=== PATIENT | male | born 1940 | race Caucasian/White ===

== ENCOUNTER → 2016-04-23 | Outpatient (CLI) | payer MEDICARE, OTHER ==
[~2016-04-23] MED LIST: /ESOM40CA OR; /WARF5TA OR; ASPI1TAB PO; ATEN100T OR; ATEN50TA2 OR; CALCCHW12 OR; CARV25TA PO; DIGO0.257 OR; FLON0.05; FURO20TA2 OR; GLUC500T3 OR; HYDR25TA6 OR; LISI10TA4 OR; OCUVITE OR; QUININE SULFATE; QUININE SULFATE OR; SILDENAFIL OR; SLOWTAB OR; TYL OR; VIAG100T PO
[2016-04-23 14:27] LABS: MEAN CORPUSCULAR HEMOGLOBIN 34.3 pg (27.0-33.0); MEAN CORPUSCULAR HGB CONC 33.6 g/dl (32.0-36.5); MEAN CORPUSCULAR VOLUME 102.1 fl (80.0-96.0); RED CELL DISTRIBUTION WIDTH 12.8 % (11.5-14.5); WHITE BLOOD COUNT 5.2 K/mm3 (4.0-10.0)
[2016-04-23 14:33] LABS: ALBUMIN 3.6 GM/DL (3.2-5.2); ALBUMIN/GLOBULIN RATIO 1.5 (1.00-1.93); BILIRUBIN,TOTAL 0.3 MG/DL (0.2-1.0); CALCIUM LEVEL 8.6 MG/DL (8.8-10.2); CREATININE FOR GFR 1.27 MG/DL (0.70-1.30); GLOMERULAR FILTRATION RATE 58.9 (>42); MAGNESIUM LEVEL 2.3 MG/DL (1.8-2.4)
== END ==
LOC: M WUC 08:21
PROVIDERS: ATTEND Internal Medicine
DX: D75.89 Other specified diseases of blood and blood-forming organs (principal); I10 Essential (primary) hypertension; E78.00 Pure hypercholesterolemia, unspecified

== ENCOUNTER → 2016-05-12 | Outpatient (CLI) | payer MEDICARE, OTHER ==
[~2016-05-12] VITALS: Ht 177.8 cm; Wt 80.3 kg
[~2016-05-12] MED LIST changes: +CITA20TA4 PO; +DITR5TAB PO; +LIDOCAINE 2% INJ 100 MG/5 ML SDV (FOR ANES.) As Ordered ONE; +NS 1,000 ML IV SCH; +PROPOFOL 200 MG/20 ML VIAL As Ordered ONE; +VITA10002 PO; +XARE20TA PO
--- NOTE | 2016-05-12 11:43 | ROOR ---
Patient Name: Victor Hugo Santoyo Procedure Date: 05/12/2016 11:25 AM Date of : 1940 Age: 75 Room: [facility] Gender: Male Note Status: Finalized Procedure: Upper GI endoscopy + Biopsies Indications: Heartburn, Follow-up of Nguyen's esophagus Providers: Manuel Gomez MD Referring MD: Jason Soto MD Requesting Provider: Medicines: Monitored Anesthesia Care Complications: No immediate complications. Procedure: Pre-Anesthesia Assessment: - The heart rate, respiratory rate, oxygen saturations, blood pressure, adequacy of pulmonary ventilation, and response to care were monitored throughout the procedure. The Endoscope was introduced through the mouth, and advanced to the second part of duodenum. The upper GI endoscopy was accomplished without difficulty. The patient tolerated the procedure well. Findings: The Z-line was irregular and was found 40 cm from the incisors. Multiple biopsies were obtained with cold forceps for evaluation to rule out Nguyen's Esophagus randomly at the gastroesophageal junction. A small hiatal hernia was present. No other significant abnormalities were identified in a careful examination of the stomach. The exam of the duodenum was otherwise normal. Impression: - Z-line irregular, 40 cm from the incisors. - Small hiatal hernia. - Multiple biopsies were obtained at the gastroesophageal junction. - The examination was otherwise normal. Recommendation: - Patient has a contact number available for emergencies. The signs and symptoms of potential delayed complications were discussed with the patient. Return to normal activities tomorrow. Written discharge instructions were provided to the patient. - High fiber diet. - Discharge patient to home. - Follow an antireflux regimen. - Continue present medications. - Await pathology results. - Return to referring physician. - The findings and recommendations were discussed with the patient's family. - Check Portal Online for Path Results.([email or web address]) Manuel Gomez MD Manuel Gomez MD 05/12/2016 11:43:21 AM This report has been signed electronically. Number of Addenda: 0 Note Initiated On: 05/12/2016 11:25 AM Estimated Blood Loss: Estimated blood loss: none.
--- NOTE | 2016-05-12 12:00 | ROOR ---
Patient Name: Victor Hugo Santoyo Procedure Date: 05/12/2016 11:26 AM Date of : 1940 Age: 75 Room: [facility] Gender: Male Note Status: Finalized Procedure: Colonoscopy to Cecum + Cold Snare Polypectomy Indications: High risk colon cancer surveillance: Personal history of colonic polyps, Last colonoscopy: 2013 Providers: Manuel Gomez MD Referring MD: Jason Soto MD Requesting Provider: Medicines: Monitored Anesthesia Care Complications: No immediate complications. Procedure: Pre-Anesthesia Assessment: - The heart rate, respiratory rate, oxygen saturations, blood pressure, adequacy of pulmonary ventilation, and response to care were monitored throughout the procedure. The Colonoscope was introduced through the anus and advanced to the cecum, identified by appendiceal orifice and ileocecal valve. The colonoscopy was performed without difficulty. The patient tolerated the procedure well. The quality of the bowel preparation was excellent. Findings: The perianal and digital rectal examinations were normal. Non-bleeding internal hemorrhoids were found during retroflexion. The hemorrhoids were small and Grade I (internal hemorrhoids that do not prolapse). Scattered small-mouthed diverticula were found in the recto-sigmoid colon, sigmoid colon and descending colon. A small polyp was found in the mid ascending colon. The polyp was sessile. The polyp was removed with a cold snare. Resection and retrieval were complete. The exam was otherwise without abnormality on direct and retroflexion views. Impression: - Non-bleeding internal hemorrhoids. - Diverticulosis in the recto-sigmoid colon, in the sigmoid colon and in the descending colon. - One small polyp in the mid ascending colon, removed with a cold snare. Resected and retrieved. - The examination was otherwise normal on direct and retroflexion views. - The exam was otherwise normal to the cecum. Recommendation: - Patient has a contact number available for emergencies. The signs and symptoms of potential delayed complications were discussed with the patient. Return to normal activities tomorrow. Written discharge instructions were provided to the patient. - High fiber diet. - Discharge patient to home. - Continue present medications. - Await pathology results. - Repeat colonoscopy for symptoms only, due to age. - Check Portal Online for Path Results.([email or web address] - The findings and recommendations were discussed with the patient's family. - Resume Xarelto (rivaroxaban) at prior dose today. Manuel Gomez MD Manuel Gomez MD 05/12/2016 12:00:40 PM This report has been signed electronically. Number of Addenda: 0 Note Initiated On: 05/12/2016 11:26 AM Estimated Blood Loss: Estimated blood loss: none.
[2016-05-12 12:40] VITALS: BP 110/68
== END | disposition home or self-care (01) ==
LOC: M OPP 10:29
PROVIDERS: ATTEND Internal Medicine Gastroenterology
DX: Z12.11 Encounter for screening for malignant neoplasm of colon (principal); D12.2 Benign neoplasm of ascending colon; K64.0 First degree hemorrhoids; K57.30 Diverticulosis of large intestine without perforation or abscess without bleeding; R12 Heartburn; K22.8 Other specified diseases of esophagus; K44.9 Diaphragmatic hernia without obstruction or gangrene; K20.9 Esophagitis, unspecified; M19.90 Unspecified osteoarthritis, unspecified site; I48.91 Unspecified atrial fibrillation; H26.9 Unspecified cataract; G25.81 Restless legs syndrome; I10 Essential (primary) hypertension; Z79.01 Long term (current) use of anticoagulants; Z79.899 Other long term (current) drug therapy; Z79.51 Long term (current) use of inhaled steroids; Z79.82 Long term (current) use of aspirin; Z88.0 Allergy status to penicillin; Z88.8 Allergy status to other drugs, medicaments and biological substances

== ENCOUNTER → 2016-07-25 | Outpatient (CLI) | payer MEDICARE, OTHER ==
[~2016-07-25] MED LIST changes: +CALCTAB28 PO; +CARV6.25 PO; +DIGO0.25 PO; +DONE5TAB17 PO; +ESOM1CAP5 PO; +FLUT1SPR2; +GLUC1CAP9 PO; +KETO2SH TOP; -LIDOCAINE 2% INJ 100 MG/5 ML SDV (FOR ANES.) As Ordered ONE; +LISI10TA2 PO; +NORCOTAB PO; -NS 1,000 ML IV SCH; -PROPOFOL 200 MG/20 ML VIAL As Ordered ONE; +SLOWTAB2 PO; +ZOFR4TAB3 PO
--- NOTE | 2016-07-25 11:39 | REP ---
CT BRAIN WITHOUT CONTRAST: REASON FOR EXAM: Dementia. PRIORS: None. TECHNIQUE: 4.5 mm contiguous transaxial sections were obtained from the skull base to the cerebral convexities with thin cuts through the posterior fossa without the administration of intravenous contrast. FINDINGS: The ventricles and sulci are consistent with the patient's age. There are no extra-axial fluid collections. There is no mass effect. The deep cerebral white matter is consistent with the patient's age. The orbital and petrous structures , cerebellopontine angles, and posterior fossa are unremarkable. The sella turcica, cavernous, and paracavernous structures are essentially unremarkable. The visualized portions of the paranasal sinuses and mastoid air cells are clear. Images of the skull base show no gross abnormality. IMPRESSION: Essentially unremarkable CT examination of the brain. Signed by Hasmukh Swartz DO 07/25/2016 11:53 A
== END ==
LOC: M RAD 08:52
PROVIDERS: ATTEND Student in an Organized Health Care Education/Training Program
DX: F03.90 Unspecified dementia, unspecified severity, without behavioral disturbance, psychotic disturbance, mood disturbance, and anxiety (principal)

== ENCOUNTER 2016-07-31 09:31 | Emergency (ER) | payer MEDICARE, OTHER ==
[~2016-07-31] VITALS: Ht 177.8 cm; Wt 81.0 kg
[~2016-07-31 09:31] MED LIST changes: -CALCTAB28 PO; -CARV6.25 PO; -DIGO0.25 PO; -DONE5TAB17 PO; -ESOM1CAP5 PO; -FLUT1SPR2; -GLUC1CAP9 PO; -KETO2SH TOP; -LISI10TA2 PO; -NORCOTAB PO; -SLOWTAB2 PO; -ZOFR4TAB3 PO
[2016-07-31] MEDS ORDERED: DONE5TAB17 PO (09:51)
[2016-07-31] MEDS ORDERED: SLOWTAB2 PO (09:51)
[2016-07-31] MEDS ORDERED: KETO2SH TOP (09:51)
[2016-07-31] MEDS ORDERED: FLUT1SPR2 (09:51)
[2016-07-31] MEDS ORDERED: CALCTAB28 PO (09:51)
[2016-07-31] MEDS ORDERED: CARV6.25 PO (09:51)
[2016-07-31] MEDS ORDERED: DIGO0.25 PO (09:51)
[2016-07-31] MEDS ORDERED: ESOM1CAP5 PO (09:51)
[2016-07-31] MEDS ORDERED: GLUC1CAP9 PO (09:51)
[2016-07-31 10:40] LABS: ALBUMIN 3.9 GM/DL (3.2-5.2); ALKALINE PHOSPHATASE 64 U/L (45-117); ALT/SGPT 24 U/L (12-78); ANION GAP 2 MEQ/L (8-16); AST/SGOT 17 U/L (15-37); BASO % 0.3 % (0.0-1.0); BILIRUBIN,DIRECT 0.1 MG/DL (0.0-0.2); BILIRUBIN,TOTAL 0.8 MG/DL (0.2-1.0); BLOOD UREA NITROGEN 18 MG/DL (7-18); CALCIUM LEVEL 9.1 MG/DL (8.8-10.2); CARBON DIOXIDE LEVEL 32 MEQ/L (21-32); CHLORIDE LEVEL 105 MEQ/L (98-107); CREATININE FOR GFR 1.14 MG/DL (0.70-1.30); EOS % 0.3 % (0.0-3.0); GLOMERULAR FILTRATION RATE > 60.0 (>42); GLUCOSE, FASTING 131 MG/DL (83-110); LARGE UNSTAINED CELL # 0.1 K/mm3 (0.0-0.4); LYMPH # 0.7 K/mm3 (1.5-4.5); LYMPH % 7.1 % (24.0-44.0); MEAN CORPUSCULAR HEMOGLOBIN 34.3 pg (27.0-33.0); MEAN CORPUSCULAR HGB CONC 33.8 g/dl (32.0-36.5); MEAN CORPUSCULAR VOLUME 101.4 fl (80.0-96.0); MONO # 0.4 K/mm3 (0.0-0.8); MONO % 3.9 % (0.0-5.0); NEUTROPHILS # 8.8 K/mm3 (1.8-7.7); NEUTROPHILS % 87.5 % (36.0-66.0); PLATELET COUNT, AUTOMATED 382 k/mm3 (150-450); POTASSIUM SERUM 4.7 MEQ/L (3.5-5.1); RED CELL DISTRIBUTION WIDTH 12.5 % (11.5-14.5); SODIUM LEVEL 139 MEQ/L (136-145); TOTAL PROTEIN 6.5 GM/DL (6.4-8.2)
[2016-07-31] MEDS ORDERED: ONDANSETRON 4MG/2ML VIAL (J2405) IV ONE (11:00)
[2016-07-31] MEDS ORDERED: ISOVUE-370 76% 100ML VIAL (Q9967) As Ordered ONE (12:13)
--- NOTE | 2016-07-31 12:42 | REP ---
Clinical: Acute chest pain. Technique: Axial contrast enhanced images from the thoracic inlet to the upper abdomen using 100 ml Isovue 370 intravenous contrast material with coronal and sagittal re-formations. Findings: Satisfactory enhancement of the pulmonary vasculature is achieved and no filling defects are identified to suggest pulmonary embolus. Atherosclerotic changes to the thoracic aorta and coronary arteries noted without aortic aneurysm, or pericardial effusion. Pacemaker leads in satisfactory position. Bilateral lung ennis are well aerated and clear without acute pulmonary parenchymal consolidation or atelectasis. No nodule or mass lesion. No pleural effusion/reaction. No pneumothorax. No adenopathy. Limited evaluation of the upper abdomen demonstrates small hiatal hernia as well as complex presumed cystic changes to the left kidney which may warrant reevaluation and follow-up. Impression: No evidence for pulmonary embolus. No acute pleuroparenchymal or mediastinal process. Incompletely evaluated complex cystic changes to the left kidney. Small hiatal hernia. Signed by Melvin Abarca MD 07/31/2016 12:33 P
[2016-07-31 12:44] LABS: DIGOXIN LEVEL 2.1 NG/ML (0.5-2.0); MAGNESIUM LEVEL 2.3 MG/DL (1.8-2.4)
[2016-07-31] MEDS ORDERED: hydrALAZINE INJ 20 MG/ML VIAL IV ONE ×2 (14:15→15:30)
[2016-07-31] MEDS ORDERED: NORCO, ANEXSIA 5/325MG TABLET (HYDROcodone/ACETAMINOPHEN) PO ONE (16:15)
[2016-07-31] MEDS ORDERED: LISI10TA2 PO (16:26)
[2016-07-31] MEDS ORDERED: NORCOTAB PO (16:27)
[2016-07-31] MEDS ORDERED: ZOFR4TAB3 PO (18:01)
[2016-07-31 18:05] VITALS: BP 224/106
[2016-07-31 18:36] VITALS: BP 194/89
--- NOTE | 2016-07-31 18:43 | ED PDOC ---
Post-Departure Follow-Up radiology report faxed to Tawana Arguello MD Jul 31, 2016 18:43
--- NOTE | 2016-07-31 20:01 | ECGEPIP ---
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
--- NOTE | 2016-08-03 16:30 | REP ---
Chest x-ray: Two views: History: Posterior chest pain. Comparison study 03/12/2013. Findings: The lungs are quite hyperinflated as before. Right hemidiaphragm remains somewhat elevated. A bipolar pacemaker is seen in the right heart via the left side. Heart size is normal. EKG electrodes are seen. There are degenerative changes in the thoracic spine and aorta as before. Pulmonary vasculature is not increased. Impression: Hyperinflation consistent with some degree of COPD. Pacemaker in place. Otherwise no acute disease. Signed by Tay Quarles MD 08/04/2016 09:29 A
== END 2016-07-31 18:46 | disposition home or self-care (01) ==
LOC: M ED 10:59
DX: M54.9 Dorsalgia, unspecified (principal); I10 Essential (primary) hypertension
CPT/HCPCS: 71020; 71275; 80048; 80076; 80162; 82550; 82553; 83690; 83735; 84484; 85025; 93005; 93041; 96374; 96375; 96376; 99285; J2405; Q9967

== ENCOUNTER → 2016-09-12 | Outpatient (CLI) | payer MEDICARE, OTHER ==
[~2016-09-12] MED LIST changes: +CALCTAB28 PO; +CARV6.25 PO; +DIGO0.25 PO; +DONE5TAB17 PO; +ESOM1CAP5 PO; +FLUT1SPR2; +GLUC1CAP9 PO; +KETO2SH TOP; +LISI10TA2 PO; +NORCOTAB PO; +SLOWTAB2 PO; +ZOFR4TAB3 PO
[2016-09-12 13:31] LABS: BASO % 0.3 % (0.0-1.0); EOS # 0.1 K/mm3 (0.0-0.50); EOS % 2.2 % (0.0-3.0); LARGE UNSTAINED CELL # 0.1 K/mm3 (0.0-0.4); LARGE UNSTAINED CELL % 1.9 % (0.0-4.0); LYMPH % 19.3 % (24.0-44.0); MEAN CORPUSCULAR HEMOGLOBIN 33.4 pg (27.0-33.0); MEAN CORPUSCULAR VOLUME 101.1 fl (80.0-96.0); MONO # 0.3 K/mm3 (0.0-0.8); MONO % 7.1 % (0.0-5.0); NEUTROPHILS # 3.3 K/mm3 (1.8-7.7); NEUTROPHILS % 69.1 % (36.0-66.0); PLATELET COUNT, AUTOMATED 345 k/mm3 (150-450); RED CELL DISTRIBUTION WIDTH 12.7 % (11.5-14.5); WHITE BLOOD COUNT 4.8 K/mm3 (4.0-10.0)
[2016-09-12 15:26] LABS: ALBUMIN 3.6 GM/DL (3.2-5.2); ALBUMIN/GLOBULIN RATIO 1.38 (1.00-1.93); BILIRUBIN,TOTAL 0.4 MG/DL (0.2-1.0); CALCIUM LEVEL 9.2 MG/DL (8.8-10.2); CREATININE FOR GFR 1.29 MG/DL (0.70-1.30); GLOMERULAR FILTRATION RATE 57.8 (>42); TOTAL PROTEIN 6.2 GM/DL (6.4-8.2)
== END ==
LOC: M SMT 08:49
PROVIDERS: ATTEND Internal Medicine Cardiovascular Disease
DX: R42 Dizziness and giddiness (principal); I10 Essential (primary) hypertension; E78.00 Pure hypercholesterolemia, unspecified

== ENCOUNTER → 2016-09-21 | Outpatient (CLI) | payer MEDICARE, OTHER | LOC: M WUC 14:59 | PROVIDERS: ATTEND Internal Medicine Cardiovascular Disease | DX: I48.0 Paroxysmal atrial fibrillation (principal); I10 Essential (primary) hypertension ==

== ENCOUNTER → 2016-10-23 | Outpatient (CLI) | payer MEDICARE, OTHER ==
[2016-10-23 12:25] LABS: ALBUMIN 3.5 GM/DL (3.2-5.2); ALBUMIN/GLOBULIN RATIO 1.35 (1.00-1.93); ALKALINE PHOSPHATASE 68 U/L (45-117); ALT/SGPT 25 U/L (12-78); ANION GAP 2 MEQ/L (8-16); AST/SGOT 15 U/L (15-37); BILIRUBIN,TOTAL 0.3 MG/DL (0.2-1.0); BLOOD UREA NITROGEN 29 MG/DL (7-18); CALCIUM LEVEL 9.2 MG/DL (8.8-10.2); CARBON DIOXIDE LEVEL 34 MEQ/L (21-32); CHLORIDE LEVEL 105 MEQ/L (98-107); CHOLESTEROL LEVEL 171 MG/DL (<200); CREATININE FOR GFR 1.17 MG/DL (0.70-1.30); GLOMERULAR FILTRATION RATE > 60.0 (>42); GLUCOSE, FASTING 96 MG/DL (83-110); SODIUM LEVEL 141 MEQ/L (136-145); TOTAL PROTEIN 6.1 GM/DL (6.4-8.2); TRIGLYCERIDES LEVEL 63 MG/DL (<150)
[2016-10-23 12:57] LABS: POTASSIUM SERUM 5.2 MEQ/L (3.5-5.1)
== END ==
LOC: M WUC 08:54
PROVIDERS: ATTEND Internal Medicine
DX: I10 Essential (primary) hypertension (principal); E78.00 Pure hypercholesterolemia, unspecified

== ENCOUNTER → 2017-04-22 | Outpatient (CLI) | payer MEDICARE, OTHER ==
[2017-04-22 18:03] LABS: HEMATOCRIT 39.8 % (42.0-52.0); HEMOGLOBIN 13.1 g/dl (14.0-18.0); MEAN CORPUSCULAR HEMOGLOBIN 33.4 pg (27.0-33.0); MEAN CORPUSCULAR HGB CONC 32.9 g/dl (32.0-36.5); MEAN CORPUSCULAR VOLUME 101.5 fl (80.0-96.0); PLATELET COUNT, AUTOMATED 368 10^3/uL (150-450); RED BLOOD COUNT 3.92 10^6/uL (4.30-6.10); RED CELL DISTRIBUTION WIDTH 13.1 % (11.5-14.5); WHITE BLOOD COUNT 4.7 10^3/uL (4.0-10.0)
[2017-04-22 18:15] LABS: ALBUMIN 3.6 GM/DL (3.2-5.2); ALKALINE PHOSPHATASE 67 U/L (45-117); ALT/SGPT 22 U/L (12-78); ANION GAP 5 MEQ/L (8-16); AST/SGOT 18 U/L (7-37); BILIRUBIN,TOTAL 0.3 MG/DL (0.2-1.0); BLOOD UREA NITROGEN 17 MG/DL (7-18); CALCIUM LEVEL 8.9 MG/DL (8.8-10.2); CARBON DIOXIDE LEVEL 30 MEQ/L (21-32); CHLORIDE LEVEL 109 MEQ/L (98-107); CREATININE FOR GFR 1.22 MG/DL (0.70-1.30); GLOMERULAR FILTRATION RATE > 60.0 (>42); GLUCOSE, FASTING 101 MG/DL (70-100); MAGNESIUM LEVEL 2.6 MG/DL (1.8-2.4); SODIUM LEVEL 144 MEQ/L (136-145)
[2017-04-22 18:16] LABS: POTASSIUM SERUM 5.2 MEQ/L (3.5-5.1)
== END ==
LOC: M WUC 08:35
DX: D75.89 Other specified diseases of blood and blood-forming organs (principal); I10 Essential (primary) hypertension
CPT/HCPCS: 83735

== ENCOUNTER 2017-05-27 07:51 | Emergency (ER) | payer MEDICARE, OTHER ==
[2017-05-27 08:30] LABS: BASO % 0.3 % (0.0-1.0); EOS # 0.1 10^3/uL (0.0-0.50); EOS % 0.6 % (0.0-3.0); HEMATOCRIT 42.6 % (42.0-52.0); HEMOGLOBIN 14.8 g/dl (13.5-17.5); IMMATURE GRANULOCYTE % 0.4 % (0-3.0); LYMPH # 1.9 10^3/uL (1.5-4.5); LYMPH % 15.4 % (24.0-44.0); MEAN CORPUSCULAR HEMOGLOBIN 33.1 pg (27.0-33.0); MEAN CORPUSCULAR HGB CONC 34.7 g/dl (32.0-36.5); MEAN CORPUSCULAR VOLUME 95.3 fl (80.0-96.0); MONO # 0.8 10^3/uL (0.0-0.8); MONO % 6.7 % (0.0-5.0); NEUTROPHILS # 9.2 10^3/uL (1.8-7.7); NEUTROPHILS % 76.6 % (36.0-66.0); PLATELET COUNT, AUTOMATED 373 10^3/uL (150-450); RED BLOOD COUNT 4.47 10^6/uL (4.30-6.10); RED CELL DISTRIBUTION WIDTH 12.7 % (11.5-14.5)
[2017-05-27] MEDS: ASPIRIN 81 MG CHEW TABLET PO (08:32)
[2017-05-27] MEDS: PERCOCET 5MG/325MG TAB PO (08:40)
[2017-05-27] MEDS: KETOROLAC 30 MG/ML VIAL (J1885) IV (08:55)
[2017-05-27 08:57] LABS: ALBUMIN 4.1 GM/DL (3.2-5.2); ALBUMIN/GLOBULIN RATIO 1.37 (1.00-1.93); ALKALINE PHOSPHATASE 82 U/L (45-117); ALT/SGPT 20 U/L (12-78); ANION GAP 9 MEQ/L (8-16); AST/SGOT 17 U/L (7-37); BILIRUBIN,DIRECT < 0.1 MG/DL (0.0-0.2); BILIRUBIN,TOTAL 0.4 MG/DL (0.2-1.0); BLOOD UREA NITROGEN 26 MG/DL (7-18); CALCIUM LEVEL 9.4 MG/DL (8.8-10.2); CARBON DIOXIDE LEVEL 26 MEQ/L (21-32); CHLORIDE LEVEL 107 MEQ/L (98-107); CPK CREATINE PHOSPHOKINASE 115 U/L (39-308); CREATININE FOR GFR 1.51 MG/DL (0.70-1.30); GLOMERULAR FILTRATION RATE 48.1 (>42); GLUCOSE, FASTING 125 MG/DL (70-100); LIPASE 141 U/L (73-393); POTASSIUM SERUM 4.2 MEQ/L (3.5-5.1); SODIUM LEVEL 142 MEQ/L (136-145); TOTAL PROTEIN 7.1 GM/DL (6.4-8.2); TROPONIN I < 0.02 NG/ML (< 0.10)
[2017-05-27 08:58] LABS: CK-MB VALUE MASS 5.4 NG/ML (<3.6); MB/CK RELATIVE INDEX 4.69 (< OR =4); NT-PRO BNP 1756 PG/ML (<450)
[2017-05-27] MEDS: MORPHINE 2 MG/ML 1ML SYRINGE (J2270) IV (09:22)
[2017-05-27] MEDS: ONDANSETRON 4MG/2ML VIAL (J2405) IV (09:30)
[2017-05-27 11:22] LABS: C REACTIVE PROTEIN QUANTITATIV < 0.30 MG/DL (0.00-0.30)
[2017-05-27 11:39] LABS: ERYTHROCYTE SEDIMENTATION RATE 4 mm/hr (0-20)
[2017-05-27 13:37] LABS: CPK CREATINE PHOSPHOKINASE 127 U/L (39-308); TROPONIN I 0.02 NG/ML (< 0.10)
[2017-05-27 13:38] LABS: CK-MB VALUE MASS 4.6 NG/ML (<3.6); MB/CK RELATIVE INDEX 3.62 (< OR =4)
[2017-05-27] MEDS: GABAPENTIN 100 MG CAP PO (13:54)
== END 2017-05-27 14:46 | disposition home or self-care (01) ==
LOC: M ED 07:51
DX: G56.02 Carpal tunnel syndrome, left upper limb (principal); R93.7 Abnormal findings on diagnostic imaging of other parts of musculoskeletal system; Z86.69 Personal history of other diseases of the nervous system and sense organs; Z95.0 Presence of cardiac pacemaker; Z98.890 Other specified postprocedural states; Z85.820 Personal history of malignant melanoma of skin; Z88.8 Allergy status to other drugs, medicaments and biological substances; Z88.0 Allergy status to penicillin; Z79.82 Long term (current) use of aspirin; Z79.899 Other long term (current) drug therapy; Z79.51 Long term (current) use of inhaled steroids
CPT/HCPCS: J2405

== ENCOUNTER → 2017-10-24 | Outpatient (CLI) | payer MEDICARE, OTHER ==
[2017-10-24 09:27] LABS: ALBUMIN 3.6 GM/DL (3.2-5.2); ALBUMIN/GLOBULIN RATIO 1.38 (1.00-1.93); ALKALINE PHOSPHATASE 82 U/L (45-117); ALT/SGPT 32 U/L (12-78); ANION GAP 6 MEQ/L (8-16); AST/SGOT 25 U/L (7-37); BILIRUBIN,TOTAL 0.5 MG/DL (0.2-1.0); BLOOD UREA NITROGEN 26 MG/DL (7-18); CARBON DIOXIDE LEVEL 31 MEQ/L (21-32); CHLORIDE LEVEL 107 MEQ/L (98-107); CHOLESTEROL LEVEL 188 MG/DL (<200); CHOLESTEROL RISK RATIO 2.647 (<5); CREATININE FOR GFR 1.46 MG/DL (0.70-1.30); GLUCOSE, FASTING 98 MG/DL (70-100); HDL CHOLESTEROL 71 MG/DL (>40); LDL CHOLESTEROL 103 MG/DL (<100); MAGNESIUM LEVEL 2.7 MG/DL (1.8-2.4); NON-HDL-C 117 MG/DL; POTASSIUM SERUM 5.2 MEQ/L (3.5-5.1); SODIUM LEVEL 144 MEQ/L (136-145); TOTAL PROTEIN 6.2 GM/DL (6.4-8.2); TRIGLYCERIDES LEVEL 70 MG/DL (<150)
== END ==
LOC: M WUC 08:10
DX: I10 Essential (primary) hypertension (principal); E78.00 Pure hypercholesterolemia, unspecified
CPT/HCPCS: 83735

== ENCOUNTER → 2017-12-15 | Outpatient (CLI) | payer MEDICARE, OTHER | LOC: M WUC 10:55 | DX: M79.9 Soft tissue disorder, unspecified (principal); M25.522 Pain in left elbow | CPT/HCPCS: 73080 ==

== ENCOUNTER → 2018-02-01 | Outpatient (REF) | payer MEDICARE, OTHER ==
[~2018-02-01] MED LIST changes: -DONE5TAB17 PO; +DONE5TAB64 PO; +GABA-1171 PO; +ZOFR4TAB14 PO; -ZOFR4TAB3 PO
== END ==
LOC: M SFHCPLAZ 09:57
PROVIDERS: ATTEND Internal Medicine
DX: F09 Unspecified mental disorder due to known physiological condition (principal); K59.09 Other constipation; R63.0 Anorexia; I48.0 Paroxysmal atrial fibrillation
CPT/HCPCS: 36415; 84443; G0463

== ENCOUNTER → 2018-05-01 | Outpatient (REF) | payer MEDICARE, OTHER ==
[2018-05-01 13:29] LABS: HEMATOCRIT 39.8 % (42.0-52.0); HEMOGLOBIN 12.9 g/dl (13.5-17.5); MEAN CORPUSCULAR HGB CONC 32.4 g/dl (32.0-36.5); MEAN CORPUSCULAR VOLUME 101.8 fl (80.0-96.0); PLATELET COUNT, AUTOMATED 334 10^3/uL (150-450); RED BLOOD COUNT 3.91 10^6/uL (4.30-6.10); WHITE BLOOD COUNT 6.2 10^3/uL (4.0-10.0)
[2018-05-01 13:42] LABS: ALBUMIN 3.6 GM/DL (3.2-5.2); ALT/SGPT 28 U/L (12-78); BILIRUBIN,TOTAL 0.5 MG/DL (0.2-1.0); BLOOD UREA NITROGEN 24 MG/DL (7-18); CALCIUM LEVEL 8.7 MG/DL (8.8-10.2); CARBON DIOXIDE LEVEL 32 MEQ/L (21-32); CHLORIDE LEVEL 108 MEQ/L (98-107); CHOLESTEROL LEVEL 179 MG/DL (<200); CHOLESTEROL RISK RATIO 2.796 (<5); CREATININE FOR GFR 1.54 MG/DL (0.70-1.30); GLOMERULAR FILTRATION RATE 46.9 (>42); GLUCOSE, FASTING 106 MG/DL (70-100); HDL CHOLESTEROL 64 MG/DL (>40); LDL CHOLESTEROL 102 MG/DL (<100); MAGNESIUM LEVEL 2.4 MG/DL (1.8-2.4); NON-HDL-C 115 MG/DL; POTASSIUM SERUM 4.9 MEQ/L (3.5-5.1); SODIUM LEVEL 142 MEQ/L (136-145); THYROID STIMULATING HORMONE 0.862 uIU/ML (0.358-3.740); TOTAL PROTEIN 5.8 GM/DL (6.4-8.2); TRIGLYCERIDES LEVEL 67 MG/DL (<150)
[2018-05-01 13:44] LABS: FOLATE 8.3 NG/ML; VITAMIN B12 LEVEL > 2000 PG/ML
== END ==
LOC: M LABNEURO 09:03
PROVIDERS: ATTEND Internal Medicine
DX: Z86.010 Personal history of colon polyps (principal); I12.9 Hypertensive chronic kidney disease with stage 1 through stage 4 chronic kidney disease, or unspecified chronic kidney disease; E78.00 Pure hypercholesterolemia, unspecified; F09 Unspecified mental disorder due to known physiological condition

== ENCOUNTER → 2018-11-28 | Outpatient (REF) | payer MEDICARE, OTHER ==
[~2018-11-28] MED LIST changes: -/ESOM40CA OR; -/WARF5TA OR; -ASPI1TAB PO; +ASPI81TA26 PO; -CITA20TA4 PO; +CITA20TA6 PO; +COUM1TAB17 OR; +CYAN100049 PO; +HYDR-3715 PO; -KETO2SH TOP; +KETO2SHA9 TOP; +LISI10TA15 PO; -LISI10TA2 PO; +NEXI1CAP3 OR; -NORCOTAB PO; -VITA10002 PO
[2018-11-28 11:07] LABS: HEMATOCRIT 38.7 % (42.0-52.0); HEMOGLOBIN 12.6 g/dl (13.5-17.5); MEAN CORPUSCULAR HEMOGLOBIN 33.4 pg (27.0-33.0); MEAN CORPUSCULAR HGB CONC 32.6 g/dl (32.0-36.5); MEAN CORPUSCULAR VOLUME 102.7 fl (80.0-96.0); PLATELET COUNT, AUTOMATED 352 10^3/uL (150-450); RED BLOOD COUNT 3.77 10^6/uL (4.30-6.10); WHITE BLOOD COUNT 6.6 10^3/uL (4.0-10.0)
[2018-11-28 11:33] LABS: ALBUMIN 3.3 GM/DL (3.2-5.2); BILIRUBIN,TOTAL 0.5 MG/DL (0.2-1.0); CALCIUM LEVEL 8.7 MG/DL (8.8-10.2); CREATININE FOR GFR 1.5 MG/DL (0.70-1.30); GLOMERULAR FILTRATION RATE 48.2 (>42); POTASSIUM SERUM 4.7 MEQ/L (3.5-5.1); PTH INTACT 78.4 PG/ML (18.5-88.0); TOTAL PROTEIN 6.1 GM/DL (6.4-8.2)
[2018-11-28 11:53] LABS: MALB URINE SIEMENS 21.2 MG/L
[2018-11-28 13:41] LABS: HEMOGLOBIN A1c 5.8 %
== END ==
LOC: M SFHCPLAZ 08:26
PROVIDERS: ATTEND Internal Medicine
DX: N18.3 Chronic kidney disease, stage 3 (moderate) (principal); I12.9 Hypertensive chronic kidney disease with stage 1 through stage 4 chronic kidney disease, or unspecified chronic kidney disease; R73.01 Impaired fasting glucose

== ENCOUNTER → 2019-05-07 | Outpatient (REF) | payer MEDICARE, OTHER ==
[2019-05-07 13:24] LABS: HEMATOCRIT 41.9 % (42.0-52.0); HEMOGLOBIN 13.5 g/dl (13.5-17.5); MEAN CORPUSCULAR HEMOGLOBIN 32.8 pg (27.0-33.0); MEAN CORPUSCULAR HGB CONC 32.2 g/dl (32.0-36.5); MEAN CORPUSCULAR VOLUME 101.7 fl (80.0-96.0); PLATELET COUNT, AUTOMATED 351 10^3/uL (150-450); RED BLOOD COUNT 4.12 10^6/uL (4.30-6.10)
[2019-05-07 13:41] LABS: HEMOGLOBIN A1c 6.2 %
[2019-05-07 13:56] LABS: ALBUMIN 3.5 GM/DL (3.2-5.2); BILIRUBIN,TOTAL 0.5 MG/DL (0.2-1.0); CALCIUM LEVEL 8.9 MG/DL (8.8-10.2); CREATININE FOR GFR 1.7 MG/DL (0.70-1.30); GLOMERULAR FILTRATION RATE 41.7 (>42); POTASSIUM SERUM 4.9 MEQ/L (3.5-5.1); TOTAL PROTEIN 6.4 GM/DL (6.4-8.2)
[2019-05-07 14:05] LABS: MALB URINE SIEMENS 33.8 MG/L; MAU/CREAT RATIO 19.7 MCG/MG (0.0-30.0)
== END ==
LOC: M LABNEURO 08:11
PROVIDERS: ATTEND Internal Medicine
DX: I12.9 Hypertensive chronic kidney disease with stage 1 through stage 4 chronic kidney disease, or unspecified chronic kidney disease (principal); R73.01 Impaired fasting glucose; N18.3 Chronic kidney disease, stage 3 (moderate)

== ENCOUNTER 2019-09-04 07:25 | Emergency (ER) | payer MEDICARE, OTHER ==
[~2019-09-04 07:25] MED LIST changes: +KETO2SHA8 TOP; -KETO2SHA9 TOP
--- NOTE | 2019-10-24 08:57 | REP ---
RIGHT LOWER EXTREMITY DOPPLER ULTRASOUND: HISTORY: Right leg pain and swelling. TECHNIQUE: Real time, powell scale and color Doppler evaluation using linear high frequency transducer. FINDINGS: Directed ultrasound examination of the right lower extremity deep venous structures from the common femoral vein to the popliteal vein demonstrates normal compressibility, flow and wave patterns in response to respiration and augmentation. Incidental duplication of the mid-femoral vein noted, again without evidence for deep venous thrombosis. There is a complex collection in the posterior knee/popliteal fossa measuring 5.7 x 2.4 x 3.8 cm consistent with Smyth's cyst. IMPRESSION: 1. No evidence for DVT. 2. Complex Smyth's cyst in the popliteal fossa. MTDD
== END 2019-09-04 10:15 | disposition home or self-care (01) ==
LOC: M ED 07:25
DX: M71.21 Synovial cyst of popliteal space [Baker], right knee (principal); M17.11 Unilateral primary osteoarthritis, right knee; I10 Essential (primary) hypertension; I48.91 Unspecified atrial fibrillation; G30.9 Alzheimer's disease, unspecified; Z95.0 Presence of cardiac pacemaker; Z79.899 Other long term (current) drug therapy; Z79.82 Long term (current) use of aspirin; Z79.01 Long term (current) use of anticoagulants; Z88.0 Allergy status to penicillin; Z88.8 Allergy status to other drugs, medicaments and biological substances

== ENCOUNTER → 2019-10-18 | Outpatient (CLI) | payer MEDICARE, OTHER ==
--- NOTE | 2019-11-05 10:37 | REP ---
CHEST X-RAY: CLINICAL: Cough and fatigue. TECHNIQUE: PA and lateral COMPARISON: 05/27/17 FINDINGS: The mediastinum and cardiac silhouette are stable including a dual lead pacemaker. The lung ennis demonstrate diffuse chronic interstitial changes similar to prior examination. Subtle increased interstitial changes in the left mid-lung zone appear slightly more prominent than prior examination. No discrete focal consolidation, effusion or pneumothorax. Skeletal structures are intact. IMPRESSION: Relatively chronic-appearing interstitial changes as noted above. Subtle increased interstitial markings in the left mid-lung zone emanating from the rohan appear to have increased from 2018. No discrete focal consolidation or effusion. If the patient remains symptomatic, consider chest CT for further investigation MTDD
== END ==
LOC: M WUC 16:54
PROVIDERS: ATTEND Physician Assistant
DX: R91.8 Other nonspecific abnormal finding of lung field (principal); R05 Cough; R53.83 Other fatigue; Z95.0 Presence of cardiac pacemaker

== ENCOUNTER → 2019-10-19 | Outpatient (CLI) | payer MEDICARE, OTHER ==
[2019-10-19 18:21] LABS: ALBUMIN 2.8 GM/DL (3.2-5.2); BILIRUBIN,TOTAL 0.5 MG/DL (0.2-1.0); CALCIUM LEVEL 8.5 MG/DL (8.8-10.2); CREATININE FOR GFR 1.66 MG/DL (0.70-1.30); GLOMERULAR FILTRATION RATE 42.9 (>42); POTASSIUM SERUM 4.7 MEQ/L (3.5-5.1); TOTAL PROTEIN 5.8 GM/DL (6.4-8.2)
[2019-10-19 18:35] LABS: BASO % 0.4 % (0.0-1.0); EOS # 0.1 10^3/uL (0.0-0.5); EOS % 0.8 % (0.0-3.0); HEMATOCRIT 35.8 % (42.0-52.0); HEMOGLOBIN 11.4 g/dl (13.5-17.5); LYMPH % 9.8 % (24.0-44.0); MEAN CORPUSCULAR HEMOGLOBIN 32.7 pg (27.0-33.0); MEAN CORPUSCULAR HGB CONC 31.8 g/dl (32.0-36.5); MEAN CORPUSCULAR VOLUME 102.6 fl (80.0-96.0); MONO # 1.3 10^3/uL (0.0-0.8); MONO % 12.1 % (0.0-5.0); PLATELET COUNT, AUTOMATED 551 10^3/uL (150-450); RED BLOOD COUNT 3.49 10^6/uL (4.30-6.10); WHITE BLOOD COUNT 10.5 10^3/uL (4.0-10.0)
== END ==
LOC: M WUC 10:30
PROVIDERS: ATTEND Physician Assistant
DX: R05 Cough (principal); R53.83 Other fatigue

== ENCOUNTER → 2019-11-10 | Outpatient (CLI) | payer MEDICARE, OTHER ==
[2019-11-10 14:16] LABS: HEMATOCRIT 35.6 % (42.0-52.0); HEMOGLOBIN 11.3 g/dl (13.5-17.5); MEAN CORPUSCULAR HEMOGLOBIN 31.6 pg (27.0-33.0); MEAN CORPUSCULAR HGB CONC 31.7 g/dl (32.0-36.5); MEAN CORPUSCULAR VOLUME 99.4 fl (80.0-96.0); PLATELET COUNT, AUTOMATED 452 10^3/uL (150-450); RED BLOOD COUNT 3.58 10^6/uL (4.30-6.10); WHITE BLOOD COUNT 6.7 10^3/uL (4.0-10.0)
[2019-11-10 14:57] LABS: BILIRUBIN,TOTAL 0.4 MG/DL (0.2-1.0); CALCIUM LEVEL 8.9 MG/DL (8.8-10.2); CHOLESTEROL RISK RATIO 3.206 (<5); CREATININE FOR GFR 1.81 MG/DL (0.70-1.30); GLOMERULAR FILTRATION RATE 38.8 (>42); MAGNESIUM LEVEL 2.4 MG/DL (1.8-2.4); POTASSIUM SERUM 4.7 MEQ/L (3.5-5.1); THYROID STIMULATING HORMONE 0.106 uIU/ML (0.358-3.740); TOTAL PROTEIN 5.7 GM/DL (6.4-8.2)
== END ==
LOC: M WUC 08:47
PROVIDERS: ATTEND Internal Medicine
DX: I12.9 Hypertensive chronic kidney disease with stage 1 through stage 4 chronic kidney disease, or unspecified chronic kidney disease (principal); N18.30 Chronic kidney disease, stage 3 unspecified; F09 Unspecified mental disorder due to known physiological condition; E78.00 Pure hypercholesterolemia, unspecified

== ENCOUNTER → 2019-11-24 | Outpatient (CLI) | payer MEDICARE, OTHER ==
--- NOTE | 2019-11-24 11:13 | REP ---
INDICATION: ABN CXR COMPARISON: 07/31/2016 TECHNIQUE: Axial noncontrast images from the thoracic inlet to the upper abdomen with coronal and sagittal reformations. FINDINGS: Early emphysematous changes are suggested. Small pleural effusions are identified along with very subtle scattered primarily peripheral interstitial infiltrates most notably involving the right lower lobe. A small amount of trapped fluid is also identified with in the apical portion of the right major fissure. Findings likely represent sequelae of recent infectious/inflammatory process. There is a 4 mm noncalcified subpleural density along the lateral right lower lobe (image 81) which represents a change from 2017. Evaluation of the mediastinum demonstrates relatively normal tracheobronchial tree, atherosclerotic changes to the thoracic aorta and coronary arteries, and small hiatal hernia. Musculoskeletal structures demonstrate age-related degenerative changes without acute osseous abnormality. Limited upper abdomen demonstrates incompletely evaluated complex left renal cyst. IMPRESSION: 1. Small pleural effusions and minimal scattered primarily peripheral interstitial infiltrates may reflect a resolving infectious/inflammatory process. Correlation and follow-up recommended. 2. 4 mm noncalcified nodule along the subpleural right lower lobe. High risk patients may require and six-month follow-up while low risk patients may warrant 12 month follow-up evaluation. <Electronically signed by Melvin Abarca > 11/24/19 [id number]
== END ==
LOC: M RAD 10:40
PROVIDERS: ATTEND Internal Medicine
DX: R93.89 Abnormal findings on diagnostic imaging of other specified body structures (principal)

== ENCOUNTER → 2019-12-24 | Outpatient (REF) | payer MEDICARE, OTHER ==
[2019-12-24 18:13] LABS: CALCIUM LEVEL 9.1 MG/DL (8.8-10.2); CREATININE FOR GFR 1.79 MG/DL (0.70-1.30); FREE T3 2.5 PG/ML (2.2-4.0); FREE T4 1.29 NG/DL (0.76-1.46); GLOMERULAR FILTRATION RATE 39.2 (>42); MAGNESIUM LEVEL 2.5 MG/DL (1.8-2.4); POTASSIUM SERUM 4.7 MEQ/L (3.5-5.1); THYROID STIMULATING HORMONE 0.274 uIU/ML (0.358-3.740)
== END ==
LOC: M SFHCPLAZ 14:54
PROVIDERS: ATTEND Internal Medicine
DX: R79.89 Other specified abnormal findings of blood chemistry (principal); I12.9 Hypertensive chronic kidney disease with stage 1 through stage 4 chronic kidney disease, or unspecified chronic kidney disease

== ENCOUNTER 2020-02-15 09:42 | Emergency (ER) | payer MEDICARE, OTHER ==
[~2020-02-15] VITALS: Ht 182.9 cm; Wt 77.3 kg
--- NOTE | 2020-02-15 10:38 | REP ---
INDICATION: TRAUMA COMPARISON: 07/25/2016 TECHNIQUE: Axial noncontrast images from the skull base to the thoracic inlet with coronal reformations. This CT examination was performed using the following dose reduction techniques: Automated exposure control, adjustment of mA and/or kv according to the patient's size, and use of iterative reconstruction technique. FINDINGS: Age-related atrophy with periventricular leukomalacia and microvascular ischemic changes are appreciated. The ventricles and sulci are symmetric. Wang-white differentiation is maintained. There is no evidence for acute intracranial hemorrhage, mass/mass effect, pathology or infarction. No extra-axial fluid collection. Calvarium is intact. Paranasal sinuses and mastoid air cells are clear. IMPRESSION: Age related atrophy with periventricular leukomalacia and microvascular ischemic changes. No acute intracranial hemorrhage, infarction, or mass/mass effect. <Electronically signed by Melvin Abarca > 02/15/20 [id number]
--- NOTE | 2020-02-15 10:40 | REP ---
INDICATION: TRAUMA COMPARISON: None. TECHNIQUE: Axial noncontrast images from the skull base to the thoracic inlet with coronal and sagittal re-formations This CT examination was performed using the following dose reduction techniques: Automated exposure control, adjustment of mA and/or kv according to the patient's size, and use of iterative reconstruction technique. FINDINGS: Advanced multilevel degenerative disc osteophyte complexes are appreciated. Alignment and lordosis is maintained. Cervical vertebral bodies including transverse processes and spinous processes are intact and there is no evidence for acute fracture / compression injury or subluxation. Spinal canal is patent. Posterior elements are intact. Paravertebral soft tissues are normal. IMPRESSION: Advanced multilevel degenerative spondylosis. No evidence for acute pathology or trauma/injury. <Electronically signed by Melvin Abarca > 02/15/20 [id number]
--- NOTE | 2020-02-15 10:50 | REP ---
INDICATION: TRAUMA. COMPARISON: None. TECHNIQUE: Axial noncontrast images of the thoracic spine with coronal and sagittal reformations. FINDINGS: Degenerative changes include bridging osteophytosis along with endplate sclerosis and scattered disc space narrowing. Thoracic vertebral bodies are intact and without acute fracture/compression injury or subluxation. Alignment and kyphosis maintained. Spinal canal is patent. Posterior elements and spinous processes are intact. Paravertebral soft tissues are normal. IMPRESSION: Multilevel degenerative changes. No acute fracture/compression injury or subluxation. <Electronically signed by Melvin Abarca > 02/15/20 1044
--- NOTE | 2020-02-15 10:52 | REP ---
INDICATION: TRAUMA. COMPARISON: None. TECHNIQUE: Axial noncontrast images of the lumbosacral spine from mid T12 through mid sacrum with coronal and sagittal reformations. This CT examination was performed using the following dose reduction techniques: Automated exposure control, adjustment of mA and/or kv according to the patient's size, and use of iterative reconstruction technique. FINDINGS: Advanced multilevel degenerative changes include osteophytosis, endplate sclerosis, disc space narrowing with vacuum phenomenon and hypertrophic facet changes. Alignment and lordosis maintained. Vertebral bodies are intact. Posterior elements and spinous processes are intact. There is no evidence for acute fracture/compression injury or subluxation. The paravertebral soft tissues are normal. IMPRESSION: Advanced multilevel degenerative spondylosis. No acute fracture/compression injury or subluxation. <Electronically signed by Melvin Abarca > 02/15/20 104
--- NOTE | 2020-02-15 10:55 | REP ---
INDICATION: TRAUMA. COMPARISON: None. TECHNIQUE: Axial noncontrast images from the left hip with coronal and sagittal reformations. FINDINGS: Evidence for prior hip replacement. No acute fracture or dislocation. Osseous structures demonstrate osteopenia and age-related degenerative changes. Surrounding musculature and subcutaneous tissues are relatively normal. Subtle subcutaneous infiltration posterolaterally may represent changes related to trauma. IMPRESSION: No acute fracture or dislocation. <Electronically signed by Melvin Abarca > 02/15/20 [id number]
--- NOTE | 2020-02-15 11:15 | REP ---
INDICATION: PREOP COMPARISON: 10/18/2019 TECHNIQUE: Portable AP view of the chest FINDINGS: The mediastinum and cardiac silhouette are stable and within normal limits for portable technique. The lung ennis are clear without acute consolidation, effusion, or pneumothorax. Skeletal structures are intact. Chronic elevation to the right hemidiaphragm unchanged. IMPRESSION: No acute cardiopulmonary process appreciated. <Electronically signed by Melvin Abarca > 02/15/20 1118
--- NOTE | 2020-02-15 11:17 | REP ---
INDICATION: INCLUDE PELVIS TRAUMA COMPARISON: None. TECHNIQUE: Frontal view of the pelvis with neutral and lateral views of the left hip. FINDINGS: Bilateral hip replacements noted. The osseous structures demonstrate age-related changes without acute fracture or dislocation. IMPRESSION: Degenerative changes. No acute fracture or dislocation. <Electronically signed by Melvin Abarca > 02/15/20 [id number]
--- NOTE | 2020-02-15 11:18 | REP ---
INDICATION: TRAUMA COMPARISON: None. TECHNIQUE: AP, lateral, views of the left femur FINDINGS: Left hip replacement. Age-related changes. No acute fracture or dislocation. IMPRESSION: . No acute fracture or dislocation. <Electronically signed by Melvin Abarca > 02/15/20 1110
[2020-02-15 11:32] LABS: BASO % 0.2 % (0.0-1.0); EOS # 0.1 10^3/uL (0.0-0.5); EOS % 0.6 % (0.0-3.0); HEMATOCRIT 43.9 % (42.0-52.0); HEMOGLOBIN 13.7 g/dl (13.5-17.5); LYMPH % 11.2 % (24.0-44.0); MEAN CORPUSCULAR HEMOGLOBIN 30.9 pg (27.0-33.0); MEAN CORPUSCULAR HGB CONC 31.2 g/dl (32.0-36.5); MEAN CORPUSCULAR VOLUME 99.1 fl (80.0-96.0); MONO # 0.8 10^3/uL (0.0-0.8); MONO % 8.4 % (0.0-5.0); NEUTROPHILS # 7.1 10^3/uL (1.5-8.5); NEUTROPHILS % 79.2 % (36.0-66.0); PLATELET COUNT, AUTOMATED 364 10^3/uL (150-450); RED BLOOD COUNT 4.43 10^6/uL (4.30-6.10)
[2020-02-15 11:46] LABS: INR 1.69; PARTIAL THROMBOPLASTIN TIME 32.3 SECONDS (24.2-38.5); PROTHROMBIN TIME 20.3 SECONDS (12.5-14.3)
[2020-02-15 11:56] LABS: ALBUMIN 3.6 GM/DL (3.2-5.2); BILIRUBIN,DIRECT 0.1 MG/DL (0.0-0.2); BILIRUBIN,TOTAL 0.5 MG/DL (0.2-1.0); CALCIUM LEVEL 9.1 MG/DL (8.8-10.2); CK-MB VALUE MASS 6.3 NG/ML (<3.6); CREATININE FOR GFR 1.85 MG/DL (0.70-1.30); GLOMERULAR FILTRATION RATE 37.7 (>42); MB/CK RELATIVE INDEX 4.74 (< OR =4); POTASSIUM SERUM 4.8 MEQ/L (3.5-5.1); TOTAL PROTEIN 6.3 GM/DL (6.4-8.2)
[2020-02-15] MEDS ORDERED: MORPHINE 2 MG/ML 1ML VIAL (J2270) IV ONE (12:00)
[2020-02-15] MEDS ORDERED: ACETAMINOPHEN 325 MG TAB PO ONE (12:00)
[2020-02-15] MEDS ORDERED: ONDANSETRON 4MG/2ML VIAL IV ONE (12:00)
[2020-02-15] MEDS ORDERED: CARVedilol 12.5 MG TAB PO ONE (12:45)
[2020-02-15] MEDS ORDERED: METOPROLOL TART 25 MG TABLET PO ONE (12:45)
[2020-02-15] MEDS ORDERED: NORCO, ANEXSIA 5/325MG TABLET (HYDROcodone/ACETAMINOPHEN) PO ONE (13:00)
[2020-02-15 13:14] VITALS: BP 174/95
[2020-02-15] MEDS ORDERED: CARV12.5 PO (15:06)
[2020-02-15] MEDS ORDERED: NORC1TAB7 PO (15:11)
[2020-02-15 15:27] VITALS: BP 170/85
--- NOTE | 2020-02-15 19:33 | ECGEPIP ---
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
== END 2020-02-15 15:30 | disposition home or self-care (01) ==
LOC: M ED 09:42
DX: M54.9 Dorsalgia, unspecified (principal); M25.552 Pain in left hip; W19.XXXA Unspecified fall, initial encounter; Y92.099 Unspecified place in other non-institutional residence as the place of occurrence of the external cause; Y93.9 Activity, unspecified; Y99.9 Unspecified external cause status; Z95.0 Presence of cardiac pacemaker; R94.31 Abnormal electrocardiogram [ECG] [EKG]; M47.812 Spondylosis without myelopathy or radiculopathy, cervical region; I67.82 Cerebral ischemia; Z96.643 Presence of artificial hip joint, bilateral; M47.816 Spondylosis without myelopathy or radiculopathy, lumbar region; M51.34 Other intervertebral disc degeneration, thoracic region; I48.91 Unspecified atrial fibrillation; I10 Essential (primary) hypertension; Z79.82 Long term (current) use of aspirin; Z79.899 Other long term (current) drug therapy; Z88.0 Allergy status to penicillin; Z88.6 Allergy status to analgesic agent
CPT/HCPCS: 70450; 71045; 72125; 72128; 72131; 73502; 73552; 73700; 80048; 80076; 81001; 82550; 82553; 85025; 85610; 85730; 86850; 86900; 86901; 93005; 93041; 94760; 96374; 96375; 99285; J2270; J2405

== ENCOUNTER 2020-02-27 05:23 | Inpatient (IN) | payer MEDICARE, OTHER ==
[~2020-02-27] VITALS: Ht 182.9 cm; Wt 93.6 kg
[~2020-02-27 05:23] MED LIST changes: +CARV12.5 PO; +NORC1TAB7 PO
--- OUTSIDE RECORDS SUMMARY | 2020-02-27 05:27 | CCD ---
Author Author [facility] Syst ems Organization [facility] Sy[facility] em[facility] Address Unknown Phone Unavailable Care Team Providers Care Bolter Helper Name Role Phone Jason Soto Unavailable PROBLEMS Type Condition ICD9-CM Code RQF32-PR Code Onset Dates Condition S tatus SNOMED Code Notes Problem Other constipation K59.09 Active 27349608 Cola ce has been prescribed in the past for his complaint of hard stools with constipation. I believe he is currently using MiraLAX 2 times a week. Uses fleets enemas when he is severely constipated . He may use mag citrate for severe constipation and continue use fleets enemas as needed. Problem Personal history of colonic polyps Z86.010 Activ e [id number] He had an adenomatous colonic polyp in 2008, 02/2013, May 2016. Problem Macrocytosis D75.89 Active 080849403 Macrocyto sis on CBC and B12 and Folate levels normal in the past and most recently in April 2018. Most recent MCV was stable at 103 in 05/2019, lower at 99 in November 2019; his hemoglobin has dropped a bit to 11.3 as of November 2019 likely because of his progressive creatinine rise. 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 Last EGD was in May 2016 and he had inflammation without dysplasia. Nguyen's esophagus was identified in 2010 I believe. Problem Personal history of malignant melanoma of skin Z85 .820 Active [id number] Prior melanoma of left eye sclera, resec dustin 1992, and another in 03/2010 near right eye (in situ). No evidence of recurrence. 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 Problem Hypercholesterolemia E78.00 Active 37576526 Hi s lipids were controlled to primary prevention target without medications, as of November 2019. 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 He was taken off his lisinopril because of lightheadedness in Spring 2017. His it security project manager has assisted in medication adjustments. Last echocardiogram 2014: no LVH, no systolic dysfunction (left ventricular ejection fraction 70%), mild diastolic dysfunction. He had significant blood pressure elevations in the emergency department in February 2020 and his carvedilol dose has been increased to 3.125 mg twice daily and his blood pressure at present is adequately controlled. His blood pressure is adequately controlled. Problem Impaired fasting glucose R73.01 Active 5240584 07 His fasting glucose was 106 in April 2018 but 99 in November2018, 104 in 05/2019, 94 in November 2019; HgbA1c was a bit higher at 6.2% with a negative microalbumin as of 05/2019. Problem Suspected sleep apnea R29.818 Active 32528140 H is describes fairly typical sleep apnea symptoms but does not feel that he would tolerate the testing for sleep apnea nor would he tolerated the treatment. Problem Cognitive dysfunction F09 Active 031392006 TSH, B12 and folate levels were normal most recently in 04/2018, but his TSH was suppressed as of November 2019, less so as of December 2019. There is a component of depression or problems with attention. I started him on citalopram with benefit in April 2013. He went to the memory unit in [place] and Aricept was started but he tolerated it poorly as of late July 2016, and Namenda was considered and trialed but he decided not to continue that therapy due to his already significant polypharmacy. He has had some anger management issues and I added Seroquel therapy as of May 2018. He has reduced the dose of Seroquel as of November 2019 because of his excessive inertia and daytime sleepiness to one half pill twice a day. He was also started on Ritalin as of 2019 but this provided no benefit. As of late December 2019 I have reduced his Seroquel to one half tablet at noon. Problem Acute left-sided low back pain with left-sided sciatica M54.42 Active 095123306 He has the acute onset of ba ck pain in the face of chronic back pain. There was no fracture on CT imaging, despite his recent fall. He is getting home physical therapy. His is small framed and may not be able to provide him the assistance he needs. We will work on pain control by changing his Tylenol to, 8 hour, 2 every 12 hours, and he can supplement that with tramadol. He may continue to use topical pain medications also. I increased his gabapentin to 300 mg twice daily. He has a transport chair. If he fails to thrive at home with these interventions, then he will require hospitalization fo r pain management and more aggressive physical therapy. I would consider a course of steroids if he has not improved in a couple of days. Problem Paroxysmal atrial fibrillation I48.0 Active 2 91838951 He had transient atrial fibrillation after endoscopy 2000 and which recurred 03/12. LA diameter 4.4 cm, mild MR/AR and he had a normal echocardiogram otherwise. Stress test, events monitor normal. His it security project manager wishes him to be on anticoagulation. He is currently on Xarelto, carvedilol and amiodarone. I switched his atenolol to carvedilol in August 2012. 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 He has regular pacemaker interrogations for mode switching. I have assumed that his thyroid function has been followed by the it security project manager who prescribes his amiodarone. He did have a normal TSH as of 04/2018, but his TSH is suppressed as of November 2019 and again in December 2019 and this will be followed. Since he was in atrial fibrillation his cardiology visit in November 2019, his amiodarone was reduced to every other day and will likely be discontinued in the future. Problem Chronic kidney disease, stage 3 N18.3 Active 726307816 He has had declining renal function since April 2017 and this is somewhat worse as of November and December 2019, with a creatinine of 1.81/GFR 39 with a PTH level of 60 in November 2019 and a creatinine of 1.79 with a GFR 39 in December 2019. Problem Abnormal chest xray R93.89 Active 883347362 He was recently seen in urgent care in October 2019 and had a chest x-ray which revealed some interstitial prominence with more density in the left lower lobe. He was treated with antibiotic therapy, doxycycline. He is currently not having any issues but we may need to follow this up in the future. Problem Abnormal TSH R79.89 Active 015614831 His TSH w as suppressed in 0.1 range in November 2019, less suppressed at 0.274 and December 2019. He has no hyperthyroid symptoms. I suspect amiodarone is playing a role, versus silent thyroiditis. I will repeat his labs in March 2020. Problem Low back pain M54.5 Active 281310838 He has h ad another flare of lower back pain which he also experienced in June 2019. He is using topical lidocaine, Voltaren gel, and extra, all. Perhaps he would benefit from extended- release Tylenol. Continue local heat. Consider physical therapy referral if he fails to improve. ALLERGIES Allergen (clinical drug ingredient) Drug/Non Drug Allergy do cumented on EMR Reaction Allergy Type Onset Date Status NSAIDS Anaphylaxis Non Drug Allergy Active naproxen Aleve([facility] Code:[address]-06) Anaphylaxis Drug Allergy Active Penicillin (For Allergies Use Only) Anaphylaxis Drug Aller gy Active ENCOUNTERS from 1940 to 2020-02-25 Encounter Location Date Provider Diagnosis [address] [address] Feb, [facility] IMMUNIZATIONS Vaccine Route Administration Date Status Zoster 50mcg/0.5mL (Shingrix) Unknown Feb 11, 2018 Ad ministered Zoster 50mcg/0.5mL (Shingrix) Unknown April 12, 2018 Ad ministered Influenza (Pharmacy Given) Unknown Nov 30, 2017 Admin istered Influenza (Pharmacy Given) Unknown Nov 20, 2018 Admin istered Influenza (High Dose 65 & up) Unknown Nov 13, 2012 Ad ministered Influenza (High Dose 65 & up) Unknown Oct 28, 2013 Ad ministered Influenza (High Dose 65 & up) IM Intramuscular Nov 24, 2014 A dministered TD Adult 0.5mL (Tetanus) Unknown April 13, 2003 Adminis tered Influenza (High Dose 65 & up) IM Intramuscular Oct 27, 2015 A dministered Influenza (High Dose 65 & up) IM Intramuscular Oct 25, 2016 A dministered Influenza (18 yrs & older) Flublok IM Intramuscular 2019 Administered Influenza (High Dose 65 & up) Unknown Oct 18, 2011 Ad ministered Influenza (High Dose 65 & up) Unknown Nov 05, 2010 Ad ministered Influenza (High Dose 65 & up) Unknown Oct 25, 2009 Ad ministered Influenza (High Dose 65 & up) Unknown Nov 03, 2008 Ad ministered Zoster 0.65mL (Zostavax) Unknown Jan 13, 2008 Adminis tered Pneumococcal Adult 0.5mL (Pneumovax 23) Unknown 2005 Administered TDAP Unknown Oct 28, 2013 Administered Pneumococcal 0.5mL (Prevnar 13) IM Intramuscular April 21, 2015 Administered SOCIAL HISTORY Tobacco Use: Social History Observation Description Date Details (start date - stop date) Never Smoker Sex Assigned At : Social History Observation Description Sex Assigned At Unknown Education: Question Answer Notes Level of Education: Finished 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 Yes Have you ever had an STD? No with Women only Drug and Alcohol Question Answer Notes Total Score: 0 Interpretation: No problems reported Alcohol Screening: Question Answer Notes Did you have a drink containing alcohol in the past year? No Points 0 Interpretation Negative Tobacco Use: Question Answer Notes Are you a: never smoker REASON FOR REFERRAL No Information VITAL SIGNS No information MEDICATIONS Medication SIG (Take, Route, Frequency, Duration) Notes Start Da te End Date Status Voltaren 1 % 1-2 grams to affected area o n lower back Transdermal Q6 hours as needed for 10 days Dec, Active Saline Nasal [place] 0.65 % as directed Nasally as directed Jan, Active Vitamin B12 1000 MCG 1 tablet Orally Once a day Active Flonase 50 MCG/ACT 2 spray in each nostril Nasa lly daily as needed for 90 day(s) Active Nexium 40 MG 1 tab(s) Orally daily for 90 days Active Carvedilol 6.25 MG 1/2 tablet Orally Daily Active Medrol (Joe) 4 MG as directed Orally 6 tabs on day 1 5 tabs on day 2 4 tabs on day 3 3 tabs on day 4 2 tabs on day 5 and 1 tab on day 6 for 6 days Feb, Active Tramadol HCl 50 MG 1 tablet Orally Every 6 hours as needed for pain for 30 days Feb, Active Acetaminophen 500 mg 1 capsule as needed Orally every 6 hrsPRN Active Xarelto 20 MG TAKE 1 TABLET DAILY WITH FOOD Active Calcium 600 + D 600-400 MG-UNIT 1 tablet Orally Once a day for 30 day (s) Active Gabapentin 300 MG 1 capsule Orally Twice daily for 30 day(s) Feb, Active Amiodarone HCl 200 MG 1 tablet Orally one every other day Active SEROquel 25 MG 1/2 tab Orally Daily at noon May, Active Citalopram Hydrobromide 20 MG 1.5 tablet Orally Once a day Active PROCEDURES No Information RESULTS No Results REASON FOR VISIT Strat medrol MEDICAL (GENERAL) HISTORY Type Description Date Medical History Cognitive dysfunction Medical History Personal history of malignant melanoma o f skin Medical History Essential (primary) hypertension Medical History Paroxysmal atrial fibrillation Medical History Personal history of colonic polyps Medical History Hypercholesterolemia Medical History Nguyen's esophagus without dysplasia Medical History Macrocytosis Medical History Other constipation Surgical History Undescended testicle removed 1980 Surgical History Melanoma of sclera of left eye resected 1992 Surgical History Pacemaker 04/2005 Surgical History Rght total hip replacement 05/2007 Surgical History Bilateral cataract surgery 05/2009 Surgical History Varicose vein treatments 2032-3133 Surgical History Melanoma resected near right eye 03/2010 Surgical History Left total hip replacement 05/2013 Surgical History Right hand carpal tunnel release 06/2013 Surgical History BCC removed from left shoulder 08/2015 Surgical History Pacemaker generator replaced 10/2015 Surgical History Colonoscopy with polypectomy (tubular ad enoma) 05/2016 Surgical History Left carpal tunnnel release 07/2017 Goals Section No Information Health Concerns No Information MEDICAL EQUIPMENT No Information MENTAL STATUS No Information FUNCTIONAL STATUS No Information ASSESSMENTS No Information PLAN OF TREATMENT Medication Medication Name Sig Start Date Stop Date Medrol (Joe) 4 MG as directed Orally 6 tabs on day 1 5 tabs on day 2 4 tabs on day 3 3 tabs on day 4 2 tabs on day 5 and 1 tab on day 6 for 6 days Feb, Tramadol HCl 50 MG 1 tablet Orally Every 6 hours as needed for pain for 30 days Feb, Gabapentin 300 MG 1 capsule Orally Twice daily for 30 day(s) Feb, Next Appt Details Provider Name:Jason Soto 2020-03-16 10 :30:00 AM, [address] [place] [address], [phone], Provider Name:Jason Soto 2020-05-12 11 :00:00 AM, [address] [place] [address], [phone], Insurance Providers Payer Name Payer Address Payer Phone Insured Name Patient Relati onship to Insured Coverage Start Date Coverage End Date MEDICARE Part A and B [address] [facility] [id number] HERMILO LO self [facility] [address] [address] [facility] [phone] HERMILO LO self
--- OUTSIDE RECORDS SUMMARY | 2020-02-27 05:27 | CCD ---
Author Author [facility] Syst ems Organization [facility] Syst ems Address Unknown Phone Unavailable Care Team Providers Care Carbonation Equipment Operator Name Role Phone Jason Soto Unavailable PROBLEMS Type Condition ICD9-CM Code [id number] Code Onset Dates Condition S tatus SNOMED Code Notes Problem Other constipation K59.09 Active 04900561 Cola ce has been prescribed in the past for his complaint of hard stools with constipation. I believe he is currently using MiraLAX 2 times a week. Uses fleets enemas when he is severely constipated . He may use mag citrate for severe constipation and continue use fleets enemas as needed. Problem Personal history of colonic polyps Z86.010 Activ e 058328817 He had an adenomatous colonic polyp in 2008, 02/2013, May 2016. Problem Macrocytosis D75.89 Active 637747658 Macrocyto sis on CBC and B12 and Folate levels normal in the past and most recently in April 2018. Most recent MCV was stable at 103 in 05/2019, lower at 99 in November 2019; his hemoglobin has dropped a bit to 11.3 as of November 2019 likely because of his progressive creatinine rise. 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 Last EGD was in May 2016 and he had inflammation without dysplasia. Nguyen's esophagus was identified in 2010 I believe. Problem Personal history of malignant melanoma of skin Z85 .820 Active [id number] Prior melanoma of left eye sclera, resec dustin 1992, and another in 03/2010 near right eye (in situ). No evidence of recurrence. 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 Problem Hypercholesterolemia E78.00 Active 61444114 Hi s lipids were controlled to primary prevention target without medications, as of November 2019. 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 He was taken off his lisinopril because of lightheadedness in Spring 2017. His light air defense artillery crewmember has assisted in medication adjustments. Last echocardiogram [...] controlled. Problem Impaired fasting glucose R73.01 Active 5704707 07 His fasting glucose was 106 in April 2018 but 99 in November2018, 104 in 05/2019, 94 in November 2019; HgbA1c was a bit higher at 6.2% with a negative microalbumin as of 05/2019. Problem Suspected sleep apnea R29.818 Active 78236791 H is describes fairly typical sleep apnea symptoms but does not feel that he would tolerate the testing for sleep apnea nor would he tolerated the treatment. Problem Cognitive dysfunction F09 Active 653560232 TSH, B12 and folate levels were normal most recently in 04/2018, but his TSH was suppressed as of November 2019, less so as of December 2019. There is a component of depression or problems with attention. I started him on citalopram with benefit in April 2013. He went to the memory unit in [place] and Aricept was started but he tolerated [...] back pain with left-sided sciatica M54.42 Active 580685960 He has the acute onset of ba [...] Problem Paroxysmal atrial fibrillation I48.0 Active 2 61558998 He had transient atrial fibrillation after endoscopy 2000 and which recurred 03/12. LA diameter 4.4 cm, mild MR/AR and he had a normal echocardiogram otherwise. Stress test, events monitor normal. His light air defense artillery crewmember wishes him to be on anticoagulation. He is currently on Xarelto, carvedilol and amiodarone. I switched his atenolol to carvedilol in August 2012. 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 He has regular pacemaker interrogations for mode switching. I have assumed that his thyroid function has been followed by the light air defense artillery crewmember who prescribes his amiodarone. He did have [...] Chronic kidney disease, stage 3 N18.3 Active 063903248 He has had declining renal function since April 2017 and this is somewhat worse as of November and December 2019, with a creatinine of 1.81/GFR 39 with a PTH level of 60 in November 2019 and a creatinine of 1.79 with a GFR 39 in December 2019. Problem Abnormal chest xray R93.89 Active 218710794 He was recently seen in urgent care in October 2019 and had a chest x-ray which revealed some interstitial prominence with more density in the left lower lobe. He was treated with antibiotic therapy, doxycycline. He is currently not having any issues but we may need to follow this up in the future. Problem Abnormal TSH R79.89 Active 939400108 His TSH w as suppressed in 0.1 range in November 2019, less suppressed at 0.274 and December 2019. He has no hyperthyroid symptoms. I suspect amiodarone is playing a role, versus silent thyroiditis. I will repeat his labs in March 2020. Problem Low back pain M54.5 Active 487204145 He has h ad another flare of [...] NSAIDS Anaphylaxis Non Drug Allergy Active naproxen Aleve([facility] Code:[address]-28) Anaphylaxis Drug Allergy Active Penicillin (For Allergies Use Only) Anaphylaxis Drug Aller gy Active ENCOUNTERS from 1940 to 2020-02-24 Encounter Location Date Provider Diagnosis [address] [address] Feb, Jason Charles Acute left-sided low back pain with left -sided sciatica M54.42 IMMUNIZATIONS Vaccine Route Administration Date Status Zoster 50mcg/0.5mL (Shingrix) Unknown April 12, 2018 Ad ministered Influenza (Pharmacy Given) Unknown Nov 30, 2017 Admin istered Influenza (Pharmacy Given) Unknown Nov 20, 2018 Admin istered Influenza (High Dose 65 & up) IM Intramuscular Nov 24, 2014 A dministered Influenza (High Dose 65 & up) Unknown Nov 13, 2012 Ad ministered Influenza (High Dose 65 & up) Unknown Oct 28, 2013 Ad ministered Zoster 50mcg/0.5mL (Shingrix) Unknown Feb 11, 2018 Ad ministered TD Adult 0.5mL (Tetanus) Unknown April 13, [...] Notes Start Da te End Date Status Saline Nasal [place] 0.65 % as directed Nasally as directed Jan, Active Vitamin B12 1000 MCG 1 tablet Orally Once a day Active Flonase 50 MCG/ACT 2 spray in each nostril Nasa lly daily as needed for 90 day(s) Active Nexium 40 MG 1 tab(s) Orally daily for 90 days Active Carvedilol 6.25 MG 1/2 tablet Orally Daily Active Xarelto 20 MG TAKE 1 TABLET DAILY WITH FOOD Active Tramadol HCl 50 MG 1 tablet Orally Every 6 hours as needed for pain for 30 days Feb, Active Acetaminophen 500 mg 1 capsule as needed Orally every 6 hrsPRN Active Gabapentin 300 MG 1 capsule Orally Twice daily for 30 day(s) Feb, Active Calcium 600 + D 600-400 MG-UNIT 1 tablet Orally Once a day for 30 day (s) Active Citalopram Hydrobromide 20 MG 1.5 tablet Orally Once a day Active Amiodarone HCl 200 MG 1 tablet Orally one every other day Active SEROquel 25 MG 1/2 tab Orally Daily at noon May, Active Voltaren 1 % 1-2 grams to affected area o n lower back Transdermal Q6 hours as needed for 10 days Dec, Active PROCEDURES No Information RESULTS No Results REASON FOR VISIT refill-gabapentin MEDICAL (GENERAL) HISTORY Type Description Date Medical [...] surgery 05/2009 Surgical History Varicose vein treatments [id number] Surgical History Melanoma resected near right eye [...] No Information FUNCTIONAL STATUS No Information ASSESSMENTS Encounter Date Diagnosis Assessment Notes Treatment Notes Treatm ent Clinical Notes Feb, Acute left-sided low back pa in with left-sided sciatica (ICD-10 - M54.42) PLAN OF TREATMENT Medication Medication Name Sig Start Date Stop Date Gabapentin 300 MG 1 capsule Orally Twice daily for 30 day(s) Feb, Tramadol HCl 50 MG 1 tablet Orally Every 6 hours as needed for pain for 30 days Feb, Next Appt Details Provider Name:Jason Soto 2020-03-16 10 :30:00 AM, [address] [place] [address], [phone], Provider Name:Jason Soto 2020-05-12 11 :00:00 AM, [address] [place] [address], [phone], Insurance Providers Payer Name Payer Address Payer Phone Insured Name Patient Relati onship to Insured Coverage Start Date Coverage End Date MEDICARE Part A and B [facility] [id number] [place] [phone] HERMILO LO [facility] [address] [facility] [phone] HERMILO LO self
--- OUTSIDE RECORDS SUMMARY | 2020-02-27 05:27 | CCD ---
Author Author [facility] Organization [facility] Address Unknown Phone Unavailable Care Team Providers Care Bus Girl Name Role Phone Jason Soto Unavailable PROBLEMS Type Condition ICD9-CM Code GFM74-DT Code Onset Dates Condition S tatus SNOMED Code Notes Problem Macrocytosis D75.89 Active 768434697 Macrocyto sis on CBC and B12 and Folate levels normal in the past and most recently in April 2018. Most recent MCV was stable at 103 in 05/2019, lower at 99 in November 2019; his hemoglobin has dropped a bit to 11.3 as of November 2019 likely because of his progressive creatinine rise. Problem Other constipation K59.09 Active 97867894 Cola ce has been prescribed in the past for his complaint of hard stools with constipation. I believe he is currently using MiraLAX 2 times a week. Uses fleets enemas when he is severely constipated . He may use mag citrate for severe constipation and continue use fleets enemas as needed. Problem Personal history of malignant melanoma of skin Z85 .820 Active 596700121839 Prior melanoma of left eye sclera, resec dustin 1992, and another in 03/2010 near right eye (in situ). No evidence of recurrence. Sees a [place] manufacturing area manager. Problem Personal history of colonic polyps Z86.010 Activ e 326848113 He had an adenomatous colonic polyp in 2008, 02/2013, May 2016. Problem Cognitive dysfunction F09 Active 270504923 TSH, B12 and folate levels were normal most recently in 04/2018, but his TSH was suppressed as of November 2019, less so as of December 2019. There is a component of depression or problems with attention. I started him on citalopram with benefit in April 2013. He went to the memory unit in [place] and Aricept was started but he tolerated [...] to one half tablet at noon. Problem Hypercholesterolemia E78.00 Active 82097303 Hi s lipids were controlled to primary prevention target without medications, as of November 2019. 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 He was taken off his lisinopril because of lightheadedness in Spring 2017. His mixer machine feeder has assisted in dose adjustments. Last echocardiogram 2014: no LVH, no systolic dysfunction (left ventricular ejection fraction 70%), mild diastolic dysfunction. His blood pressure is adequately controlled. Problem Suspected sleep apnea R29.818 Active 34230965 H is describes fairly typical sleep apnea symptoms but does not feel that he would tolerate the testing for sleep apnea nor would he tolerated the treatment. Problem Paroxysmal atrial fibrillation I48.0 Active 2 73004681 He had transient atrial fibrillation after endoscopy 2000 and which recurred 03/12. LA diameter 4.4 cm, mild MR/AR and he had a normal echocardiogram otherwise. Stress test, events monitor normal. His mixer machine feeder wishes him to be on anticoagulation. He is currently on Xarelto, carvedilol and amiodarone. I switched his atenolol to carvedilol in August 2012. 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 He has regular pacemaker interrogations for mode switching. I have assumed that his thyroid function has been followed by the mixer machine feeder who prescribes his amiodarone. He did have a normal TSH as of 04/2018, but his TSH is suppressed as of November 2019 and again in December 2019 and this will be followed. Since he was in atrial fibrillation his cardiology visit in November 2019, his amiodarone was reduced to every other day and will likely be discontinued in the future. Problem Low back pain M54.5 Active 584396691 He has h ad another flare of lower back pain which he also experienced in June 2019. He is using topical lidocaine, Voltaren gel, and extra, all. Perhaps he would benefit from extended- release Tylenol. Continue local heat. Consider physical therapy referral if he fails to improve. 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 Last EGD was in May 2016 and he had inflammation without dysplasia. Nguyen's esophagus was identified in 2010 I believe. Problem Chronic kidney disease, stage 3 N18.3 Active 372559829 He has had declining renal function since April 2017 and this is somewhat worse as of November and December 2019, with a creatinine of 1.81/GFR 39 with a PTH level of 60 in November 2019 and a creatinine of 1.79 with a GFR 39 in December 2019. Problem Impaired fasting glucose R73.01 Active 5436345 07 His fasting glucose was 106 in April 2018 but 99 in November2018, 104 in 05/2019, 94 in November 2019; HgbA1c was a bit higher at 6.2% with a negative microalbumin as of 05/2019. Problem Abnormal TSH R79.89 Active 321969400 His TSH w as suppressed in 0.1 range in November 2019, less suppressed at 0.274 and December 2019. He has no hyperthyroid symptoms. I suspect amiodarone is playing a role, versus silent thyroiditis. I will repeat his labs in March 2020. Problem Abnormal chest xray R93.89 Active 860122197 He was recently seen in urgent care in October 2019 and had a chest x-ray which revealed some interstitial prominence with more density in the left lower lobe. He was treated with antibiotic therapy, doxycycline. He is currently not having any issues but we may need to follow this up in the future. ALLERGIES Allergen (clinical drug ingredient) Drug/Non Drug Allergy do cumented on EMR Reaction Allergy Type Onset Date Status NSAIDS Anaphylaxis Non Drug Allergy Active naproxen Aleve([facility] Code:[address]-55) Anaphylaxis Drug Allergy Active Penicillin (For Allergies Use Only) Anaphylaxis Drug Aller gy Active ENCOUNTERS from 1940 to 2020-02-18 Encounter Location Date Provider Diagnosis [facility] Cristian [facility] [place] [address] Feb, [facility] Vaccine Route Administration Date Status Zoster 50mcg/0.5mL [...] Notes Start Da te End Date Status Amiodarone HCl 200 MG 1 tablet Orally one every other day Active Acetaminophen 500 mg 1 capsule as needed Orally every 6 hrsPRN Active Calcium 600 + D 600-400 MG-UNIT 1 tablet Orally Once a day for 30 day (s) Active Vitamin B12 1000 MCG 1 tablet Orally Once a day Active Saline Nasal [place] 0.65 % as directed Nasally as directed Jan, Active Xarelto 20 MG TAKE 1 TABLET DAILY WITH FOOD Active Citalopram Hydrobromide 20 MG 1.5 tablet Orally Once a day Active Voltaren 1 % 1-2 grams to affected area o n lower back Transdermal Q6 hours as needed for 10 days Dec, Active Nexium 40 MG 1 tab(s) Orally daily for 90 days Active Carvedilol 6.25 MG 1/2 tablet Orally Daily Active SEROquel 25 MG 1/2 tab Orally Daily at noon May, Active Gabapentin 100 MG 1 capsule Orally three times daily for 30 day( s) Feb, Active Flonase 50 MCG/ACT 2 spray in each nostril Nasa lly daily as needed for 90 day(s) Active PROCEDURES No Information RESULTS No Results REASON FOR VISIT Start gabapentin MEDICAL (GENERAL) HISTORY Type Description Date Medical [...] surgery 05/2009 Surgical History Varicose vein treatments 7947-3751 Surgical History Melanoma resected near right eye [...] Medication Name Sig Start Date Stop Date SEROquel 25 MG 1/2 tab Orally Daily at noon May, Gabapentin 100 MG 1 capsule Orally three times daily for 30 day( s) Feb, Next Appt Details Provider Name:Jason Soto, 2020-03-16 10 :30:00 AM, [address] [place] [address], [phone], Provider Name:Jason Soto, 2020-05-12 11 :00:00 AM, [address] [place] [address], [phone], Insurance Providers Payer Name Payer Address Payer Phone Insured Name Patient Relati onship to Insured Coverage Start Date Coverage End Date MEDICARE Part A and B [address] [facility] [phone] HERMILO LO [facility] [address] [address] [facility] [phone] HERMILO LO self
--- OUTSIDE RECORDS SUMMARY | 2020-02-27 05:27 | CCD ---
Author Author [facility] Organization [facility] Address Unknown Phone Unavailable Care Team Providers Care Networking Technician Name Role Phone Jason Soto Unavailable PROBLEMS Type Condition ICD9-CM Code DOY29-NC Code Onset Dates Condition S tatus SNOMED Code Notes Problem Other constipation K59.09 Active 25764124 Cola ce has been prescribed in the past for his complaint of hard stools with constipation. I believe he is currently using MiraLAX 2 times a week. Uses fleets enemas when he is severely constipated . He may use mag citrate for severe constipation and continue use fleets enemas as needed. Problem Personal history of colonic polyps Z86.010 Activ e 179141658 He had an adenomatous colonic polyp in 2008, 02/2013, May 2016. Problem Macrocytosis D75.89 Active 082216259 Macrocyto sis on CBC and B12 and Folate levels normal in the past and most recently in April 2018. Most recent MCV was stable at 103 in 05/2019, lower at 99 in November 2019; his hemoglobin has dropped a bit to 11.3 as of November 2019 likely because of his progressive creatinine rise. 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 Last EGD was in May 2016 and he had inflammation without dysplasia. Nguyen's esophagus was identified in 2010 I believe. Problem Personal history of malignant melanoma of skin Z85 .820 Active 114244720930 Prior melanoma of left eye sclera, resec dustin 1992, and another in 03/2010 near right eye (in situ). No evidence of recurrence. Sees a [place] research laboratory technician. Problem Hypercholesterolemia E78.00 Active 31105483 Hi s lipids were controlled to primary prevention target without medications, as of November 2019. Problem Hypertension with renal disease I12.9 Active 53897032 On carvedilol, dose reduced most recently because of lightheadedness in September 2018 by his graphic pre press trades worker. He was taken off his lisinopril because of lightheadedness in Spring 2017. His graphic pre press trades worker has assisted in dose adjustments. Last echocardiogram 2014: no LVH, no systolic dysfunction (left ventricular ejection fraction 70%), mild diastolic dysfunction. His blood pressure is adequately controlled. Problem Impaired fasting glucose R73.01 Active 3052130 07 His fasting glucose was 106 in April 2018 but 99 in November2018, 104 in 05/2019, 94 in November 2019; HgbA1c was a bit higher at 6.2% with a negative microalbumin as of 05/2019. Problem Suspected sleep apnea R29.818 Active 62605048 H is describes fairly typical sleep apnea symptoms but does not feel that he would tolerate the testing for sleep apnea nor would he tolerated the treatment. Problem Cognitive dysfunction F09 Active 944435401 TSH, B12 and folate levels were normal most recently in 04/2018, but his TSH was suppressed as of November 2019, less so as of December 2019. There is a component of depression or problems with attention. I started him on citalopram with benefit in April 2013. He went to the memory unit in [place] and Aricept was started but he tolerated [...] back pain with left-sided sciatica M54.42 Active 476044143 Problem Paroxysmal atrial fibrillation I48.0 Active 2 10803297 He had transient atrial fibrillation after endoscopy 2000 and which recurred 03/12. LA diameter 4.4 cm, mild MR/AR and he had a normal echocardiogram otherwise. Stress test, events monitor normal. His graphic pre press trades worker wishes him to be on anticoagulation. He is currently on Xarelto, carvedilol and amiodarone. I switched his atenolol to carvedilol in August 2012. 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 He has regular pacemaker interrogations for mode switching. I have assumed that his thyroid function has been followed by the graphic pre press trades worker who prescribes his amiodarone. He did have [...] Chronic kidney disease, stage 3 N18.3 Active 842459339 He has had declining renal function since April 2017 and this is somewhat worse as of November and December 2019, with a creatinine of 1.81/GFR 39 with a PTH level of 60 in November 2019 and a creatinine of 1.79 with a GFR 39 in December 2019. Problem Abnormal chest xray R93.89 Active 377311005 He was recently seen in urgent care in October 2019 and had a chest x-ray which revealed some interstitial prominence with more density in the left lower lobe. He was treated with antibiotic therapy, doxycycline. He is currently not having any issues but we may need to follow this up in the future. Problem Abnormal TSH R79.89 Active 376569348 His TSH w as suppressed in 0.1 range in November 2019, less suppressed at 0.274 and December 2019. He has no hyperthyroid symptoms. I suspect amiodarone is playing a role, versus silent thyroiditis. I will repeat his labs in March 2020. Problem Low back pain M54.5 Active 808999633 He has h ad another flare of [...] NSAIDS Anaphylaxis Non Drug Allergy Active naproxen Aleve([facility] Code:[address]-98) Anaphylaxis Drug Allergy Active Penicillin (For Allergies Use Only) Anaphylaxis Drug Aller gy Active ENCOUNTERS from 1940 to 2020-02-23 Encounter Location Date Provider Diagnosis [facility] Cristian [facility] [place] [address] Feb[facility] Route Administration Date Status Influenza (High Dose 65 & up) IM Intramuscular Nov 24, 2014 A dministered Influenza (High Dose 65 & up) IM Intramuscular Oct 27, 2015 A dministered Influenza (High Dose 65 & up) IM Intramuscular Oct 25, 2016 A dministered Zoster 50mcg/0.5mL (Shingrix) Unknown April 12, 2018 Ad ministered Influenza (High Dose 65 & up) Unknown Nov 13, 2012 Ad ministered Influenza (High Dose 65 & up) Unknown Oct 28, 2013 Ad ministered Zoster 50mcg/0.5mL (Shingrix) Unknown Feb 11, 2018 Ad ministered TD Adult 0.5mL (Tetanus) Unknown April 13, 2003 Adminis tered Influenza (Pharmacy Given) Unknown Nov 30, 2017 Admin istered Influenza (Pharmacy Given) Unknown Nov 20, 2018 Admin istered Influenza (18 yrs & older) Flublok IM [...] Da te End Date Status Saline Nasal [place] 0.65 % as directed Nasally as directed [...] Information RESULTS No Results REASON FOR VISIT Admitted to services MEDICAL (GENERAL) HISTORY Type Description Date Medical [...] surgery 05/2009 Surgical History Varicose vein treatments 4530-7132 Surgical History Melanoma resected near right eye [...] days Feb, Next Appt Details Provider Name:Jason Soto, 2020-03-16 10 :30:00 AM, [address] [place] [address], [phone], Provider Name:Jason Soto 2020-05-12 11 :00:00 AM, [address] [place] [address], [phone], Insurance Providers Payer Name Payer Address Payer Phone Insured Name Patient Relati onship to Insured Coverage Start Date Coverage End Date MEDICARE Part A and B [address] [facility] [phone] HERMILO LO [facility] [address] [address] [facility] [phone] HERMILO LO
--- OUTSIDE RECORDS SUMMARY | 2020-02-27 05:27 | CCD ---
Author Author [facility] Organization [facility] Address Unknown Phone Unavailable Care Team Providers Care Brim Pouncer Machine Operator Name Role Phone Jason Soto Unavailable PROBLEMS Type Condition ICD9-CM Code KMY32-SD Code Onset Dates Condition S tatus SNOMED Code Notes Problem Other constipation K59.09 Active 32316941 Cola ce has been prescribed in the past for his complaint of hard stools with constipation. I believe he is currently using MiraLAX 2 times a week. Uses fleets enemas when he is severely constipated . He may use mag citrate for severe constipation and continue use fleets enemas as needed. Problem Personal history of colonic polyps Z86.010 Activ e 497224648 He had an adenomatous colonic polyp in 2008, 02/2013, May 2016. Problem Macrocytosis D75.89 Active 858435441 Macrocyto sis on CBC and B12 and Folate levels normal in the past and most recently in April 2018. Most recent MCV was stable at 103 in 05/2019, lower at 99 in November 2019; his hemoglobin has dropped a bit to 11.3 as of November 2019 likely because of his progressive creatinine rise. 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 Last EGD was in May 2016 and he had inflammation without dysplasia. Nguyen's esophagus was identified in 2010 I believe. Problem Personal history of malignant melanoma of skin Z85 .820 Active 508072949078 Prior melanoma of left eye sclera, resec dustin 1992, and another in 03/2010 near right eye (in situ). No evidence of recurrence. Sees a [place] tape duplicator. Problem Hypercholesterolemia E78.00 Active 62329799 Hi s lipids were controlled to primary prevention target without medications, as of November 2019. Problem Hypertension with renal disease I12.9 Active 98655504 On carvedilol, dose reduced most recently because of lightheadedness in September 2018 by his digital imager. He was taken off his lisinopril because of lightheadedness in Spring 2017. His digital imager has assisted in dose adjustments. Last echocardiogram 2014: no LVH, no systolic dysfunction (left ventricular ejection fraction 70%), mild diastolic dysfunction. His blood pressure is adequately controlled. Problem Impaired fasting glucose R73.01 Active 2712464 07 His fasting glucose was 106 in April 2018 but 99 in November2018, 104 in 05/2019, 94 in November 2019; HgbA1c was a bit higher at 6.2% with a negative microalbumin as of 05/2019. Problem Suspected sleep apnea R29.818 Active 12837554 H is describes fairly typical sleep apnea symptoms but does not feel that he would tolerate the testing for sleep apnea nor would he tolerated the treatment. Problem Cognitive dysfunction F09 Active 242946277 TSH, B12 and folate levels were normal most recently in 04/2018, but his TSH was suppressed as of November 2019, less so as of December 2019. There is a component of depression or problems with attention. I started him on citalopram with benefit in April 2013. He went to the memory unit in [place] and Aricept was started but he tolerated [...] back pain with left-sided sciatica M54.42 Active 385969097 Problem Paroxysmal atrial fibrillation I48.0 Active 2 29734464 He had transient atrial fibrillation after endoscopy 2000 and which recurred 03/12. LA diameter 4.4 cm, mild MR/AR and he had a normal echocardiogram otherwise. Stress test, events monitor normal. His digital imager wishes him to be on anticoagulation. He is currently on Xarelto, carvedilol and amiodarone. I switched his atenolol to carvedilol in August 2012. 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 He has regular pacemaker interrogations for mode switching. I have assumed that his thyroid function has been followed by the digital imager who prescribes his amiodarone. He did have [...] Chronic kidney disease, stage 3 N18.3 Active 246593593 He has had declining renal function since April 2017 and this is somewhat worse as of November and December 2019, with a creatinine of 1.81/GFR 39 with a PTH level of 60 in November 2019 and a creatinine of 1.79 with a GFR 39 in December 2019. Problem Abnormal chest xray R93.89 Active 643409641 He was recently seen in urgent care in October 2019 and had a chest x-ray which revealed some interstitial prominence with more density in the left lower lobe. He was treated with antibiotic therapy, doxycycline. He is currently not having any issues but we may need to follow this up in the future. Problem Abnormal TSH R79.89 Active 038504074 His TSH w as suppressed in 0.1 range in November 2019, less suppressed at 0.274 and December 2019. He has no hyperthyroid symptoms. I suspect amiodarone is playing a role, versus silent thyroiditis. I will repeat his labs in March 2020. Problem Low back pain M54.5 Active 745684761 He has h ad another flare of [...] NSAIDS Anaphylaxis Non Drug Allergy Active naproxen Aleve([facility] Code:[address]-15) Anaphylaxis Drug Allergy Active Penicillin (For Allergies Use Only) Anaphylaxis Drug Aller gy Active ENCOUNTERS from 1940 to 2020-02-23 Encounter Location Date Provider Diagnosis [facility]ian [facility] [place] [address] Feb[facility] Administration Date Status Influenza (High [...] Da te End Date Status Saline Nasal [place] 0.65 % as directed Nasally as directed [...] Information RESULTS No Results REASON FOR VISIT PT eval-? referral to ortho,medications MEDICAL (GENERAL) HISTORY Type Description Date Medical [...] surgery 05/2009 Surgical History Varicose vein treatments 1167-6715 Surgical History Melanoma resected near right eye [...] Provider Name:Jason Soto, 2020-03-16 10 :30:00 AM, [address] [place] [address], [phone], Provider Name:Jason Soto 2020-05-12 11 :00:00 AM, [address] [place] [address], [phone], Insurance Providers Payer Name Payer Address Payer Phone Insured Name Patient Relati onship to Insured Coverage Start Date Coverage End Date [facility] [address] [address] [facility] [phone] HERMILO LO self MEDICARE Part A and B [address] [facility] [id number] HERMILO LO self
--- OUTSIDE RECORDS SUMMARY | 2020-02-27 05:27 | CCD ---
Author Author [facility] Organization [facility] Address Unknown Phone Unavailable Care Team Providers Care Estate Attorney Name Role Phone Jason Soto Unavailable PROBLEMS Type Condition ICD9-CM Code JFP74-TR Code Onset Dates Condition S tatus SNOMED Code Notes Problem Macrocytosis D75.89 Active [id number] Macrocyto sis on CBC and B12 and Folate levels normal in the past and most recently in April 2018. Most recent MCV was stable at 103 in 05/2019, lower at 99 in November 2019; his hemoglobin has dropped a bit to 11.3 as of November 2019 likely because of his progressive creatinine rise. Problem Other constipation K59.09 Active 06050305 Cola ce has been prescribed in the past for his complaint of hard stools with constipation. I believe he is currently using MiraLAX 2 times a week. Uses fleets enemas when he is severely constipated . He may use mag citrate for severe constipation and continue use fleets enemas as needed. Problem Personal history of malignant melanoma of skin Z85 .820 Active [id number] Prior melanoma of left eye sclera, resec dustin 1992, and another in 03/2010 near right eye (in situ). No evidence of recurrence. Sees a [place] correctional treatment specialist. Problem Personal history of colonic polyps Z86.010 Activ e 720632208 He had an adenomatous colonic polyp in 2008, 02/2013, May 2016. Problem Cognitive dysfunction F09 Active 247130533 TSH, B12 and folate levels were normal most recently in 04/2018, but his TSH was suppressed as of November 2019, less so as of December 2019. There is a component of depression or problems with attention. I started him on citalopram with benefit in April 2013. He went to the memory unit in [place] and Aricept was started but he tolerated [...] tablet at noon. Problem Hypercholesterolemia E78.00 Active 51660508 Hi s lipids were controlled to primary prevention target without medications, as of November 2019. Problem Hypertension with renal disease I12.9 Active 75925342 On carvedilol, dose reduced most recently because of lightheadedness in September 2018 by his pouring crane operator. He was taken off his lisinopril because of lightheadedness in Spring 2017. His pouring crane operator has assisted in dose adjustments. Last echocardiogram 2014: no LVH, no systolic dysfunction (left ventricular ejection fraction 70%), mild diastolic dysfunction. His blood pressure is adequately controlled. Problem Suspected sleep apnea R29.818 Active 59938250 H is describes fairly typical sleep apnea symptoms but does not feel that he would tolerate the testing for sleep apnea nor would he tolerated the treatment. Problem Paroxysmal atrial fibrillation I48.0 Active 2 52393550 He had transient atrial fibrillation after endoscopy 2000 and which recurred 03/12. LA diameter 4.4 cm, mild MR/AR and he had a normal echocardiogram otherwise. Stress test, events monitor normal. His pouring crane operator wishes him to be on anticoagulation. He is currently on Xarelto, carvedilol and amiodarone. I switched his atenolol to carvedilol in August 2012. 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 He has regular pacemaker interrogations for mode switching. I have assumed that his thyroid function has been followed by the pouring crane operator who prescribes his amiodarone. He did have [...] future. Problem Low back pain M54.5 Active 934894709 He has h ad another flare of lower back pain which he also experienced in June 2019. He is using topical lidocaine, Voltaren gel, and extra, all. Perhaps he would benefit from extended- release Tylenol. Continue local heat. Consider physical therapy referral if he fails to improve. 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 Last EGD was in May 2016 and he had inflammation without dysplasia. Nguyen's esophagus was identified in 2010 I believe. Problem Chronic kidney disease, stage 3 N18.3 Active 057767637 He has had declining renal function since April 2017 and this is somewhat worse as of November and December 2019, with a creatinine of 1.81/GFR 39 with a PTH level of 60 in November 2019 and a creatinine of 1.79 with a GFR 39 in December 2019. Problem Impaired fasting glucose R73.01 Active 0121363 07 His fasting glucose was 106 in April 2018 but 99 in November2018, 104 in 05/2019, 94 in November 2019; HgbA1c was a bit higher at 6.2% with a negative microalbumin as of 05/2019. Problem Abnormal TSH R79.89 Active 218386430 His TSH w as suppressed in 0.1 range in November 2019, less suppressed at 0.274 and December 2019. He has no hyperthyroid symptoms. I suspect amiodarone is playing a role, versus silent thyroiditis. I will repeat his labs in March 2020. Problem Abnormal chest xray R93.89 Active 121161675 He was recently seen in urgent care [...] naproxen Aleve([facility] Code:[address]-91) Anaphylaxis Drug Allergy Active Penicillin (For Allergies Use Only) Anaphylaxis Drug Aller gy Active ENCOUNTERS from 1940 to 2020-02-17 Encounter Location Date Provider Diagnosis [facility] [place] [address] Feb, Jason Soto [facility] Vaccine Route Administration Date Status Zoster [...] Notes Start Da te End Date Status Calcium 600 + D 600-400 MG-UNIT 1 tablet Orally Once a day for 30 day (s) Active Citalopram Hydrobromide 20 MG 1.5 tablet Orally Once a day Active SEROquel 25 MG 1/2 tab Orally Daily at noon May, Active Xarelto 20 MG TAKE 1 TABLET DAILY WITH FOOD Active Flonase 50 MCG/ACT 2 spray in each nostril Nasa lly daily as needed for 90 day(s) Active Voltaren 1 % 1-2 grams to affected area o n lower back Transdermal Q6 hours as needed for 10 days Dec, Active Amiodarone HCl 200 MG 1 tablet Orally one every other day Active Vitamin B12 1000 MCG 1 tablet Orally Once a day Active Nexium 40 MG 1 tab(s) Orally daily for 90 days Active Saline Nasal [place] 0.65 % as directed Nasally as directed Jan, Active Acetaminophen 500 mg 1 capsule as needed Orally every 6 hrsPRN Active Carvedilol 6.25 MG 1/2 tablet Orally Daily Active PROCEDURES No Information RESULTS No Results REASON FOR VISIT ED F/U [facility] D/C 02/14; Back Pain MEDICAL (GENERAL) HISTORY Type Description Date Medical [...] surgery 05/2009 Surgical History Varicose vein treatments [id number] Surgical History Melanoma resected near right eye [...] 1/2 tab Orally Daily at noon May, Next Appt Details Provider Name:Jason Soto, 2020-03-16 10 :30:00 AM, [facility] [place], [address], Provider Name:Jason Soto, 2020-05-12 11 :00:00 AM, [address] [place] [address], [phone], Insurance Providers Payer Name Payer Address Payer Phone Insured Name Patient Relati onship to Insured Coverage Start Date Coverage End Date MEDICARE Part A and B [address] [facility] [phone] HERMILO LO self [facility] [address] [address] [facility] [phone] HERMILO LO self
--- OUTSIDE RECORDS SUMMARY | 2020-02-27 05:27 | CCD ---
Author Author [facility] Organization [facility] Address Unknown Phone Unavailable Care Team Providers Care Brick Stacker Name Role Phone Jason Soto Unavailable PROBLEMS Type Condition ICD9-CM Code [id number] Code Onset Dates Condition S tatus SNOMED Code Notes Problem Macrocytosis D75.89 Active [id number] Macrocyto sis on CBC and B12 and Folate levels normal in the past and most recently in April 2018. Most recent MCV was stable at 103 in 05/2019, lower at 99 in November 2019; his hemoglobin has dropped a bit to 11.3 as of November 2019 likely because of his progressive creatinine rise. Problem Other constipation K59.09 Active 52469543 Cola ce has been prescribed in the past for his complaint of hard stools with constipation. I believe he is currently using MiraLAX 2 times a week. Uses fleets enemas when he is severely constipated . He may use mag citrate for severe constipation and continue use fleets enemas as needed. Problem Personal history of malignant melanoma of skin Z85 .820 Active [id number] Prior melanoma of left eye sclera, resec dustin 1992, and another in 03/2010 near right eye (in situ). No evidence of recurrence. Sees a [place] asset protection assistant. Problem Personal history of colonic polyps Z86.010 Activ e 355908757 He had an adenomatous colonic polyp in 2008, 02/2013, May 2016. Problem Cognitive dysfunction F09 Active 663327943 TSH, B12 and folate levels were normal most recently in 04/2018, but his TSH was suppressed as of November 2019, less so as of December 2019. There is a component of depression or problems with attention. I started him on citalopram with benefit in April 2013. He went to the memory unit in [place] and Aricept was started but he tolerated [...] tablet at noon. Problem Hypercholesterolemia E78.00 Active 96211815 Hi s lipids were controlled to primary prevention target without medications, as of November 2019. Problem Hypertension with renal disease I12.9 Active 61729057 On carvedilol, dose reduced most recently because of lightheadedness in September 2018 by his swimming pool service technician. He was taken off his lisinopril because of lightheadedness in Spring 2017. His swimming pool service technician has assisted in dose adjustments. Last echocardiogram 2014: no LVH, no systolic dysfunction (left ventricular ejection fraction 70%), mild diastolic dysfunction. His blood pressure is adequately controlled. Problem Suspected sleep apnea R29.818 Active 16916170 H is describes fairly typical sleep apnea symptoms but does not feel that he would tolerate the testing for sleep apnea nor would he tolerated the treatment. Problem Paroxysmal atrial fibrillation I48.0 Active 2 14689849 He had transient atrial fibrillation after endoscopy 2000 and which recurred 03/12. LA diameter 4.4 cm, mild MR/AR and he had a normal echocardiogram otherwise. Stress test, events monitor normal. His swimming pool service technician wishes him to be on anticoagulation. He is currently on Xarelto, carvedilol and amiodarone. I switched his atenolol to carvedilol in August 2012. 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 He has regular pacemaker interrogations for mode switching. I have assumed that his thyroid function has been followed by the swimming pool service technician who prescribes his amiodarone. He did have [...] future. Problem Low back pain M54.5 Active 753104810 He has h ad another flare of lower back pain which he also experienced in June 2019. He is using topical lidocaine, Voltaren gel, and extra, all. Perhaps he would benefit from extended- release Tylenol. Continue local heat. Consider physical therapy referral if he fails to improve. 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 Last EGD was in May 2016 and he had inflammation without dysplasia. Nguyen's esophagus was identified in 2010 I believe. Problem Chronic kidney disease, stage 3 N18.3 Active 015315244 He has had declining renal function since April 2017 and this is somewhat worse as of November and December 2019, with a creatinine of 1.81/GFR 39 with a PTH level of 60 in November 2019 and a creatinine of 1.79 with a GFR 39 in December 2019. Problem Impaired fasting glucose R73.01 Active 6910513 07 His fasting glucose was 106 in April 2018 but 99 in November2018, 104 in 05/2019, 94 in November 2019; HgbA1c was a bit higher at 6.2% with a negative microalbumin as of 05/2019. Problem Abnormal TSH R79.89 Active 376176372 His TSH w as suppressed in 0.1 range in November 2019, less suppressed at 0.274 and December 2019. He has no hyperthyroid symptoms. I suspect amiodarone is playing a role, versus silent thyroiditis. I will repeat his labs in March 2020. Problem Abnormal chest xray R93.89 Active 390527888 He was recently seen in urgent care [...] NSAIDS Anaphylaxis Non Drug Allergy Active naproxen Aleve([facility] Code:[address]-89) Anaphylaxis Drug Allergy Active Penicillin (For Allergies Use Only) Anaphylaxis Drug Aller gy Active ENCOUNTERS from 1940 to 2020-01-05 Encounter Location Date Provider Diagnosis [facility] [place] [address] Dec, Jason Soto Hypertension with renal disease I12.9 ; Cognitive dysfunction F09 ; Abnormal TSH R79.89 ; Chronic kidney disease, stage 3 N18.3 ; Paroxysmal atrial fibrillation I48.0 ; Macrocytosis D75.89 ; Suspected sleep apnea R29.818 and Low back pain M54.5 IMMUNIZATIONS Vaccine Route Administration Date Status Zoster 50mcg/0.5mL (Shingrix) Unknown April 12, 2018 Ad ministered Influenza (Pharmacy Given) Unknown Nov 30, 2017 Admin istered Influenza (High Dose 65 & [...] older) Flublok IM Intramuscular 2019 Administered Influenza (Pharmacy Given) Unknown Nov 20, 2018 [...] REASON FOR REFERRAL No Information VITAL SIGNS Weight 207.0 lbs Dec, Height 70 in Dec, BMI 29.70 kg/m2 Dec, Heart Rate 87 /min Dec, Respiratory Rate 18 /min Dec, Temperature 97.3 degrees Fahrenheit Dec, Oximetry 97% Dec, Blood pressure systolic 128 mm Hg Dec, Blood pressure diastolic 82 mm Hg Dec, MEDICATIONS Medication SIG (Take, Route, Frequency, Duration) [...] daily for 90 days Active Saline Nasal [place] 0.65 % as directed Nasally as directed Jan, Active Acetaminophen 500 mg 1 capsule as needed Orally every 6 hrsPRN Active Carvedilol 6.25 MG 1/2 tablet Orally Daily Active PROCEDURES No Information RESULTS No Results REASON FOR VISIT 1 month follow with labs to review MEDICAL (GENERAL) HISTORY Type Description Date Medical [...] surgery 05/2009 Surgical History Varicose vein treatments 9859-0815 Surgical History Melanoma resected near right eye [...] Notes Treatment Notes Treatm ent Clinical Notes Dec, Hypertension with renal disease (ICD-10 - I12.9) On carvedilol, dose reduced most recently because of lightheadedness in September 2018 by his swimming pool service technician. He was taken off his lisinopril because of lightheadedness in Spring 2017. His swimming pool service technician has assisted in dose adjustments. Last echocardiogram 2014: no LVH, no systolic dysfunction (left ventricular ejection fraction 70%), mild diastolic dysfunction. His blood pressure is adequately controlled. Dec, Cognitive dysfunction (ICD-10 - F09) TSH , B12 and folate levels were normal most recently in 04/2018, but his TSH was suppressed as of November 2019, less so as of December 2019. There is a component of depression or problems with attention. I started him on citalopram with benefit in April 2013. He went to the memory unit in [place] and Aricept was started but he tolerated [...] Seroquel to one half tablet at noon. Dec, Abnormal TSH (ICD-10 - R79.89) His TSH w as suppressed in 0.1 range in November 2019, less suppressed at 0.274 and December 2019. He has no hyperthyroid symptoms. I suspect amiodarone is playing a role, versus silent thyroiditis. I will repeat his labs in March 2020. Dec, Chronic kidney disease, stage 3 (ICD-10 - N18.3) He has had declining renal function since April 2017 and this is somewhat worse as of November and December 2019, with a creatinine of 1.81/GFR 39 with a PTH level of 60 in November 2019 and a creatinine of 1.79 with a GFR 39 in December 2019. Dec, Paroxysmal atrial fibrillation (ICD-10 - I48.0) He had transient atrial fibrillation after endoscopy 2000 and which recurred 03/12. LA diameter 4.4 cm, mild MR/AR and he had a normal echocardiogram otherwise. Stress test, events monitor normal. His swimming pool service technician wishes him to be on anticoagulation. He is currently on Xarelto, carvedilol and amiodarone. I switched his atenolol to carvedilol in August 2012. 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 He has regular pacemaker interrogations for mode switching. I have assumed that his thyroid function has been followed by the swimming pool service technician who prescribes his amiodarone. He did have a normal TSH as of 04/2018, but his TSH is suppressed as of November 2019 and again in December 2019 and this will be followed. Since he was in atrial fibrillation his cardiology visit in November 2019, his amiodarone was reduced to every other day and will likely be discontinued in the future. Dec, Macrocytosis (ICD-10 - D75.89) Macrocyto sis on CBC and B12 and Folate levels normal in the past and most recently in April 2018. Most recent MCV was stable at 103 in 05/2019, lower at 99 in November 2019; his hemoglobin has dropped a bit to 11.3 as of November 2019 likely because of his progressive creatinine rise. Dec, Suspected sleep apnea (ICD-10 - R29.818) His describes fairly typical sleep apnea symptoms but does not feel that he would tolerate the testing for sleep apnea nor would he tolerated the treatment. Dec, Low back pain (ICD-10 - M54.5) He has fischer d another flare of lower back pain which he also experienced in June 2019. He is using topical lidocaine, Voltaren gel, and extra, all. Perhaps he would benefit from extended-release Tylenol. Continue local heat. Consider physical therapy referral if he fails to improve. PLAN OF TREATMENT Medication Medication Name Sig Start Date Stop Date SEROquel 25 MG 1/2 tab Orally Daily at noon May, Future Test Test Name Order Date Comprehensive Metabolic Profile (CMP) [id number] MAGNESIUM LEVEL [id number] PTH INTACT [id number] CBC with Differential [id number] TSH [id number] FREE T4 & TSH PANEL [id number] FREE T3 [id number] Next Appt Details Early 03/2020 Reason: Provider Name:Jason Soto, 2020-03-16 10 :30:00 AM, [address] [place] [address], [phone], Provider Name:Jason Soto 2020-05-12 11 :00:00 AM, [address] [place] [address], [phone], Insurance Providers Payer Name Payer Address Payer Phone Insured Name Patient Relati onship to Insured Coverage Start Date Coverage End Date [facility] [address] [id number] [facility] [phone] HERMILO LO self MEDICARE Part A and B [address] [facility] [place] [address] HERMILO LO self
--- OUTSIDE RECORDS SUMMARY | 2020-02-27 05:28 | CCD ---
Author Author [facility] Organization [facility] [facility] Address Unknown Phone Unavailable Care Team Providers Care Primer And Powder Canning Leader Name Role Phone Kacey Robins Unavailable PROBLEMS Type Condition ICD9-CM Code [id number] Code Onset Dates Condition S tatus SNOMED Code Notes Problem Macrocytosis D75.89 Active 535385956 Macrocyto sis on CBC and B12 and Folate levels normal in the past and most recently in April 2018. Most recent MCV was stable at 103 in 05/2019, lower at 99 in November 2019; his hemoglobin has dropped a bit to 11.3 as of November 2019 likely because of his progressive creatinine rise. Problem Other constipation K59.09 Active 00440977 Cola ce has been prescribed in the past for his complaint of hard stools with constipation. I believe he is currently using MiraLAX 2 times a week. Uses fleets enemas when he is severely constipated . He may use mag citrate for severe constipation and continue use fleets enemas as needed. 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 Last EGD was in May 2016 and he had inflammation without dysplasia. Nguyen's esophagus was identified in 2010 I believe. Problem Paroxysmal atrial fibrillation I48.0 Active 2 51740499 He had transient atrial fibrillation after endoscopy 2000 and which recurred 03/12. LA diameter 4.4 cm, mild MR/AR and he had a normal echocardiogram otherwise. Stress test, events monitor normal. His recycling center operator wishes him to be on anticoagulation. He is currently on Xarelto, carvedilol and amiodarone. I switched his atenolol to carvedilol in August 2012. 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 He has regular pacemaker interrogations for mode switching. I have assumed that his thyroid function has been followed by the recycling center operator who prescribes his amiodarone. He did have a normal TSH as of 04/2018, but his TSH is suppressed as of November 2019 and this will be followed. Problem Cognitive dysfunction F09 Active 509882787 TSH, B12 and folate levels were normal most recently in 04/2018, but his TSH is suppressed as of November 2019. There is a component of depression or problems with attention. I started him on citalopram with benefit in April 2013. He went to the memory unit in [place] and Aricept was started but he tolerated it poorly as of late July 2016, and Namenda was considered and trialed but he decided not to continue that therapy due to his already significant polypharmacy. He has had some anger management issues and I added Seroquel therapy as of May 2018. He will try reducing the dose of Seroquel as of November 2019 because of his excessive inertia and daytime sleepiness. He was also started on Ritalin as of 2019. 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 Problem Abnormal chest xray R93.89 Active 695739131 He was recently seen in urgent care in October 2019 and had a chest x-ray which revealed some interstitial prominence with more density in the left lower lobe. He was treated with antibiotic therapy, doxycycline. He is currently not having any issues but we may need to follow this up in the future. Problem Personal history of malignant melanoma of skin Z85 .820 Active [id number] Prior melanoma of left eye sclera, resec dustin 1992, and another in 03/2010 near right eye (in situ). No evidence of recurrence. Sees a [place] door to door lead generation. Problem Abnormal TSH R79.89 Active 591013802 His TSH i s suppressed and I will repeat that at his next visit with a free T4 and free T3. Problem Personal history of colonic polyps Z86.010 Activ e 069272723 He had an adenomatous colonic polyp in 2008, 02/2013, May 2016. Problem Hypercholesterolemia E78.00 Active 69540331 Hi s lipids were controlled to primary prevention target without medications, as of November 2019. Problem Hypertension with renal disease I12.9 Active 15202123 On carvedilol, dose reduced most recently because of lightheadedness in September 2018 by his recycling center operator. He was taken off his lisinopril because of lightheadedness in Spring 2017. His recycling center operator has assisted in dose adjustments. Last echocardiogram 2014: no LVH, no systolic dysfunction (left ventricular ejection fraction 70%), mild diastolic dysfunction. His blood pressure is adequately controlled. Problem Impaired fasting glucose R73.01 Active 5152805 07 His fasting glucose was 106 in April 2018 but 99 in November2018, 104 in 05/2019, 94 in November 2019; HgbA1c was a bit higher at 6.2% with a negative microalbumin as of 05/2019. Problem Chronic kidney disease, stage 3 N18.3 Active 508520645 He has had declining renal function since April 2017 and this is somewhat worse as of November 2019, with a creatinine of 1.81/GFR 39 with a PTH level of 60. ALLERGIES Allergen (clinical drug ingredient) Drug/Non Drug Allergy do cumented on EMR Reaction Allergy Type Onset Date Status NSAIDS Anaphylaxis Non Drug Allergy Active naproxen Aleve([facility] Code:[address]-98) Anaphylaxis Drug Allergy Active Penicillin (For Allergies Use Only) Anaphylaxis Drug Aller gy Active ENCOUNTERS from 1940 to 2019-12-29 Encounter Location Date Provider Diagnosis [address] [address] Dec, Kacey Robins IMMUNIZATIONS Vaccine Route Administration Date Status Zoster [...] Notes Start Da te End Date Status Vitamin B12 1000 MCG 1 tablet Orally Once a day Not-Taking Citalopram Hydrobromide 20 MG 1.5 tablet Orally Once a day Active Nexium 40 MG 1 tab(s) Orally daily for 90 days Active Xarelto 20 MG TAKE 1 TABLET DAILY WITH FOOD Active SEROquel 25 mg 1 tab Orally BID May, Ac tive Saline Nasal [place] 0.65 % as directed Nasally as directed Jan, Active Calcium 600 + D 600-400 MG-UNIT 1 tablet Orally Once a day for 30 day (s) Active Aspir-81 81 MG 1 tablet Orally Once a day for 30 day(s) Active Carvedilol 6.25 MG 1/2 tablet Orally Daily Active Acetaminophen 500 mg 1 capsule as needed Orally every 6 hrsPRN Active Amiodarone HCl 200 MG 1 tablet Orally one every other day Active Voltaren 1 % 1-2 grams to affected area o n lower back Transdermal Q6 hours as needed for 10 days Dec, Active Methylphenidate HCl ER 20 MG 1 tablet Orally once daily, MDD=1 f or 14 days Dec, Active Flonase 50 MCG/ACT 2 spray in each nostril Nasa lly daily as needed for 90 day(s) Active PROCEDURES No Information RESULTS No Results REASON FOR VISIT Question on Voltaren 1% Gel MEDICAL (GENERAL) HISTORY Type Description Date Medical [...] surgery 05/2009 Surgical History Varicose vein treatments 1351-3975 Surgical History Melanoma resected near right eye [...] Medication Name Sig Start Date Stop Date Voltaren 1 % 1-2 grams to affected area o n lower back Transdermal Q6 hours as needed for 10 days Dec, Next Appt Details Provider Name:Jason Soto 2019-12-30 03 :30:00 PM, [address] [place] [address], [phone], Provider Name:Jaosn Soto 2020-05-12 11 :00:00 AM, [address] [place] [address], [phone], Insurance Providers Payer Name Payer Address Payer Phone Insured Name Patient Relati onship to Insured Coverage Start Date Coverage End Date [facility] [address] [facility] [id number] HERMILO LO MEDICARE Part A and B [address] [facility] [phone] HERMILO LO self
--- OUTSIDE RECORDS SUMMARY | 2020-02-27 05:28 | CCD ---
Author Author [facility] Organization [facility] Address Unknown Phone Unavailable Care Team Providers Care Fountain Worker Name Role Phone Jason Soto Unavailable PROBLEMS Type Condition ICD9-CM Code XRS13-GE Code Onset Dates Condition S tatus SNOMED Code Notes Problem Macrocytosis D75.89 Active 359005125 Macrocyto sis on CBC and B12 and Folate levels normal in the past and most recently in April 2018. Most recent MCV was stable at 103 in 05/2019, lower at 99 in November 2019; his hemoglobin has dropped a bit to 11.3 as of November 2019 likely because of his progressive creatinine rise. Problem Other constipation K59.09 Active 11527630 Cola ce has been prescribed in the past for his complaint of hard stools with constipation. I believe he is currently using MiraLAX 2 times a week. Uses fleets enemas when he is severely constipated . He may use mag citrate for severe constipation and continue use fleets enemas as needed. 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 Last EGD was in May 2016 and he had inflammation without dysplasia. Nguyen's esophagus was identified in 2010 I believe. Problem Paroxysmal atrial fibrillation I48.0 Active 2 00729317 He had transient atrial fibrillation after endoscopy 2000 and which recurred 03/12. LA diameter 4.4 cm, mild MR/AR and he had a normal echocardiogram otherwise. Stress test, events monitor normal. His insole tape stitcher uco wishes him to be on anticoagulation. He is currently on Xarelto, carvedilol and amiodarone. I switched his atenolol to carvedilol in August 2012. 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 He has regular pacemaker interrogations for mode switching. I have assumed that his thyroid function has been followed by the insole tape stitcher uco who prescribes his amiodarone. He did have a normal TSH as of 04/2018, but his TSH is suppressed as of November 2019 and this will be followed. Problem Cognitive dysfunction F09 Active 192798978 TSH, B12 and folate levels were normal most recently in 04/2018, but his TSH is suppressed as of November 2019. There is a component of depression or problems with attention. I started him on citalopram with benefit in April 2013. He went to the memory unit in [place] and Aricept was started but he tolerated [...] on Ritalin as of 2019. 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 Problem Abnormal chest xray R93.89 Active 662344721 He was recently seen in urgent care [...] malignant melanoma of skin Z85 .820 Active 653382532001 Prior melanoma of left eye sclera, resec dustin 1992, and another in 03/2010 near right eye (in situ). No evidence of recurrence. Sees a [place] validation consultant. Problem Abnormal TSH R79.89 Active 542678476 His TSH i s suppressed and I will repeat that at his next visit with a free T4 and free T3. Problem Personal history of colonic polyps Z86.010 Activ e 614115421 He had an adenomatous colonic polyp in 2008, 02/2013, May 2016. Problem Hypercholesterolemia E78.00 Active 73112579 Hi s lipids were controlled to primary prevention target without medications, as of November 2019. Problem Hypertension with renal disease I12.9 Active 15144824 On carvedilol, dose reduced most recently because of lightheadedness in September 2018 by his insole tape stitcher uco. He was taken off his lisinopril because of lightheadedness in Spring 2017. His insole tape stitcher uco has assisted in dose adjustments. Last echocardiogram 2014: no LVH, no systolic dysfunction (left ventricular ejection fraction 70%), mild diastolic dysfunction. His blood pressure is adequately controlled. Problem Impaired fasting glucose R73.01 Active 1374159 07 His fasting glucose was 106 in April 2018 but 99 in November2018, 104 in 05/2019, 94 in November 2019; HgbA1c was a bit higher at 6.2% with a negative microalbumin as of 05/2019. Problem Chronic kidney disease, stage 3 N18.3 Active 313622562 He has had declining renal function since April 2017 and this is somewhat worse as of November 2019, with a creatinine of 1.81/GFR 39 with a PTH level of 60. ALLERGIES Allergen (clinical drug ingredient) Drug/Non Drug Allergy do cumented on EMR Reaction Allergy Type Onset Date Status NSAIDS Anaphylaxis Non Drug Allergy Active naproxen Aleve([facility] Code:[address]-26) Anaphylaxis Drug Allergy Active Penicillin (For Allergies Use Only) Anaphylaxis Drug Aller gy Active ENCOUNTERS from 1940 to 2019-12-08 Encounter Location Date Provider Diagnosis [address] [address] Dec, Jason Soto Cognitive dysfunction F09 IMMUNIZATIONS Vaccine Route Administration Date Status Zoster [...] MEDICATIONS Medication SIG (Take, Route, Frequency, Duration) Start Date En d Date Status SEROquel 25 mg 1 tab Orally BID May, Active Carvedilol 6.25 MG 1/2 tablet Orally Daily Active Amiodarone HCl 200 MG 1 tablet Orally Daily Active Saline Nasal [place] 0.65 % as directed Nasally as directed Jan, Active Nexium 40 MG 1 tab(s) Orally daily for 90 days Active Acetaminophen 500 mg 1 capsule as needed Orally every 6 hrsPRN Active Calcium 600 + D 600-400 MG-UNIT 1 tablet Orally Once a day for 30 d ay(s) Active Methylphenidate HCl ER 20 MG 1 tablet Orally once daily, MDD =1 for 14 days Dec, Active Xarelto 20 MG TAKE 1 TABLET DAILY WITH FOOD Active Vitamin B12 1000 MCG 1 tablet Orally Once a day Not-Taking Flonase 50 MCG/ACT 2 spray in each nostril Nasa lly daily as needed for 90 day(s) Active Citalopram Hydrobromide 20 MG 1.5 tablet Orally Once a day Active Aspir-81 81 MG 1 tablet Orally Once a day for 30 day(s) Active PROCEDURES No Information RESULTS No Results REASON FOR VISIT Start ritalin SR MEDICAL (GENERAL) HISTORY Type Description Date Medical [...] surgery 05/2009 Surgical History Varicose vein treatments 1628-8308 Surgical History Melanoma resected near right eye [...] STATUS No Information ASSESSMENTS Encounter Date Diagnosis Notes Dec, Cognitive dysfunction (ICD-10 - F09) PLAN OF TREATMENT Medication Medication Name Sig Start Date Stop Date Nexium 40 MG 1 tab(s) Orally daily for 90 days Citalopram Hydrobromide 20 MG 1.5 tablet Orally Once a day Xarelto 20 MG TAKE 1 TABLET DAILY WITH FOOD Methylphenidate HCl ER 20 MG 1 tablet Orally once daily, MDD =1 for 14 days Dec, Next Appt Details Provider Name:Jason Soto, 2019-12-30 03 :30:00 PM, [address] [place] [address], [phone], Provider Name:Jason Soto 2020-05-12 11 :00:00 AM, [address] [place] [address], [phone], Insurance Providers Payer Name Payer Address Payer Phone Insured Name Patient Relati onship to Insured Coverage Start Date Coverage End Date MEDICARE Part A and B [address] [facility] [phone] HERMILO LO self [facility] [address] [facility] [phone] [phone] HERMILO LO self
--- OUTSIDE RECORDS SUMMARY | 2020-02-27 05:28 | CCD ---
Author Author [employer] Organization [facility] Address Unknown Phone Unavailable Care Team Providers Care Cold Roll Inspector Name Role Phone Kacey Robins Unavailable PROBLEMS Type Condition ICD9-CM Code BLE50-KU Code Onset Dates Condition S tatus SNOMED Code Notes Problem Macrocytosis D75.89 Active 208251656 Macrocyto sis on CBC and B12 and Folate levels normal in the past and most recently in April 2018. Most recent MCV was stable at 103 in 05/2019, lower at 99 in November 2019; his hemoglobin has dropped a bit to 11.3 as of November 2019 likely because of his progressive creatinine rise. Problem Other constipation K59.09 Active 71511234 Cola ce has been prescribed in the past for his complaint of hard stools with constipation. I believe he is currently using MiraLAX 2 times a week. Uses fleets enemas when he is severely constipated . He may use mag citrate for severe constipation and continue use fleets enemas as needed. 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 Last EGD was in May 2016 and he had inflammation without dysplasia. Nguyen's esophagus was identified in 2010 I believe. Problem Paroxysmal atrial fibrillation I48.0 Active 2 82216002 He had transient atrial fibrillation after endoscopy 2000 and which recurred 03/12. LA diameter 4.4 cm, mild MR/AR and he had a normal echocardiogram otherwise. Stress test, events monitor normal. His tassel maker wishes him to be on anticoagulation. He is currently on Xarelto, carvedilol and amiodarone. I switched his atenolol to carvedilol in August 2012. 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 He has regular pacemaker interrogations for mode switching. I have assumed that his thyroid function has been followed by the tassel maker who prescribes his amiodarone. He did have a normal TSH as of 04/2018, but his TSH is suppressed as of November 2019 and this will be followed. Problem Cognitive dysfunction F09 Active 626994649 TSH, B12 and folate levels were normal most recently in 04/2018, but his TSH is suppressed as of November 2019. There is a component of depression or problems with attention. I started him on citalopram with benefit in April 2013. He went to the memory unit in [place] and Aricept was started but he tolerated [...] on Ritalin as of 2019. 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 Problem Abnormal chest xray R93.89 Active 416521608 He was recently seen in urgent care [...] malignant melanoma of skin Z85 .820 Active 777138635113 Prior melanoma of left eye sclera, resec dustin 1992, and another in 03/2010 near right eye (in situ). No evidence of recurrence. Sees a [place] monotype keyboard operator. Problem Abnormal TSH R79.89 Active 849319278 His TSH i s suppressed and I will repeat that at his next visit with a free T4 and free T3. Problem Personal history of colonic polyps Z86.010 Activ e 111130174 He had an adenomatous colonic polyp in 2008, 02/2013, May 2016. Problem Hypercholesterolemia E78.00 Active 74183665 Hi s lipids were controlled to primary prevention target without medications, as of November 2019. Problem Hypertension with renal disease I12.9 Active 99707962 On carvedilol, dose reduced most recently because of lightheadedness in September 2018 by his tassel maker. He was taken off his lisinopril because of lightheadedness in Spring 2017. His tassel maker has assisted in dose adjustments. Last echocardiogram 2014: no LVH, no systolic dysfunction (left ventricular ejection fraction 70%), mild diastolic dysfunction. His blood pressure is adequately controlled. Problem Impaired fasting glucose R73.01 Active 5879845 07 His fasting glucose was 106 in April 2018 but 99 in November2018, 104 in 05/2019, 94 in November 2019; HgbA1c was a bit higher at 6.2% with a negative microalbumin as of 05/2019. Problem Chronic kidney disease, stage 3 N18.3 Active 097940237 He has had declining renal function since April 2017 and this is somewhat worse as of November 2019, with a creatinine of 1.81/GFR 39 with a PTH level of 60. ALLERGIES Allergen (clinical drug ingredient) Drug/Non Drug Allergy do cumented on EMR Reaction Allergy Type Onset Date Status NSAIDS Anaphylaxis Non Drug Allergy Active naproxen Aleve([facility] Code:[address]-43) Anaphylaxis Drug Allergy Active Penicillin (For Allergies Use Only) Anaphylaxis Drug Aller gy Active ENCOUNTERS from 1940 to 2019-12-24 Encounter Location Date Provider Diagnosis [address] [address] Dec, Kacey Robins IMMUNIZATIONS Vaccine Route Administration [...] Orally BID May, Ac tive Saline Nasal [place] 0.65 % as directed Nasally as directed [...] Information RESULTS No Results REASON FOR VISIT Back pain MEDICAL (GENERAL) HISTORY Type Description Date Medical [...] surgery 05/2009 Surgical History Varicose vein treatments 4269-1406 Surgical History Melanoma resected near right eye [...] Provider Name:Jason Soto, 2019-12-30 03 :30:00 PM, [address] [place] [address], [phone], Provider Name:Jason Soto 2020-05-12 11 :00:00 AM, [address] [place] [address], [phone], Insurance Providers Payer Name Payer Address Payer Phone Insured Name Patient Relati onship to Insured Coverage Start Date Coverage End Date MEDICARE Part A and B [address] [facility] [phone] [facility] [address] [address] [facility] [phone] HERMILO LO self
--- OUTSIDE RECORDS SUMMARY | 2020-02-27 05:28 | CCD ---
Author Author [facility] Organization [facility] [employer] Address Unknown Phone Unavailable Care Team Providers Care Software Product Specialist Name Role Phone Kacey Robins Unavailable PROBLEMS Type Condition ICD9-CM Code [id number] Code Onset Dates Condition S tatus SNOMED Code Notes Problem Macrocytosis D75.89 Active [id number] Macrocyto sis on CBC and B12 and Folate levels normal in the past and most recently in April 2018. Most recent MCV was stable at 103 in 05/2019, lower at 99 in November 2019; his hemoglobin has dropped a bit to 11.3 as of November 2019 likely because of his progressive creatinine rise. Problem Other constipation K59.09 Active 63747960 Cola ce has been prescribed in the past for his complaint of hard stools with constipation. I believe he is currently using MiraLAX 2 times a week. Uses fleets enemas when he is severely constipated . He may use mag citrate for severe constipation and continue use fleets enemas as needed. 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 Last EGD was in May 2016 and he had inflammation without dysplasia. Nguyen's esophagus was identified in 2010 I believe. Problem Paroxysmal atrial fibrillation I48.0 Active 2 [id number] He had transient atrial fibrillation after endoscopy 2000 and which recurred 03/12. LA diameter 4.4 cm, mild MR/AR and he had a normal echocardiogram otherwise. Stress test, events monitor normal. His hvac specialist wishes him to be on anticoagulation. He is currently on Xarelto, carvedilol and amiodarone. I switched his atenolol to carvedilol in August 2012. 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 He has regular pacemaker interrogations for mode switching. I have assumed that his thyroid function has been followed by the hvac specialist who prescribes his amiodarone. He did have a normal TSH as of 04/2018, but his TSH is suppressed as of November 2019 and this will be followed. Problem Cognitive dysfunction F09 Active [id number] TSH, B12 and folate levels were normal most recently in 04/2018, but his TSH is suppressed as of November 2019. There is a component of depression or problems with attention. I started him on citalopram with benefit in April 2013. He went to the memory unit in [place] and Aricept was started but he tolerated [...] on Ritalin as of 2019. 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 Problem Abnormal chest xray R93.89 Active [id number] He was recently seen in urgent care [...] malignant melanoma of skin Z85 .820 Active [id number] Prior melanoma of left eye sclera, resec dustin 1992, and another in 03/2010 near right eye (in situ). No evidence of recurrence. Sees a [place] tosser. Problem Abnormal TSH R79.89 Active 492989839 His TSH i s suppressed and I will repeat that at his next visit with a free T4 and free T3. Problem Personal history of colonic polyps Z86.010 Activ e 905483255 He had an adenomatous colonic polyp in 2008, 02/2013, May 2016. Problem Hypercholesterolemia E78.00 Active 89497247 Hi s lipids were controlled to primary prevention target without medications, as of November 2019. 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 He was taken off his lisinopril because of lightheadedness in Spring 2017. His hvac specialist has assisted in dose adjustments. Last echocardiogram 2014: no LVH, no systolic dysfunction (left ventricular ejection fraction 70%), mild diastolic dysfunction. His blood pressure is adequately controlled. Problem Impaired fasting glucose R73.01 Active 4567097 07 His fasting glucose was 106 in April 2018 but 99 in November2018, 104 in 05/2019, 94 in November 2019; HgbA1c was a bit higher at 6.2% with a negative microalbumin as of 05/2019. Problem Chronic kidney disease, stage 3 N18.3 Active [id number] He has had declining renal function since April 2017 and this is somewhat worse as of November 2019, with a creatinine of 1.81/GFR 39 with a PTH level of 60. ALLERGIES Allergen (clinical drug ingredient) Drug/Non Drug Allergy do cumented on EMR Reaction Allergy Type Onset Date Status NSAIDS Anaphylaxis Non Drug Allergy Active naproxen Aleve([facility] Code:[address]-48) Anaphylaxis Drug Allergy Active Penicillin (For Allergies Use Only) Anaphylaxis Drug Aller gy Active ENCOUNTERS from 1940 to 2019-12-29 Encounter Location Date Provider Diagnosis [address] [address] Dec, Kacey Robins Acute bilateral low back pain without sc iatica M54.5 IMMUNIZATIONS Vaccine Route Administration Date Status [...] FOR REFERRAL No Information VITAL SIGNS Weight 210 lbs Dec, Height 70 in Dec, BMI 30.13 kg/m2 Dec, Heart Rate 75 /min Dec, Respiratory Rate 18 /min Dec, Temperature 96.1 degrees Fahrenheit Dec, Oximetry 99 Dec, Blood pressure systolic 138 mm Hg Dec, Blood pressure diastolic 70 mm Hg Dec, MEDICATIONS Medication SIG (Take, [...] Orally BID May, Ac tive Saline Nasal [place] 0.65 % as directed Nasally as directed [...] surgery 05/2009 Surgical History Varicose vein treatments 4206-6550 Surgical History Melanoma resected near right eye [...] Treatment Notes Treatm ent Clinical Notes Dec, Acute bilateral low back pain without sciatica ( ICD-10 - M54.5) Discussed options for medications with patient and his . As he had good luck with the Voltaren gel in the past, we will try that first. Continue with patches and heat. Mild stretching. No heavy lifting/pushing or pulling. Follow-up 4-5 days if no improvement in sxs PLAN OF TREATMENT Medication Medication Name Sig Start Date Stop Date Voltaren 1 % 1-2 grams to affected area o n lower back Transdermal Q6 hours as needed for 10 days Dec, Treatment Notes Assessment Notes Clinical Notes Acute bilateral low back pain without sciatica Discuss ed options for medications with patient and his . As he had good luck with the Voltaren gel in the past, we will try that first. Continue with patches and heat. Mild stretching. No heavy lifting/pushing or pulling. Follow-up 4-5 days if no improvement in sxs Next Appt Details Provider Name:Jason Soto, 2019-12-30 03 :30:00 PM, [address] [place] [address], [phone], Provider Name:Jason Soto, 2020-05-12 11 :00:00 AM, [address] [place] [address], [phone], Insurance Providers Payer Name Payer Address Payer Phone Insured Name Patient Relati onship to Insured Coverage Start Date Coverage End Date [facility] [address] [id number] [facility] [phone] HERMILO LO self MEDICARE Part A and B [address] [facility] [phone] HERMILO LO
--- OUTSIDE RECORDS SUMMARY | 2020-02-27 05:28 | CCD ---
Author Author [facility] Organization [facility] [employer] Address Unknown Phone Unavailable Care Team Providers Care Fire Adjuster Name Role Phone Jason Soto Unavailable PROBLEMS Type Condition ICD9-CM Code [id number] Code Onset Dates Condition S tatus SNOMED Code Notes Problem Macrocytosis D75.89 Active [id number] Macrocyto sis on CBC and B12 and Folate levels normal in the past and most recently in April 2018. Most recent MCV was stable at 103 in 05/2019, lower at 99 in November 2019; his hemoglobin has dropped a bit to 11.3 as of November 2019 likely because of his progressive creatinine rise. Problem Other constipation K59.09 Active 49702899 Cola ce has been prescribed in the past for his complaint of hard stools with constipation. I believe he is currently using MiraLAX 2 times a week. Uses fleets enemas when he is severely constipated . He may use mag citrate for severe constipation and continue use fleets enemas as needed. Problem Personal history of malignant melanoma of skin Z85 .820 Active [id number] Prior melanoma of left eye sclera, resec dustin 1992, and another in 03/2010 near right eye (in situ). No evidence of recurrence. 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 Problem Personal history of colonic polyps Z86.010 Activ e 113690068 He had an adenomatous colonic polyp in 2008, 02/2013, May 2016. Problem Cognitive dysfunction F09 Active 227721984 TSH, B12 and folate levels were normal most recently in 04/2018, but his TSH was suppressed as of November 2019, less so as of December 2019. There is a component of depression or problems with attention. I started him on citalopram with benefit in April 2013. He went to the memory unit in [place] and Aricept was started but he tolerated [...] tablet at noon. Problem Hypercholesterolemia E78.00 Active 52448538 Hi s lipids were controlled to primary prevention target without medications, as of November 2019. Problem Hypertension with renal disease I12.9 Active 43229932 On carvedilol, dose reduced most recently because of lightheadedness in September 2018 by his object oriented programmer. He was taken off his lisinopril because of lightheadedness in Spring 2017. His object oriented programmer has assisted in dose adjustments. Last echocardiogram 2014: no LVH, no systolic dysfunction (left ventricular ejection fraction 70%), mild diastolic dysfunction. His blood pressure is adequately controlled. Problem Suspected sleep apnea R29.818 Active 87210463 H is describes fairly typical sleep apnea symptoms but does not feel that he would tolerate the testing for sleep apnea nor would he tolerated the treatment. Problem Paroxysmal atrial fibrillation I48.0 Active 2 20330560 He had transient atrial fibrillation after endoscopy 2000 and which recurred 03/12. LA diameter 4.4 cm, mild MR/AR and he had a normal echocardiogram otherwise. Stress test, events monitor normal. His object oriented programmer wishes him to be on anticoagulation. He is currently on Xarelto, carvedilol and amiodarone. I switched his atenolol to carvedilol in August 2012. 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 He has regular pacemaker interrogations for mode switching. I have assumed that his thyroid function has been followed by the object oriented programmer who prescribes his amiodarone. He did have [...] future. Problem Low back pain M54.5 Active 806695934 He has h ad another flare of lower back pain which he also experienced in June 2019. He is using topical lidocaine, Voltaren gel, and extra, all. Perhaps he would benefit from extended- release Tylenol. Continue local heat. Consider physical therapy referral if he fails to improve. 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 Last EGD was in May 2016 and he had inflammation without dysplasia. Nguyen's esophagus was identified in 2010 I believe. Problem Chronic kidney disease, stage 3 N18.3 Active 848823965 He has had declining renal function since April 2017 and this is somewhat worse as of November and December 2019, with a creatinine of 1.81/GFR 39 with a PTH level of 60 in November 2019 and a creatinine of 1.79 with a GFR 39 in December 2019. Problem Impaired fasting glucose R73.01 Active 2741601 07 His fasting glucose was 106 in April 2018 but 99 in November2018, 104 in 05/2019, 94 in November 2019; HgbA1c was a bit higher at 6.2% with a negative microalbumin as of 05/2019. Problem Abnormal TSH R79.89 Active 644879056 His TSH w as suppressed in 0.1 range in November 2019, less suppressed at 0.274 and December 2019. He has no hyperthyroid symptoms. I suspect amiodarone is playing a role, versus silent thyroiditis. I will repeat his labs in March 2020. Problem Abnormal chest xray R93.89 Active 948534831 He was recently seen in urgent care [...] NSAIDS Anaphylaxis Non Drug Allergy Active naproxen Aleve([facility] Code:[address]-31) Anaphylaxis Drug Allergy Active Penicillin (For Allergies Use Only) Anaphylaxis Drug Aller gy Active ENCOUNTERS from 1940 to 2019-12-30 Encounter Location Date Provider [facility] [place] [address] 07 Nov, 2019 Jason Soto Hypertension with renal disease I12.9 ; Chronic kidney disease, stage 3 N18.3 ; Paroxysmal atrial fibrillation I48.0 ; Cognitive dysfunction F09 ; Personal history of colonic polyps Z86.010 ; Impaired fasting glucose R73.01 ; Hypercholesterolemia E78.00 ; 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 ; Macrocytosis D75.89 ; Personal history of malignant melanoma of skin Z85.820 ; Abnormal TSH R79.89 ; Abnormal chest xray R93.89 and Encounter for immunization Z23 IMMUNIZATIONS Vaccine Route Administration Date Status Zoster [...] FOR REFERRAL No Information VITAL SIGNS Weight 212.6 lbs Nov, Height 70 in Nov, BMI 30.50 kg/m2 Nov, Heart Rate 95 /min Nov, Respiratory Rate 18 /min Nov, Temperature 97 degrees Fahrenheit Nov, Oximetry 96 Nov, Blood pressure systolic 158 mm Hg Nov, Blood pressure diastolic 80 mm Hg Nov, MEDICATIONS Medication SIG (Take, Route, Frequency, Duration) [...] daily for 90 days Active Saline Nasal [place] 0.65 % as directed Nasally as directed Jan, Active Acetaminophen 500 mg 1 capsule as needed Orally every 6 hrsPRN Active Carvedilol 6.25 MG 1/2 tablet Orally Daily Active PROCEDURES Procedure Date Ordered Result Body Site Immunization: Flublok Quadrivalent (18 years & older) 0.5mL IM (Influenza) 2019 N/A RESULTS REASON FOR VISIT 6 month follow up , iSTOP Reference #: [id number] MEDICAL (GENERAL) HISTORY Type Description Date Medical [...] surgery 05/2009 Surgical History Varicose vein treatments [id number] Surgical History Melanoma resected near right eye [...] Notes Treatment Notes Treatm ent Clinical Notes Nov, Hypertension with renal disease (ICD-10 - I12.9) On carvedilol, dose reduced most recently because of lightheadedness in September 2018 by his object oriented programmer. He was taken off his lisinopril because of lightheadedness in Spring 2017. His object oriented programmer has assisted in dose adjustments. Last echocardiogram 2014: no LVH, no systolic dysfunction (left ventricular ejection fraction 70%), mild diastolic dysfunction. His blood pressure is adequately controlled. Nov, Chronic kidney disease, stage 3 (ICD-10 - N18.3) He has had declining renal function since April 2017 and this is somewhat worse as of November 2019, with a creatinine of 1.81/GFR 39 with a PTH level of 60. Nov, Paroxysmal atrial fibrillation (ICD-10 - I48.0) He had transient atrial fibrillation after endoscopy 2000 and which recurred 03/12. LA diameter 4.4 cm, mild MR/AR and he had a normal echocardiogram otherwise. Stress test, events monitor normal. His object oriented programmer wishes him to be on anticoagulation. He is currently on Xarelto, carvedilol and amiodarone. I switched his atenolol to carvedilol in August 2012. 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 He has regular pacemaker interrogations for mode switching. I have assumed that his thyroid function has been followed by the object oriented programmer who prescribes his amiodarone. He did have a normal TSH as of 04/2018, but his TSH is suppressed as of November 2019 and this will be followed. Nov, Cognitive dysfunction (ICD-10 - F09) TSH , B12 and folate levels were normal most recently in 04/2018, but his TSH is suppressed as of November 2019. There is a component of depression or problems with attention. I started him on citalopram with benefit in April 2013. He went to the memory unit in [place] and Aricept was started but he tolerated [...] on Ritalin as of 2019. He will order picker/assembler her month, then stop and I will see him shortly after his discontinuation of that medication. Nov, Personal history of colonic polyps (ICD- 10 - Z86.010) He had an adenomatous colonic polyp in 2008, 02/2013, May 2016. Nov, Impaired fasting glucose (ICD-10 - R73.0 1) His fasting glucose was 106 in April 2018 but 99 in November2018, 104 in 05/2019, 94 in November 2019; HgbA1c was a bit higher at 6.2% with a negative microalbumin as of 05/2019. Nov, Hypercholesterolemia (ICD-10 - E78.00) H is lipids were controlled to primary prevention target without medications, as of November 2019. Nov, Nguyen's esophagus without dysplasia (I CD-10 - K22.70) On PPI. Last EGD was in May 2016 and he had inflammation without dysplasia. Nguyen's esophagus was identified in 2010 I believe. Nov, Macrocytosis (ICD-10 - D75.89) Macrocyto sis on CBC and B12 and Folate levels normal in the past and most recently in April 2018. Most recent MCV was stable at 103 in 05/2019, lower at 99 in November 2019; his hemoglobin has dropped a bit to 11.3 as of November 2019 likely because of his progressive creatinine rise. Nov, Personal history of malignant melanoma o f skin (ICD-10 - Z85.820) Prior melanoma of left eye sclera, resected 1992, and another in 03/2010 near right eye (in situ). No evidence of recurrence. 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 Nov, Abnormal TSH (ICD-10 - R79.89) His TSH i s suppressed and I will repeat that at his next visit with a free T4 and free T3. Nov, Abnormal chest xray (ICD-10 - R93.89) He was recently seen in urgent care in October 2019 and had a chest x-ray which revealed some interstitial prominence with more density in the left lower lobe. He was treated with antibiotic therapy, doxycycline. He is currently not having any issues but we may need to follow this up in the future. Nov, Encounter for immunization (ICD-10 - Z23) PLAN OF TREATMENT Medication Medication Name Sig Start Date Stop Date SEROquel 25 MG 1/2 tab Orally Daily at noon May, Next Appt Details 12/29 at 3:30 Reason: Provider Name:Jason Soto, 2020-03-16 10 :30:00 AM, [address] [place], [phone], Provider Name:Jason Charles, 2020-05-12 11 :00:00 AM, [address] [place], [phone], Insurance Providers Payer Name Payer Address Payer Phone Insured Name Patient Relati onship to Insured Coverage Start Date Coverage End Date R [facility] [address] [id number] [facility] [phone] HERMILO LO MEDICARE Part A and B [address] [facility] [phone] HERMILO LO
--- OUTSIDE RECORDS SUMMARY | 2020-02-27 05:29 | CCD ---
Author Author [facility] Organization [facility] Address Unknown Phone Unavailable Care Team Providers Care Purchasing Analyst Name Role Phone DEIRDRE GALLAGHER MD Unavailable Unavailable DEIRDRE GALLAGHER MD Unavailable Unavailable DEIRDRE GALLAGHER MD Unavailable Unavailable DEIRDRE GALLAGHER MD Unavailable Unavailable DEIRDRE GALLAGHER MD Unavailable Unavailable DEIRDRE GALLAGHER MD Unavailable Unavailable DEIRDRE GALLAGHER MD Unavailable Unavailable DEIRDRE GALLAGHER MD Unavailable Unavailable DEIRDRE GALLAGHER MD Unavailable Unavailable DEIRDRE GALLAGHER MD Unavailable Unavailable DEIRDRE GALLAGHER MD Unavailable Unavailable DEIRDRE GALLAGHER MD Unavailable Unavailable DEIRDRE GALLAGHER MD Unavailable Unavailable DEIRDRE GALLAGHER MD Unavailable Unavailable DEIRDRE GALLAGHER MD Unavailable Unavailable DEIRDRE GALLAGHER MD Unavailable Unavailable DEIRDRE GALLAGHER MD Unavailable Unavailable DEIRDRE GALLAGHER MD Unavailable Unavailable DEIRDRE GALLAGHER MD Unavailable DEIRDRE Barnard MD Unavailable Unavailable DEIRDRE GALLAGHER MD Unavailable Unavailable DEIRDRE GALLAGHER MD Unavailable Unavailable DEIRDRE GALLAGHER MD Unavailable Unavailable DEIRDRE GALLAGHER MD Unavailable Unavailable DEIRDRE GALLAGHER MD Unavailable Unavailable DEIRDRE GALLAGHER MD Unavailable Unavailable DEIRDRE GALLAGHER MD Unavailable Unavailable DEIRDRE GALLAGHER MD Unavailable Unavailable DEIRDRE GALLAGHER MD Unavailable Unavailable DEIRDRE GALLAGHER MD Unavailable Unavailable DEIRDRE GALLAGHER MD Unavailable Unavailable DEIRDRE GALLAGHER MD Unavailable Unavailable DEIRDRE GALLAGHER MD Unavailable Unavailable DEIRDRE GALLAGHER MD Unavailable Unavailable DEIRDRE GALLAGHER MD Unavailable Unavailable DEIRDRE GALLAGHER MD Unavailable Unavailable DEIRDRE GALLAGHER MD Unavailable Unavailable DEIRDRE GALLAGHER MD Unavailable Unavailable DEIRDRE GALLAGHER MD Unavailable Unavailable DEIRDRE GALLAGHER MD Unavailable Unavailable DEIRDRE GALLAGHER MD Unavailable Unavailable DEIRDRE GALLAGHER MD Unavailable Unavailable DEIRDRE GALLAGHER MD Unavailable Unavailable DEIRDRE GALLAGHER MD Unavailable Unavailable DEIRDRE GALLAGHER MD Unavailable Unavailable DEIRDRE GALLAGHER MD Unavailable Unavailable DEIRDRE GALLAGHER MD Unavailable Unavailable DEIRDRE GALLAGHER MD Unavailable Unavailable DEIRDRE GALLAGHER MD Unavailable Unavailable DEIRDRE GALLAGHER MD Unavailable Unavailable DEIRDRE GALLAGHER MD Unavailable Unavailable DEIRDRE GALLAGHER MD Unavailable Unavailable DEIRDRE GALLAGHER MD Unavailable Unavailable DEIRDRE GALLAGHER MD Unavailable Unavailable DEIRDRE GALLAGHER MD Unavailable Unavailable DEIRDRE GALLAGHER MD Unavailable Unavailable DEIRDRE GALLAGHER MD Unavailable Unavailable DEIRDRE GALLAGHER MD Unavailable Unavailable EDIRDRE GALLAGHER MD Unavailable Unavailable DEIRDRE GALLAGHER MD Unavailable Unavailable DEIRDRE GALLAGHER MD Unavailable Unavailable DEIRDRE GALLAGHER MD Unavailable Unavailable DEIRDRE GALLAGHER MD Unavailable Unavailable DEIRDRE GALLAGHER MD Unavailable Unavailable DEIRDRE GALLAGHER MD Unavailable Unavailable DEIRDRE GALLAGHER MD Unavailable Unavailable DEIRDRE GALLAGHER MD Unavailable Unavailable DEIRDRE GALLAGHER MD Unavailable Unavailable DEIRDRE GALLAGHER MD Unavailable Unavailable DEIRDRE GALLAGHER MD Unavailable Unavailable DEIRDRE GALLAGHER MD Unavailable Unavailable DEIRDRE GALLAGHER MD Unavailable Unavailable Jason Soto MD Unavailable Unavailable Jason Soto MD Unavailable Unavailable Jason Soto MD Unavailable Unavailable Jason Soto MD Unavailable Unavailable Jason Soto MD Unavailable Unavailable Jason Soto MD Unavailable Unavailable Jason Soto MD Unavailable Unavailable Jason Soto MD Unavailable Unavailable Jason Soto MD Unavailable Unavailable Jason Soto MD Unavailable Unavailable Jason Soto MD Unavailable Unavailable Jason Soto MD Unavailable Unavailable Jason Soto MD Unavailable Unavailable Jason Soto MD Unavailable Unavailable Jason Soto MD Unavailable Unavailable Jason Soto MD Unavailable Unavailable Jason Soto MD Unavailable Unavailable Jason Soto MD Unavailable Unavailable Jason Soto MD Unavailable Unavailable Jason Soto MD Unavailable Unavailable Jason Soto MD Unavailable Unavailable Jason Soto MD Unavailable Unavailable Jason Soto MD Unavailable Unavailable Jason Soto MD Unavailable Unavailable Jason Soto MD Unavailable Unavailable Jason Soto MD Unavailable Unavailable Jason Soto MD Unavailable Unavailable Jason Soto MD Unavailable Unavailable Jason Soto MD Unavailable Unavailable Jason Soto MD Unavailable Unavailable Jason Soto MD Unavailable Unavailable Jason Soto MD Unavailable Unavailable Jason Soto MD Unavailable Unavailable Jason Soto MD Unavailable Unavailable Jason Soto MD Unavailable Unavailable Jason Soto MD Unavailable Unavailable Jason Soto MD Unavailable Unavailable Jason Soto MD Unavailable Unavailable Jason Soto MD Unavailable Unavailable Jason Soto MD Unavailable Unavailable Jason Soto MD Unavailable Unavailable Jason Soto MD Unavailable Unavailable Jason Soto MD Unavailable Unavailable Jason Soto MD Unavailable Unavailable Jason Soto MD Unavailable Unavailable Jason Soto MD Unavailable Unavailable Jason Soto MD Unavailable Unavailable Jason Soto MD Unavailable Unavailable Jason Soto MD Unavailable Unavailable Jason Soto MD Unavailable Unavailable Jason Soto MD Unavailable Unavailable Jason Soto MD Unavailable Unavailable Jason Soto MD Unavailable Unavailable Jason Soto MD Unavailable Unavailable Jason Soto MD Unavailable Unavailable Jason Soto MD Unavailable Unavailable Jason Soto MD Unavailable Unavailable Jason Soto MD Unavailable Unavailable Jason Soto MD Unavailable Unavailable Jason Soto MD Unavailable Unavailable Jason Soto MD Unavailable Unavailable Jason Soto MD Unavailable Unavailable Jason Soto MD Unavailable Unavailable Jason Soto MD Unavailable Unavailable Jason Soto MD Unavailable Unavailable Jason Soto MD Unavailable Unavailable Jason Soto MD Unavailable Unavailable Jason Soto MD Unavailable Unavailable Jason Soto MD Unavailable Unavailable Jason oSto MD Unavailable Unavailable Jaosn Soto MD Unavailable Unavailable Jason Soto MD Unavailable Unavailable ETHANLivia MD Unavailable Unavailable ETHANLivia MD Unavailable Unavailable ETHANLivia MD Unavailable Unavailable ETHANLivia MD Unavailable Unavailable ETHANLivia MD Unavailable Unavailable ETHANLivia MD Unavailable Unavailable ETHANLivia MD Unavailable Unavailable ETHANLivia MD Unavailable Unavailable ETHANLivia MD Unavailable Unavailable ETHANLivia MD Unavailable Unavailable ETHANLivia MD Unavailable Unavailable ETHANLivia MD Unavailable Unavailable ETHANLivia MD Unavailable Unavailable ETHANLivia MD Unavailable Unavailable ETHANLivia MD Unavailable Unavailable ETHANLivia MD Unavailable Unavailable ETHANLivia MD Unavailable Unavailable ETHANLivia MD Unavailable Unavailable ETHANLivia MD Unavailable Unavailable ETHANLivia MD Unavailable Unavailable ETHAN B DOMINIK STEPHENSON Unavailable Unavailable ETHAN, Livia LEHMAN MD Unavailable Unavailable ETHAN, Livia LEHMAN MD Unavailable Unavailable ETHAN, Livia LEHMAN MD Unavailable Unavailable ETHAN, Livia LEHMAN MD Unavailable Unavailable ETHAN, Livia LEHMAN MD Unavailable Unavailable ETHAN, Livia LEHMAN MD Unavailable Unavailable ETHAN, Livia LEHMAN MD Unavailable Unavailable ETHAN, Livia LEHMAN MD Unavailable Unavailable ETHAN, Livia LEHMAN MD Unavailable Unavailable ETHAN, Livia LEHMAN MD Unavailable Unavailable ETHAN, Livia LEHMAN MD Unavailable Unavailable ETHAN, Livia LEHMAN MD Unavailable Unavailable ETHAN, Livia LEHMAN MD Unavailable Unavailable ETHAN, Livia LEHMAN MD Unavailable Unavailable ETHAN, Livia LEHMAN MD Unavailable Unavailable ETHAN, Livia LEHMAN MD Unavailable Unavailable ETHAN, Livia LEHMAN MD Unavailable Unavailable ETHAN, Livia LEHMAN MD Unavailable Unavailable ETHAN, Livia LEHMAN MD Unavailable Unavailable ETHAN, Livia LEHMAN MD Unavailable Unavailable ETHAN, Livia LEHMAN MD Unavailable Unavailable ETHAN, Livia LEHMAN MD Unavailable Unavailable ETHAN, Livia LEHMAN MD Unavailable Unavailable ETHAN, Livia LEHMAN MD Unavailable Unavailable ETHAN, Livia LEHMAN MD Unavailable Unavailable ETHAN, Livia LEHMAN MD Unavailable Unavailable ETHAN, Livia LEHMAN MD Unavailable Unavailable ETHAN, Livia LEHMAN MD Unavailable Unavailable ETHAN, Livia LEHMAN MD Unavailable Unavailable ETHAN, Livia LEHMAN MD Unavailable Unavailable ETHAN, Livia LEHMAN MD Unavailable Unavailable ETHAN, Livia LEHMAN MD Unavailable Unavailable ETHAN, Livia LEHMAN MD Unavailable Unavailable ETHAN, Livia LEHMAN MD Unavailable Unavailable ETHAN, Livia LEHMAN MD Unavailable Unavailable ETHAN, Livia LEHMAN MD Unavailable Unavailable ETHAN, Livia LEHMAN MD Unavailable Unavailable ETHANLivia MD Unavailable Unavailable ETHANLivia MD Unavailable Unavailable ETHANLivia MD Unavailable Unavailable ETHAN, Livia LEHMAN MD Unavailable Unavailable ETHAN, Livia LEHMAN MD Unavailable Unavailable ETHAN, Livia LEHMAN MD Unavailable Unavailable ETHAN, Livia LEHMAN MD Unavailable Unavailable ETHAN, Livia LEHMAN MD Unavailable Unavailable ETHAN, Livia LEHMAN MD Unavailable Unavailable ETHAN, Livia LEHMAN MD Unavailable Unavailable ETHAN, Livia LEHMAN MD Unavailable Unavailable ETHAN, Livia LEHMAN MD Unavailable Unavailable ETHAN, Livia LEHMAN MD Unavailable Unavailable ETHANLivia MD Unavailable Unavailable ETHANLivia MD Unavailable Unavailable ETHANLivia MD Unavailable Unavailable ETHANLivia MD Unavailable Unavailable ETHAN B DOMINIK STEPHENSON Unavailable Unavailable ETHANLivia MD Unavailable Unavailable ETHANLivia MD Unavailable Unavailable ETHANLivia MD Unavailable Unavailable ETHANLivia MD Unavailable Unavailable ETHAN B DOMINIK STEPHENSON Unavailable Unavailable ETHANLivia MD Unavailable Unavailable ETHAN B DOMINIK STEPHENSON Unavailable Unavailable Duncan DUMONT MD Unavailable Unavailable Duncan DUMONT MD Unavailable Unavailable Duncan DUMONT MD Unavailable Unavailable Duncan DUMONT MD Unavailable Unavailable Duncan DUMONT MD Unavailable Unavailable Duncan DUMONT MD Unavailable Unavailable Duncan DUMONT MD Unavailable Unavailable Duncan DUMONT MD Unavailable Unavailable Duncan DUMONT MD Unavailable Unavailable Duncan DUMONT MD Unavailable Unavailable Duncan DUMONT MD Unavailable Unavailable Duncan DUMONT MD Unavailable Unavailable Duncan DUMONT MD Unavailable Unavailable Duncan DUMONT MD Unavailable Unavailable Duncan DUMONT MD Unavailable Unavailable Duncan DUMONT MD Unavailable Unavailable Duncan DUMONT MD Unavailable Unavailable Duncan DUMONT MD Unavailable Unavailable Duncan DUMONT MD Unavailable Unavailable Duncan DUMONT MD Unavailable Unavailable Duncan DUMONT MD Unavailable Unavailable Duncan DUMONT MD Unavailable Unavailable Duncan DUMONT MD Unavailable Unavailable Duncan DUMONT MD Unavailable Unavailable Duncan DUMONT MD Unavailable Unavailable Duncan DUMONT MD Unavailable Unavailable Duncan DUMONT MD Unavailable Unavailable Duncan DUMONT MD Unavailable Unavailable Duncan DUMONT MD Unavailable Unavailable Duncan DUMONT MD Unavailable Unavailable Duncan DUMONT MD Unavailable Unavailable Duncan DUMONT MD Unavailable Unavailable Duncan DUMONT MD Unavailable Unavailable Duncan DUMONT MD Unavailable Unavailable Duncan DUMONT MD Unavailable Unavailable Duncan DUMONT MD Unavailable Unavailable Duncan DUMONT MD Unavailable Unavailable Duncan DUMONT MD Unavailable Unavailable Duncan DUMONT MD Unavailable Unavailable Duncan DUMONT MD Unavailable Unavailable Duncan DUMONT MD Unavailable Unavailable Duncan DUMONT MD Unavailable Unavailable Duncan DUMONT MD Unavailable Unavailable Duncan DUMONT MD Unavailable Unavailable Duncan DUMONT MD Unavailable Unavailable Duncan DUMONT MD Unavailable Unavailable Duncan DUMONT MD Unavailable Unavailable Duncan DUMONT MD Unavailable Unavailable Duncan DUMONT MD Unavailable Unavailable Duncan DUMONT MD Unavailable Unavailable Duncan DUMONT MD Unavailable Unavailable Duncan DUMONT MD Unavailable Unavailable Duncan DUMONT MD Unavailable Unavailable Duncan DUMONT MD Unavailable Unavailable Duncan DUMONT MD Unavailable Unavailable Duncan DUMONT MD Unavailable Unavailable Duncan DUMONT MD Unavailable Unavailable Duncan DUMONT MD Unavailable Unavailable Duncan DUMONT MD Unavailable Unavailable Duncan DUMONT MD Unavailable Unavailable Duncan DUMONT MD Unavailable Unavailable Duncan DUMONT MD Unavailable Unavailable Duncan DUMONT MD Unavailable Unavailable Duncan DUMONT MD Unavailable Unavailable Duncan DUMONT MD Unavailable Unavailable Duncan DUMONT MD Unavailable Unavailable Duncan DUMONT MD Unavailable Unavailable Duncan DUMONT MD Unavailable Unavailable Duncan DUMONT MD Unavailable Unavailable Duncan DUMONT MD Unavailable Unavailable Duncan DUMONT MD Unavailable Unavailable Duncan DUMONT MD Unavailable Unavailable Duncan DUMONT MD Unavailable Unavailable Duncan DUMONT MD Unavailable Unavailable Duncan DUMONT MD Unavailable Unavailable Duncan DUMONT MD Unavailable Unavailable Duncan DUMONT MD Unavailable Unavailable Duncan DUMONT MD Unavailable Unavailable Duncan DUMONT MD Unavailable Unavailable Duncan DUMONT MD Unavailable Unavailable Duncan DUMONT MD Unavailable Unavailable Duncan DUMONT MD Unavailable Unavailable Duncan DUMONT MD Unavailable Unavailable Duncan DUMONT MD Unavailable Unavailable RING, K IVORY PA Unavailable Unavailable RING, K IVORY PA Unavailable Unavailable RING, K IVORY PA Unavailable Unavailable RING, K IVORY PA Unavailable Unavailable RING, K IVORY PA Unavailable Unavailable RING, K IVORY PA Unavailable Unavailable RING, K IVORY PA Unavailable Unavailable RING, K IVORY PA Unavailable Unavailable RING, K IVORY PA Unavailable Unavailable RING, K IVORY PA Unavailable Unavailable RING, K IVORY PA Unavailable Unavailable RING, K IVORY PA Unavailable Unavailable RING, K IVORY PA Unavailable Unavailable RING, K IVORY PA Unavailable Unavailable RING, K IVORY PA Unavailable Unavailable RING, K IVORY PA Unavailable Unavailable RING, K IVORY PA Unavailable Unavailable RING, K IVORY PA Unavailable Unavailable RING, K IVORY PA Unavailable Unavailable RING, K IVORY PA Unavailable Unavailable ABDIRIZAK, LISS STEPHENSON Unavailable Unavailable ABDIRIZAK, LISS STEPHENSON Unavailable Unavailable ABDIRIZAK, LISS STEPHENSON Unavailable Unavailable ABDIRIZAK, LISS STEPHENSON Unavailable Unavailable ABDIRIZAK, LISS STEPHENSON Unavailable Unavailable ABDIRIZAK, LISS STEPHENSON Unavailable Unavailable ABDIRIZAK, LISS STEPHENSON Unavailable Unavailable ABDIRIZAK, LISS STEPHENSON Unavailable Unavailable ABDIRIZAK, LISS STEPHENSON Unavailable Unavailable ABDIRIZAK, LISS STEPHENSON Unavailable Unavailable ABDIRIZAK, LISS STEPHENSON Unavailable Unavailable ABDIRIZAK, LISS STEPHENSON Unavailable Unavailable ABDIRIZAK, LISS STEPHENSON Unavailable Unavailable ABDIRIZAK, LISS STEPHENSON Unavailable Unavailable ABDIRIZAK, LISS STEPHENSON Unavailable Unavailable ABDIRIZAK, LISS STEPHENSON Unavailable Unavailable ABDIRIZAK, LISS STEPHENSON Unavailable Unavailable ABDIRIZAK, LISS STEPHENSON Unavailable Unavailable ABDIRIZAK, LISS STEPHENSON Unavailable Unavailable ABDIRIZAK, LISS STEPHENSON Unavailable Unavailable ABDIRIZAK, LISS STEPHENSON Unavailable Unavailable ABDIRIZAK, LISS STEPHENSON Unavailable Unavailable ABDIRIZAK, LISS STEPHENSON Unavailable Unavailable ABDIRIZAK, LISS STEPHENSON Unavailable Unavailable ABDIRIZAK, LISS STEPHENSON Unavailable Unavailable ABDIRIZAK, LISS STEPHENSON Unavailable Unavailable ABDIRIZAK, LISS STEPHENSON Unavailable Unavailable ABDIRIZAK, LISS STEPHENSON Unavailable Unavailable ABDIRIZAK, LISS STEPHENSON Unavailable Unavailable ABDIRIZAK, LISS STEPHENSON Unavailable Unavailable ABDIRIZAK, LISS STEPHENSON Unavailable Unavailable ABDIRIZAK, LISS STEPHENSON Unavailable Unavailable ABDIRIZAK, LISS STEPHENSON Unavailable Unavailable ABDIRIZAK, LISS STEPHENSON Unavailable Unavailable ABDIRIZAK, LISS STEPHENSON Unavailable Unavailable ABDIRIZAK, LISS STEPHENSON Unavailable Unavailable ABDIRIZAK, LISS STEPHENSON Unavailable Unavailable ABDIRIZAK, LISS STEPHENSON Unavailable Unavailable ABDIRIZAK, LISS STEPHENSON Unavailable Unavailable ABDIRIZAK, LISS STEPHENSON Unavailable Unavailable ABDIRIZAK, LISS STEPHENSON Unavailable Unavailable ABDIRIZAK, LISS STEPHENSON Unavailable Unavailable ABDIRIZAK, LISS STEPHENSON Unavailable Unavailable ABDIRIZAK, LISS STEPHENSON Unavailable Unavailable ABDIRIZAK, LISS STEPHENSON Unavailable Unavailable ABDIRIZAK, LISS STEPHENSON Unavailable Unavailable ABDIRIZAK, LISS STEPHENSON Unavailable Unavailable ABDIRIZAK, LISS STEPHENSON Unavailable Unavailable ABDIRIZAK, LISS STEPHENSON Unavailable Unavailable ABDIRIZAK, LISS STEPHENSON Unavailable Unavailable ABDIRIZAK, LISS STEPHENSON Unavailable Unavailable ABDIRIZAK, LISS STEPHENSON Unavailable Unavailable ABDIRIZAK, LISS STEPHENSON Unavailable Unavailable ABDIRIZAK, LISS STEPHENSON Unavailable Unavailable Jr OROPEZA MD Unavailable Unavailable Jr OROPEZA MD Unavailable Unavailable Jr OROPEZA MD Unavailable Unavailable Jr OROPEZA MD Unavailable Unavailable Jr OROPEZA MD Unavailable Unavailable Jr OROPEZA MD Unavailable Unavailable Jr OROPEZA MD Unavailable Unavailable Jr OROPEZA MD Unavailable Unavailable Jr OROPEZA MD Unavailable Unavailable OROPEZA, Jr AKHTAR MD Unavailable Unavailable OROPEZA, Jr AKHTAR MD Unavailable Unavailable OROPEZA, Jr AKHTAR MD Unavailable Unavailable OROPEZA, Jr AKHTAR MD Unavailable Unavailable OROPEZA, Jr AKHTAR MD Unavailable Unavailable OROPEZA, Jr AKHTAR MD Unavailable Unavailable OROPEZA, Jr AKHTAR MD Unavailable Unavailable OROPEZA, Jr AKHTAR MD Unavailable Unavailable OROPEZA, Jr AKHTAR MD Unavailable Unavailable OROPEZA, Jr AKHTAR MD Unavailable Unavailable OROPEZA, Jr AKHTAR MD Unavailable Unavailable OROPEZA, Jr AKHTAR MD Unavailable Unavailable OROPZEA, Jr AKHTAR MD Unavailable Unavailable OROPEZA, Jr AKHTAR MD Unavailable Unavailable OROPEZA, Jr AKHTAR MD Unavailable Unavailable OROPEZA, Jr AKHTAR MD Unavailable Unavailable OROPEZA, Jr AKHTAR MD Unavailable Unavailable OROPEZA, Jr AKHTAR MD Unavailable Unavailable OROPEZA, Jr AKHTAR MD Unavailable Unavailable OROPEZA, Jr AKHTAR MD Unavailable Unavailable OROPEZA, Jr AKHTAR MD Unavailable Unavailable OROPEZA, Jr AKHTAR MD Unavailable Unavailable OROPEZA, Jr AKHTAR MD Unavailable Unavailable OROPEZA, Jr AKHTAR MD Unavailable Unavailable OROPEZA, Jr AKHTAR MD Unavailable Unavailable OROPEZA, Jr AKHTAR MD Unavailable Unavailable OROPEZA, Jr AKHTAR MD Unavailable Unavailable OROPEZA, Jr AKHTAR MD Unavailable Unavailable OROPEZA, Jr AKHTAR MD Unavailable Unavailable OROPEZA, Jr AKHTAR MD Unavailable Unavailable OROPEZA, Jr AKHTAR MD Unavailable Unavailable OROPEZA, Jr AKHTAR MD Unavailable Unavailable OROPEZA, Jr AKHTAR MD Unavailable Unavailable OROPEZA, Jr AKHTAR MD Unavailable Unavailable OROPEZA, Jr AKHTAR MD Unavailable Unavailable OROPEZA, Jr AKHTAR MD Unavailable Unavailable OROPEZA, Jr AKHTAR MD Unavailable Unavailable OROPEZA, Jr AKHTAR MD Unavailable Unavailable OROPEZA, Jr AKHTAR MD Unavailable Unavailable OROPEZA, Jr AKHTAR MD Unavailable Unavailable OROPEZA, Jr AKHTAR MD Unavailable Unavailable OROPEZA, Jr AKHTAR MD Unavailable Unavailable OROPEZA, Jr AKHTAR MD Unavailable Unavailable OROPEZA, Jr AKHTAR MD Unavailable Unavailable OROPEZA, Jr AKHTAR MD Unavailable Unavailable OROPEZA, Jr AKHTAR MD Unavailable Unavailable OROPEZA, Jr AKHTAR MD Unavailable Unavailable OROPEZA, Jr AKHTAR MD Unavailable Unavailable OROPEZA, Jr AKHTAR MD Unavailable Unavailable OROPEZA, Jr AKHTAR MD Unavailable Unavailable OROPEZA, Jr AKHTAR MD Unavailable Unavailable OROPEZA, Jr AKHTAR MD Unavailable Unavailable OROPEZA, Jr AKHTAR MD Unavailable Unavailable OROPEZA, Jr AKHTAR MD Unavailable Unavailable OROPEZA, Jr AKHTAR MD Unavailable Unavailable OROPEZA, Jr AKHTAR MD Unavailable Unavailable OROPEZA, Jr AKHTAR MD Unavailable Unavailable OROPEZA, Jr AKHTAR MD Unavailable Unavailable OROPEZA, Jr AKHTAR MD Unavailable Unavailable OROPEZA, Jr AKHTAR MD Unavailable Unavailable OROPEZA, Jr AKHTAR MD Unavailable Unavailable OROPEZA, Jr AKHTAR MD Unavailable Unavailable OROPEZA, Jr AKHTAR MD Unavailable Unavailable OROPEZA, T HERMILO STEPHENSON Unavailable Unavailable OROPEZA, T HERMILO STEPHENSON Unavailable Unavailable OROPEZA, T HERMILO MD Unavailable Unavailable OROPEZA, T HERMILO MD Unavailable Unavailable OROPEZA, T HERMILO MD Unavailable Unavailable OROPEZA, T HERMILO MD Unavailable Unavailable OROPEZA, T HERMILO MD Unavailable Unavailable OROPEZA, T HERMILO MD Unavailable Unavailable OROPEZA, T HERMILO MD Unavailable Unavailable OROPEZA, T HERMILO MD Unavailable Unavailable OROPEZA, T HERMILO MD Unavailable Unavailable OROPEZA, T HERMILO MD Unavailable Unavailable OROPEZA, T HERMILO MD Unavailable Unavailable OROPEZA, T HERMILO MD Unavailable Unavailable OROPEZA, T HERMILO MD Unavailable Unavailable OROPEZA, T HERMILO MD Unavailable Unavailable OROPEZA, T HERMILO MD Unavailable Unavailable OROPEZA, T HERMILO MD Unavailable Unavailable OROPEZA, T HERMILO MD Unavailable Unavailable OROPEZA, T HERMILO MD Unavailable Unavailable OROPEZA, T HERMILO MD Unavailable Unavailable OROPEZA, T HERMILO MD Unavailable Unavailable OROPEZA, T HERMILO MD Unavailable Unavailable OROPEZA, T HERMILO MD Unavailable Unavailable OROPEZA, T HERMILO MD Unavailable Unavailable OROPEZA, T HERMILO MD Unavailable Unavailable OROPEZA, T HERMILO MD Unavailable Unavailable OROPEZA, T HERMILO MD Unavailable Unavailable OROPEZA, T HERMILO MD Unavailable Unavailable OROPEZA, T HERMILO MD Unavailable Unavailable OROPEZA, T HERMILO MD Unavailable Unavailable OROPEZA, T HERMILO MD Unavailable Unavailable OROPEZA, T HERMILO MD Unavailable Unavailable OROPEZA, T HERMILO MD Unavailable Unavailable OROPEZA, T HERMILO MD Unavailable Unavailable OROPEZA, T HERMILO MD Unavailable Unavailable OROPEZA, T HERMILO MD Unavailable Unavailable OROPEZA, T HERMILO MD Unavailable Unavailable OROPEZA, T HERMILO MD Unavailable Unavailable OROPEZA, T HERMILO MD Unavailable Unavailable OROPEZA, T HERMILO MD Unavailable Unavailable OROPEZA, T HERMILO MD Unavailable Unavailable Re-disclosure Warning The records that you are about to access may contain information from federally-assisted alcohol or drug abuse programs. If such information is present, then the following federally mandated warning applies: This information has been disclosed to you from records protected by federal confidentiality rules (42 CFR part 2). The federal rules prohibit you from making any further disclosure of this information unless further disclosure is expressly permitted by the written consent of the person to whom it pertains or as otherwise permitted by 42 CFR part 2. A general authorization for the release of medical or other information is NOT sufficient for this purpose. The Federal rules restrict any use of the information to criminally investigate or prosecute any alcohol or drug abuse patient.The records that you are about to access may contain highly sensitive health information, the redisclosure of which is protected by Article 27-F of the [facility] Public [facility] law. If you continue you may have access to information: Regarding HIV / AIDS; Provided by facilities licensed or operated by the [facility] Office of Mental Health; or Provided by the [facility] Office for People With Developmental Disabilities. If such information is present, then the following [facility] mandated warning applies: This information has been disclosed to you from confidential records which are protected by state law. State law prohibits you from making any further disclosure of this information without the specific written consent of the person to whom it pertains, or as otherwise permitted by law. Any unauthorized further disclosure in violation of state law may result in a fine or usp sentence or both. A general authorization for the release of medical or other information is NOT sufficient authorization for further disc losure. Allergies and Adverse Reactions Type Description Substance Reaction Status Data Source(s ) Drug allergy Aleve Naproxen Anaphylaxis Active eCW1 ([facility]) NSAIDS NSAIDS NSAIDS Anaphylaxis Active eCW1 ([facility]) Family History Family Member Name Family Member Gender Family Member Status Date o f Status Description Data Source(s) Unknown Unknown Problem MEDENT ([facility]) Unknown Male Problem MEDENT ([facility]) Unknown Male Problem MEDENT ([facility]) Encounters Encounter Providers Location Date Indications Data Source(s ) Unknown [address] [address] 02/25/2020 12:00:00 AM EST eCW1 ([facility]) Unknown [address] [place] [address] 02/23/2020 12:00:00 AM EST eCW1 ([facility]) Unknown [address] [place] [address] 02/20/2020 12:00:00 AM EST eCW1 ([facility]) Unknown [address] [place] [address] 02/19/2020 12:00:00 AM EST eCW1 ([facility]) Unknown [address] [place] [address] 02/18/2020 12:00:00 AM EST [facility]CW1 [facility] Unknown [address] [facility] [place] [address] 02/16/2020 12:00:00 AM EST eCW1 ([facility]) Outpatient DOMP-JONATHAN 02/14/2020 11:00:12 PM EST [facility] Outpatient DOMP.RACHAEL-DOMP.RACHAEL 02/12/2020 12:00:00 AM EST [facility] Outpatient [address] [facility] [place] [address] 12/30/2019 12:00:00 AM EST eCW1 ([facility]) Unknown [address] [facility] [address] [place] [address] 12/26/2019 12:00:00 AM EST eCW1 ([facility]) Office Visit, Est Pt., Level 3 PC [address] [place] [address] 12/24/2019 12:00:00 AM EST eCW1 ([facility]) Unknown [address] [facility] [place] [address] 12/24/2019 12:00:00 AM EST eCW1 ([facility]) Unknown [address] [facility] [place] [address] 12/08/2019 12:00:00 AM EST eCW1 ([facility]) Outpatient LIZZ.CANDACE 11/28/2019 04:04:59 PM EDT [facility] Outpatient Attender: LISS OLIVA-SJP.RACHAEL 0 12:00:00 AM EDT - 11/26/2019 02:29:21 PM EDT [facility] Outpatient [address] [facility] [address] 2019 12:00:00 AM EDT eCW1 ([facility]) Outpatient Attender: IVORY Teresa 10/18/2019 04:30:00 PM EDT MEDENT ([facility]) Outpatient Attender: DOMINIK LONG MDReferrer: Jason Soto MD 09/19/2019 10:43:20 AM EDT [facility] Outpatient Attender: RONALD DUMONT MDReferrer: Jason vitale MD 09/09/2019 10:44:59 PM EDT [facility] Recurring Patient Attender: HERMILO OROPEZA MDReferrer: KAUSHIK FUENTES MD 09/08/2019 01:14:19 PM EDT [facility] Rec[facility] Patient Attender: HERMILO OROPEZA MDReferrer: KAUSHIK FUENTES MD 09/08/2019 01:14:12 PM EDT [facility] Outpatient SJP.CT-SJP.SYR 08/21/2019 02:13:55 PM EDT [address], [facility] [address] 08/18/2019 12:00:00 AM EDT eCW1 ([facility]) Outpatient [address] [place] [address] 07/02/2019 12:00:00 AM EDT eCW1 ([facility]) [address] [address] 06/25/2019 12:00:00 AM EDT eCW1 ([facility]) [address] [address] 06/10/2019 12:00:00 AM EDT eCW1 ([facility]) Outpatient SJP.CT-SJP.SYR 05/15/2019 09:07:29 AM EDT [address] [address] 05/14/2019 12:00:00 AM EDT eCW1 ([facility]) Outpatient Attender: ILSS REVELES MD SJP.RACHAEL-SJP.RACHAEL 04/02/2019 12:00:00 AM EST [facility] Outpatient SJP.RACHAEL-SJP.RACHAEL 02/06/2019 10:53 :46 AM EST - 02/06/2019 11:06:30 AM EST [facility] Immunizations Vaccine Date Status Description Data Source(s) influenza, recombinant, quadrIvalent,injectable, prese rvative free 2019 04:29:00 PM EDT completed eCW1 ([facility]) influenza, recombinant, quadrIvalent,injectable, prese rvative free 2019 04:29:00 PM EDT completed eCW1 ([facility]) influenza, recombinant, quadrIvalent,injectable, prese rvative free 2019 04:29:00 PM EDT completed eCW1 ([facility]) influenza, recombinant, quadrIvalent,injectable, prese rvative free 2019 04:29:00 PM EDT completed eCW1 ([facility]) influenza, recombinant, quadrIvalent,injectable, prese rvative free 2019 04:29:00 PM EDT completed eCW1 ([facility]) influenza, recombinant, quadrIvalent,injectable, prese rvative free 2019 04:29:00 PM EDT completed eCW1 ([facility]) influenza, recombinant, quadrIvalent,injectable, prese rvative free 2019 04:29:00 PM EDT completed eCW1 ([facility]) influenza, recombinant, quadrIvalent,injectable, prese rvative free 2019 04:29:00 PM EDT completed eCW1 ([facility]) influenza, recombinant, quadrIvalent,injectable, prese rvative free 2019 04:29:00 PM EDT completed eCW1 ([facility]) influenza, recombinant, quadrIvalent,injectable, prese rvative free 2019 04:29:00 PM EDT completed eCW1 ([facility]) influenza, recombinant, quadrIvalent,injectable, prese rvative free 2019 04:29:00 PM EDT completed eCW1 ([facility]) influenza, recombinant, quadrIvalent,injectable, prese rvative free 2019 04:29:00 PM EDT completed eCW1 ([facility]) influenza, recombinant, quadrIvalent,injectable, prese rvative free 2019 04:29:00 PM EDT completed eCW1 ([facility]) Medications Medication Brand Name Start Date Product Form Dose Route Admi nistrative Instructions Pharmacy Instructions Status Indications Reaction Description Data Source(s) Medrol (Joe) 4 MG Medrol (Joe) 4 MG 02/25/2020 12:00:00 AM EST active Medrol (Joe) 4 MG eCW1 ([facility]) 4 mg 02/25/2020 12:00:00 AM EST tablets,dose pack 21 TAKE BY MOUTH DAILY DIRECTED ON DOSEPACK TAKE BY MOUTH DAILY DIRECTED ON DOSEPACK SOLD: 02/25/2020 [facility] tramadol hydrochloride 50 MG Oral Tablet Tramadol HCl 50 MG Tramadol HCl 50 MG 02/23/2020 12:00:00 AM EST 1.0 {tablet} active Tramadol HCl 50 MG eCW1 ([facility]) tramadol hydrochloride 50 MG Oral Tablet Tramadol HCl 50 MG Tramadol HCl 50 MG 02/23/2020 12:00:00 AM EST 1.0 {tablet} active Tramadol HCl 50 MG eCW1 ([facility]) tramadol hydrochloride 50 MG Oral Tablet Tramadol HCl 50 MG Tramadol HCl 50 MG 02/23/2020 12:00:00 AM EST 1.0 {tablet} active Tramadol HCl 50 MG eCW1 ([facility]) tramadol hydrochloride 50 MG Oral Tablet Tramadol HCl 50 MG Tramadol HCl 50 MG 02/23/2020 12:00:00 AM EST 1.0 {tablet} active Tramadol HCl 50 MG eCW1 ([facility]) 50 mg 02/23/2020 12:00:00 AM EST tablet 50 TAKE ONE TABLET BY MOUTH EVERY 6 HOURS NEEDED FOR PAIN * MAXIMUM DAILY DOSE = 4 TAKE ONE TABLET BY MOUTH EVERY 6 HOURS NEEDED FOR PAIN * MAXIMUM DAILY DOSE = 4 SOLD: 02/23/2020 [facility] 100 mcg/0.5 mL 02/19/2020 12:00:00 AM EST suspension 0 INJECT BY [facility] (FIRST DOSE) INJECT BY [facility] (FIRST DOSE) SOLD: 02/20/2020 [facility] gabapentin 100 MG Oral Capsule Gabapentin 100 MG Gabapentin 100 MG 02/18/2020 12:00:00 AM EST 1.0 {capsule} active G abapentin 100 MG eCW1 ([facility]) Gabapentin 300 MG UNK 02/18/2020 12:00:00 AM EST 1.0 {capsule} active Gabapentin 300 MG eCW1 ([facility]) Gabapentin 300 MG UNK 02/18/2020 12:00:00 AM EST 1.0 {capsule} active Gabapentin 300 MG eCW1 ([facility]) 100 mg 02/18/2020 12:00:00 AM EST capsule 90 TAKE ONE CAPSULE BY MOUTH THREE TIMES A DAY TAKE ONE CAPSULE BY MOUTH THREE TIMES A DAY SOLD: 02/18/2020 [facility] Gabapentin 300 MG UNK 02/18/2020 12:00:00 AM EST 1.0 {capsule} active Gabapentin 300 MG eCW1 ([facility]) Gabapentin 300 MG UNK 02/18/2020 12:00:00 AM EST 1.0 {capsule} active Gabapentin 300 MG eCW1 ([facility]) 5-325 mg 02/16/2020 12:00:00 AM EST tablet 10 TAKE ONE TABLET BY MOUTH TWICE A DAY NEEDED FOR PAIN MAXIMUM DAILY DOSE = 2 TABLETS TAKE ONE TABLET BY MOUTH TWICE A DAY NEEDED FOR PAIN MAXIMUM DAILY DOSE = 2 TABLETS SOLD: 02/16/2020 [facility] carvedilol 12.5 MG Oral Tablet CARVEDILOL 02/16/2020 12:00:00 AM EST tablet 60 TAKE ONE TABLET BY MOUTH TWICE A DAY TAKE ONE TABLET BY MOUT H TWICE A DAY SOLD: 02/16/2020 [facility] 1 % 12/29/2019 12:00:00 AM EST gel 100 APPLY 1 TO 2 GRAMS TO AFFECTED AREA(S) ON LOWER BACK EVERY 6 HOURS NEEDED FOR 10 DAYS APPLY 1 TO 2 GRAMS TO AFFECTED AREA(S) ON LOWER BACK EVERY 6 HOURS NEEDED FOR 10 DAYS SOLD: 12/31/2019 [facility] Diclofenac Sodium 0.01 MG/MG Topical Gel [Voltaren] Voltaren 1 % Voltaren 1 % 12/24/2019 12:00:00 AM EST active Voltaren 1 % eCW1 ([facility]) Diclofenac Sodium 0.01 MG/MG Topical Gel [Voltaren] Voltaren 1 % Voltaren 1 % 12/24/2019 12:00:00 AM EST active Voltaren 1 % eCW1 ([facility]) Diclofenac Sodium 0.01 MG/MG Topical Gel [Voltaren] Voltaren 1 % Voltaren 1 % 12/24/2019 12:00:00 AM EST active Voltaren 1 % eCW1 ([facility]) Diclofenac Sodium 0.01 MG/MG Topical Gel [Voltaren] Voltaren 1 % Voltaren 1 % 12/24/2019 12:00:00 AM EST active Voltaren 1 % eCW1 ([facility]) Diclofenac Sodium 0.01 MG/MG Topical Gel [Voltaren] Voltaren 1 % Voltaren 1 % 12/24/2019 12:00:00 AM EST active Voltaren 1 % eCW1 ([facility]) Diclofenac Sodium 0.01 MG/MG Topical Gel [Voltaren] Voltaren 1 % Voltaren 1 % 12/24/2019 12:00:00 AM EST active Voltaren 1 % eCW1 ([facility]) Diclofenac Sodium 0.01 MG/MG Topical Gel [Voltaren] Voltaren 1 % Voltaren 1 % 12/24/2019 12:00:00 AM EST active Voltaren 1 % eCW1 ([facility]) Diclofenac Sodium 0.01 MG/MG Topical Gel [Voltaren] Voltaren 1 % Voltaren 1 % 12/24/2019 12:00:00 AM EST active Voltaren 1 % eCW1 ([facility]) Diclofenac Sodium 0.01 MG/MG Topical Gel [Voltaren] Voltaren 1 % Voltaren 1 % 12/24/2019 12:00:00 AM EST active Voltaren 1 % eCW1 ([facility]) Diclofenac Sodium 0.01 MG/MG Topical Gel [Voltaren] Voltaren 1 % Voltaren 1 % 12/24/2019 12:00:00 AM EST active Voltaren 1 % eCW1 ([facility]) Diclofenac Sodium 0.01 MG/MG Topical Gel [Voltaren] Voltaren 1 % Voltaren 1 % 12/24/2019 12:00:00 AM EST active Voltaren 1 % eCW1 ([facility]) 20 mg 12/10/2019 12:00:00 AM EST tablet extended release 14 TAKE ONE TABLET BY MOUTH EVERY DAY , MAXIMUM DAILY DOSE = 1 TABLET TAKE ONE TABLET BY MOUTH EVERY DAY , MAXIMUM DAILY DOSE = 1 TABLET SOLD: 12/10/2019 [facility] 8 HR Methylphenidate Hydrochloride 20 MG Extended Release Oral Tablet Methylphenidate HCl ER 20 MG Methylphenidate HCl ER 20 MG 12/08/2019 12:00:00 AM EST 1.0 {tablet} active Methylpheni date HCl ER 20 MG eCW1 ([facility]) 8 HR Methylphenidate Hydrochloride 20 MG Extended Release Oral Tablet Methylphenidate HCl ER 20 MG Methylphenidate HCl ER 20 MG 12/08/2019 12:00:00 AM EST 1.0 {tablet} active Methylpheni date HCl ER 20 MG eCW1 ([facility]) 8 HR Methylphenidate Hydrochloride 20 MG Extended Release Oral Tablet Methylphenidate HCl ER 20 MG Methylphenidate HCl ER 20 MG 12/08/2019 12:00:00 AM EST 1.0 {tablet} active Methylpheni date HCl ER 20 MG eCW1 ([facility]) 8 HR Methylphenidate Hydrochloride 20 MG Extended Release Oral Tablet Methylphenidate HCl ER 20 MG Methylphenidate HCl ER 20 MG 12/08/2019 12:00:00 AM EST 1.0 {tablet} active Methylpheni date HCl ER 20 MG eCW1 ([facility]) 5 mg 11/13/2019 12:00:00 AM EDT tablet 60 TAKE ONE TABLET BY MOUTH ON AN EMPTY STOMACH TWO TIMES A DAY, WITH BREAKFAST AND SUPPER TAKE ONE TABLET BY MOUTH ON AN EMPTY STOMACH TWO TIMES A DAY, WITH BREAKFAST AND SUPPER SOLD: 11/13/2019 [facility] Methylphenidate Hydrochloride 5 MG Oral Tablet [Ritali n] Ritalin 5 MG Ritalin 5 MG 2019 12:00:00 AM EDT 1.0 {tablet_on_an_empty_stomach} active Ritalin 5 MG eCW1 ([facility]) 100 mg 10/19/2019 12:00:00 AM EDT capsule 20 TAKE ONE CAPSULE BY MOUTH TWICE A DAY FOR 10 DAYS TAKE ONE CAPSULE BY MOUTH TWICE A DAY FOR 10 DAYS SOLD : 10/19/2019 [facility] Doxycycline Monohydrate 100 MG Oral Capsule Doxycycline [place] hydrate 10/18/2019 12:00:00 AM EDT ORAL active M EDENT ([facility]) 20 mg 09/04/2019 12:00:00 AM EDT tablet 10 TAKE ONE TABLET BY MOUTH TWICE A DAY TAKE ONE TABLET BY MOUTH TWICE A DAY SOLD: 09/04/2019 [facility] Insurance Providers Payer name Policy type / Coverage type Policy ID Covered alliance party ID Covered alliance party's relationship to garcia Policy Garcia Plan Information MEDICARE [id number] SP [id number] [id number] R [facility] [id number] SP [id number] R [facility] [id number] SP [id number] R [id number] Cheri [id number] MEDICARE [id number] Cheri [id number] F45 R O [id number] S [id number] MEDICARE C [id number] S [id number] [id number] DME Jurisdiction A [facility] C [id number] SELF [id number] R F [id number] SELF [id number] Medicare C [id number] SELF [id number] ANSI-Medicare Part B [id number] ANSI-Commercial [id number] ANSI-Commercial [id number] [facility] Commercial [id number] Self [id number] ANSI-Commercial [id number] ANSI-Medicare Part B [id number] ANSI-Commercial [id number] ANSI-Medicare Part B [id number] ANSI-Commercial [id number] ANSI-Commercial [id number] ANSI-Commercial [id number] ANSI-Commercial [id number] ANSI-Medicare Part B [id number] ANSI-Medicare Part B [id number] ANSI-Commercial [id number] ANSI-Commercial [id number] Umr/Uhc/[employer] Medigap Part B [id number] Self [id number] Medicare Natl Gov't Servi Medicare Primary [id number] Self [id number] UMR F [id number] SELF [id number] Medicare C [id number] SELF [id number] F45 ANSI-Commercial [id number] ANSI-Medicare Part B [id number] ANSI-Commercial [id number] MEDICARE [id number] SP [id number] A Umr (pr) Medigap Part B [id number] Self [id number] Medicare Dme Supplies Medigap Part B [id number] Self [id number] [place] [id number] Self [id number] [place] (pr) Medigap Part B [id number] Self [id number] Umr (pr) Medigap Part B [id number] Self [id number] Medicare Dme Supplies Medigap Part B [id number] Self [id number] [place] Primary [id number] Self [id number] Umr (pr) Medigap Part B [id number] Self [id number] Medicare Dme Supplies Medigap Part B [id number] Self [id number] [place] Primary [id number] Self [id number] Umr (pr) Medigap Part B [id number] Self [id number] Medicare Dme Supplies Medigap Part B [id number] Self [id number] [place] Primary [id number] Self [id number] [place] / UMR F [id number] SELF [id number] DME Jurisdiction A [facility] C [id number] SELF [id number] Medicare C [id number] SELF [id number] A Medicare Dme Supplies Medigap Part B [id number] Self [id number] [place] Primary [id number] Self [id number] POM[employer] PPO O [id number] S [id number] MEDICARE C [id number] S [id number] A POMCO [id number] SP [id number] POMCO [id number] SP [id number] POMCO [id number] SP [id number] MEDICARE [id number] SP [id number] A [employer]OM[employer] [id number] SP [id number] [employer] Medigap Part B [id number] Self [id number] Medicare/National Gov SVC Medicare Primary [id number] Self [id number] [place] F [id number] SELF [id number] [place] Medigap Part B [id number] Self [id number] [place] Primary [id number] Self [id number] POMCO [id number] Cheri [id number] MEDICARE [id number] Cheri [id number] A [place] Medigap Part B Self Medicare/National Gov SVC Medicare Primary Self [id number] A [id number] Problems, Conditions, and Diagnoses Code Display Name Description Problem Type Effective Dates Data Source(s) M54.42 [id number] Acute left-sided low back pain w ith left-sided sciatica Problem 02/23/2020 12:00:00 AM EST eCW1 ([facility]) M54.5 [id number] Low back pain Problem 12/30/2019 12:00:00 AM EST eCW1 ([facility]) R29.818 [id number] Suspected sleep apnea Problem 12/30/2019 12: 00:00 AM EST eCW1 ([facility]) R79.89 [id number] Abnormal TSH Problem 2019 12:00:00 AM EDT eCW1 ([facility]) R93.89 [id number] Abnormal chest xray Problem 2019 12:00 :00 AM EDT eCW1 ([facility]) M46.1 [id number] Sacroiliitis Problem 07/02/2019 12:00:00 AM EDT eCW1 ([facility]) I48.0 Paroxysmal atrial fibrillation Paroxysmal atrial fibri llation Diagnosis 11/26/2019 01:49:45 PM EDT [facility] Surgeries/Procedures Procedure Description Date Indications Data Source(s) Immunization: Flublok Quadrivalent (18 years & older) 0.5mL IM (Influenza) 2019 12:00:00 AM EDT eCW1 ([facility]) OPHTH MEDICAL XM&EVAL COMPRHNSV ESTAB PT 1/> VST 07/29 12:00:00 AM EDT MEDENT ([facility]) DETERMINATION REFRACTIVE STATE 07/30/2019 12:00:00 AM EDT MEDENT ([facility]) Annual wellness visit, includes a person alized prevention plan of service (pps), subsequent visit 05/14/2019 12:00:00 AM EDT eCW 1 ([facility]) TeleMedicine Est. Pt. Level 4 05/14/2019 12:00:00 AM E DT eCW1 ([facility]) Results ID Date Data Source [id number] 02/14/2020 10:59:18 PM EST [facility] Name Value Range Interpretation Code Description Data Sahara rce(s) Supporting Document(s) &PDF [facility] CBOWLp0gOaMQQjRt99/NWFenCZIur9RyNJzzCAa6IPjtBQFcZ7PfcVniMTfJBU4HGA0ML4fSFUujBEEk oRX [file] GARCÍA/jJjBnS99f/sYZEpdsH6+KtchkB0jpdNsPGos3zk [file] ICAgICAgICAgICAgICAgICAgICAgICAgICAgICAgIC AgICAgICAgICAgICAgICAgICAgICAgICAgICAgICAgICAgICAgICAgICAgICAgICAgICAgICAgICAgIC ANCiAgICAgICAgICAgICAgICAgICAgICAgICAgICAgICAgICAgICAgICAgICAgICAgICAgICAgICAgIC AgICAgICAgICAgICAgICAgICAgICAgICAgICAgICAg ICAgICAgICAgICANCiAgICAgICAgICAgICAgICAgICAgICAgICAgICAgICAgICAgICAgICAgICAgICAg ICAgICAgICAgICAgICAgICAgICAgICAgICAgICAgICAgICAgICAgICAgICAgICAgICAgICANCiAgICAg ICAgICAgICAgICAgICAgICAgICAgICAgICAgICAgIC AgICAgICAgICAgICAgICAgICAgICAgICAgICAgICAgICAgICAgICAgICAgICAgICAgICAgICAgICAgIC AgICANCiAgICAgICAgICAgICAgICAgICAgICAgICAgICAgICAgICAgICAgICAgICAgICAgICAgICAgIC AgICAgICAgICAgICAgICAgICAgICAgICAgICAgICAg ICAgICAgICAgICAgICANCiAgICAgICAgICAgICAgICAgICAgICAgICAgICAgICAgICAgICAgICAgICAg ICAgICAgICAgICAgICAgICAgICAgICAgICAgICAgICAgICAgICAgICAgICAgICAgICAgICAgICANCiAg ICAgICAgICAgICAgICAgICAgICAgICAgICAgICAgIC AgICAgICAgICAgICAgICAgICAgICAgICAgICAgICAgICAgICAgICAgICAgICAgICAgICAgICAgICAgIC AgICAgICANCiAgICAgICAgICAgICAgICAgICAgICAgICAgICAgICAgICAgICAgICAgICAgICAgICAgIC AgICAgICAgICAgICAgICAgICAgICAgICAgICAgICAg ICAgICAgICAgICAgICAgICANCiAgICAgICAgICAgICAgICAgICAgICAgICAgICAgICAgICAgICAgICAg ICAgICAgICAgICAgICAgICAgICAgICAgICAgICAgICAgICAgICAgICAgICAgICAgICAgICAgICAgICAN CiAgICAgICAgICAgICAgICAgICAgICAgICAgICAgIC AgICAgICAgICAgICAgICAgICAgICAgICAgICAgICAgICAgICAgICAgICAgICAgICAgICAgICAgICAgIC AgICAgICAgICANCjw/aKZzO7khxGGrouE8O6ceDo6XCi4YLF4te8NrDXNbLNljbjNuKkoIIaJfMLRrNj bTTti0ZYuaDC2GxSGmE8GqE5HcHMofYD3LTKVrGEHp zRNrBHHuEUGwNiE6ZDLiWWgyPR5YuUHkPHwdSILfZCHlHU8ESHZzT394htImFW9XUb3HVqUiPI4omi2L XeSdDLEkOsxNIvf8QGzpQE5ZyGFbD8HogWVvt2wJCzYtF8EQMDEbKKRnMj5XGEOvGwMzDMRgRExbSQ6y MTFvVLBVzQjuhrK6FS5LCG5ywuThIJ4TScUpMl5kEq 1SDmXkU8CqN6SpULUwQQTNTPxaKA1KFJKsJRR8YJClOeVwWAQZQjIlL26rFM2OE6Usp27gEcB8CLGmKg TgXTgfKL38mYtfshJxgWLgcWxwIG6XDb4+DQplbmRvYmoNCnhyZWYNCjAgMjUNCjAwMDAwMDAwMDAgNj N1EjDfDr0WWHMcJIPyNTRuCfXdKITpSMViFIkzUAEv LYZjTLWeXWWgMXOvEA6BZoPeBMJeXpM0MAOsOMXqPERngn4PKJBsQXYsIQT1XAPdKISjYAWcLHvoDQKh DGWpBDDtGPTdLDCiPH9MPzJbETDtIJKgBAOwWTTlCXVewn4AKKFxHSNdUUPsIpVjFKSjVWSeROopMMPe GKI2PRV9QANsWICdNR8PDuFqHERuXBX6VApuLSHyMM Mmje4ALXMeKUVyJAP5YpGrBUQoOVHrPGnzYIZfSRJ7BPI3BAKbYHSdDQ3SIxUxEIDxZTDzYwJkWWJxVW Ealc8RWQRbHPDlXBu2SbShGBJrQAZeRLrmVBDhSAMlKmU2BEKeAHWfZZ4YRuSkQEJzMVL2AgCoEYLmAO Ncxf2PKQEnSQTtPPB5RCRoWQJuIGXfCZiwZZXgPWLo NIO4DHLrJAAqKW2SRmBmNCMpGAN0XHIfNHMwIJSehm4ANOSxWETbGvsbGDXdBRBvQINoIGxqTIMyHMLn XNZ1BNZzSETnZY0ONaZxAEMsDYv2EPEvJSFaVWXhmh7RNHStJKGfCJstZKIhHOGcFWQbTJjwYKDmSUFx LuA3ZACfFGDwRC1LLkEkKWEdXpD8DBMyBBNhTPFowb 9SrDZysNjwkl7BQVfINv1BvDvfDJH5FZnlMw7hmEPbVWCgMOXPOn1OweLfUTRtEJFHHAvzEKDfWOTkG6 E1ORZxUKXrDIT2AnL7FZX6GMRkAmJ5J5G4TuajNzO5EZRrXvMtPNWmV2PpHopwCuQ7GfG3LsNuYYEtNx RiN2M+XP8qQYg+Lr6Xw5MngqN1okCtNXkxIrl3GK5GJNYZS8RETd== ID Date Data Source MAGNESIUM LEVEL 12/24/2019 12:00:00 AM EST eCW1 ([facility]) Name Value Range Interpretation Code Description Data [place] rce(s) Supporting Document(s) 2.5 1.8-2.4 eCW1 ([facility]) ID Date Data Source Basic Metabolic Profile (BMP) 12/24/2019 12:00:00 AM EST eCW 1 (Formerly [facility]) Name Value Range Interpretation Code Description Data [place] rce(s) Supporting Document(s) 75 70-100 eCW1 ([facility]) 29 7-18 eCW1 ([facility]) 142 136-145 eCW1 ([facility]) 39.2 >42 eCW1 ([facility]) 1.79 0.70-1.30 eCW1 ([facility]) 31 21-32 eCW1 ([facility]) 109 98-107 eCW1 ([facility]) 4.7 3.5-5.1 eCW1 ([facility]) 9.1 8.8-10.2 eCW1 ([facility]) ID Date Data Source FREE T4 & TSH PANEL 12/24/2019 12:00:00 AM EST eCW1 ([facility]) Name Value Range Interpretation Code Description Data [place] rce(s) Supporting Document(s) 1.29 0.76-1.46 eCW1 ([facility]) 0.274 0.358-3.740 eCW1 ([facility]) ID Date Data Source FREE T3 12/24/2019 12:00:00 AM EST eCW1 ([facility]) Name Value Range Interpretation Code Description Data [place] rce(s) Supporting Document(s) 2.5 2.2-4.0 eCW1 ([facility]) ID Date Data Source [facility] CT Chest without contrast 11/24/2019 12:00:00 AM EDT eC W1 (Formerly [facility]) Name Value Range Interpretation Code Description Data [place] rce(s) Supporting Document(s) [facility] CT Chest without contrast eCW1 (Formerly [facility]) ID Date Data Source [id number] 10/19/2019 10:31:00 AM EDT MEDENT ([facility], [facility]) Name Value Range Interpretation Code Description Data [place] rce(s) Supporting Document(s) Glucose, Fasting 96 mg/dL 70-100 MEDENT ([facility], [facility]) Blood Urea Nitrogen 22 mg/dL 7-18 [facility] ([facility] [place], [facility]) Creatinine For GFR 1.66 mg/dL 0.70-1.30 [facility] ([facility], [facility]) Glomerular Filtration Rate 42.9 MED ENT ([facility], [facility]) <content>Units are mL/min/1.73 m2</content>
<content></content>
<content>Chronic Kidney Disease Staging per NKF:</content>
<content></content>
<content>Stage I & II GFR >=60 Normal to Mildly Decreased</content>
<content>Stage III GFR 30- 59 Moderately Decreased</content>
<content>Stage IV GFR 15-29 Severely Decreased</content>
<content>Stage V GFR <15 Very Little GFR Left</content>
<content>ESRD GFR <15 on MASTER COASTWISE YACHT</content>
<content></content> Sodium Level 142 meq/L 136-145 MEDENT ([facility], [facility]) Anion Gap 5 meq/L 8-16 MEDENT ([facility], [facility]) Chloride Level 109 meq/L 98-107 MEDENT ([facility], [facility]) Potassium Serum 4.7 meq/L 3.5-5.1 MEDENT ([facility], [facility]) Carbon Dioxide Level 28 meq/L 21-32 MEDENT ([facility], [facility]) Calcium Level 8.5 mg/dL 8.8-10.2 MEDENT ([facility], [facility]) Ast/Sgot 17 U/L 7-37 MEDENT ([facility], [facility]) Alt/SGPT 20 U/L 12-78 MEDENT ([facility], [facility]) Bilirubin,Total 0.5 mg/dL 0.2-1.0 MEDENT ([facility], [facility]) Alkaline Phosphatase 83 U/L 45-117 MEDENT ([facility], [facility]) Total Protein 5.8 GM/DL 6.4-8.2 MEDENT ([facility], [facility]) Albumin 2.8 GM/DL 3.2-5.2 MEDENT ([facility], [facility]) Albumin/Globulin Ratio 0.9 MEDENT ([facility], [facility]) ID Date Data Source [id number] 10/19/2019 10:31:00 AM EDT MEDENT ([facility], [facility]) Name Value Range Interpretation Code Description Data Sahara rce(s) Supporting Document(s) White Blood Count 10.5 10 4.0-10.0 MEDENT ([facility], [facility]) Red Blood Count 3.49 10 4.30-6.10 MEDENT ([facility], [facility]) Mean Corpuscular Volume 102.6 fl 80.0-96.0 M EDENT ([facility], [facility]) Hemoglobin 11.4 g/dL 13.5-17.5 MEDENT ([facility], [facility]) Hematocrit 35.8 % 42.0-52.0 MEDENT ([facility]) Mean Corpuscular Hemoglobin 32.7 pg 27.0-33.0 MEDENT ([facility] [place], [facility]) Red Cell Distribution Width 13.3 % 11.5-14.5 MEDENT ([facility] [place], [facility]) Mean Corpuscular HGB Conc 31.8 g/dL 32.0-36.5 MEDENT ([facility] [place], [facility]) Platelet Count, Automated 551 10 150-450 MEDENT ([facility], [facility]) Lymph % 9.8 % 24.0-44.0 MEDENT ([facility], [facility]) Neutrophils % 76.0 % 36.0-66.0 MEDENT ([facility], [facility]) [place] % 12.1 % 0.0-5.0 MEDENT ([facility], [facility]) Immature Granulocyte % 0.9 % 0-3.0 MEDENT ([facility], [facility]) Baso % 0.4 % 0.0-1.0 MEDENT ([facility], [facility]) Eos % 0.8 % 0.0-3.0 MEDENT ([facility], [facility]) Neutrophils # 8.0 10 1.5-8.5 MEDENT ([facility], [facility]) Lymph # 1.0 10 1.5-5.0 MEDENT ([facility], [facility]) [place] # 1.3 10 0.0-0.8 MEDENT ([facility], [facility]) Nucleated Red Blood Cell % 0.0 % 0-0 MED ENT ([facility]) Baso # 0.0 10 0.0-0.2 MEDENT ([facility], [facility]) Eos # 0.1 10 0.0-0.5 MEDENT ([facility], [facility]) ID Date Data Source [id number] 09/19/2019 10:43:20 AM EDT [facility] PCName: Hermilo Arguelles: 1Provider: EthanDominik abebeROMAN: 09/19/2019 AssessmentThe patient is here with his to reevaluate his right knee arthritis. He has had injections in the past with what sounds like Euflexxa. Also had a steroid injection recently without much relief but is here today for a Monovisc injection. His pain is with weightbearing. He has lateral pain mostly. Here today with his . He is retired.Exam: The patient is a 78-year-old in no acute distress. He does have a bit of a limp. His right knee is a slight valgus deformity the small effusion. Limited motion. Calf supple.I reviewed x-rays of the right knee done on 09/08/2019 which show significant lateral joint space narrowing with marginal osteophyte; there is significant medial joint space narrowing on the left; moderate patellofemoral arthritis with no acute abnormality; slight vascular calcification.Impression: Primary osteoarthritis of the right knee.Plan: The patient would like the Monovisc injection which was administered uneventfully. We talked about time it may take to work in whether or not it will work or help. It does not help everybody and they understand that. He will get things at least a month or so and I will see him in follow-up on an as-needed basis.Procedure NoteMichael is here for his Monovisc injection in the right knee. After discussing the risks and complications, I sterilely prepped and draped the right knee and injected the Monovisc using ethyl chloride in the skin. The patient tolerated the procedure well. No complications. No waste. I used 88 mg of Monovisc. He will give things a month and if he isn't feeling much better at that point in time, will return. If it helps, return on an as-needed basis.I advised the patient that viscosupplement injections are frequently used to provide relief from musculoskeletal pain and to aid in the diagnosis of musculoskeletal problems. This injection offers a variety of benefits and various potential risks associa dustin with the medication administered during the injection. I informed the patient that alternatives to this injection include no treatment, use of rehabilitation and exercise, use of a different medication (oral and injectable), and surgical intervention, when appropriate. I advised the patient that the risks associated with this injection include: an allergic reaction to the medication, possible pain, swelling, and redness at the injection site, in rare instances a decreased platelet count, and that there may actually not be a beneficial effect at all. Having discussed the benefits, alternatives, and potential risks to the injection, the patient elected to proceed with the procedure.Patient History:Patient has reviewed and updated the patient snapshot at the time of the visit today. The patient verifies that all documented history including past medical, surgical and social history is accurate and all medications and allergies are current and correct. Signatures Electronically signed by : Dominik Long M.D.; Sep 19 2019 10:43AM EST (Author) Name Value Range Interpretation Code Description Data Sahara rce(s) Supporting Document(s) ID Date Data Source [id number] 09/09/2019 10:44:59 PM EDT [facility] PCName: Hermilo Arguelles: 1Provider: Laura Dumont: 09/08/2019 History of Present IllnessCHIEF COMPLAINTRight knee pain.HISTORY OF PRESENT ILLNESSThis is a 78-year-old male who presents for an initial evaluation regarding his right knee. He is accompanied today by an adult female. The patient reports that he has been experiencing pain in his right knee for several years. He denies any known trauma or injury. The patient states that his pain began worsening on 09/04/2019, and he was unable to get out of bed or put his foot down. He has been using a cane since 09/04/2019. The patient was evaluated at the hospital, and was advised that he had a Smyth's cyst and arthritis. He was prescribed prednisone, which he is going to complete tonight. His swelling has improved, but he is still experiencing significant pain. He is also experiencing some instability in his right knee. The patient has received viscosupplementation injections to the right knee in the past, which did provide relief. Results/DataX-rays of the right knee were ordered, obtained, and interpreted today in the office. These show moderate to severe lateral and mild to moderate medial and patellofemoral degenerative changes. AssessmentASSESSMENTRight knee primary osteoarthritis. Plan LE Economy Hinged Knee Brace (SOS) [id number]; Status:Complete; Done: 08Sep2019 Perform:SOS28; Due: 22Sep2019; Last Updated By:Genie Rico; 09/08/2019 2:09:14 PM;Ordered; For:Primary localized osteoarthritis of right knee, Right knee pain; Ordered By:Ronald Dumont;THERON Supply Size 1 (S,M,L) : 04: Large X-Ray I Knee - 3 views (XRays were ordered, obtained and interpreted today in theoffice. Indication: pain/dysfunction.); Status:Complete; Done: 08Sep2019 Perform:SOS28; Due:22Sep2019; Last Updated By:Yazmin Lawton; 09/08/2019 1:29:31 PM;Ordered; For:Right knee pain; Ordered By:Ronald Dumont;jkWeight Bearing Status : Weight bearingLaterality: : Right Sodium Hyaluronate Injection (SOS) Referral Treatment Treatment Status: NeedInformation - Financial Authorization Requested for: [id number] Ordered;For: Primary localized osteoarthritis of right knee, Right knee pain; Ordered By: Ronald Dumont Performed: Order Comments: schedule with Dr. Long Due: 22Sep2019; Last Updated By: Ida Nieto; 09/08/2019 2:41:32 PMReason: : OASOS Ultrasound Guided Injection : NoLaterality: : RightSodium Hyaluronate Injection : Monovisc PLANTkvng patient presents with right knee pain that began several years ago after no known injury or trauma. The pain has worsened since 09/04/2019. I reviewed with the patient their exam and imaging findings. He exacerbated his right knee primary osteoarthritis. It has gotten swollen. However, it has improved with the prednisone, but he still has some discomfort and a moderate effusion. I explained the anatomy of the knee. We discussed their diagnosis as well as treatment options. I think he would benefit from an aspiration injection into the right knee today. He has also had benefit from viscosupplementation in the past. Therefore, we will try to get authorization for this as well. The patient was also provided with a hinged-knee brace today to help with his instability. All questions were answered. He will follow up once we obtain authorization for viscosupplementation injections. The patient understands and agrees with this plan.PROCEDUREAt this point since the patient is experiencing progressively worsening symptoms, an injection was recommended. The procedure was outlined fully. The risks and benefits of the injection were discussed with the patient in detail, including but not limited to: injury to nerve, artery or tendon, infection and the possibility of failure of a complete resolution of symptoms were outlined to the patient. Consent was obtained.Under sterile technique the right knee was prepped and draped in the usual sterile fashion and bony landmarks were palpated. The right knee was then injected with 80 mg of Depo- Medrol and 2 cc of lidocaine under sterile technique. The right knee was then aspirated under sterile technique. The aspirate yielded 30 cc of straw-colored fluid.The anticipated outcome, benefits and risks including but not limited to infection, failure to provide benefit and bleeding were discussed with the patient. I advised the patient that steroid injections are frequently used to provide relief for musculoskeletal pain and to aid in the diagnosis of musculoskeletal problems. These injection offers a variety of benefits and various potential risks associated with medication administered during the injection. I informed the patient that. Alternatives to this injection includes no treatment, use of rehabilitation and exercise, use of a different medication, either oral or injectable, and surgical intervention when appropriate. I advised the patient that the risks associated with this injection include: An allergic reaction to the medication, pain at the injection site, possible infection of the injection site, facial flushing and skin changes, temporary increase in blood sugar, tendon, muscle or nerve injury, avascular necrosis and that there may actually not be beneficial effect at all. Having discussed, benefits, alternatives, and potential risks of the injection, the patient elected to proceed with the procedure. The patient tolerated the procedure well. There was no injectable waste.Because the diagnosis of primary osteoarthritis of the knee is established and the patient presently desires conservative management, I recommend a viscosupplementation injection. Im requesting a series of Monovisc. If this brand is not on the payers formulary, please order in accordance with my list of preferences for alternate brands that is also approved by the insurance company.I am prescribing a hinged knee brace for this patient. The patient is ambulatory but is displaying weakness and instability and requires stabilization to improve their function during daily activity. Scribed by Yao Joyce on 09/09/2019 at 08:01 AM for Ronald Dumont Signatures Electronically signed by : Yao Joyce MA; Sep 09 2019 8:01AM EST (Author) Electronically signed by : Ronald Dumont M.D.; Sep 09 2019 10:44PM EST Name Value Range Interpretation Code Description Data Sahara rce(s) Supporting Document(s) ID Date Data Source [id number] 02/06/2019 09:40:21 PM EST [facility] Name Value Range Interpretation Code Description Data Sahara rce(s) Supporting Document(s) &PDF [facility] XFPXAd6zLkASOkCc46/JAYodMLBmj2TvTFsaBVh7YYwtSPXwL7BrcNlcJVuHQV9OZB7YQ3aRTYaiMBPt oRX [file] fRsf+García/vZODGxjqD9NuY7mLdro/YybPK/NW3GTut+4XnA7VkwzWMsn49zmZYSM5vDzXLfn75ibWFHL0 [file] ICAgICAgICAgICAgICAgICAgICAgICAgICAgICAgICAgICAgICAgICAgICAgICAgICAgICAgICAgICAg ICAgICAgICAgICAgICAgICAgICAgICAgICAgICAgIA 0KICAgICAgICAgICAgICAgICAgICAgICAgICAgICAgICAgICAgICAgICAgICAgICAgICAgICAgICAgIC OxCRKbJTGdDFZcMVHbETPbZOXaZJFhPPHlDUAxEWFkYKRkJHGoBEJwOP7YWQZxIYVoJIVjWABdLGGgBA AgICAgICAgICAgICAgICAgICAgICAgICAgICAgICAg HIMlGZEoIFNlWJJdMFTzNSOoVFZzAVYgRDVtMREtROShPBBbUCFyCIReDOIhDNXeTVGiIQ3VXIBePRIr ICAgICAgICAgICAgICAgICAgICAgICAgICAgICAgICAgICAgICAgICAgICAgICAgICAgICAgICAgICAg ICAgICAgICAgICAgICAgICAgICAgICAgICAgICAgIC WfAK3GOHKgNJRhZHSaYKXkTEGzRYQfULNrTZBhFDPrPAQxPWYuYRWjEBZzXILtBBLsCBTqAOPfPGQbDP RuNUQhZYXqASNfRGRcZEVdSKUoQRHeSNAmCZMzYSNsACHqKWVyXZIjOPLqIN3MQGNrEYVsNWIbMRAfXO AgICAgICAgICAgICAgICAgICAgICAgICAgICAgICAg MUOxGMGzZFRxIKMtRAIbQSOjREZsXYFiYOKdABDnYFWoVKNtBFTzNEQyYULfXYBuKRHeNLLpDH6MWLRj ICAgICAgICAgICAgICAgICAgICAgICAgICAgICAgICAgICAgICAgICAgICAgICAgICAgICAgICAgICAg ICAgICAgICAgICAgICAgICAgICAgICAgICAgICAgIC XvZRShGA5AZFNwYVOqBUXsYLBvUCPxRXHhUUKuOEEgEJBaLHQpSFAbQMMwPDAmJPPoPEMjPPQdYDEmWG BgWCZsXJWfIBJnFBXyHGNhWRDaOHUxDAPeKVQgVLPaRCHoULRoJJOrTKWsESCqVA1NAFHsUSAiSVVmDN AgICAgICAgICAgICAgICAgICAgICAgICAgICAgICAg TTMiRJMxBFVnPDKnDKFxBAFvSZNnBHIfBMFqFFNhIKAvMVTdTZJnOAUgXYIaTICyUZGzBGFmMDMkNU4W ICAgICAgICAgICAgICAgICAgICAgICAgICAgICAgICAgICAgICAgICAgICAgICAgICAgICAgICAgICAg ICAgICAgICAgICAgICAgICAgICAgICAgICAgICAgIC WwMUGvBIOmQL0IYZ43gXFoj8N1NMDyVQ6pfsc/Yd6HFDdvrcQwzOUvGK8LPmZlDD6ers5SShUfOG6gld 9AYUuUDlHoP9B3oDTkOKRjJYWBAmWdR65sRUucXq91YGnnREScTcQyYDj4Vo9TIoXjI8pxUUQaNdA5EB LnOnJwRJkiPT3Oe9ZjxYZqURh+Md5DCX4rf4QqXFkq UtDdDQ8lmo5WSMwCHwLfM8F5fTCsD8S6JZmvVg7FEMSbGQJhEGIrTZJSXNmlHW1YKA3xgtJ4HB6BdVCo DCEcDSQopVDpKRw2H69mkXPxRXfaPZ7OLQV+Tyrone+Sh4ATPXkIOYvSNLtLlEzYYYYYcNdZ26bkRVsOHNe IXV7NAQjHj9UPLZdE5GbeeWnwInoowGfJOCuLLLPXX 7GXKvborFziOOavLhmZF47jXkgMG5MHg9CItHhLI9gur3QwUIpDq1NQUNhCs7EBTMaUQUcGHUwPHV8ZM YdEoDuVEvwQQSbNAMoYAW6SQUgWONnAO3GOtAnSJUxUPAgQtczIZLzVDUleq1BYCGaEFPvMKb6HCBsLD KjDZBcUSejWJPfLCYoDQkzITAuQPGqOC6OTeIfCEEb BSK2SUNaLGFwTBUtlc1ZZOHuTJYfGoliGADzJGPfOEXsMVsnIUDfEUZwIxpdUMXuPXOpRQ5ADxUpTWXx ROI9FrmeFUHuZAEusw9PMGTzIDPeESJ5VOGtVNPvGVVkKNsrCOSzRUS7UVH2SVKmUQPuWQ7SUeNkYJNj VGFvYZgqFFNtWAXvxi1GXTStDNVrSXJ3JxWjAGKiRA ZuNMaiGUOaWFUdYOu9PVYuVNMaHI2BYrBxRRSgOKQyJVAmAPYpEVJiex9XLLUeMPFwMFFjDOIoHSMsZJ BzSVbwBFOuNZA1ROY4OMWnMKZlGC8XFvStXOgdJMEBYlx4RKxuW8l2GXIgLh2ED7Bkx1GfJJFbVQEUKN zbMP6anbEeKXHvEt8BB2qHFgxyJFF6TPW9PAZkNBV4 BBErPhc3DrT2JqNiEoEeBAFlOH1rMQV3AuHdVxx7WWErZZUjK9B1FaokKvpqGhU6RVJtSoSeFfShDO1M Ka4GRfA3GGQ4pAJmIf9BAHNkCETGJtRxKU1FEJr= Procedure Social History Code Duration Value Status Description Data Source(s ) Smoking 02/23/2020 12:00:00 AM EST Never Smoker completed Never S moker eCW1 ([facility]) Smoking 02/23/2020 12:00:00 AM EST Never Smoker completed Never S moker eCW1 ([facility]) Smoking 02/23/2020 12:00:00 AM EST Never Smoker completed Never S moker eCW1 ([facility]) Smoking 02/23/2020 12:00:00 AM EST Never Smoker completed Never S moker eCW1 ([facility]) Smoking 12/30/2019 12:00:00 AM EST Never Smoker completed Never S moker eCW1 ([facility]) Smoking 12/30/2019 12:00:00 AM EST Never Smoker completed Never S moker eCW1 ([facility]) Smoking 12/30/2019 12:00:00 AM EST Never Smoker completed Never S moker eCW1 ([facility]) Smoking 12/30/2019 12:00:00 AM EST Never Smoker completed Never S moker eCW1 ([facility]) Smoking 12/24/2019 12:00:00 AM EST Never Smoker completed Never S moker eCW1 ([facility]) Smoking 12/24/2019 12:00:00 AM EST Never Smoker completed Never S moker eCW1 ([facility]) Smoking 12/24/2019 12:00:00 AM EST Never Smoker completed Never S moker eCW1 ([facility]) Smoking 2019 12:00:00 AM EDT Never Smoker completed Never S moker eCW1 ([facility]) Smoking 2019 12:00:00 AM EDT Never Smoker completed Never S moker eCW1 ([facility]) Smoking 10/18/2019 12:00:00 AM EDT Patient has never smoked co mpleted Patient has never smoked MEDENT ([facility], [facility]) Smoking 07/30/2019 12:00:00 AM EDT Patient has never smoked co mpleted Patient has never smoked MEDENT ([facility]) Smoking 07/02/2019 12:00:00 AM EDT Never Smoker completed Never S moker eCW1 ([facility]) Smoking 07/02/2019 12:00:00 AM EDT Never Smoker completed Never S moker eCW1 ([facility]) Vital Signs ID Date Data Source UNK Name Value Range Interpretation Code Description Data Source(s) Diastolic blood pressure 82 mm[Hg] 82 mm[Hg] eCW1 ([facility]) Systolic blood pressure 128 mm[Hg] 128 mm[Hg] e CW1 ([facility]) Body temperature 97.3 [degF] 97.3 [degF] eCW1 ( [facility]) Respiratory rate 18 /min 18 /min eCW1 ([facility]) Heart rate 87 /min 87 /min eCW1 ([facility]) Body mass index (BMI) [Ratio] 29.70 kg/m2 29.70 kg/m2 eCW1 ([facility]) Body height 70 [in_i] 70 [in_i] eCW1 ([facility]) Body weight 207.0 [lb_av] 207.0 [lb_av] eCW1 ([facility]) Diastolic blood pressure 70 mm[Hg] 70 mm[Hg] eCW1 ([facility]) Systolic blood pressure 138 mm[Hg] 138 mm[Hg] e CW1 ([facility]) Body temperature 96.1 [degF] 96.1 [degF] eCW1 ( [facility]) Respiratory rate 18 /min 18 /min eCW1 ([facility]) Heart rate 75 /min 75 /min eCW1 ([facility]) Body mass index (BMI) [Ratio] 30.13 kg/m2 30.13 kg/m2 eCW1 ([facility]) Body height 70 [in_i] 70 [in_i] eCW1 ([facility]) Body weight 210 [lb_av] 210 [lb_av] eCW1 ([facility]) Diastolic blood pressure 80 mm[Hg] 80 mm[Hg] eCW1 ([facility]) Systolic blood pressure 158 mm[Hg] 158 mm[Hg] e CW1 ([facility]) Body temperature 97 [degF] 97 [degF] eCW1 ([facility]) Respiratory rate 18 /min 18 /min eCW1 ([facility]) Heart rate 95 /min 95 /min eCW1 ([facility]) Body mass index (BMI) [Ratio] 30.50 kg/m2 30.50 kg/m2 eCW1 ([facility]) Body height 70 [in_i] 70 [in_i] eCW1 ([facility]) Body weight 212.6 [lb_av] 212.6 [lb_av] eCW1 ([facility]) Diastolic blood pressure 80 mm[Hg] 80 mm[Hg] eCW1 ([facility]) Systolic blood pressure 158 mm[Hg] 158 mm[Hg] e CW1 ([facility]) Body temperature 97 [degF] 97 [degF] eCW1 ([facility]) Respiratory rate 18 /min 18 /min eCW1 ([facility]) Heart rate 95 /min 95 /min eCW1 ([facility]) Body mass index (BMI) [Ratio] 30.50 kg/m2 30.50 kg/m2 eCW1 ([facility]) Body height 70 [in_i] 70 [in_i] eCW1 ([facility]) Body weight 212.6 [lb_av] 212.6 [lb_av] eCW1 ([facility]) Body mass index (BMI) [Ratio] 29.0 kg/m2 29.0 k g/m2 MEDENT ([facility], [facility]) Body height 72 [in_i] 72 [in_i] MEDENT ([facility], [facility]) 6'0" Body weight 214.00 [lb_av] 214.00 [lb_av] MEDEN T ([facility], [facility]) Body temperature 98.7 [degF] 98.7 [degF] MEDENT ([facility], [facility]) Oxygen saturation in Arterial blood by Pulse oximetry 95 % 95 % [facility]) Respiratory rate 16 /min 16 /min MEDENT ( [facility], [facility]) Heart rate 103 /min 103 /min MEDENT ([facility] [place], [facility]) 80 regular Diastolic blood pressure 93 mm[Hg] 93 mm[Hg] MEDENT ([facility] [place], [facility]) Systolic blood pressure 157 mm[Hg] 157 mm[Hg] M EDENT ([facility] [place], [facility]) Intraocular pressure Left eye 13 mm[Hg] 13 mm[ Hg] MEDENT ([facility]) Al-, Applanation 01:29 PM Intraocular pressure Right eye 11 mm[Hg] 11 mm [Hg] MEDENT ([facility]) Diastolic blood pressure 84 mm[Hg] 84 mm[Hg] eCW1 ([facility]) Systolic blood pressure 144 mm[Hg] 144 mm[Hg] e CW1 ([facility]) Body temperature 98.1 [degF] 98.1 [degF] eCW1 ( [facility]) Respiratory rate 18 /min 18 /min eCW1 ([facility]) Heart rate 67 /min 67 /min eCW1 ([facility]) Body mass index (BMI) [Ratio] 29.96 kg/m2 29.96 kg/m2 eCW1 ([facility]) Body height 70 [in_i] 70 [in_i] eCW1 ([facility]) Body weight 208.8 [lb_av] 208.8 [lb_av] eCW1 ([facility]) Body mass index (BMI) [Ratio] 29.12 kg/m2 29.12 kg/m2 W1 ([facility]) Body height 70 [in_us] 70 [in_us] eCW1 ([facility]) Body weight Measured 203 [lb_av] 203 [lb_av] eC W1 ([facility]) Patient Treatment Plan of Care Planned Activity Planned Date Details Description Data Source (s) Medrol (Joe) 4 MG 02/25/2020 12:00:00 AM EST eCW1 ([facility]) tramadol hydrochloride 50 MG Oral Tablet 02/23/2020 12:00:00 AM EST eCW1 ([facility]) tramadol hydrochloride 50 MG Oral Tablet 02/23/2020 12:00:00 AM EST eCW1 ([facility]) tramadol hydrochloride 50 MG Oral Tablet 02/23/2020 12:00:00 AM EST eCW1 ([facility]) tramadol hydrochloride 50 MG Oral Tablet 02/23/2020 12:00:00 AM EST eCW1 ([facility]) Gabapentin 300 MG 02/18/2020 12:00:00 AM EST eCW1 ([facility]) Gabapentin 300 MG 02/18/2020 12:00:00 AM EST eCW1 ([facility]) Gabapentin 300 MG 02/18/2020 12:00:00 AM EST eCW1 ([facility]) Gabapentin 300 MG 02/18/2020 12:00:00 AM EST eCW1 ([facility]) gabapentin 100 MG Oral Capsule 02/18/2020 12:00:00 AM EST eCW1 ([facility]) Diclofenac Sodium 0.01 MG/MG Topical Gel [Voltaren] 12/24/19 12:00:00 AM EST eCW1 ([facility]) Diclofenac Sodium 0.01 MG/MG Topical Gel [Voltaren] 12/24/19 12:00:00 AM EST eCW1 ([facility]) Diclofenac Sodium 0.01 MG/MG Topical Gel [Voltaren] 12/24/19 12:00:00 AM EST eCW1 ([facility]) 8 HR Methylphenidate Hydrochloride 20 MG Extended Rele ase Oral Tablet 12/08/2019 12:00:00 AM EST eCW1 ([facility]) Methylphenidate Hydrochloride 5 MG Oral Tablet [Ritali n] 2019 12:00:00 AM EDT eCW1 ([facility])
[2020-02-27 07:01] LABS: BASO % 0.1 % (0.0-1.0); HEMATOCRIT 34.3 % (42.0-52.0); HEMOGLOBIN 11.1 g/dl (13.5-17.5); LYMPH # 0.6 10^3/uL (1.5-5.0); LYMPH % 3.9 % (24.0-44.0); MEAN CORPUSCULAR HGB CONC 32.4 g/dl (32.0-36.5); MEAN CORPUSCULAR VOLUME 95.8 fl (80.0-96.0); MONO # 1.2 10^3/uL (0.0-0.8); MONO % 7.8 % (0.0-5.0); NEUTROPHILS # 13.6 10^3/uL (1.5-8.5); NEUTROPHILS % 87.5 % (36.0-66.0); PLATELET COUNT, AUTOMATED 346 10^3/uL (150-450); RED BLOOD COUNT 3.58 10^6/uL (4.30-6.10); WHITE BLOOD COUNT 15.5 10^3/uL (4.0-10.0)
[2020-02-27 07:09] LABS: INR 2.97; PROTHROMBIN TIME 31.6 SECONDS (12.5-14.3)
--- OUTSIDE RECORDS SUMMARY | 2020-02-27 07:16 | CCD ---
Author Author [facility] Organization [facility] Address Unknown Phone Unavailable Care Team Providers Care Rn Obgyn Name Role Phone DEIRDRE GALLAGHER MD Unavailable [...] Unavailable Unavailable Jason Soto MD Unavailable Unavailable Jsaon Soto MD Unavailable Unavailable Jason Soto MD [...] K IVORY PA Unavailable Unavailable RING, K IOVRY PA Unavailable Unavailable RING, K IVORY PA [...] Unavailable OROPEZA, T HERMILO MD Unavailable Unavailable OROEPZA, T HERMILO MD Unavailable Unavailable OROPEZA, T [...] is protected by Article 27-F of the [facility] Public Health law. If you continue you may have access to information: Regarding HIV / AIDS; Provided by facilities licensed or operated by the [facility] Office of Mental Health; or Provided by the [facility] Office for People With Developmental Disabilities. If such information is present, then the following [facility] mandated warning applies: This information has [...] law may result in a fine or detention sentence or both. A general authorization for the release of medical or other information is NOT sufficient authorization for further disc losure. Allergies and Adverse Reactions Type Description Substance Reaction Status Data Source(s ) Drug allergy Aleve Naproxen Anaphylaxis [facility]CW[facility] NSAIDS NSAIDS NSAIDS Anaphylaxis Active eCW1 ([facility]) Family History Family Member Name Family Member Gender Family Member Status Date o f Status Description Data Source(s) Unknown Unknown Problem MEDENT ([facility]) Unknown Male Problem MEDENT ([facility]) Unknown Male Problem MEDENT ([facility]) Encounters Encounter Providers Location Date Indications Data Source(s ) [place] [address] [address] 02/25/2020 12:00:00 AM EST eCW1 ([facility]) Unknown [address] [address] 02/23/2020 12:00:00 AM EST eCW1 ([facility]) Unknown [address] [address] 02/20/2020 12:00:00 AM EST eCW1 ([facility]) Unknown [address] [address] 02/19/2020 12:00:00 AM EST eCW1 ([facility]) Unknown [address] [address] 02/18/2020 12:00:00 AM EST [facility] [place] [address] [place] [address] 02/16/2020 12:00:00 AM EST eCW1 ([facility]) Outpatient DOMP-JONATHAN 02/14/2020 11:00:12 PM EST [facility] Outpatient DOMP.RACHAEL-DOMP.RACHAEL 02/12/2020 12:00:00 AM EST [facility] [place] [address] [place] [address] 12/30/2019 12:00:00 AM EST eCW1 ([facility]) [place] [address] [place] [address] 12/26/2019 12:00:00 AM EST eCW1 ([facility]) Office Visit, Est Pt., Level 3 PC [address] [place] [address] 12/24/2019 12:00:00 AM EST eCW1 ([facility]) [place] [address] [place] [address] 12/24/2019 12:00:00 AM EST eCW1 ([facility]) [place] [address] [place] [address] 12/08/2019 12:00:00 AM EST eCW1 ([facility]) Outpatient LIZZ.CANDACE 11/28/2019 04:04:59 PM EDT [facility] Outpatient Attender: LISS OLIVA-SJP.RACHAEL 0 12:00:00 AM EDT - 11/26/2019 02:29:21 PM EDT [facility] Outpatient [address] [address] 2019 12:00:00 AM EDT eCW1 ([facility]) Outpatient Attender: IVORY Teresa 10/18/2019 04:30:00 PM EDT MEDENT ([facility]) Outpatient Attender: DOMINIK LONG MDReferrer: Jason Soto MD 09/19/2019 10:43:20 AM EDT [facility] Outpatient Attender: RONALD DUMONT MDReferrer: Jason vitale MD 09/09/2019 10:44:59 PM EDT [facility] Recurring Patient Attender: HERMILO OROPEZA MDReferrer: KAUSHIK FUENTES MD 09/08/2019 01:14:19 PM EDT [facility] Rec[facility]ring Patient Attender: HERMILO OROPEZA MDReferrer: KAUSHIK FUENTES MD 09/08/2019 01:14:12 PM EDT [facility] Outpatient SJP.CT-SJP.SYR 08/21/2019 02:13:55 PM EDT [address], [facility] [address] 08/18/2019 12:00:00 AM EDT eCW1 ([facility]) Outpatient [address] [place] [address] 07/02/2019 12:00:00 AM EDT eCW1 ([facility]) [address] [address] 06/25/2019 12:00:00 AM EDT eCW1 ([facility]) [address] [address] 06/10/2019 12:00:00 AM EDT eCW1 ([facility]) Outpatient SJP.CT-SJP.SYR 05/15/2019 09:07:29 AM EDT [address] [address] 05/14/2019 12:00:00 AM EDT eCW1 ([facility]) Outpatient Attender: LISS REVELES MD SJP.RACHAEL-SJP.RACHAEL 04/02/2019 12:00:00 AM EST [facility] Outpatient SJP.RACHAEL-SJP.RACHAEL 02/06/2019 10:53 :46 AM EST - 02/06/2019 11:06:30 AM EST [facility] Immunizations Vaccine Date Status Description Data Source(s) influenza, recombinant, quadrIvalent,injectable, prese rvative free 2019 04:29:00 PM EDT completed eCW1 ([facility]) influenza, recombinant, quadrIvalent,injectable, prese rvative free 2019 04:29:00 PM EDT completed eCW1 ([facility]) influenza, recombinant, quadrIvalent,injectable, prese rvative free 2019 04:29:00 PM EDT completed eCW1 ([facility]) influenza, recombinant, quadrIvalent,injectable, prese rvative free 2019 04:29:00 PM EDT completed eCW1 ([facility]) influenza, recombinant, quadrIvalent,injectable, prese rvative free 2019 04:29:00 PM EDT completed eCW1 ([facility]) influenza, recombinant, quadrIvalent,injectable, prese rvative free 2019 04:29:00 PM EDT completed eCW1 ([facility]) influenza, recombinant, quadrIvalent,injectable, prese rvative free 2019 04:29:00 PM EDT completed eCW1 ([facility]) influenza, recombinant, quadrIvalent,injectable, prese rvative free 2019 04:29:00 PM EDT completed eCW1 ([facility]) influenza, recombinant, quadrIvalent,injectable, prese rvative free 2019 04:29:00 PM EDT completed eCW1 ([facility]) influenza, recombinant, quadrIvalent,injectable, prese rvative free 2019 04:29:00 PM EDT completed eCW1 ([facility]) influenza, recombinant, quadrIvalent,injectable, prese rvative free 2019 04:29:00 PM EDT completed eCW1 ([facility]) influenza, recombinant, quadrIvalent,injectable, prese rvative free 2019 04:29:00 PM EDT completed eCW1 ([facility]) influenza, recombinant, quadrIvalent,injectable, prese rvative free 2019 04:29:00 PM EDT completed eCW1 ([facility]) Medications Medication Brand Name Start Date Product Form Dose Route Admi nistrative Instructions Pharmacy Instructions Status Indications Reaction Description Data Source(s) Medrol (Joe) 4 MG Medrol (Joe) 4 MG 02/25/2020 12:00:00 AM EST active Medrol (Joe) 4 MG eCW1 ([facility]) 4 mg 02/25/2020 12:00:00 AM EST tablets,dose pack 21 TAKE BY MOUTH DAILY DIRECTED ON DOSEPACK TAKE BY MOUTH DAILY DIRECTED ON DOSEPACK SOLD: 02/25/2020 [facility] tramadol hydrochloride 50 MG Oral Tablet Tramadol HCl 50 MG Tramadol HCl 50 MG 02/23/2020 12:00:00 AM EST 1.0 {tablet} active Tramadol HCl 50 MG eCW1 ([facility]) tramadol hydrochloride 50 MG Oral Tablet Tramadol HCl 50 MG Tramadol HCl 50 MG 02/23/2020 12:00:00 AM EST 1.0 {tablet} active Tramadol HCl 50 MG eCW1 ([facility]) tramadol hydrochloride 50 MG Oral Tablet Tramadol HCl 50 MG Tramadol HCl 50 MG 02/23/2020 12:00:00 AM EST 1.0 {tablet} active Tramadol HCl 50 MG eCW1 ([facility]) tramadol hydrochloride 50 MG Oral Tablet Tramadol HCl 50 MG Tramadol HCl 50 MG 02/23/2020 12:00:00 AM EST 1.0 {tablet} active Tramadol HCl 50 MG eCW1 ([facility]) 50 mg 02/23/2020 12:00:00 AM EST tablet 50 TAKE ONE TABLET BY MOUTH EVERY 6 HOURS NEEDED FOR PAIN * MAXIMUM DAILY DOSE = 4 TAKE ONE TABLET BY MOUTH EVERY 6 HOURS NEEDED FOR PAIN * MAXIMUM DAILY DOSE = 4 SOLD: 02/23/2020 [facility] 100 mcg/0.5 mL 02/19/2020 12:00:00 AM EST suspension 0 INJECT BY [facility] (FIRST DOSE) INJECT BY [facility] (FIRST DOSE) SOLD: 02/20/2020 [facility] gabapentin 100 MG Oral Capsule Gabapentin 100 MG Gabapentin 100 MG 02/18/2020 12:00:00 AM EST 1.0 {capsule} active G abapentin 100 MG eCW1 ([facility]) Gabapentin 300 MG UNK 02/18/2020 12:00:00 AM EST 1.0 {capsule} active Gabapentin 300 MG eCW1 ([facility]) Gabapentin 300 MG UNK 02/18/2020 12:00:00 AM EST 1.0 {capsule} active Gabapentin 300 MG eCW1 ([facility]) 100 mg 02/18/2020 12:00:00 AM EST capsule 90 TAKE ONE CAPSULE BY MOUTH THREE TIMES A DAY TAKE ONE CAPSULE BY MOUTH THREE TIMES A DAY SOLD: 02/18/2020 [facility] Gabapentin 300 MG UNK 02/18/2020 12:00:00 AM EST 1.0 {capsule} active Gabapentin 300 MG eCW1 ([facility]) Gabapentin 300 MG UNK 02/18/2020 12:00:00 AM EST 1.0 {capsule} active Gabapentin 300 MG eCW1 ([facility]) 5-325 mg 02/16/2020 12:00:00 AM EST tablet 10 TAKE ONE TABLET BY MOUTH TWICE A DAY NEEDED FOR PAIN MAXIMUM DAILY DOSE = 2 TABLETS TAKE ONE TABLET BY MOUTH TWICE A DAY NEEDED FOR PAIN MAXIMUM DAILY DOSE = 2 TABLETS SOLD: 02/16/2020 [facility] carvedilol 12.5 MG Oral Tablet CARVEDILOL 02/16/2020 12:00:00 AM EST tablet 60 TAKE ONE TABLET BY MOUTH TWICE A DAY TAKE ONE TABLET BY MOUT H TWICE A DAY SOLD: 02/16/2020 [facility] 1 % 12/29/2019 12:00:00 AM EST gel 100 APPLY 1 TO 2 GRAMS TO AFFECTED AREA(S) ON LOWER BACK EVERY 6 HOURS NEEDED FOR 10 DAYS APPLY 1 TO 2 GRAMS TO AFFECTED AREA(S) ON LOWER BACK EVERY 6 HOURS NEEDED FOR 10 DAYS SOLD: 12/31/2019 [facility] Diclofenac Sodium 0.01 MG/MG Topical Gel [Voltaren] Voltaren 1 % Voltaren 1 % 12/24/2019 12:00:00 AM EST active Voltaren 1 % eCW1 ([facility]) Diclofenac Sodium 0.01 MG/MG Topical Gel [Voltaren] Voltaren 1 % Voltaren 1 % 12/24/2019 12:00:00 AM EST active Voltaren 1 % eCW1 ([facility]) Diclofenac Sodium 0.01 MG/MG Topical Gel [Voltaren] Voltaren 1 % Voltaren 1 % 12/24/2019 12:00:00 AM EST active Voltaren 1 % eCW1 ([facility]) Diclofenac Sodium 0.01 MG/MG Topical Gel [Voltaren] Voltaren 1 % Voltaren 1 % 12/24/2019 12:00:00 AM EST active Voltaren 1 % eCW1 ([facility]) Diclofenac Sodium 0.01 MG/MG Topical Gel [Voltaren] Voltaren 1 % Voltaren 1 % 12/24/2019 12:00:00 AM EST active Voltaren 1 % eCW1 ([facility]) Diclofenac Sodium 0.01 MG/MG Topical Gel [Voltaren] Voltaren 1 % Voltaren 1 % 12/24/2019 12:00:00 AM EST active Voltaren 1 % eCW1 ([facility]) Diclofenac Sodium 0.01 MG/MG Topical Gel [Voltaren] Voltaren 1 % Voltaren 1 % 12/24/2019 12:00:00 AM EST active Voltaren 1 % eCW1 ([facility]) Diclofenac Sodium 0.01 MG/MG Topical Gel [Voltaren] Voltaren 1 % Voltaren 1 % 12/24/2019 12:00:00 AM EST active Voltaren 1 % eCW1 ([facility]) Diclofenac Sodium 0.01 MG/MG Topical Gel [Voltaren] Voltaren 1 % Voltaren 1 % 12/24/2019 12:00:00 AM EST active Voltaren 1 % eCW1 ([facility]) Diclofenac Sodium 0.01 MG/MG Topical Gel [Voltaren] Voltaren 1 % Voltaren 1 % 12/24/2019 12:00:00 AM EST active Voltaren 1 % eCW1 ([facility]) Diclofenac Sodium 0.01 MG/MG Topical Gel [Voltaren] Voltaren 1 % Voltaren 1 % 12/24/2019 12:00:00 AM EST active Voltaren 1 % eCW1 ([facility]) 20 mg 12/10/2019 12:00:00 AM EST tablet extended release 14 TAKE ONE TABLET BY MOUTH EVERY DAY , MAXIMUM DAILY DOSE = 1 TABLET TAKE ONE TABLET BY MOUTH EVERY DAY , MAXIMUM DAILY DOSE = 1 TABLET SOLD: 12/10/2019 [facility] 8 HR Methylphenidate Hydrochloride 20 MG Extended Release Oral Tablet Methylphenidate HCl ER 20 MG Methylphenidate HCl ER 20 MG 12/08/2019 12:00:00 AM EST 1.0 {tablet} active Methylpheni date HCl ER 20 MG eCW1 ([facility]) 8 HR Methylphenidate Hydrochloride 20 MG Extended Release Oral Tablet Methylphenidate HCl ER 20 MG Methylphenidate HCl ER 20 MG 12/08/2019 12:00:00 AM EST 1.0 {tablet} active Methylpheni date HCl ER 20 MG eCW1 ([facility]) 8 HR Methylphenidate Hydrochloride 20 MG Extended Release Oral Tablet Methylphenidate HCl ER 20 MG Methylphenidate HCl ER 20 MG 12/08/2019 12:00:00 AM EST 1.0 {tablet} active Methylpheni date HCl ER 20 MG eCW1 ([facility]) 8 HR Methylphenidate Hydrochloride 20 MG Extended Release Oral Tablet Methylphenidate HCl ER 20 MG Methylphenidate HCl ER 20 MG 12/08/2019 12:00:00 AM EST 1.0 {tablet} active Methylpheni date HCl ER 20 MG eCW1 ([facility]) 5 mg 11/13/2019 12:00:00 AM EDT tablet 60 TAKE ONE TABLET BY MOUTH ON AN EMPTY STOMACH TWO TIMES A DAY, WITH BREAKFAST AND SUPPER TAKE ONE TABLET BY MOUTH ON AN EMPTY STOMACH TWO TIMES A DAY, WITH BREAKFAST AND SUPPER SOLD: 11/13/2019 [facility] Methylphenidate Hydrochloride 5 MG Oral Tablet [Ritali n] Ritalin 5 MG Ritalin 5 MG 2019 12:00:00 AM EDT 1.0 {tablet_on_an_empty_stomach} active Ritalin 5 MG eCW1 ([facility]) 100 mg 10/19/2019 12:00:00 AM EDT capsule 20 TAKE ONE CAPSULE BY MOUTH TWICE A DAY FOR 10 DAYS TAKE ONE CAPSULE BY MOUTH TWICE A DAY FOR 10 DAYS SOLD : 10/19/2019 [facility] Doxycycline Monohydrate 100 MG Oral Capsule Doxycycline [place] hydrate 10/18/2019 12:00:00 AM EDT ORAL active M EDENT ([facility]) 20 mg 09/04/2019 12:00:00 AM EDT tablet 10 TAKE ONE TABLET BY MOUTH TWICE A DAY TAKE ONE TABLET BY MOUTH TWICE A DAY SOLD: 09/04/2019 [facility] Insurance Providers Payer name Policy type / Coverage type Policy ID Covered republican ID Covered republican's relationship to garcia Policy Garcia Plan Information MEDICARE [id number] SP [id number] R [facility] [id number] SP [id number] R [facility] [id number] SP [id number] R [id number] Cheri [id number] MEDICARE [id number] Cheri [id number] [id number] R O [id number] S [id number] MEDICARE C [id number] S [id number] DME Jurisdiction A [facility] C [id number] SELF [id number] R F [id number] SELF [id number] Medicare C [id number] SELF [id number] ANSI-Medicare Part B [id number] ANSI-Commercial [id number] ANSI-Commercial [id number] [facility] Commercial [id number] Self [id number] ANSI-Commercial [id number] ANSI-Medicare Part B [id number] ANSI-Commercial [id number] ANSI-Medicare Part B [id number] ANSI-Commercial [id number] ANSI-Commercial [id number] ANSI-Commercial [id number] ANSI-Commercial [id number] ANSI-Medicare Part B [id number] ANSI-Medicare Part B [id number] ANSI-Commercial [id number] ANSI-Commercial [id number] Umr/Uhc/[employer] Medigap Part B [id number] Self [id number] Medicare Natl Gov't Servi Medicare Primary [id number] Self [id number] UMR F [id number] SELF [id number] Medicare C [id number] SELF [id number] F45 ANSI-Commercial [id number] ANSI-Medicare Part B [id number] ANSI-Commercial [id number] MEDICARE [id number] SP [id number] A Umr (pr) Medigap Part B [id number] Self [id number] Medicare Dme Supplies Medigap Part B [id number] Self [id number] [place] [id number] Self [id number] [employer] (pr) Medigap Part B [id number] Self [id number] Umr (pr) Medigap Part B [id number] Self [id number] Medicare Dme Supplies Medigap Part B [id number] Self [id number] [place] Primary [id number] Self [id number] Umr (pr) Medigap Part B [id number] Self [id number] Medicare Dme Supplies Medigap Part B [id number] Self [id number] [place] Primary [id number] Self [id number] Umr (pr) Medigap Part B [id number] Self [id number] Medicare Dme Supplies Medigap Part B [id number] Self [id number] [place] Primary [id number] Self [id number] [employer] / UMR F [id number] SELF [id number] DME Jurisdiction A [facility] C [id number] SELF [id number] Medicare C [id number] SELF [id number] A Medicare Dme Supplies Medigap Part B [id number] Self [id number] [place] Primary [id number] Self [id number] [employer]OMCO PPO O [id number] S [id number] MEDICARE C [id number] S [id number] A [facility]OMCO [id number] SP [id number] POMCO [id number] SP [id number] POMCO [id number] SP [id number] MEDICARE [id number] SP [id number] A [facility]OM[employer] [id number] SP [id number] [employer] Medigap Part B [id number] Self [id number] Medicare/National Gov SVC Medicare Primary [id number] Self [id number] [employer] F [id number] SELF [id number] [employer] Medigap Part B [id number] Self [id number] [place] Primary [id number] Self [id number] POMCO [id number] Cheri [id number] MEDICARE [id number] Cheri [id number] A [employer] Medigap Part B Self Medicare/National Gov SVC Medicare Primary Self [id number] A [id number] Problems, Conditions, and Diagnoses Code Display Name Description Problem Type Effective Dates Data Source(s) M54.42 [id number] Acute left-sided low back pain w ith left-sided sciatica Problem 02/23/2020 12:00:00 AM EST eCW1 ([facility]) M54.5 [id number] Low back pain Problem 12/30/2019 12:00:00 AM EST eCW1 ([facility]) R29.818 [id number] Suspected sleep apnea Problem 12/30/2019 12: 00:00 AM EST eCW1 ([facility]) R79.89 [id number] Abnormal TSH Problem 2019 12:00:00 AM EDT eCW1 ([facility]) R93.89 [id number] Abnormal chest xray Problem 2019 12:00 :00 AM EDT eCW1 ([facility]) M46.1 [id number] Sacroiliitis Problem 07/02/2019 12:00:00 AM EDT eCW1 ([facility]) I48.0 Paroxysmal atrial fibrillation Paroxysmal atrial fibri llation Diagnosis 11/26/2019 01:49:45 PM EDT [facility] Surgeries/Procedures Procedure Description Date Indications Data Source(s) Immunization: Flublok Quadrivalent (18 years & older) 0.5mL IM (Influenza) 2019 12:00:00 AM EDT eCW1 ([facility]) OPHTH MEDICAL XM&EVAL COMPRHNSV ESTAB PT 1/> VST 07/29 12:00:00 AM EDT MEDENT ([facility]) DETERMINATION REFRACTIVE STATE 07/30/2019 12:00:00 AM EDT MEDENT ([facility]) Annual wellness visit, includes a person alized prevention plan of service (pps), subsequent visit 05/14/2019 12:00:00 AM EDT eCW 1 ([facility]) TeleMedicine Est. Pt. Level 4 05/14/2019 12:00:00 AM E DT eCW1 ([facility]) Results ID Date Data Source [id number] 02/14/2020 10:59:18 PM EST [facility] Name Value Range Interpretation Code Description Data Sahara rce(s) Supporting Document(s) &PDF [facility] XRHXTs2yClPNSnCx60/PFBjkRHFyp1TyGLczMQt8MIjhQFHuZ2CiaEhzKQsZGJ5QJF1CL6gCBRbgHOKy oRX [file] GARCÍA/jLjDpI86f/sYZEpdsH6+ZldueF2xmwNsZTet1ey [file] ICAgICAgICAgICAgICAgICAgICAgICAgICAgICAgIC AgICAgICAgICAgICAgICAgICAgICAgICAgICAgICAgICAgICAgICAgICAgICAgICAgICAgICAgICAgIC ANCiAgICAgICAgICAgICAgICAgICAgICAgICAgICAgICAgICAgICAgICAgICAgICAgICAgICAgICAgIC AgICAgICAgICAgICAgICAgICAgICAgICAgICAgICAg ICAgICAgICAgICANCiAgICAgICAgICAgICAgICAgICAgICAgICAgICAgICAgICAgICAgICAgICAgICAg ICAgICAgICAgICAgICAgICAgICAgICAgICAgICAgICAgICAgICAgICAgICAgICAgICAgICANCiAgICAg ICAgICAgICAgICAgICAgICAgICAgICAgICAgICAgIC AgICAgICAgICAgICAgICAgICAgICAgICAgICAgICAgICAgICAgICAgICAgICAgICAgICAgICAgICAgIC AgICANCiAgICAgICAgICAgICAgICAgICAgICAgICAgICAgICAgICAgICAgICAgICAgICAgICAgICAgIC AgICAgICAgICAgICAgICAgICAgICAgICAgICAgICAg ICAgICAgICAgICAgICANCiAgICAgICAgICAgICAgICAgICAgICAgICAgICAgICAgICAgICAgICAgICAg ICAgICAgICAgICAgICAgICAgICAgICAgICAgICAgICAgICAgICAgICAgICAgICAgICAgICAgICANCiAg ICAgICAgICAgICAgICAgICAgICAgICAgICAgICAgIC AgICAgICAgICAgICAgICAgICAgICAgICAgICAgICAgICAgICAgICAgICAgICAgICAgICAgICAgICAgIC AgICAgICANCiAgICAgICAgICAgICAgICAgICAgICAgICAgICAgICAgICAgICAgICAgICAgICAgICAgIC AgICAgICAgICAgICAgICAgICAgICAgICAgICAgICAg ICAgICAgICAgICAgICAgICANCiAgICAgICAgICAgICAgICAgICAgICAgICAgICAgICAgICAgICAgICAg ICAgICAgICAgICAgICAgICAgICAgICAgICAgICAgICAgICAgICAgICAgICAgICAgICAgICAgICAgICAN CiAgICAgICAgICAgICAgICAgICAgICAgICAgICAgIC AgICAgICAgICAgICAgICAgICAgICAgICAgICAgICAgICAgICAgICAgICAgICAgICAgICAgICAgICAgIC AgICAgICAgICANCjw/zHZlF6eggVNmjvI2M9rnFn5CMp5HDO0vm0YlBWDoGZuuwfMxMppTCrYbIMEiQs nDLnc3EYgkEJ7PcDLxS1FoZ9OhIAsbKJ7FHTZvUXDs aZDjUSCzJTFiTqV6TXNrQPsxUT1KxDCpBBasTYXtWYEfJL6SPEQcY776tbKtTX3TUz2YEuOvZM7kif0V BwAsBICmFpkSUdx9JUbpKE6EiGDtM8FgePPkq4uYIeTdK6YLYYRpUSFjEo5UXHUmPdTlPKTtHLorTN3w IIJaGHFNlXjbimK9KF2DXF4ehdMgTE3OLqPyTs4lMp 4ZOrTuZ8PaU3AcJWThBFPPHTjsQJ6LZMWfIVV6NVFvNdGwHHYNHaAvV41vII3ZJ0Hnr97mNsM5YXBgAn ZjIQkjOR34kBlglzTgpTXucMelHP4APx7+DQplbmRvYmoNCnhyZWYNCjAgMjUNCjAwMDAwMDAwMDAgNj O7MeFqDd8EHMXrLEGzHXPsTsPoACFtXZDfSMohGMPm PWEmSPXjDYQfCLCxVR7KLlOwFBWsJiM4DSZjRCLlZDOjjq1PLJYhFIUeNGL6RCPiACXuYWGrTUziJBDb XXTmAKQqNFGyBQQrWV9RNmNiAHLqIRVgGQPhJWQrOJXzkv8GHWJdHDGiRKJqXoPlAHSjVBIdFIcqBLJx ORF1KNH5ECXrYIWlTZ5AXcVjHCYqOEG3WNvnCDQqJB Fntv5SMIIhQAPqGIU6EpKiLUVuJPWdOZalYSVnLQV6WZS5GHBrPBPiNA8WOiUtXPNuQFXzGsDyYGOpIS Vnmw7BSGTkLLIgJAp3GfJeHFWeRIRzIVjsRFQoQKZsFzV4ONMfZBZzZD6ESpYbROSqEGX9WtEcLWLkSM Msvy3WMTAzFSGfHCF8YFXmKQEyEQEiYLrlFRBzKDDt GPG8IKFiVNEaBO2FMjGgPJFhZXW7JTXwFGHrGEFegx9WKGUaSHJaSsztWTTkPVQgLNDwSJgvVKHjTHZf BHR0WBBaQFLzWP6RScWcOGRwSXc7RJEqBSEqKUCtfd6OPZYmZGQhVYziCECcXXOdVOXvDDicZHYoICVx TdB7DCRqWGLfJN7VXbMmXMAyFzZ7ZBZbSIVyXTJame 9VwAIrlDofrk6YPBpISt6GbFnqJDR6PLyuPn3ozGVlFKXhDLDFNr9KhxYfOVZuVPLQXAqzXAMxXVZxN6 Y9HPJiWBXrXEX1ByJ0PUS6OFLcFpH1G4C2XvbhIfZ2QGRkMcFnRNVqI9ToTlntYnU5BmS3QcDcLYDnEf RiN2M+KQ9zKZz+Ix1Hd7HfnkV7juApCUucHmm3FZ7LSQWIQ8BYFu== ID Date Data Source MAGNESIUM LEVEL 12/24/2019 12:00:00 AM EST [email or web address] ([facility]) Name Value Range Interpretation Code Description Data [place] rce(s) Supporting Document(s) 2.5 1.8-2.4 eCW1 ([facility]) ID Date Data Source Basic Metabolic Profile (BMP) 12/24/2019 12:00:00 AM EST eCW 1 ([facility]) Name Value Range Interpretation Code Description Data [place] rce(s) Supporting Document(s) 75 70-100 eCW1 ([facility]) 29 7-18 eCW1 ([facility]) 142 136-145 eCW1 ([facility]) 39.2 >42 eCW1 ([facility]) 1.79 0.70-1.30 eCW1 ([facility]) 31 21-32 eCW1 ([facility]) 109 98-107 eCW1 ([facility]) 4.7 3.5-5.1 eCW1 ([facility]) 9.1 8.8-10.2 eCW1 ([facility]) ID Date Data Source FREE T4 & TSH PANEL 12/24/2019 12:00:00 AM EST eCW1 ([facility]) Name Value Range Interpretation Code Description Data [place] rce(s) Supporting Document(s) 1.29 0.76-1.46 eCW1 ([facility]) 0.274 0.358-3.740 eCW1 ([facility]) ID Date Data Source FREE T3 12/24/2019 12:00:00 AM EST eCW1 ([facility]) Name Value Range Interpretation Code Description Data [place] rce(s) Supporting Document(s) 2.5 2.2-4.0 eCW1 ([facility]) ID Date Data Source [facility] CT Chest without contrast 11/24/2019 12:00:00 AM EDT eC W1 ([facility]) Name Value Range Interpretation Code Description Data Sahara rce(s) Supporting Document(s) [facility] CT Chest without contrast eCW1 ([facility]) ID Date Data Source [id number] 10/19/2019 10:31:00 AM EDT MEDENT ([facility], [facility]) Name Value Range Interpretation Code Description Data Sahara rce(s) Supporting Document(s) Glucose, Fasting 96 mg/dL 70-100 MEDENT ([facility], [facility]) Blood Urea Nitrogen 22 mg/dL 7-18 MEDENT ([facility] [place], [facility]) Creatinine For GFR 1.66 mg/dL 0.70-1.30 MEDENT ([facility], [facility]) Glomerular Filtration Rate 42.9 MED ENT ([facility], [facility]) <content>Units are mL/min/1.73 m2</content>
<content></content>
<content>Chronic Kidney Disease Staging per NKF:</content>
<content></content>
<content>Stage I & II GFR >=60 Normal to Mildly Decreased</content>
<content>Stage III GFR 30- 59 Moderately Decreased</content>
<content>Stage IV GFR 15-29 Severely Decreased</content>
<content>Stage V GFR <15 Very Little GFR Left</content>
<content>ESRD GFR <15 on [employer]</content>
<content></content> Sodium Level 142 meq/L 136-145 MEDENT ([facility], [facility]) Anion Gap 5 meq/L 8-16 MEDENT ([facility], [facility]) Chloride Level 109 meq/L 98-107 MEDENT ([facility], [facility]) Potassium Serum 4.7 meq/L 3.5-5.1 MEDENT ([facility], [facility]) Carbon Dioxide Level 28 meq/L 21-32 MEDENT ([facility], [facility]) Calcium Level 8.5 mg/dL 8.8-10.2 MEDENT ([facility], [facility]) Ast/Sgot 17 U/L 7-37 MEDENT ([facility], [facility]) Alt/SGPT 20 U/L 12-78 MEDENT ([facility], [facility]) Bilirubin,Total 0.5 mg/dL 0.2-1.0 MEDENT ([facility], [facility]) Alkaline Phosphatase 83 U/L 45-117 MEDENT ([facility], [facility]) Total Protein 5.8 GM/DL 6.4-8.2 MEDENT ([facility], [facility]) Albumin 2.8 GM/DL 3.2-5.2 MEDENT ([facility], [facility]) Albumin/Globulin Ratio 0.9 MEDENT ([facility], [facility]) ID Date Data Source [id number] 10/19/2019 10:31:00 AM EDT MEDENT ([facility], [facility]) Name Value Range Interpretation Code Description Data Sahara rce(s) Supporting Document(s) White Blood Count 10.5 10 4.0-10.0 MEDENT ([facility], [facility]) Red Blood Count 3.49 10 4.30-6.10 MEDENT ([facility], [facility]) Mean Corpuscular Volume 102.6 fl 80.0-96.0 M EDENT ([facility], [facility]) Hemoglobin 11.4 g/dL 13.5-17.5 MEDENT ([facility], [facility]) Hematocrit 35.8 % 42.0-52.0 [facility] Mean Corpuscular Hemoglobin 32.7 pg 27.0-33.0 MEDENT ([facility] [place], [facility]) Red Cell Distribution Width 13.3 % 11.5-14.5 MEDENT ([facility] [place], [facility]) Mean Corpuscular HGB Conc 31.8 g/dL 32.0-36.5 MEDENT ([facility] [place], [facility]) Platelet Count, Automated 551 10 150-450 MEDENT ([facility], [facility]) Lymph % 9.8 % 24.0-44.0 MEDENT ([facility], [facility]) Neutrophils % 76.0 % 36.0-66.0 MEDENT ([facility], [facility]) Garland % 12.1 % 0.0-5.0 MEDENT ([facility], [facility]) Immature Granulocyte % 0.9 % 0-3.0 MEDENT ([facility], [facility]) Baso % 0.4 % 0.0-1.0 MEDENT ([facility], [facility]) Eos % 0.8 % 0.0-3.0 MEDENT ([facility], [facility]) Neutrophils # 8.0 10 1.5-8.5 MEDENT ([facility], [facility]) Lymph # 1.0 10 1.5-5.0 MEDENT ([facility], [facility]) Garland # 1.3 10 0.0-0.8 MEDENT ([facility], [facility]) Nucleated Red Blood Cell % 0.0 % 0-0 MED ENT [facility] Baso # 0.0 10 0.0-0.2 MEDENT ([facility], [facility]) Eos # 0.1 10 0.0-0.5 MEDENT ([facility], [facility]) ID Date Data Source [id number] 09/19/2019 10:43:20 AM EDT [facility] Hermilo Arguelles: 1Provider: EthanDominik [...] rce(s) Supporting Document(s) ID Date Data Source [id number] 09/09/2019 10:44:59 PM EDT [facility] Hermilo [facility]guelles: 1Provider: Laura [...] Plan LE Economy Hinged Knee Brace (SOS) [id number]; Status:Complete; Done: 08Sep2019 Perform:SOS28; Due: 22Sep2019; Last [...] Status: NeedInformation - Financial Authorization Requested for: [id number] Ordered;For: Primary localized osteoarthritis of right knee, [...] rce(s) Supporting Document(s) ID Date Data Source [id number] 02/06/2019 09:40:21 PM EST [facility] Name Value Range Interpretation Code Description Data Sahara rce(s) Supporting Document(s) &PDF [facility] EXTKKk9sVyGPZeTz81/HOObtMVJzl5BaFSqqSZq0OVcpPTSbL8ZxbVlqRLlYCY4ZWE1RR2kBAWuoTKGt oRX [file] fRsf+García/tPUBTvpyC4HkS3jZuzn/YybPK/VG3KMxe+1IcA1SbjpPGnr88bbEEWT3fUzYKue87pfQPSP1 [file] ICAgICAgICAgICAgICAgICAgICAgICAgICAgICAgICAgICAgICAgICAgICAgICAgICAgICAgICAgICAg ICAgICAgICAgICAgICAgICAgICAgICAgICAgICAgIA 0KICAgICAgICAgICAgICAgICAgICAgICAgICAgICAgICAgICAgICAgICAgICAgICAgICAgICAgICAgIC XaQXEiTUTyLEAlEMUtPWXrJYSfCZVcPXLhPFMkXNMkQUWqVXLtJSAnMM2FCXRpVRCuQBDuADUnSBEdXB AgICAgICAgICAgICAgICAgICAgICAgICAgICAgICAg FQNkABGjMAJeJMMkLNHpQPOyIVMgVNLfCCPvNZIaFXPlDFTaIKDbUFGwJMPjSQZjKYZqDE6UNOAcWHYm ICAgICAgICAgICAgICAgICAgICAgICAgICAgICAgICAgICAgICAgICAgICAgICAgICAgICAgICAgICAg ICAgICAgICAgICAgICAgICAgICAgICAgICAgICAgIC CtVQ9KXDGjKBNkTOAwDHZcIKSwFRZcRYTxCQQzTFAuOVEpIYSaUUXcDQUfBWTtZJRwWKDvGBLgIMUvXJ HxCKQfLXEwKQWvWHOaOHDvFWMqPAIpLGBqPLEvXOHdRZTzWJScVQObHHXuYA5FWJPcZHCdQSBzXBPpHF AgICAgICAgICAgICAgICAgICAgICAgICAgICAgICAg UOCaYFAbXXEsTQZfVBQaGQDpIXQjPMXjYMJlPDKyLLVdCXKvJKJoAJLmHAXbUQFlJWJpAZQhVY6XPYAm ICAgICAgICAgICAgICAgICAgICAgICAgICAgICAgICAgICAgICAgICAgICAgICAgICAgICAgICAgICAg ICAgICAgICAgICAgICAgICAgICAgICAgICAgICAgIC WkCHKuSN8WMLZmSKFaNMGuDSKdDLJyCSMuNUVuGMIuEUNvIIVuLTXiYYNlNARiODOdIVXqUZEtENGmCC FvAQUtRNXjVFGsNOBgJCPmFJDcHYQzGZQkHYWoWFKdYGFyODWvYLPmRKGeTODjVK5JVDRfUSXfDDLeHL AgICAgICAgICAgICAgICAgICAgICAgICAgICAgICAg FJEzCWTcOXMwHDGlBNIqYLBaMLAyVZEuTMFaICHxWXYzWSAqSMEhZZGvSSVoDGSnXWWmIVTvDSIsON5L ICAgICAgICAgICAgICAgICAgICAgICAgICAgICAgICAgICAgICAgICAgICAgICAgICAgICAgICAgICAg ICAgICAgICAgICAgICAgICAgICAgICAgICAgICAgIC SoEONtVXXcFY2ZJJ16lVQhz3P6RWDqXH1jxzx/Wp1YUCgkpzVrvXZoZE8WSlFiNG2vct8BXsYoTY7hwl 4XKKuKEwBeY6F2uDPwHIYpDQZZVyIvP42tEXviPd20KFtzPAWdRaQkFOz0Tk4SThJaE4neYPDcWqT2ZC JfJmLiMQdwFL5Qo5AflHXqPQh+Ta6DDI7xd1BuLRsa KtJmWL2uom3KMMhEWpSzK2A5mAQuX4N2SRagOq2FPJLiTSTlASGuXGKCAJxrTL9TJN3ipxD1TM4RiOFx BWZdZMTqwQZtWAx5J54lrAPpREwjXT7HGEB+Tyrone+At6CKWJhNZAiEUZoAiAjSUJAXrLaE33piIKsJGLn XOP9SFUiPm5VBAUjK4MfwvOdaJsrmwTiHDCeDTVAEU 2NSHyeauWtrMDdlJztLC94yXkeZL7KGt2WDqKkER5ntk7VuLZwNf3JABEfIp0HWANdPPBiYJVpCKQ5XM XjWxLrHXwvBMKuFZLiEVT1HZCdYIJqFB6YYsNeLCVqKUAjSxoaYMCrXANuix5PCNYhWFTsVXo0VUQzJQ EiIBNvEAamVEClHNCcPAwdUXVnDELsSI8GFuKjJUSp AQR8HTYeZCDeSBWrmd1WPBOuPSMqNeowPZJlIUEyTFBkZNfaWSRiJACnUjmsUAGfXNQtQN8QBuXbEHHj MCP1YcmwFVAdAHQxjt3RUFRfFGIwXWE0ICXwSIRoWVAyJTxmYCXmOAU3HZZ7XWJpSUXuTA6IXpZaXZFh YXWfNRksTYPqJDAdku8DCKYbYQCtWYO8ReWgYVNtOL PeTNnnBJYlHYQhAJx5WKGqOJUfYP3QGyKxNJJxOWFuXOPdXQOlZDZizc7IEGQwPMRbBEEcFRNkGIXsKB QgWCrxBUGwYJL2OHN7UOJdBPDoUK3IHqHbIGnsJXVZYlt1UEtfM9l1DPZzWi7XW5Eov2RwYAWmZIUGUN evJQ1cxjBxKSMgUt6SN0zDFezhVRA1TJL5PZDoROZ8 KLLqTfx4IkB0VaLpFmUpQWInKY6eFNJ2WmYaCoq8ASQjQUWiP4G5VvfhUvvvKgZ6DBKvUlMzOiSdRL3I Ca2MNhC0EJX6dTFxAw9MWRFyLLIUMgRuUT2AACa= Procedure Social History Code Duration Value Status Description Data Source(s ) Smoking 02/23/2020 12:00:00 AM EST Never Smoker completed Never S moker eCW1 ([facility]) Smoking 02/23/2020 12:00:00 AM EST Never Smoker completed Never S moker eCW1 ([facility]) Smoking 02/23/2020 12:00:00 AM EST Never Smoker completed Never S moker eCW1 ([facility]) Smoking 02/23/2020 12:00:00 AM EST Never Smoker completed Never S moker eCW1 ([facility]) Smoking 12/30/2019 12:00:00 AM EST Never Smoker completed Never S moker eCW1 ([facility]) Smoking 12/30/2019 12:00:00 AM EST Never Smoker completed Never S moker eCW1 ([facility]) Smoking 12/30/2019 12:00:00 AM EST Never Smoker completed Never S moker eCW1 ([facility]) Smoking 12/30/2019 12:00:00 AM EST Never Smoker completed Never S moker eCW1 ([facility]) Smoking 12/24/2019 12:00:00 AM EST Never Smoker completed Never S moker eCW1 ([facility]) Smoking 12/24/2019 12:00:00 AM EST Never Smoker completed Never S moker eCW1 ([facility]) Smoking 12/24/2019 12:00:00 AM EST Never Smoker completed Never S moker eCW1 ([facility]) Smoking 2019 12:00:00 AM EDT Never Smoker completed Never S moker eCW1 ([facility]) Smoking 2019 12:00:00 AM EDT Never Smoker completed Never S moker eCW1 ([facility]) Smoking 10/18/2019 12:00:00 AM EDT Patient has never smoked co mpleted Patient has never smoked MEDENT ([facility], [facility]) Smoking 07/30/2019 12:00:00 AM EDT Patient has never smoked co mpleted Patient has never smoked MEDENT ([facility]) Smoking 07/02/2019 12:00:00 AM EDT Never Smoker completed Never S moker eCW1 ([facility]) Smoking 07/02/2019 12:00:00 AM EDT Never Smoker completed Never S moker eCW1 ([facility]) Vital Signs ID Date Data Source UNK Name Value Range Interpretation Code Description Data Source(s) Diastolic blood pressure 82 mm[Hg] 82 mm[Hg] eCW1 ([facility]) Systolic blood pressure 128 mm[Hg] 128 mm[Hg] e CW1 ([facility]) Body temperature 97.3 [degF] 97.3 [degF] eCW1 ( [facility]) Respiratory rate 18 /min 18 /min eCW1 ([facility]) Heart rate 87 /min 87 /min eCW1 ([facility]) Body mass index (BMI) [Ratio] 29.70 kg/m2 29.70 kg/m2 eCW1 ([facility]) Body height 70 [in_i] 70 [in_i] eCW1 ([facility]) Body weight 207.0 [lb_av] 207.0 [lb_av] eCW1 ([facility]) Diastolic blood pressure 70 mm[Hg] 70 mm[Hg] eCW1 ([facility]) Systolic blood pressure 138 mm[Hg] 138 mm[Hg] e CW1 ([facility]) Body temperature 96.1 [degF] 96.1 [degF] eCW1 ( [facility]) Respiratory rate 18 /min 18 /min eCW1 ([facility]) Heart rate 75 /min 75 /min eCW1 ([facility]) Body mass index (BMI) [Ratio] 30.13 kg/m2 30.13 kg/m2 eCW1 ([facility]) Body height 70 [in_i] 70 [in_i] eCW1 ([facility]) Body weight 210 [lb_av] 210 [lb_av] eCW1 ([facility]) Diastolic blood pressure 80 mm[Hg] 80 mm[Hg] eCW1 ([facility]) Systolic blood pressure 158 mm[Hg] 158 mm[Hg] e CW1 ([facility]) Body temperature 97 [degF] 97 [degF] eCW1 ([facility]) Respiratory rate 18 /min 18 /min eCW1 ([facility]) Heart rate 95 /min 95 /min eCW1 ([facility]) Body mass index (BMI) [Ratio] 30.50 kg/m2 30.50 kg/m2 eCW1 ([facility]) Body height 70 [in_i] 70 [in_i] eCW1 ([facility]) Body weight 212.6 [lb_av] 212.6 [lb_av] eCW1 ([facility]) Diastolic blood pressure 80 mm[Hg] 80 mm[Hg] eCW1 ([facility]) Systolic blood pressure 158 mm[Hg] 158 mm[Hg] e CW1 ([facility]) Body temperature 97 [degF] 97 [degF] eCW1 ([facility]) Respiratory rate 18 /min 18 /min eCW1 ([facility]) Heart rate 95 /min 95 /min eCW1 ([facility]) Body mass index (BMI) [Ratio] 30.50 kg/m2 30.50 kg/m2 eCW1 ([facility]) Body height 70 [in_i] 70 [in_i] eCW1 ([facility]) Body weight 212.6 [lb_av] 212.6 [lb_av] eCW1 ([facility]) Body mass index (BMI) [Ratio] 29.0 kg/m2 29.0 k g/m2 MEDENT ([facility], [facility]) Body height 72 [in_i] 72 [in_i] MEDENT ([facility], [facility]) 6'0" Body weight 214.00 [lb_av] 214.00 [lb_av] MEDEN T ([facility], [facility]) Body temperature 98.7 [degF] 98.7 [degF] MEDENT ([facility], [facility]) Oxygen saturation in Arterial blood by Pulse oximetry 95 % 95 % [facility], [facility]) Respiratory rate 16 /min 16 /min MEDENT ( [facility], [facility]) Heart rate 103 /min 103 /min MEDENT ([facility] [place], [facility]) 80 regular Diastolic blood pressure 93 mm[Hg] 93 mm[Hg] MEDENT ([facility] [place], [facility]) Systolic blood pressure 157 mm[Hg] 157 mm[Hg] M EDENT ([facility] [place], [facility]) Intraocular pressure Left eye 13 mm[Hg] 13 mm[ Hg] MEDENT ([facility]) Al-, Applanation 01:29 PM Intraocular pressure Right eye 11 mm[Hg] 11 mm [Hg] MEDENT ([facility]) Diastolic blood pressure 84 mm[Hg] 84 mm[Hg] eCW1 ([facility]) Systolic blood pressure 144 mm[Hg] 144 mm[Hg] e CW1 ([facility]) Body temperature 98.1 [degF] 98.1 [degF] eCW1 ( [facility]) Respiratory rate 18 /min 18 /min eCW1 ([facility]) Heart rate 67 /min 67 /min eCW1 ([facility]) Body mass index (BMI) [Ratio] 29.96 kg/m2 29.96 kg/m2 eCW1 ([facility]) Body height 70 [in_i] 70 [in_i] eCW1 ([facility]) Body weight 208.8 [lb_av] 208.8 [lb_av] eCW1 ([facility]) Body mass index (BMI) [Ratio] 29.12 kg/m2 29.12 kg/m2 W1 ([facility]) Body height 70 [in_us] 70 [in_us] eCW1 ([facility]) Body weight Measured 203 [lb_av] 203 [lb_av] eC W1 ([facility]) Patient Treatment Plan of Care Planned Activity Planned Date Details Description Data Source (s) Medrol (Joe) 4 MG 02/25/2020 12:00:00 AM EST eCW1 ([facility]) tramadol hydrochloride 50 MG Oral Tablet 02/23/2020 12:00:00 AM EST eCW1 ([facility]) tramadol hydrochloride 50 MG Oral Tablet 02/23/2020 12:00:00 AM EST eCW1 ([facility]) tramadol hydrochloride 50 MG Oral Tablet 02/23/2020 12:00:00 AM EST eCW1 ([facility]) tramadol hydrochloride 50 MG Oral Tablet 02/23/2020 12:00:00 AM EST eCW1 ([facility]) Gabapentin 300 MG 02/18/2020 12:00:00 AM EST eCW1 ([facility]) Gabapentin 300 MG 02/18/2020 12:00:00 AM EST eCW1 ([facility]) Gabapentin 300 MG 02/18/2020 12:00:00 AM EST eCW1 ([facility]) Gabapentin 300 MG 02/18/2020 12:00:00 AM EST eCW1 ([facility]) gabapentin 100 MG Oral Capsule 02/18/2020 12:00:00 AM EST eCW1 ([facility]) Diclofenac Sodium 0.01 MG/MG Topical Gel [Voltaren] 12/24/19 12:00:00 AM EST eCW1 ([facility]) Diclofenac Sodium 0.01 MG/MG Topical Gel [Voltaren] 12/24/19 12:00:00 AM EST eCW1 ([facility]) Diclofenac Sodium 0.01 MG/MG Topical Gel [Voltaren] 12/24/19 12:00:00 AM EST eCW1 ([facility]) 8 HR Methylphenidate Hydrochloride 20 MG Extended Rele ase Oral Tablet 12/08/2019 12:00:00 AM EST eCW1 ([facility]) Methylphenidate Hydrochloride 5 MG Oral Tablet [Ritali n] 2019 12:00:00 AM EDT eCW1 ([facility])
--- NOTE | 2020-02-27 07:19 | REPVR ---
PROCEDURE INFORMATION: Exam: CT Head Without Contrast Exam date and time: 02/27/2020 6:52 AM Age: 79 years old Clinical indication: Injury or trauma; Fall; Concussion/head injury; Additional info: Fall, low back pain TECHNIQUE: Imaging protocol: Computed tomography of the head without contrast. Radiation optimization: All CT scans at this facility use at least one of these dose optimization techniques: automated exposure control; mA and/or kV adjustment per patient size (includes targeted exams where dose is matched to clinical indication); or iterative reconstruction. COMPARISON: CT Head without contrast 02/15/2020 10:22 AM FINDINGS: Brain: There is no acute intracranial hemorrhage or mass effect. Moderate diffuse volume loss is within the range of normal for patient age. There are small vessel ischemic changes within the periventricular and subcortical white matter, but the normal powell-white matter delineation is maintained. Chronic infarct involves the left thalamus. Cerebral ventricles: Prominence of the ventricular system is commensurate with volume loss. Bones/joints: Unremarkable. No acute fracture. Paranasal sinuses: Visualized sinuses are unremarkable. No fluid levels. Mastoid air cells: Visualized mastoid air cells are well aerated. Soft tissues: Unremarkable. IMPRESSION: No acute hemorrhage or calvarial fracture. Electronically signed by: Suze Mabry On 02/27/2020 07:18:40 AM
[2020-02-27 07:24] LABS: ALBUMIN 3.2 GM/DL (3.2-5.2); ALT/SGPT 24 U/L (12-78); BILIRUBIN,DIRECT 0.1 MG/DL (0.0-0.2); BILIRUBIN,TOTAL 0.5 MG/DL (0.2-1.0); BLOOD UREA NITROGEN 33 MG/DL (7-18); CALCIUM LEVEL 8.8 MG/DL (8.8-10.2); CARBON DIOXIDE LEVEL 26 MEQ/L (21-32); CHLORIDE LEVEL 108 MEQ/L (98-107); CK-MB VALUE MASS 6.1 NG/ML (<3.6); CPK CREATINE PHOSPHOKINASE 402 U/L (39-308); CREATININE FOR GFR 1.64 MG/DL (0.70-1.30); DIGOXIN LEVEL < 0.1 NG/ML (0.5-2.0); GLOMERULAR FILTRATION RATE 43.4 (>42); GLUCOSE, FASTING 118 MG/DL (70-100); MAGNESIUM LEVEL 2.2 MG/DL (1.8-2.4); MB/CK RELATIVE INDEX 1.52 (< OR =4); POTASSIUM SERUM 4.5 MEQ/L (3.5-5.1); SODIUM LEVEL 140 MEQ/L (136-145); TOTAL PROTEIN 5.8 GM/DL (6.4-8.2); TROPONIN I < 0.02 NG/ML (< 0.10)
[2020-02-27] MEDS ORDERED: AMIO200T3 PO (07:33)
[2020-02-27] MEDS ORDERED: QUET1TAB7 PO (07:33)
[2020-02-27] MEDS ORDERED: METH4PACK PO (07:33)
[2020-02-27] MEDS ORDERED: TRAM50TA2 PO (07:33)
[2020-02-27] MEDS ORDERED: GABA-282 PO (08:04)
[2020-02-27] MEDS ORDERED: CARV12.5 PO (08:04)
--- NOTE | 2020-02-27 08:22 | REP ---
INDICATION: fall COMPARISON: None. TECHNIQUE: Portable AP view of the chest FINDINGS: The mediastinum and cardiac silhouette are stable and within normal limits for portable technique. Pacemaker in satisfactory position. The lung ennis are clear without acute consolidation, effusion, or pneumothorax. Skeletal structures are intact. IMPRESSION: No acute cardiopulmonary process appreciated. <Electronically signed by Melvin Abarca > 02/27/20 [id number]
--- NOTE | 2020-02-27 08:23 | REP ---
INDICATION: fall COMPARISON: None. TECHNIQUE: AP and frog-lateral views of the left hip FINDINGS: Prior left hip replacement. Underlying degenerative changes. No acute fracture or dislocation identified. IMPRESSION: No acute fracture or dislocation. <Electronically signed by Melvin Abarca > 02/27/20 [id number]
--- NOTE | 2020-02-27 08:25 | REP ---
INDICATION: fall COMPARISON: None. TECHNIQUE: AP, lateral views of the mid to distal left femur. FINDINGS: Evaluation in conjunction with left hip series demonstrates left hip replacement and degenerative changes. No acute fracture or dislocation. IMPRESSION: . No acute fracture or dislocation. <Electronically signed by Melvin Abarca > 02/27/20 [id number]
--- NOTE | 2020-02-27 08:28 | REPVR ---
PROCEDURE INFORMATION: Exam: CT Lumbar Spine Without Contrast Exam date and time: 02/27/2020 6:52 AM Age: 79 years old Clinical indication: Low back pain; Additional info: Fall, low back pain TECHNIQUE: Imaging protocol: Computed tomography images of the lumbar spine without contrast. Radiation optimization: All CT scans at this facility use at least one of these dose optimization techniques: automated exposure control; mA and/or kV adjustment per patient size (includes targeted exams where dose is matched to clinical indication); or iterative reconstruction. COMPARISON: CT Spine, lumbar w/o contrast 02/15/2020 10:26 AM FINDINGS: Vertebrae: Advanced degenerative hypertrophic vertebral body formation throughout. Prominent irregularity and sclerosis of facet articulations diffusely. Diffuse narrowing of lumbar interspaces. Prominent degenerative vacuum disc at T12, L1, L3 and L4. Calcification within the L5 interspace. Close approximation of the spinous processes with sclerosis. Minimal anterior subluxation L4 on L5. No acute fracture. Kidneys and ureters: Large cystic structure in the left retroperitoneum most likely arising from the left kidney only partially included measures 6.8 cm. Either prominent excretion of contrast media residual versus calcification within collecting structure of the left kidney. Vasculature: Calcified abdominal aorta. Soft tissues: Unremarkable. Other findings: Multilevel lumbar canal and foraminal encroachment. IMPRESSION: 1. Severely advanced degenerative changes lumbar spine with overall similar appearance compared to 02/15/2020. 2. Multilevel foraminal and canal encroachment. 3. Diffuse degenerative vacuum disc phenomenon with diffuse interspace narrowing. 4. Large left renal cyst only partially included. 5. Prominent calcification less likely retained excreted contrast media within collecting structure of the left kidney. Correlate to any prior cross-sectional imaging of the abdomen if available. COMMENTS: Consistent with the [employer]'s Incidental Findings Committee white paper (J Am Jarvis Radiol 2018): Any incidental renal lesion less than 1 cm or classified as too small to characterize, or any incidental cystic renal lesion characterized as simple-appearing, is likely benign. No follow-up imaging is recommended for these lesions per consensus recommendations based on imaging criteria. Electronically signed by: Anjelica Scott On 02/27/2020 08:27:59 AM
--- NOTE | 2020-02-27 08:28 | REP ---
INDICATION: fall COMPARISON: None. TECHNIQUE: Single AP view of the pelvis. FINDINGS: Single AP view of the pelvis demonstrates age-related degenerative changes and bilateral hip replacement. No acute fracture or dislocation identified. IMPRESSION: No acute fracture or dislocation. <Electronically signed by Melvin Abarca > 02/27/20 [id number]
[2020-02-27 08:49] LABS: RSV AMPLIFICATION NEGATIVE (NEGATIVE)
[2020-02-27] MEDS: OMEPRAZOLE 20 MG CAP PO SCH (11:02)
[2020-02-27] MEDS: CitaloPRAM (CeleXA) 10 MG TABLET PO SCH (11:02)
[2020-02-27] MEDS: GABAPENTIN 300 MG CAP PO SCH ×2 (11:03→20:05)
[2020-02-27] MEDS: traMADol 50 MG TAB PO SCH ×2 (11:03→18:37)
[2020-02-27] MEDS: CARVedilol 6.25 MG TAB PO SCH ×2 (11:04→20:05)
--- OUTSIDE RECORDS SUMMARY | 2020-02-27 11:14 | CCD ---
Author Author [facility] Organization [facility] Address Unknown Phone Unavailable Care Team Providers Care Environmental Conservation Officer Name Role Phone DEIRDRE GALLAGHER MD Unavailable [...] Unavailable Unavailable Jason Soto MD Unavailable Unavailable aJson Soto MD Unavailable Unavailable Jason Soto MD [...] ETHAN B DOMINIK STEPHENSON Unavailable Unavailable ETHAN, B DOMINIK MD Unavailable Unavailable ETHAN, Livia LEHMAN MD [...] MD Unavailable Unavailable ETHANLivia MD Unavailable Unavailable Duncan DUMONT MD Unavailable [...] Unavailable Duncan DUMONT MD Unavailable Unavailable Duncan DUMOTN MD Unavailable Unavailable Duncan DUMONT MD Unavailable [...] Unavailable Unavailable Duncan DUMONT MD Unavailable Unavailable Duncna DUMONT MD Unavailable Unavailable Duncan DUMONT MD [...] Unavailable ABDIRIZAK, LISS STEPHENSON Unavailable Unavailable ABDIRIZAK, LSIS STEPHENSON Unavailable Unavailable ABDIRIZAK, LISS STEPHENSON Unavailable [...] OROPEZA, T HERMILO STEPHENSON Unavailable Unavailable OROPEZA, Jr AKHTAR MD Unavailable [...] OROPEZA, T HERMILO STEPHENSON Unavailable Unavailable OROPEZA, Jr AKHTAR MD Unavailable [...] Jr AKHTAR MD Unavailable Unavailable OROPEZA, Jr KAHTAR MD Unavailable Unavailable OROPEZA, Jr AKHTAR MD [...] is protected by Article 27-F of the [place] [employer] law. If you continue you may have access to information: Regarding HIV / AIDS; Provided by facilities licensed or operated by the [place] [facility] Office of Mental Health; or Provided by the [place] [facility] Office for People With Developmental Disabilities. If such information is present, then the following [place] [facility] mandated warning applies: This information has been [...] Drug allergy Aleve Naproxen Anaphylaxis Active eCW1 ([facility]) NSAIDS NSAIDS NSAIDS Anaphylaxis Active eCW1 ([facility]) Family History Family Member Name Family Member Gender Family Member Status Date o f Status Description Data Source(s) Unknown Unknown Problem MEDENT ([facility]) Unknown Male Problem MEDENT ([facility]) Unknown Male Problem MEDENT ([facility]) Encounters Encounter Providers Location Date Indications Data Source(s ) Unknown [address] [facility] [place] [address] 02/25/2020 12:00:00 AM EST eCW1 ([facility]) Unknown [address] [facility] [place] [address] 02/23/2020 12:00:00 AM EST eCW1 ([facility]) Unknown [address] [facility] [place] [address] 02/20/2020 12:00:00 AM EST eCW1 ([facility]) Unknown [address] [facility] [place] [address] 02/19/2020 12:00:00 AM EST eCW1 ([facility]) Unknown [address] [facility] [place] [address] 02/18/2020 12:00:00 AM EST [facility] [place] [address] [facility] [place] [address] 02/16/2020 12:00:00 AM EST eCW1 ([facility]) Outpatient DOMP-JONATHAN 02/14/2020 11:00:12 PM EST [facility] Outpatient DOMP.RACHAEL-DOMP.RACHAEL 02/12/2020 12:00:00 AM EST [facility] [place] [address] [facility] [address] 12/30/2019 12:00:00 AM EST eCW1 ([facility]) [place] [address] [facility] [place] [address] 12/26/2019 12:00:00 AM EST eCW1 ([facility]) Office Visit, Est Pt., Level 3 PC [address] [place] [address] 12/24/2019 12:00:00 AM EST eCW1 ([facility]) [place] [address] [facility] [place] [address] 12/24/2019 12:00:00 AM EST eCW1 ([facility]) [place] [address] [facility] [place] [address] 12/08/2019 12:00:00 AM EST eCW1 ([facility]) Outpatient CAMMY-JONATHAN.CANDACE 11/28/2019 04:04:59 PM EDT [facility] Outpatient Attender: LISS OLIVA-DOMP.RACHAEL 0 12:00:00 AM EDT - 11/26/2019 02:29:21 PM EDT [facility] Out[place] [address] [facility] [address] 2019 12:00:00 AM EDT eCW1 ([facility]) Outpatient Attender: IVORY Teresa 10/18/2019 04:30:00 PM EDT MEDENT ([facility]) Outpatient Attender: DOMINIK LONG MDReferrer: Jason Soto MD 09/19/2019 10:43:20 AM EDT [facility] Outpatient Attender: RONALD DUMONT MDReferrer: Jason vitale MD 09/09/2019 10:44:59 PM EDT [facility] Recurring Patient Attender: HERMILO OROPEZA MDReferrer: KAUSHIK FUENTES MD 09/08/2019 01:14:19 PM EDT [facility] Rec[facility]ring Patient Attender: HERMILO OROPEZA MDReferrer: KAUSHIK FUENTES MD 09/08/2019 01:14:12 PM EDT [facility] Outpatient SJP.CT-SJP.SYR 08/21/2019 02:13:55 PM EDT [address] [address] 08/18/2019 12:00:00 AM EDT eCW1 ([facility]) Outpatient [address] [place] [address] 07/02/2019 12:00:00 AM EDT eCW1 ([facility]) [address] [address] 06/25/2019 12:00:00 AM EDT eCW1 ([facility]) [address] [address] 06/10/2019 12:00:00 AM EDT eCW1 ([facility]) Outpatient SJP.CT-SJP.SYR 05/15/2019 09:07:29 AM EDT [address] [address] 05/14/2019 12:00:00 AM EDT eCW1 ([facility]) Outpatient Attender: LISS REVELES MD SJP.RACHAEL-SJP.RACHAEL 04/02/2019 12:00:00 AM EST [facility] Outpatient SJP.RACHAEL-SJP.RACHAEL 02/06/2019 10:53 :46 AM EST - 02/06/2019 11:06:30 AM EST [facility] Immunizations Vaccine Date Status Description Data Source(s) influenza, recombinant, quadrIvalent,injectable, prese rvative free 2019 04:29:00 PM EDT completed eCW1 ([facility]) influenza, recombinant, quadrIvalent,injectable, prese rvative free 2019 04:29:00 PM EDT completed eCW1 ([facility]) influenza, recombinant, quadrIvalent,injectable, prese rvative free 2019 04:29:00 PM EDT completed eCW1 ([facility]) influenza, recombinant, quadrIvalent,injectable, prese rvative free 2019 04:29:00 PM EDT completed eCW1 ([facility]) influenza, recombinant, quadrIvalent,injectable, prese rvative free 2019 04:29:00 PM EDT completed eCW1 ([facility]) influenza, recombinant, quadrIvalent,injectable, prese rvative free 2019 04:29:00 PM EDT completed eCW1 ([facility]) influenza, recombinant, quadrIvalent,injectable, prese rvative free 2019 04:29:00 PM EDT completed eCW1 ([facility]) influenza, recombinant, quadrIvalent,injectable, prese rvative free 2019 04:29:00 PM EDT completed eCW1 ([facility]) influenza, recombinant, quadrIvalent,injectable, prese rvative free 2019 04:29:00 PM EDT completed eCW1 ([facility]) influenza, recombinant, quadrIvalent,injectable, prese rvative free 2019 04:29:00 PM EDT completed eCW1 ([facility]) influenza, recombinant, quadrIvalent,injectable, prese rvative free 2019 04:29:00 PM EDT completed eCW1 ([facility]) influenza, recombinant, quadrIvalent,injectable, prese rvative free 2019 04:29:00 PM EDT completed eCW1 ([facility]) influenza, recombinant, quadrIvalent,injectable, prese rvative free 2019 04:29:00 PM EDT completed eCW1 ([facility]) Medications Medication Brand Name Start Date Product Form Dose Route Admi nistrative Instructions Pharmacy Instructions Status Indications Reaction Description Data Source(s) Medrol (Joe) 4 MG Medrol (Joe) 4 MG 02/25/2020 12:00:00 AM EST active Medrol (Joe) 4 MG eCW1 ([facility]) 4 mg 02/25/2020 12:00:00 AM EST tablets,dose pack 21 TAKE BY MOUTH DAILY DIRECTED ON DOSEPACK TAKE BY MOUTH DAILY DIRECTED ON DOSEPACK SOLD: 02/25/2020 [facility] tramadol hydrochloride 50 MG Oral Tablet Tramadol HCl 50 MG Tramadol HCl 50 MG 02/23/2020 12:00:00 AM EST 1.0 {tablet} active Tramadol HCl 50 MG eCW1 ([facility]) tramadol hydrochloride 50 MG Oral Tablet Tramadol HCl 50 MG Tramadol HCl 50 MG 02/23/2020 12:00:00 AM EST 1.0 {tablet} active Tramadol HCl 50 MG eCW1 ([facility]) tramadol hydrochloride 50 MG Oral Tablet Tramadol HCl 50 MG Tramadol HCl 50 MG 02/23/2020 12:00:00 AM EST 1.0 {tablet} active Tramadol HCl 50 MG eCW1 ([facility]) tramadol hydrochloride 50 MG Oral Tablet Tramadol HCl 50 MG Tramadol HCl 50 MG 02/23/2020 12:00:00 AM EST 1.0 {tablet} active Tramadol HCl 50 MG eCW1 ([facility]) 50 mg 02/23/2020 12:00:00 AM EST tablet 50 TAKE ONE TABLET BY MOUTH EVERY 6 HOURS NEEDED FOR PAIN * MAXIMUM DAILY DOSE = 4 TAKE ONE TABLET BY MOUTH EVERY 6 HOURS NEEDED FOR PAIN * MAXIMUM DAILY DOSE = 4 SOLD: 02/23/2020 [facility] 100 mcg/0.5 mL 02/19/2020 12:00:00 AM EST suspension 0 INJECT BY [facility] (FIRST DOSE) INJECT BY [facility] (FIRST DOSE) SOLD: 02/20/2020 [facility] gabapentin 100 MG Oral Capsule Gabapentin 100 MG Gabapentin 100 MG 02/18/2020 12:00:00 AM EST 1.0 {capsule} active G abapentin 100 MG eCW1 ([facility]) Gabapentin 300 MG UNK 02/18/2020 12:00:00 AM EST 1.0 {capsule} active Gabapentin 300 MG eCW1 ([facility]) Gabapentin 300 MG UNK 02/18/2020 12:00:00 AM EST 1.0 {capsule} active Gabapentin 300 MG eCW1 ([facility]) 100 mg 02/18/2020 12:00:00 AM EST capsule 90 TAKE ONE CAPSULE BY MOUTH THREE TIMES A DAY TAKE ONE CAPSULE BY MOUTH THREE TIMES A DAY SOLD: 02/18/2020 [facility] Gabapentin 300 MG UNK 02/18/2020 12:00:00 AM EST 1.0 {capsule} active Gabapentin 300 MG eCW1 ([facility]) Gabapentin 300 MG UNK 02/18/2020 12:00:00 AM EST 1.0 {capsule} active Gabapentin 300 MG eCW1 ([facility]) 5-325 mg 02/16/2020 12:00:00 AM EST tablet 10 TAKE ONE TABLET BY MOUTH TWICE A DAY NEEDED FOR PAIN MAXIMUM DAILY DOSE = 2 TABLETS TAKE ONE TABLET BY MOUTH TWICE A DAY NEEDED FOR PAIN MAXIMUM DAILY DOSE = 2 TABLETS SOLD: 02/16/2020 [facility] carvedilol 12.5 MG Oral Tablet CARVEDILOL 02/16/2020 12:00:00 AM EST tablet 60 TAKE ONE TABLET BY MOUTH TWICE A DAY TAKE ONE TABLET BY MOUT H TWICE A DAY SOLD: 02/16/2020 [facility] 1 % 12/29/2019 12:00:00 AM EST gel 100 APPLY 1 TO 2 GRAMS TO AFFECTED AREA(S) ON LOWER BACK EVERY 6 HOURS NEEDED FOR 10 DAYS APPLY 1 TO 2 GRAMS TO AFFECTED AREA(S) ON LOWER BACK EVERY 6 HOURS NEEDED FOR 10 DAYS SOLD: 12/31/2019 [facility] Diclofenac Sodium 0.01 MG/MG Topical Gel [Voltaren] Voltaren 1 % Voltaren 1 % 12/24/2019 12:00:00 AM EST active Voltaren 1 % eCW1 ([facility]) Diclofenac Sodium 0.01 MG/MG Topical Gel [Voltaren] Voltaren 1 % Voltaren 1 % 12/24/2019 12:00:00 AM EST active Voltaren 1 % eCW1 ([facility]) Diclofenac Sodium 0.01 MG/MG Topical Gel [Voltaren] Voltaren 1 % Voltaren 1 % 12/24/2019 12:00:00 AM EST active Voltaren 1 % eCW1 ([facility]) Diclofenac Sodium 0.01 MG/MG Topical Gel [Voltaren] Voltaren 1 % Voltaren 1 % 12/24/2019 12:00:00 AM EST active Voltaren 1 % eCW1 ([facility]) Diclofenac Sodium 0.01 MG/MG Topical Gel [Voltaren] Voltaren 1 % Voltaren 1 % 12/24/2019 12:00:00 AM EST active Voltaren 1 % eCW1 ([facility]) Diclofenac Sodium 0.01 MG/MG Topical Gel [Voltaren] Voltaren 1 % Voltaren 1 % 12/24/2019 12:00:00 AM EST active Voltaren 1 % eCW1 ([facility]) Diclofenac Sodium 0.01 MG/MG Topical Gel [Voltaren] Voltaren 1 % Voltaren 1 % 12/24/2019 12:00:00 AM EST active Voltaren 1 % eCW1 ([facility]) Diclofenac Sodium 0.01 MG/MG Topical Gel [Voltaren] Voltaren 1 % Voltaren 1 % 12/24/2019 12:00:00 AM EST active Voltaren 1 % eCW1 ([facility]) Diclofenac Sodium 0.01 MG/MG Topical Gel [Voltaren] Voltaren 1 % Voltaren 1 % 12/24/2019 12:00:00 AM EST active Voltaren 1 % eCW1 ([facility]) Diclofenac Sodium 0.01 MG/MG Topical Gel [Voltaren] Voltaren 1 % Voltaren 1 % 12/24/2019 12:00:00 AM EST active Voltaren 1 % eCW1 ([facility]) Diclofenac Sodium 0.01 MG/MG Topical Gel [Voltaren] Voltaren 1 % Voltaren 1 % 12/24/2019 12:00:00 AM EST active Voltaren 1 % eCW1 ([facility]) 20 mg 12/10/2019 12:00:00 AM EST tablet extended release 14 TAKE ONE TABLET BY MOUTH EVERY DAY , MAXIMUM DAILY DOSE = 1 TABLET TAKE ONE TABLET BY MOUTH EVERY DAY , MAXIMUM DAILY DOSE = 1 TABLET SOLD: 12/10/2019 [facility] 8 HR Methylphenidate Hydrochloride 20 MG Extended Release Oral Tablet Methylphenidate HCl ER 20 MG Methylphenidate HCl ER 20 MG 12/08/2019 12:00:00 AM EST 1.0 {tablet} active Methylpheni date HCl ER 20 MG eCW1 ([facility]) 8 HR Methylphenidate Hydrochloride 20 MG Extended Release Oral Tablet Methylphenidate HCl ER 20 MG Methylphenidate HCl ER 20 MG 12/08/2019 12:00:00 AM EST 1.0 {tablet} active Methylpheni date HCl ER 20 MG eCW1 ([facility]) 8 HR Methylphenidate Hydrochloride 20 MG Extended Release Oral Tablet Methylphenidate HCl ER 20 MG Methylphenidate HCl ER 20 MG 12/08/2019 12:00:00 AM EST 1.0 {tablet} active Methylpheni date HCl ER 20 MG eCW1 ([facility]) 8 HR Methylphenidate Hydrochloride 20 MG Extended Release Oral Tablet Methylphenidate HCl ER 20 MG Methylphenidate HCl ER 20 MG 12/08/2019 12:00:00 AM EST 1.0 {tablet} active Methylpheni date HCl ER 20 MG eCW1 ([facility]) 5 mg 11/13/2019 12:00:00 AM EDT tablet 60 TAKE ONE TABLET BY MOUTH ON AN EMPTY STOMACH TWO TIMES A DAY, WITH BREAKFAST AND SUPPER TAKE ONE TABLET BY MOUTH ON AN EMPTY STOMACH TWO TIMES A DAY, WITH BREAKFAST AND SUPPER SOLD: 11/13/2019 [facility] Methylphenidate Hydrochloride 5 MG Oral Tablet [Ritali n] Ritalin 5 MG Ritalin 5 MG 2019 12:00:00 AM EDT 1.0 {tablet_on_an_empty_stomach} active Ritalin 5 MG eCW1 ([facility]) 100 mg 10/19/2019 12:00:00 AM EDT capsule 20 TAKE ONE CAPSULE BY MOUTH TWICE A DAY FOR 10 DAYS TAKE ONE CAPSULE BY MOUTH TWICE A DAY FOR 10 DAYS SOLD : 10/19/2019 [facility] Doxycycline Monohydrate 100 MG Oral Capsule Doxycycline [place] hydrate 10/18/2019 12:00:00 AM EDT ORAL active M EDENT ([facility]) 20 mg 09/04/2019 12:00:00 AM EDT tablet 10 TAKE ONE TABLET BY MOUTH TWICE A DAY TAKE ONE TABLET BY MOUTH TWICE A DAY SOLD: 09/04/2019 [facility] Insurance Providers Payer name Policy type / Coverage type Policy ID Covered alliance party ID Covered alliance party's relationship to garcia Policy Garcia Plan Information R [facility] [id number] SP [id number] MEDICARE [id number] SP [id number] [id number] UMR [facility] [id number] SP [id number] UMR [id number] Cheri [id number] MEDICARE [id number] Cheri [id number] F45 UMR O [id number] S [id number] MEDICARE C [id number] S [id number] DME Jurisdiction A [facility] C [id number] SELF [id number] UMR F [id number] SELF [id number] Medicare C [id number] SELF [id number] ANSI-Medicare Part B [id number] ANSI-Commercial [id number] ANSI-Commercial [id number] [facility] Commercial [id number] Self [id number] ANSI-Commercial [id number] ANSI-Medicare Part B [id number] ANSI-Commercial [id number] ANSI-Medicare Part B [id number] ANSI-Commercial [id number] ANSI-Commercial [id number] ANSI-Commercial [id number] ANSI-Commercial [id number] ANSI-Medicare Part B [id number] ANSI-Medicare Part B [id number] ANSI-Commercial [id number] ANSI-Commercial [id number] Umr/Uhc/[employer] Medigap Part B [id number] Self [id number] Medicare Natl Gov't Servi Medicare Primary [id number] Self [id number] UMR F [id number] SELF [id number] Medicare C [id number] SELF [id number] F45 ANSI-Commercial [id number] ANSI-Medicare Part B [id number] ANSI-Commercial [id number] MEDICARE [id number] SP [id number] A Umr (pr) Medigap Part B [id number] Self [id number] Medicare Dme Supplies Medigap Part B [id number] Self [id number] [place] [id number] Self [id number] [facility] (pr) Medigap Part B [id number] Self [id number] Umr (pr) Medigap Part B [id number] Self [id number] Medicare Dme Supplies Medigap Part B [id number] Self [id number] [place] Primary [id number] Self [id number] Umr (pr) Medigap Part B [id number] Self [id number] Medicare Dme Supplies Medigap Part B [id number] Self [id number] [place] Primary [id number] Self [id number] [facility] (pr) Medigap Part B [id number] Self [id number] Medicare Dme Supplies Medigap Part B [id number] Self [id number] [place] Primary [id number] Self [id number] [facility] / UMR F [id number] SELF [id number] DME Jurisdiction A [facility] C [id number] SELF [id number] Medicare C [id number] SELF [id number] A Medicare Dme Supplies Medigap Part B [id number] Self [id number] [place] Primary [id number] Self [id number] [employer] PPO O [id number] S [id number] MEDICARE C [id number] S [id number] A [facility] [id number] SP [id number] [facility] [id number] SP [id number] [facility] [id number] SP [id number] MEDICARE [id number] SP [id number] A [facility] [id number] SP [id number] [employer] Medigap Part B [id number] Self [id number] Medicare/National Gov [place] Medicare Primary [id number] Self [id number] [employer] F [id number] SELF [id number] [employer] Medigap Part B [id number] Self [id number] [place] Primary [id number] Self [id number] POM[employer] [id number] Cheri [id number] MEDICARE [id number] Cheri [id number] A [employer] Medigap Part B Self Medicare/National Gov [place] Medicare Primary Self [id number] A [id number] Problems, Conditions, and Diagnoses Code Display Name Description Problem Type Effective Dates Data Source(s) M54.42 [id number] Acute left-sided low back pain w ith left-sided sciatica Problem 02/23/2020 12:00:00 AM EST eCW1 ([facility]) M54.5 [id number] Low back pain Problem 12/30/2019 12:00:00 AM EST eCW1 ([facility]) R29.818 [id number] Suspected sleep apnea Problem 12/30/2019 12: 00:00 AM EST eCW1 ([facility]) R79.89 [id number] Abnormal TSH Problem 2019 12:00:00 AM EDT eCW1 ([facility]) R93.89 [id number] Abnormal chest xray Problem 2019 12:00 :00 AM EDT eCW1 ([facility]) M46.1 [id number] Sacroiliitis Problem 07/02/2019 12:00:00 AM EDT eCW1 ([facility]) I48.0 Paroxysmal atrial fibrillation Paroxysmal atrial fibri llation Diagnosis 11/26/2019 01:49:45 PM EDT [facility] Surgeries/Procedures Procedure Description Date Indications Data Source(s) Immunization: Flublok Quadrivalent (18 years & older) 0.5mL IM (Influenza) 2019 12:00:00 AM EDT eCW1 ([facility]) OPHTH MEDICAL XM&EVAL COMPRHNSV ESTAB PT 1/> VST 07/29 12:00:00 AM EDT MEDENT ([facility]) DETERMINATION REFRACTIVE STATE 07/30/2019 12:00:00 AM EDT MEDENT ([facility]) Annual wellness visit, includes a person alized prevention plan of service (pps), subsequent visit 05/14/2019 12:00:00 AM EDT eCW 1 ([facility]) TeleMedicine Est. Pt. Level 4 05/14/2019 12:00:00 AM E DT eCW1 ([facility]) Results ID Date Data Source [id number] 02/14/2020 10:59:18 PM EST [facility] Name Value Range Interpretation Code Description Data Sahara rce(s) Supporting Document(s) &PDF [facility] MQLWZf5qTiYQNlFe51/VKFgwRYMpx0GgMXtvYFe1DTthCZArW5ZjbOozSKiSEA0RUE7JU0hGVAydZIKa oRX [file] GARCÍA/yLuTxV09g/sYZEpdsH6+NdrduZ6eryBjWEni6ef [file] ICAgICAgICAgICAgICAgICAgICAgICAgICAgICAgIC AgICAgICAgICAgICAgICAgICAgICAgICAgICAgICAgICAgICAgICAgICAgICAgICAgICAgICAgICAgIC ANCiAgICAgICAgICAgICAgICAgICAgICAgICAgICAgICAgICAgICAgICAgICAgICAgICAgICAgICAgIC AgICAgICAgICAgICAgICAgICAgICAgICAgICAgICAg ICAgICAgICAgICANCiAgICAgICAgICAgICAgICAgICAgICAgICAgICAgICAgICAgICAgICAgICAgICAg ICAgICAgICAgICAgICAgICAgICAgICAgICAgICAgICAgICAgICAgICAgICAgICAgICAgICANCiAgICAg ICAgICAgICAgICAgICAgICAgICAgICAgICAgICAgIC AgICAgICAgICAgICAgICAgICAgICAgICAgICAgICAgICAgICAgICAgICAgICAgICAgICAgICAgICAgIC AgICANCiAgICAgICAgICAgICAgICAgICAgICAgICAgICAgICAgICAgICAgICAgICAgICAgICAgICAgIC AgICAgICAgICAgICAgICAgICAgICAgICAgICAgICAg ICAgICAgICAgICAgICANCiAgICAgICAgICAgICAgICAgICAgICAgICAgICAgICAgICAgICAgICAgICAg ICAgICAgICAgICAgICAgICAgICAgICAgICAgICAgICAgICAgICAgICAgICAgICAgICAgICAgICANCiAg ICAgICAgICAgICAgICAgICAgICAgICAgICAgICAgIC AgICAgICAgICAgICAgICAgICAgICAgICAgICAgICAgICAgICAgICAgICAgICAgICAgICAgICAgICAgIC AgICAgICANCiAgICAgICAgICAgICAgICAgICAgICAgICAgICAgICAgICAgICAgICAgICAgICAgICAgIC AgICAgICAgICAgICAgICAgICAgICAgICAgICAgICAg ICAgICAgICAgICAgICAgICANCiAgICAgICAgICAgICAgICAgICAgICAgICAgICAgICAgICAgICAgICAg ICAgICAgICAgICAgICAgICAgICAgICAgICAgICAgICAgICAgICAgICAgICAgICAgICAgICAgICAgICAN CiAgICAgICAgICAgICAgICAgICAgICAgICAgICAgIC AgICAgICAgICAgICAgICAgICAgICAgICAgICAgICAgICAgICAgICAgICAgICAgICAgICAgICAgICAgIC AgICAgICAgICANCjw/yRHwI9ecoYPajfU9D0tnLm7GLu0SJD5yh8EtPHDiEUauhnUiOjvVLmAfLNVgIe gMAul7TNlqXI7ImHSrK9InT6XtMMbcUA5LXEQkFAIw iLWlJEOoUVKeKzT7VIIyGAhuKP9UaKNfJDzxZLTyHTTsNV6QZOEzZ289frRcXX9MRy9QCsMlEU5acb3B IrVvQLOtPhwMLpg7EPknWF0YlMJcD3PjeHAjt0hHTuOdK9UWBKRcBTMhCl3OOFOpOmMzWNTmCPouEB4x VJTfWJJWdQzinjC8NZ8PFY5dnqRhDB9HPaFoMs1dEj 1LOhCgW2YfK5BsFAImTJFFREulUM8AVKGxZOC4KGUmLuIcWLCUZxShS24hGB7HR3Dck06gSvZ5XDPxMa DnUKwcML12wVbsulCjtONdmWtaWX2LPo5+DQplbmRvYmoNCnhyZWYNCjAgMjUNCjAwMDAwMDAwMDAgNj J9AtJjQi3ZBMKgLIQvXLUgOyGaFLHsZYRePNrjICCl RBUyEDNoKIDuLEQnSP9AUlFjFLAdYgF7HWQmNWCwNWGetw1XBDHzKNNvZOP7VPClCCDvEHPlIMyyRRFn OIKuNMMbDPKjJECjQT7OYyAoVKLwKVAmXISfAQTjWGDjin4PHBClEMVcSJUgNjEvUFVmVISvUYceUFYj ODE9NFX3QSJhZCJlDH8DVuNkOTQzVZK3PZkwBGDsCE Miux7UFUJfXVJeKMT5YhKwRCIbKWWhDEokXNZgYDR4DTN3SGIpAITuSE0UDsToCMVdEMVxUbInMHKtYP Iucg2LJWWwJLNzUQi1KjOkHAYyQOLzHJukVPVeNXJcNdK4NMVvBHCxCI1YUuHtOJCqIWU4EjKiGRHmFB Netc7ZOXMtIUEoIAC5WGFnRUNiQDLyLOavHDBcREKc QYP9ZSKuMAEjFG2BJvVpVDNpIAL8EYUwGZNqKNLrdr0FADMkMOIvDulmOHHpJNPkBRAyYXpiIMWcYZFl SYO3WPHxMJEcTN1SBeQlXMThKUu3GUCePWQvUAJegx7FRDBjHTLtMDaxGSIpFIIxFRGnKAnkPYEyTPTd XbF1YFTiVLYoDZ3NObSjEBZfUjD9MWYaGPMiQRHbgy 4GtSQapJtbkr5WEPgTKn5CsWxgFOI3PPelNi2yfMGmYSAoMCPMOy0RioDwXZChKFRKVYeuSKRdSHNyM0 N9GXWoMGMhCJH1AwG3UXF6PEXuBsI4C9I8OyiuJoW8HVOgEzGcBOQzN5DdFajvGkM8WjD7ImThQQKpTg RiN2M+RA6hNHm+Ez8Gp1XrlaG4nvTdFIwaEnf1EH9XUTTBR8LZHt== ID Date Data Source MAGNESIUM LEVEL 12/24/2019 12:00:00 AM EST eCW1 ([facility]) Name Value Range Interpretation Code Description Data [place] rce(s) Supporting Document(s) 2.5 1.8-2.4 eCW1 ([facility]) ID Date Data Source Basic Metabolic Profile (BMP) 12/24/2019 12:00:00 AM EST eCW 1 ([facility]) Name Value Range Interpretation Code Description Data Sahara rce(s) Supporting Document(s) 75 70-100 eCW1 ([facility]) 29 7-18 eCW1 ([facility]) 142 136-145 eCW1 ([facility]) 39.2 >42 eCW1 ([facility]) 1.79 0.70-1.30 eCW1 ([facility]) 31 21-32 eCW1 ([facility]) 109 98-107 eCW1 ([facility]) 4.7 3.5-5.1 eCW1 ([facility]) 9.1 8.8-10.2 eCW1 ([facility]) ID Date Data Source FREE T4 & TSH PANEL 12/24/2019 12:00:00 AM EST eCW1 ([facility]) Name Value Range Interpretation Code Description Data Sahara rce(s) Supporting Document(s) 1.29 0.76-1.46 eCW1 ([facility]) 0.274 0.358-3.740 eCW1 ([facility]) ID Date Data Source FREE T3 12/24/2019 12:00:00 AM EST eCW1 ([facility]) Name Value Range Interpretation Code Description Data Sahara rce(s) Supporting Document(s) 2.5 2.2-4.0 eCW1 ([facility]) ID Date Data Source [facility] CT Chest without contrast 11/24/2019 12:00:00 AM EDT eC W1 ([facility]) Name Value Range Interpretation Code Description Data Sahara rce(s) Supporting Document(s) [facility] CT Chest without contrast eCW1 ([facility]) ID Date Data Source [id number] 10/19/2019 10:31:00 AM EDT MEDENT ([facility], [facility]) Name Value Range Interpretation Code Description Data Sahara rce(s) Supporting Document(s) Glucose, Fasting 96 mg/dL 70-100 MEDENT ([facility], [facility]) Blood Urea Nitrogen 22 mg/dL 7-18 MEDENT ([facility], [facility]) Creatinine For GFR 1.66 mg/dL 0.70-1.30 MEDENT ([facility], [facility]) Glomerular Filtration Rate 42.9 MED ENT ([facility], [facility]) <content>Units are mL/min/1.73 m2</content>
<content></content>
<content>Chronic Kidney Disease Staging per NKF:</content>
<content></content>
<content>Stage I & II GFR >=60 Normal to Mildly Decreased</content>
<content>Stage III GFR 30- 59 Moderately Decreased</content>
<content>Stage IV GFR 15-29 Severely Decreased</content>
<content>Stage V GFR <15 Very Little GFR Left</content>
<content>ESRD GFR <15 on BOROUGH COORDINATOR</content>
<content></content> Sodium Level 142 meq/L 136-145 MEDENT ([facility], [facility]) Anion Gap 5 meq/L 8-16 MEDENT ([facility], [facility]) Chloride Level 109 meq/L 98-107 MEDENT ([facility], [facility]) Potassium Serum 4.7 meq/L 3.5-5.1 MEDENT ([facility], [facility]) Carbon Dioxide Level 28 meq/L 21-32 MEDENT ([facility], [facility]) Calcium Level 8.5 mg/dL 8.8-10.2 MEDENT ([facility], [facility]) Ast/Sgot 17 U/L 7-37 MEDENT ([facility], [facility]) Alt/SGPT 20 U/L 12-78 MEDENT ([facility], [facility]) Bilirubin,Total 0.5 mg/dL 0.2-1.0 MEDENT ([facility], [facility]) Alkaline Phosphatase 83 U/L 45-117 MEDENT ([facility], [facility]) Total Protein 5.8 GM/DL 6.4-8.2 MEDENT ([facility], [facility]) Albumin 2.8 GM/DL 3.2-5.2 MEDENT ([facility], [facility]) Albumin/Globulin Ratio 0.9 MEDENT ([facility], [facility]) ID Date Data Source [id number] 10/19/2019 10:31:00 AM EDT MEDENT ([facility], [facility]) Name Value Range Interpretation Code Description Data Sahara rce(s) Supporting Document(s) White Blood Count 10.5 10 4.0-10.0 MEDENT ([facility], [facility]) Red Blood Count 3.49 10 4.30-6.10 MEDENT ([facility], [facility]) Mean Corpuscular Volume 102.6 fl 80.0-96.0 M EDENT ([facility], [facility]) Hemoglobin 11.4 g/dL 13.5-17.5 MEDENT ([facility]) Hematocrit 35.8 % 42.0-52.0 MEDENT ([facility], [facility]) Mean Corpuscular Hemoglobin 32.7 pg 27.0-33.0 MEDENT ([facility], [facility]) Red Cell Distribution Width 13.3 % 11.5-14.5 MEDENT ([facility], [facility]) Mean Corpuscular HGB Conc 31.8 g/dL 32.0-36.5 MEDENT ([facility] [place] [facility], [facility]) Platelet Count, Automated 551 10 150-450 MEDENT ([facility], [facility]) Lymph % 9.8 % 24.0-44.0 MEDENT ([facility], [facility]) Neutrophils % 76.0 % 36.0-66.0 MEDENT ([facility], [facility]) Stephens % 12.1 % 0.0-5.0 MEDENT ([facility], [facility]) Immature Granulocyte % 0.9 % 0-3.0 MEDENT ([facility], [facility]) Baso % 0.4 % 0.0-1.0 MEDENT ([facility], [facility]) Eos % 0.8 % 0.0-3.0 MEDENT ([facility], [facility]) Neutrophils # 8.0 10 1.5-8.5 MEDENT ([facility], [facility]) Lymph # 1.0 10 1.5-5.0 MEDENT ([facility], [facility]) Stephens # 1.3 10 0.0-0.8 MEDENT ([facility] Nucleated Red Blood Cell % 0.0 % 0-0 MED ENT ([facility], [facility]) Baso # 0.0 10 0.0-0.2 MEDENT ([facility], [facility]) Eos # 0.1 10 0.0-0.5 MEDENT ([facility], [facility]) ID Date Data Source [id number] 09/19/2019 10:43:20 AM EDT [facility]guelles: 1Provider: EthanEloise calderonDuncan: 09/19/2019 AssessmentThe patient is here with his [...] rce(s) Supporting Document(s) ID Date Data Source [id number] 09/09/2019 10:44:59 PM EDT [facility]guelles: 1Provider: Laura [...] Plan LE Economy Hinged Knee Brace (SOS) [id number]; Status:Complete; Done: 08Sep2019 Perform:SOS28; Due: 22Sep2019; Last [...] 1:29:31 PM;Ordered; For:Right knee pain; Ordered By:Ronald Dumont;erickkWeight Bearing Status : Weight bearingLaterality: : Right Sodium Hyaluronate Injection (SOS) Referral Treatment Treatment Status: NeedInformation - Financial Authorization Requested for: [id number] Ordered;For: Primary localized osteoarthritis of right knee, [...] rce(s) Supporting Document(s) ID Date Data Source [id number] 02/06/2019 09:40:21 PM EST [facility] Name Value Range Interpretation Code Description Data Sahara rce(s) Supporting Document(s) &PDF [facility] WSWELg5cCiBCOgHc32/MBPpyUTObh0SiFLoqPMh5LZzrOLHzC0RqiRdeNBvSIQ2CDB9CG7kKHAezUZSx oRX [file] fRsf+García/iFNSZhogL2CsB5gSvkr/YybPK/BZ2CQzc+0PoM3TbxrDQnc72cyIQLL5iMyAYnv90pzLWLY0 [file] ICAgICAgICAgICAgICAgICAgICAgICAgICAgICAgICAgICAgICAgICAgICAgICAgICAgICAgICAgICAg ICAgICAgICAgICAgICAgICAgICAgICAgICAgICAgIA 0KICAgICAgICAgICAgICAgICAgICAgICAgICAgICAgICAgICAgICAgICAgICAgICAgICAgICAgICAgIC LfRWVbOHFjYTXiHCIsYESeRKFoQSDzYAQgCQIdPAOpYJHtNCUbQESzUL1EOWXsEPLkYMCjBZKwZNZxMB AgICAgICAgICAgICAgICAgICAgICAgICAgICAgICAg RLVgTGAtNJAeYRPuPIByCUHjIXOcVHTvWHRgQYLsYQHzFQAnCJPkBUFrMYFrOIUfLSZuYO0DSSUpWMMs ICAgICAgICAgICAgICAgICAgICAgICAgICAgICAgICAgICAgICAgICAgICAgICAgICAgICAgICAgICAg ICAgICAgICAgICAgICAgICAgICAgICAgICAgICAgIC UrAI2RLAUiADVfRZWvVATwPCUlIVGmGLOiPTVsXCAfRJDfSEDnJCTzFEHfPPCbAWUiBKQyPULtIABfFR UrZXLeFMCrHIStUNIlIBFlJNPlJKMhTIEkQJWnYAFfGVSdXRBoLLTzZAOpBG0IADApRCTwRFUsVDTfAJ AgICAgICAgICAgICAgICAgICAgICAgICAgICAgICAg GGZsEXShDCNqOSRmTTVmSPBqRFOeFJBnKTPxRNQkDFSfIGTqKQMyVMRbGVBbHIGyUNYdQDXgBP8IFYHc ICAgICAgICAgICAgICAgICAgICAgICAgICAgICAgICAgICAgICAgICAgICAgICAgICAgICAgICAgICAg ICAgICAgICAgICAgICAgICAgICAgICAgICAgICAgIC BkZMCaKR2SNNNpDZUjYJIyURGiRRLzCLFtSEZmCWFwDVOxNGFbUTCoPYNtEKPiPYJgQGYmOJMyJDBsYA GgKQIzVVDbDEQdVWUcSXWlEZMgZEEiYGTdBNNiOGVsQJGiEQHoEHFdKPWhISCuGR7WHYDaVPKuLPZfWA AgICAgICAgICAgICAgICAgICAgICAgICAgICAgICAg XSOxVKMgANNmIIVkVFYtLJDzVSUgHAUqLKQsQHXiUFIqURMcDUWqBREuPZVhEWOwYTTjZWDaCGRkAK9L ICAgICAgICAgICAgICAgICAgICAgICAgICAgICAgICAgICAgICAgICAgICAgICAgICAgICAgICAgICAg ICAgICAgICAgICAgICAgICAgICAgICAgICAgICAgIC AuPOPnUMRgQA5QQH27xCIqf8I7BQKmOT5iqyj/Jk5ZWFwanqHodZXnXB9QQcEqFA9vdq9YXtHjYZ8uwi 6HFMgDXqUtB5N9iTOhAAAkBTIYQqQtK28zLElaLf87FEzcSPEgJxMyJSt5Zt3MCaCyM5egKVAhMxM7BM EpLgMsNYcsSJ0Dj1SmgRJiZKz+Nv9AIK3wv2TxVKex ZcYsZH8xfr1MZYbEUcFhY3F1wGGvI4E9DRqfDq1GDREfCCGcHLMyLASHTMwcKP9OXO7smzX3TK8GvYUx NPJqSOVbpEWrQFn2Z18faCYhRPriTM2CYOV+Tyrone+Ml0YZWFbIDZyMNArDqKwNGIJTiXrQ28xdZPcHTHl ZFY1VEFaUm2XWQZsL7ZwlxRnfNzaxlDiBRUtYQMEHA 9ZMMjmujZxxVEpbRnoIV84kZpxVC4KRf4BYvLxOF6aoy1VeODbBc3UTZGkFz6GDDTaCPElKUZxDRS0SQ ZeSnQxGCjjDLDnIASsDEV2HJFoDYFzVF3UQyAoOZGyDYEyJyciTBOmEQMdst9FJLXpXRDeCDd1VQUhKO XhDRAaVHrcKLViWHWcQGfnTPTaYNGrGB4XRrEhFUAk CEK9SONcQLGvBTJiue7FZJQkSTEbLyxbCYFrVVYgCGZdOKlaDKMhGNFxElegXQRrHLSlGL1VVzZkFKWv BLD8IhxwICWaOGWahq8GGFZoDFXaMDP8KYLfTBLxVXJbDUusFVLzZUD9PSA4MMEnGUIwQZ8QSdQmCHUw VZVjXDjqWXKjSYXkyz4LIUEoRBHaNAR7CqKmORXoRB EpLCrtESPrFKZuLGf2WDWhCHKiDF5BNkOoUGQdOMLqJAAfRYZtUGOtjc7PSWOiVSQdCEDyFNKkILIwNL NrTXolVKUeMGS6DYH4OVAeGTCeAY9YMgRtVKwmWPEWKyy6BHxpU4z7DDCqHu9AZ0Cgc0ZxWUBbOVRTZI rbKV1svbPfWVGwVn9YV1hLUkfjJBU7UOR1EOAeDKS1 NBXbNks5FbH7YzUzWsIbEXZtRT8fPLF1RpYuUgd2QHXyIADuV2N8DdkyQzwrSxI8KMDcFoEiTbWeLQ1B Zy8JHvZ6AKC8sAIfKg8QGCVzLCFOHnGbOP3SPAj= Procedure Social History Code Duration Value Status Description Data Source(s ) Smoking 02/23/2020 12:00:00 AM EST Never Smoker completed Never S moker eCW1 ([facility]) Smoking 02/23/2020 12:00:00 AM EST Never Smoker completed Never S moker eCW1 ([facility]) Smoking 02/23/2020 12:00:00 AM EST Never Smoker completed Never S moker eCW1 ([facility]) Smoking 02/23/2020 12:00:00 AM EST Never Smoker completed Never S moker eCW1 ([facility]) Smoking 12/30/2019 12:00:00 AM EST Never Smoker completed Never S moker eCW1 ([facility]) Smoking 12/30/2019 12:00:00 AM EST Never Smoker completed Never S moker eCW1 ([facility]) Smoking 12/30/2019 12:00:00 AM EST Never Smoker completed Never S moker eCW1 ([facility]) Smoking 12/30/2019 12:00:00 AM EST Never Smoker completed Never S moker eCW1 ([facility]) Smoking 12/24/2019 12:00:00 AM EST Never Smoker completed Never S moker eCW1 ([facility]) Smoking 12/24/2019 12:00:00 AM EST Never Smoker completed Never S moker eCW1 ([facility]) Smoking 12/24/2019 12:00:00 AM EST Never Smoker completed Never S moker eCW1 ([facility]) Smoking 2019 12:00:00 AM EDT Never Smoker completed Never S moker eCW1 ([facility]) Smoking 2019 12:00:00 AM EDT Never Smoker completed Never S moker eCW1 ([facility]) Smoking 10/18/2019 12:00:00 AM EDT Patient has never smoked co mpleted Patient has never smoked MEDENT ([facility], [facility]) Smoking 07/30/2019 12:00:00 AM EDT Patient has never smoked co mpleted Patient has never smoked MEDENT ([facility]) Smoking 07/02/2019 12:00:00 AM EDT Never Smoker completed Never S moker eCW1 ([facility]) Smoking 07/02/2019 12:00:00 AM EDT Never Smoker completed Never S moker eCW1 ([facility]) Vital Signs ID Date Data Source UNK Name Value Range Interpretation Code Description Data Source(s) Diastolic blood pressure 82 mm[Hg] 82 mm[Hg] eCW1 ([facility]) Systolic blood pressure 128 mm[Hg] 128 mm[Hg] e CW1 ([facility]) Body temperature 97.3 [degF] 97.3 [degF] eCW1 ( [facility]) Respiratory rate 18 /min 18 /min eCW1 ([facility]) Heart rate 87 /min 87 /min eCW1 ([facility]) Body mass index (BMI) [Ratio] 29.70 kg/m2 29.70 kg/m2 eCW1 ([facility]) Body height 70 [in_i] 70 [in_i] eCW1 ([facility]) Body weight 207.0 [lb_av] 207.0 [lb_av] eCW1 ([facility]) Diastolic blood pressure 70 mm[Hg] 70 mm[Hg] eCW1 ([facility]) Systolic blood pressure 138 mm[Hg] 138 mm[Hg] e CW1 ([facility]) Body temperature 96.1 [degF] 96.1 [degF] eCW1 ( [facility]) Respiratory rate 18 /min 18 /min eCW1 ([facility]) Heart rate 75 /min 75 /min eCW1 ([facility]) Body mass index (BMI) [Ratio] 30.13 kg/m2 30.13 kg/m2 eCW1 ([facility]) Body height 70 [in_i] 70 [in_i] eCW1 ([facility]) Body weight 210 [lb_av] 210 [lb_av] eCW1 ([facility]) Diastolic blood pressure 80 mm[Hg] 80 mm[Hg] eCW1 ([facility]) Systolic blood pressure 158 mm[Hg] 158 mm[Hg] e CW1 ([facility]) Body temperature 97 [degF] 97 [degF] eCW1 ([facility]) Respiratory rate 18 /min 18 /min eCW1 ([facility]) Heart rate 95 /min 95 /min eCW1 ([facility]) Body mass index (BMI) [Ratio] 30.50 kg/m2 30.50 kg/m2 eCW1 ([facility]) Body height 70 [in_i] 70 [in_i] eCW1 ([facility]) Body weight 212.6 [lb_av] 212.6 [lb_av] eCW1 ([facility]) Diastolic blood pressure 80 mm[Hg] 80 mm[Hg] eCW1 ([facility]) Systolic blood pressure 158 mm[Hg] 158 mm[Hg] e CW1 ([facility]) Body temperature 97 [degF] 97 [degF] eCW1 ([facility]) Respiratory rate 18 /min 18 /min eCW1 ([facility]) Heart rate 95 /min 95 /min eCW1 ([facility]) Body mass index (BMI) [Ratio] 30.50 kg/m2 30.50 kg/m2 eCW1 ([facility]) Body height 70 [in_i] 70 [in_i] eCW1 ([facility]) Body weight 212.6 [lb_av] 212.6 [lb_av] eCW1 ([facility]) Body mass index (BMI) [Ratio] 29.0 kg/m2 29.0 k g/m2 MEDENT ([facility], [facility]) Body height 72 [in_i] 72 [in_i] MEDENT ([facility]) 6'0" Body weight 214.00 [lb_av] 214.00 [lb_av] MEDEN T ([facility], [facility]) Body temperature 98.7 [degF] 98.7 [degF] MEDENT ([facility], [facility]) Oxygen saturation in Arterial blood by Pulse oximetry 95 % 95 % [facility] ([facility], [facility]) Respiratory rate 16 /min 16 /min MEDENT ( [facility], [facility]) Heart rate 103 /min 103 /min MEDENT ([facility], [facility]) 80 regular Diastolic blood pressure 93 mm[Hg] 93 mm[Hg] MEDENT ([place] [facility], [facility]) Systolic blood pressure 157 mm[Hg] 157 mm[Hg] M EDENT ([place] [facility], [facility]) Intraocular pressure Left eye 13 mm[Hg] 13 mm[ Hg] MEDENT ([facility]) Al-, Applanation 01:29 PM Intraocular pressure Right eye 11 mm[Hg] 11 mm [Hg] MEDENT ([facility]) Diastolic blood pressure 84 mm[Hg] 84 mm[Hg] eCW1 ([facility]) Systolic blood pressure 144 mm[Hg] 144 mm[Hg] e CW1 ([facility]) Body temperature 98.1 [degF] 98.1 [degF] eCW1 ( [facility]) Respiratory rate 18 /min 18 /min eCW1 ([facility]) Heart rate 67 /min 67 /min eCW1 ([facility]) Body mass index (BMI) [Ratio] 29.96 kg/m2 29.96 kg/m2 eCW1 ([facility]) Body height 70 [in_i] 70 [in_i] eCW1 ([facility]) Body weight 208.8 [lb_av] 208.8 [lb_av] eCW1 ([facility]) Body mass index (BMI) [Ratio] 29.12 kg/m2 29.12 kg/m2 eCW1 ([facility]) Body height 70 [in_us] 70 [in_us] eCW1 ([facility]) Body weight Measured 203 [lb_av] 203 [lb_av] eC W1 ([facility]) Patient Treatment Plan of Care Planned Activity Planned Date Details Description Data Source (s) Medrol (Joe) 4 MG 02/25/2020 12:00:00 AM EST eCW1 ([facility]) tramadol hydrochloride 50 MG Oral Tablet 02/23/2020 12:00:00 AM EST eCW1 ([facility]) tramadol hydrochloride 50 MG Oral Tablet 02/23/2020 12:00:00 AM EST eCW1 ([facility]) tramadol hydrochloride 50 MG Oral Tablet 02/23/2020 12:00:00 AM EST eCW1 ([facility]) tramadol hydrochloride 50 MG Oral Tablet 02/23/2020 12:00:00 AM EST eCW1 ([facility]) Gabapentin 300 MG 02/18/2020 12:00:00 AM EST eCW1 ([facility]) Gabapentin 300 MG 02/18/2020 12:00:00 AM EST eCW1 ([facility]) Gabapentin 300 MG 02/18/2020 12:00:00 AM EST eCW1 ([facility]) Gabapentin 300 MG 02/18/2020 12:00:00 AM EST eCW1 ([facility]) gabapentin 100 MG Oral Capsule 02/18/2020 12:00:00 AM EST eCW1 ([facility]) Diclofenac Sodium 0.01 MG/MG Topical Gel [Voltaren] 12/24/19 12:00:00 AM EST eCW1 ([facility]) Diclofenac Sodium 0.01 MG/MG Topical Gel [Voltaren] 12/24/19 12:00:00 AM EST eCW1 ([facility]) Diclofenac Sodium 0.01 MG/MG Topical Gel [Voltaren] 12/24/19 12:00:00 AM EST eCW1 ([facility]) 8 HR Methylphenidate Hydrochloride 20 MG Extended Rele ase Oral Tablet 12/08/2019 12:00:00 AM EST eCW1 ([facility]) Methylphenidate Hydrochloride 5 MG Oral Tablet [Ritali n] 2019 12:00:00 AM EDT eCW1 ([facility])
[2020-02-27 12:00] VITALS: BP 113/64
[2020-02-27] MEDS: QUEtiapine FUMARATE 12.5 MG HALF-TAB PO SCH (12:48)
--- NOTE | 2020-02-27 12:52 | HPEPDOC ---
[facility] Medical History & Physical Date of Admission Feb 27, 2020 Date of Service: Feb 27, 2020 Attending Physician: VIVIANA STEVENSON MD History and Physical CHIEF COMPLAINT: Intractable lower back pain and frequent falls at home HISTORY OF PRESENT ILLNESS: 79 yo M with a history of dementia, HTN, Afib on xarelto, tachy-anmol syndrome s/p PPM, GERD with Nguyen's esophagus, HFpEF, remote history of bilateral hip replacements who recently presented to the ED for lower back pain that acute worsened 2 weeks ago and frequent falls since them, thankfully without new fractures noted, who now re-presents to the ED for intractable left lumbar back pain with associated left gluteal pain with one episode of sharp radiation down the left lower extremity with family reporting him to be unsafe at home due to the frequency of fall at this time. He otherwise reports that he has not had any recent bowel or bladder function changes, rashes, fever, chills and abdominal pain. At baseline, he ambulates without assistive devices but did have a walker at home that he used shortly after his hip replacements that he had started using. PCP recently started him on gabapentin and solumedrol taper, today is day 3. thought he was beginning to do better until he fell again this morning and she brought him in. In the ED, he is HDS, afebrile, mildly confused but redirectable. Work up was notable for WBC 15.5 i/s/o recent steroid therapy, Hgb 11.1 at his baseline, platelets 346, na 140, K 4.5, Cr 1.64 at his baseline, troponin wnl, LFTs wnl, UA wnl, covid-19 negative, INR 2.97, while imaging included a CT of the L spine that showed severely advanced degenerative changes to the lumbar spine similar to 02/15/2020 findings, CT that showed no acute fractures, bleeding or pathology, pelvix XR that showed no acute fracture or dislocation, L hip XR that showed no acute fracture or dislocation, L femur XR without fractures and CXR without acute cardiopulmonary pathology. He is now being admitted to medicine for pain evaluation and management and PT/OT evaluation. PAST MEDICAL HISTORY: History of dementia, HTN, Afib on xarelto, tachy-anmlo syndrome s/p PPM, GERD with Nguyen's esophagus, HFpEF, remote history of bilateral hip replacements PAST SURGICAL HISTORY: 1. bilateral hip replacements 2. PPM placement 3. cataract removal surgery 4. colonscopies SOCIAL HISTORY: Marital status: Children: None Employment: Retired Tobacco use:None ETOH: None Illicit drug use: None FAMILY HISTORY: Non contributory ALLERGIES: Please see below. REVIEW OF SYSTEMS: per HPI, otherwise negative 10 point ROS. HOME MEDICATIONS: Please see below. PHYSICAL EXAMINATION: VITAL SIGNS: HDS, afebrile, breathing comfortably on room air General: NAD, pleasant Head: NCAT Eyes: EOMI, PERRLA, anicteric, no injection ENT: MMM Neck: No JVD, supple Pulm: CTAB, breathing comfortably on room air Cardiac: regular, no noted murmurs Abd: Normoactive sounds, soft, NTND Ext: WWP, no LE edema, 2+ DP pulses MSK: + L leg raise with corresponding left lumbar back pain and buttock pain, FROM throughout Neuro: AOx2 to self, and place, not date. Speech is clear, moving all extremities LABORATORY AND IMAGING: summarized above MICROBIOLOGY: Please see below. ASSESSMENT: 79 yo M with a history of dementia, HTN, Afib on xarelto, tachy-anmol syndrome s/p PPM, GERD with Nguyen's esophagus, HFpEF, remote history of bilateral hip replacements who recently presented to the ED for lower back pain that acute worsened 2 weeks ago and frequent falls since them, who now re-presented to the ED for intractable left lumbar back pain with associated left gluteal pain with one episode of sharp radiation down the left lower extremity with family reporting him to be unsafe at home due to the frequency of fall at this time c/f degenerative disease with resultant radicular pain. PLAN: Degenerative disease with resultant radicular pain: -continue his current pain regimen as is, as he appears comfortable currently and will plan to titrate from there. Will therefore continue gabapentin 300 BID, solumedrol taper as is, tramadol 50 Q6H -PT/OT -Depending on severing of pain during ambulation may consult pain management History of Afib: -currently in sinus -continue amiodarone Q2D 200mg -continue xarelto 20mg QPM -continue coreg 6.25mg BID History of tachy-anmol syndrome -s/p PPM Dementia and depression -continue home quetiapine and citalopram HTN: -continue coreg GERD: -continue citalopram Dispo: pending PT/OT and pain severity evaluation with ambulation. Expect him to be hospitalized for >48h Vital Signs Vital Signs Date Time Temp Pulse Resp B/P (MAP) Pulse Ox O2 Delivery O2 Flow Rate FiO2 02/27/20 12:00 120/74 (89) 02/27/20 11:53 95 18 99 02/27/20 05:54 98.4 Room Air Laboratory Data Labs 24H Laboratory Tests 2 02/27/20 06:09: Immature Granulocyte % (Auto) 0.7, Neutrophils (%) (Auto) 87.5H, Lymphocytes (%) (Auto) 3.9L, Monocytes (%) (Auto) 7.8H, Eosinophils (%) (Auto) 0.0, Basophils (%) (Auto) 0.1, Neutrophils # (Auto) 13.6H, Lymphocytes # (Auto) 0.6L, Monocytes # (Auto) 1.2H, Eosinophils # (Auto) 0.0, Basophils # (Auto) 0.0, Nucleated Red Blood Cells % (auto) 0.0, Prothrombin Time 31.6H, Prothromb Time International Ratio 2.97, Activated Partial Thromboplast Time 36.0, Anion Gap 6L, Glomerular Filtration Rate 43.4, Calcium Level 8.8, Magnesium Level 2.2, Total Bilirubin 0.5, Direct Bilirubin 0.1, Aspartate Amino Transf (AST/SGOT) 19, Alanine Aminotransferase (ALT/SGPT) 24, Alkaline Phosphatase 63, Total Creatine Kinase 402H, Creatine Kinase MB 6.1H, Creatine Kinase MB Relative Index 1.52, Troponin I < 0.02, Total Protein 5.8L, Albumin 3.2, Albumin/Globulin Ratio 1.2, Digoxin Level < 0.1L 02/27/20 07:52: Coronavirus (COVID-19)(PCR) NEGATIVE, Influenza Type A (RT-PCR) NEGATIVE, Influenza Type B (RT-PCR) NEGATIVE, Respiratory Syncytial Virus (PCR) NEGATIVE 02/27/20 08:04: Urine Color YELLOW, Urine Appearance CLEAR, Urine pH 5.0, Urine Specific [place] 1.025, Urine Protein NEGATIVE, Urine Glucose (UA) NEGATIVE, Urine Ketones NEGATIVE, Urine Blood NEGATIVE, Urine Nitrite NEGATIVE, Urine Bilirubin NEGATIVE, Urine Urobilinogen 0.2, Urine Leukocyte Esterase NEGATIVE, Urine WBC (Auto) 1, Urine RBC (Auto) 1, Urine Hyaline Casts (Auto) 0, Urine Bacteria (Auto) NEGATIVE, Urine Squamous Epithelial Cells 0, Urine Mucus (Auto) SMALL, Urine Sperm (Auto) CBC/BMP Laboratory Tests 02/27/20 06:09 Home Medications Scheduled Amiodarone HCl (Amiodarone HCl) 200 Mg Tablet, 200 MG PO Q2D QPM Carvedilol (Carvedilol) 12.5 Mg Tablet, 6.25 MG PO BID Citalopram Hydrobromide (Citalopram HBr) 20 Mg Tab, 30 MG PO DAILY Esomeprazole Magnesium (Esomeprazole Magnesium) 40 Mg Cap, 40 MG PO DAILY Gabapentin (Gabapentin) 300 Mg Capsule, 300 MG PO BID Methylprednisolone (Methylprednisolone) 4 Mg Tab.ds.pk, 1 DOSE PO ASDIRECTED MEDROL TAPER - DUE TO BEGIN DAY 3 ON 02/27/20 Quetiapine Fumarate (Quetiapine Fumarate) 25 Mg Tablet, 12.5 MG PO DAILY TAKES AT NOON Rivaroxaban (Xarelto) 20 Mg Tab, 20 MG PO QPM Tramadol HCl (Tramadol HCl) 50 Mg Tablet, 50 MG PO Q6H Allergies Coded Allergies: Penicillins (Verified Allergy, Unknown, 02/15/20) naproxen (Verified Allergy, Unknown, HIVES, 02/15/20) A-FIB/CHADSVASC A-FIB History Current/History of A-Fib/PAF?: Yes Current PO Anticoag Therapy: Yes Treatment Treatment ordered: Rivaroxaban VIVIANA STEVENSON MD Feb 27, 2020 12:52
[2020-02-27 14:00] VITALS: BP 107/70
[2020-02-27] MEDS: RIVAROXABAN 20 MG TAB (XARELTO) PO SCH (18:36)
--- NOTE | 2020-02-27 20:53 | ECGEPIP ---
[facility] - ED Test Date: 2020-02-27 Pat Name: HERMILO LO Department: Room: - Gender: Male Towing Pilot: ana : 1940 Requested By: Barbra Gonzalez Order Number: [id number] Reading MD: Tawana Munoz Measurements Intervals [place] Rate: 76 P: SC: 0 QRS: -9 QRSD: 99 T: 85 QT: 408 QTc: 461 Interpretive Statements ATRIAL FIBRILLATION WITH ABERRANT CONDUCTION OR VENTRICULAR PREMATURE COMPLEXES ST DEVIATION AND MODERATE T-WAVE ABNORMALITY, CONSIDER ANTERIOR ISCHEMIA, c clinical correlation prior paced 02/15/20 Electronically Signed on 02-27-2020 20:53:04 EST by Tawana Munoz
[2020-02-27] MEDS ORDERED: GABAPENTIN 300 MG CAP PO SCH (21:00)
[2020-02-27 22:00] VITALS: BP 108/71
[2020-02-28] MEDS: traMADol 50 MG TAB PO SCH ×5 (00:21→23:54)
[2020-02-28 06:00] VITALS: BP 145/75
[2020-02-28 06:49] LABS: HEMATOCRIT 27.1 % (42.0-52.0); MEAN CORPUSCULAR HEMOGLOBIN 31.2 pg (27.0-33.0); MEAN CORPUSCULAR HGB CONC 32.5 g/dl (32.0-36.5); MEAN CORPUSCULAR VOLUME 96.1 fl (80.0-96.0); PLATELET COUNT, AUTOMATED 283 10^3/uL (150-450); RED BLOOD COUNT 2.82 10^6/uL (4.30-6.10); WHITE BLOOD COUNT 14.8 10^3/uL (4.0-10.0)
[2020-02-28 06:58] LABS: HEMOGLOBIN 8.8 g/dl (13.5-17.5)
[2020-02-28 07:06] LABS: CALCIUM LEVEL 8.6 MG/DL (8.8-10.2); CREATININE FOR GFR 2.1 MG/DL (0.70-1.30); GLOMERULAR FILTRATION RATE 32.6 (>42); MAGNESIUM LEVEL 2.3 MG/DL (1.8-2.4); POTASSIUM SERUM 4.4 MEQ/L (3.5-5.1)
[2020-02-28] MEDS: CitaloPRAM (CeleXA) 10 MG TABLET PO SCH (08:39)
[2020-02-28] MEDS: OMEPRAZOLE 20 MG CAP PO SCH (08:39)
[2020-02-28] MEDS: GABAPENTIN 300 MG CAP PO SCH ×2 (08:39→20:09)
[2020-02-28] MEDS: CARVedilol 6.25 MG TAB PO SCH ×2 (08:41→20:09)
--- NOTE | 2020-02-28 11:41 | IPNPDOC ---
Text Note Date of Service The patient was seen on 02/28/20. NOTE SUBJECTIVE: -confused, labile, redirectable -per nursing, pain is not the acute issue but inability to ambulate is severe per PT initial eval OBJECTIVE: VITAL SIGNS: HDS, afebrile, breathing comfortably on room air General: NAD, pleasant Head: NCAT Eyes: EOMI, PERRLA, anicteric, no injection ENT: MMM Neck: No JVD, supple Pulm: CTAB, breathing comfortably on room air Cardiac: regular, no noted murmurs Abd: Normoactive sounds, soft, NTND Ext: WWP, no LE edema, 2+ DP pulses MSK: + L leg raise with corresponding left lumbar back pain and buttock pain Neuro: AOx1 to self. Speech is clear, moving all extremities LABORATORY: reviewed MICROBIOLOGY: Please see below. ASSESSMENT: 79 yo M with a history of dementia, HTN, Afib on xarelto, tachy-anmol syndrome s/p PPM, GERD with Nguyen's esophagus, HFpEF, remote history of bilateral hip replacements who recently presented to the ED for lower back pain that acute worsened 2 weeks ago and frequent falls since them, who now re-presented to the ED for intractable left lumbar back pain with associated left gluteal pain with one episode of sharp radiation down the left lower extremity with family reporting him to be unsafe at home due to the frequency of fall at this time c/f degenerative disease with resultant radicular pain. PLAN: Degenerative disease with resultant radicular pain: -continue his current pain regimen as is, as he appears comfortable currently and will plan to titrate from there. Will therefore continue gabapentin 300 BID, solumedrol taper as is, tramadol 50 Q6H -PT/OT, f/u recs -Monitor severity of pain during ambulation may require consultation to pain management History of Afib: -currently in sinus -continue amiodarone Q2D 200mg -continue xarelto 20mg QPM -continue coreg 6.25mg BID History of tachy-anmol syndrome -s/p PPM Dementia and depression -continue home quetiapine and citalopram HTN: -continue coreg GERD: -continue citalopram Dispo: Ongoing PT/OT eval and pain severity evaluation with ambulation. Expect him to be hospitalized for >48h VS,Josepbone, I+O VS, Fishbone, I+O Laboratory Tests 02/28/20 05:43 Vital Signs Date Time Temp Pulse Resp B/P (MAP) Pulse Ox O2 Delivery O2 Flow Rate FiO2 02/28/20 08:41 77 137/76 02/28/20 06:00 98.3 16 96 Room Air I&O- Last 24 Hours up to 6 AM 02/28/20 06:00 Intake Total 1210 ml Output Total 300 ml Balance 910 ml VIVIANA STEVENSON MD Feb 28, 2020 10:07
[2020-02-28] MEDS: QUEtiapine FUMARATE 12.5 MG HALF-TAB PO SCH (12:39)
[2020-02-28 14:00] VITALS: BP 98/52
[2020-02-28 15:03] VITALS: BP 134/72
[2020-02-28] MEDS: AMIODARONE 200 MG TAB (PACERONE) PO SCH (17:03)
[2020-02-28] MEDS: RIVAROXABAN 20 MG TAB (XARELTO) PO SCH (17:03)
[2020-02-28 22:00] VITALS: BP 138/75
[2020-02-29] VITALS (8 sets, daily range): BP systolic 128–158; BP diastolic 72–90
[2020-02-29] MEDS: traMADol 50 MG TAB PO SCH ×3 (05:56→18:10)
[2020-02-29 06:21] LABS: HEMATOCRIT 24.2 % (42.0-52.0); HEMOGLOBIN 7.6 g/dl (13.5-17.5); MEAN CORPUSCULAR HEMOGLOBIN 30.4 pg (27.0-33.0); MEAN CORPUSCULAR HGB CONC 31.4 g/dl (32.0-36.5); MEAN CORPUSCULAR VOLUME 96.8 fl (80.0-96.0); PLATELET COUNT, AUTOMATED 266 10^3/uL (150-450)
[2020-02-29 07:04] LABS: CALCIUM LEVEL 8.6 MG/DL (8.8-10.2); CREATININE FOR GFR 1.79 MG/DL (0.70-1.30); GLOMERULAR FILTRATION RATE 39.2 (>42); POTASSIUM SERUM 4.1 MEQ/L (3.5-5.1)
[2020-02-29] MEDS: GABAPENTIN 300 MG CAP PO SCH ×2 (08:54→21:11)
[2020-02-29] MEDS: OMEPRAZOLE 20 MG CAP PO SCH (08:54)
[2020-02-29] MEDS: CitaloPRAM (CeleXA) 10 MG TABLET PO SCH (08:55)
[2020-02-29] MEDS: CARVedilol 6.25 MG TAB PO SCH ×2 (08:58→21:13)
--- NOTE | 2020-02-29 13:26 | IPNPDOC ---
Text Note Date of Service The patient was seen on 02/29/20. NOTE SUBJECTIVE: -labile, redirectable, pleasant this morning OBJECTIVE: VITAL SIGNS: HDS, afebrile, breathing comfortably on room air General: NAD, pleasant Head: NCAT Eyes: EOMI, PERRLA, anicteric, no injection ENT: MMM Neck: No JVD, supple Pulm: CTAB, breathing comfortably on room air Cardiac: regular, no noted murmurs Abd: Normoactive sounds, soft, NTND Ext: WWP, no LE edema, 2+ DP pulses Neuro: AOx1 to self. Speech is clear, moving all extremities, L hip and gluteal pain with leg raise LABORATORY: reviewed MICROBIOLOGY: Please see below. ASSESSMENT: 79 yo M with a history of dementia, HTN, Afib on xarelto, tachy-anmol syndrome s/p PPM, GERD with Nguyen's esophagus, HFpEF, remote history of bilateral hip replacements who recently presented to the ED for lower back pain that acute worsened 2 weeks ago and frequent falls since them, who now re-presented to the ED for intractable left lumbar back pain with associated left gluteal pain with one episode of sharp radiation down the left lower extremity with family reporting him to be unsafe at home due to the frequency of fall at this time c/f degenerative disease with resultant radicular pain. PLAN: Degenerative disease with resultant radicular pain: -continue his current pain regimen as is, as he appears comfortable currently and will plan to titrate from there. Will therefore continue gabapentin 300 BID, solumedrol taper as is, tramadol 50 Q6H -PT/OT, f/u recs -Monitor severity of pain during PT, may require consultation to pain management History of Afib: -currently in sinus -continue amiodarone Q2D 200mg -continue xarelto 20mg QPM -continue coreg 6.25mg BID History of tachy-anmol syndrome -s/p PPM Dementia and depression -continue home quetiapine and citalopram HTN: -continue coreg GERD: -continue citalopram Dispo: Ongoing PT/OT eval and pain severity evaluation with PT. VS,Fishbone, I+O VS, Fishbone, I+O Laboratory Tests 02/29/20 05:45 Vital Signs Date Time Temp Pulse Resp B/P (MAP) Pulse Ox O2 Delivery O2 Flow Rate FiO2 02/29/20 08:58 70 137/75 02/29/20 06:00 97.1 16 94 Room Air I&O- Last 24 Hours up to 6 AM 02/29/20 06:00 Intake Total 1930 ml Output Total 525 ml Balance 1405 ml VIVIANA STEVENSON MD Feb 29, 2020 13:26
[2020-02-29] MEDS: QUEtiapine FUMARATE 12.5 MG HALF-TAB PO SCH (13:31)
[2020-02-29 16:16] LABS: PERCENT SATURATION 10.5 % (19.7-50.0)
[2020-02-29] MEDS: RIVAROXABAN 20 MG TAB (XARELTO) PO SCH (18:09)
[2020-02-29] MEDS: PANTOPRAZOLE 40MG TAB (PROTONIX) PO SCH (21:12)
[2020-03-01] MEDS: traMADol 50 MG TAB PO SCH ×3 (00:13→12:49)
[2020-03-01 00:26] LABS: HEMATOCRIT 27.4 % (42.0-52.0); HEMOGLOBIN 8.6 g/dl (13.5-17.5)
[2020-03-01 06:00] VITALS: BP 147/70
[2020-03-01 06:28] LABS: HEMATOCRIT 25.5 % (42.0-52.0); HEMOGLOBIN 8.2 g/dl (13.5-17.5); MEAN CORPUSCULAR HGB CONC 32.2 g/dl (32.0-36.5); MEAN CORPUSCULAR VOLUME 93.4 fl (80.0-96.0); PLATELET COUNT, AUTOMATED 294 10^3/uL (150-450); RED BLOOD COUNT 2.73 10^6/uL (4.30-6.10); WHITE BLOOD COUNT 13.5 10^3/uL (4.0-10.0)
[2020-03-01 06:55] LABS: CREATININE FOR GFR 1.61 MG/DL (0.70-1.30); GLOMERULAR FILTRATION RATE 44.3 (>42); POTASSIUM SERUM 4.2 MEQ/L (3.5-5.1)
[2020-03-01] MEDS: SUCRALFATE SUSP 1GM/10ML UD PO SCH ×4 (08:02→20:23)
[2020-03-01] MEDS: CitaloPRAM (CeleXA) 10 MG TABLET PO SCH (08:02)
[2020-03-01] MEDS: PANTOPRAZOLE 40MG TAB (PROTONIX) PO SCH ×2 (08:02→20:24)
[2020-03-01] MEDS: GABAPENTIN 300 MG CAP PO SCH ×2 (08:02→20:24)
[2020-03-01] MEDS: CARVedilol 6.25 MG TAB PO SCH ×2 (08:03→20:23)
[2020-03-01 10:35] LABS: FOLATE 6.6 NG/ML (>5.4)
[2020-03-01] MEDS ORDERED: SUCRALFATE SUSP 1GM/10ML UD PO SCH (12:00)
[2020-03-01] MEDS: QUEtiapine FUMARATE 12.5 MG HALF-TAB PO SCH ×2 (12:29→18:54)
[2020-03-01 14:00] VITALS: BP 133/61
[2020-03-01 14:11] LABS: HEMATOCRIT 25.9 % (42.0-52.0); HEMOGLOBIN 8.4 g/dl (13.5-17.5)
--- NOTE | 2020-03-01 18:04 | IPNPDOC ---
Text Note Date of Service The patient was seen on 03/01/20. NOTE SUBJECTIVE: -Pleasant this morning, no complaints OBJECTIVE: VITAL SIGNS: HDS, afebrile, breathing comfortably on room air General: NAD, pleasant Head: NCAT Eyes: EOMI, PERRLA, anicteric, no injection ENT: MMM Neck: No JVD, supple Pulm: CTAB, breathing comfortably on room air Cardiac: regular, no noted murmurs Abd: Normoactive sounds, soft, NTND Ext: WWP, no LE edema, 2+ DP pulses Neuro: AOx1 to self. Speech is clear, moving all extremities, L hip and gluteal pain with leg raise Skin: has large bruise at left hip that goes down his L left. LABORATORY: reviewed Hgb 8.2 UA with 1+ blood, 4 RBCs MICROBIOLOGY: Please see below. ASSESSMENT: 79 yo M with a history of dementia, HTN, Afib on xarelto, tachy-anmol syndrome s/p PPM, GERD with Nguyen's esophagus, HFpEF, remote history of bilateral hip replacements who recently presented to the ED for lower back pain that acute worsened 2 weeks ago and frequent falls since them, who now re-presented to the ED for intractable left lumbar back pain with associated left gluteal pain with one episode of sharp radiation down the left lower extremity with family reporting him to be unsafe at home due to the frequency of fall at this time c/f degenerative disease with resultant radicular pain. PLAN: Degenerative disease with LLE radicular pain: -continue his current pain regimen as is, as he appears comfortable currently and will plan to titrate from there. Will therefore continue gabapentin 300 BID, will give tylenol 1g Q6H. -he completed solumedrol taper -will dc tramadol 50 Q6H with concerned that it may be contributing to his confusion and agitation -PT/OT, f/u recs -Thus far during PT, mobility in ambulation is more knee buckling and weakness more than it appears to be the pain. Continues to work with PT, pending final recs. -will refer to Dr. Lopez at discharge for EMG (EMG was suggested on conversation with Dr. Rico) History of Afib: -currently in sinus -continue amiodarone Q2D 200mg -hold xarelto 20mg QPM, with declining H/H and large hematoma at fall site -continue coreg 6.25mg BID History of tachy-anmol syndrome -s/p PPM Dementia and depression -continue home quetiapine and citalopram HTN: -continue coreg GERD: -continue PPI BID Acute on chronic anemia: -UA with 1+ blood, unlikely clinically to justify the H/H drop -Has a history of GERD with Nguyen's, switched PPI BID yesterday and sucralfate i/s/o H/H drop while on xarelto, with pending stool occult blood -has L hip hematoma from recent fall that is quite large --> held blood thinner Dispo: Ongoing PT/OT eval for placement. VS,Fishbone, I+O VS, Fishbone, I+O Laboratory Tests 03/01/20 00:05 03/01/20 05:51 Vital Signs Date Time Temp Pulse Resp B/P (MAP) Pulse Ox O2 Delivery O2 Flow Rate FiO2 03/01/20 06:00 97.1 74 18 147/70 (95) 96 Room Air I&O- Last 24 Hours up to 6 AM 03/01/20 06:00 Intake Total 700 ml Output Total 900 ml Balance -200 ml VIVIANA STEVENSON MD Mar 01, 2020 07:54
[2020-03-01] MEDS: ACETAMINOPHEN 500 MG TAB PO SCH ×2 (18:22→23:10)
[2020-03-01] MEDS: AMIODARONE 200 MG TAB (PACERONE) PO SCH (18:22)
[2020-03-01] MEDS: QUEtiapine FUMARATE 12.5 MG HALF-TAB PO PRN (18:54)
[2020-03-01 22:00] VITALS: BP 113/61
[2020-03-02] VITALS (11 sets, daily range): BP systolic 115–168; BP diastolic 62–89
[2020-03-02] MEDS ORDERED: QUEtiapine FUMARATE 12.5 MG HALF-TAB PO ONE (00:15)
[2020-03-02] MEDS ORDERED: RAMELTEON 8 MG TAB (ROZEREM) PO ONE (02:15)
[2020-03-02] MEDS: ACETAMINOPHEN 500 MG TAB PO SCH ×3 (06:00→17:11)
[2020-03-02 07:03] LABS: HEMATOCRIT 23.1 % (42.0-52.0); HEMOGLOBIN 7.6 g/dl (13.5-17.5); MEAN CORPUSCULAR HEMOGLOBIN 30.8 pg (27.0-33.0); MEAN CORPUSCULAR HGB CONC 32.9 g/dl (32.0-36.5); MEAN CORPUSCULAR VOLUME 93.5 fl (80.0-96.0); PLATELET COUNT, AUTOMATED 285 10^3/uL (150-450); RED BLOOD COUNT 2.47 10^6/uL (4.30-6.10); WHITE BLOOD COUNT 10.6 10^3/uL (4.0-10.0)
[2020-03-02 07:25] LABS: CALCIUM LEVEL 8.3 MG/DL (8.8-10.2); CREATININE FOR GFR 1.57 MG/DL (0.70-1.30); GLOMERULAR FILTRATION RATE 45.6 (>42); POTASSIUM SERUM 3.7 MEQ/L (3.5-5.1)
[2020-03-02] MEDS: SUCRALFATE SUSP 1GM/10ML UD PO SCH ×4 (07:54→21:14)
[2020-03-02] MEDS: PANTOPRAZOLE 40MG TAB (PROTONIX) PO SCH ×2 (07:54→21:14)
[2020-03-02] MEDS: GABAPENTIN 300 MG CAP PO SCH ×2 (07:54→21:14)
[2020-03-02] MEDS: CitaloPRAM (CeleXA) 10 MG TABLET PO SCH (07:54)
[2020-03-02] MEDS: CARVedilol 6.25 MG TAB PO SCH ×2 (07:56→21:15)
[2020-03-02] MEDS ORDERED: MIRALAX *UNIT DOSE* 17GM PACKET PO PRN (10:15)
[2020-03-02] MEDS: SENNA 8.6 MG TAB (SENOKOT) PO SCH ×2 (11:53→21:14)
[2020-03-02] MEDS: QUEtiapine FUMARATE 12.5 MG HALF-TAB PO SCH (12:00)
--- NOTE | 2020-03-02 12:13 | IPNPDOC ---
Text Note Date of Service The patient was seen on 03/02/20. NOTE SUBJECTIVE: -Difficult night with confusion OBJECTIVE: VITAL SIGNS: HDS, afebrile, breathing comfortably on room air General: NAD, pleasant Head: NCAT Eyes: EOMI, PERRLA, anicteric, no injection ENT: MMM Neck: No JVD, supple Pulm: CTAB, breathing comfortably on room air Cardiac: regular, no noted murmurs Abd: Normoactive sounds, soft, NTND Ext: WWP, no LE edema, 2+ DP pulses Neuro: AOx1 to self. Speech is clear, moving all extremities, L hip and gluteal pain with leg raise Skin: has large bruise at left hip that goes down his L left. LABORATORY: reviewed Hgb 7.5 UA with 1+ blood, 4 RBCs MICROBIOLOGY: Please see below. ASSESSMENT: 79 yo M with a history of dementia, HTN, Afib on xarelto, tachy-anmol syndrome s/p PPM, GERD with Nguyen's esophagus, HFpEF, remote history of bilateral hip replacements who recently presented to the ED for lower back pain that acute worsened 2 weeks ago and frequent falls since them, who now re-presented to the ED for intractable left lumbar back pain with associated left gluteal pain with one episode of sharp radiation down the left lower extremity with family reporting him to be unsafe at home due to the frequency of fall at this time c/f degenerative disease with resultant radicular pain. PLAN: Degenerative disease with LLE radicular pain: -continue his current pain regimen as is, as he appears comfortable currently and will plan to titrate from there. Will therefore continue gabapentin 300 BID, will give tylenol 1g Q6H. -he completed solumedrol taper -will dc tramadol 50 Q6H with concerned that it may be contributing to his confusion and agitation -PT/OT, f/u recs -Thus far during PT, mobility in ambulation is more knee buckling and weakness more than it appears to be the pain. Continues to work with PT, pending final recs. -will refer to Dr. Lopez at discharge for EMG (EMG was suggested on conversation with Dr. Rico) History of Afib: -currently in sinus -continue amiodarone Q2D 200mg -hold xarelto 20mg QPM, with declining H/H and large hematoma at fall site -continue coreg 6.25mg BID History of tachy-anmol syndrome -s/p PPM Dementia and depression -continue home quetiapine and citalopram HTN: -continue coreg GERD: -continue PPI BID Acute on chronic anemia: -UA with 1+ blood, unlikely clinically to justify the H/H drop -Has a history of GERD with Nguyen's, switched PPI BID yesterday and sucralfate i/s/o H/H drop while on xarelto, with pending stool occult blood -has L hip hematoma from recent fall that is quite large --> held blood thinner -will give 2u blood Dispo: Pending medical clearance, pending STR discharge. VS,Trinae, I+O VS, Josepbone, I+O Laboratory Tests 03/01/20 13:59 03/02/20 06:46 Vital Signs Date Time Temp Pulse Resp B/P (MAP) Pulse Ox O2 Delivery O2 Flow Rate FiO2 03/02/20 07:56 69 101/62 03/02/20 06:00 98.0 18 95 Room Air I&O- Last 24 Hours up to 6 AM 03/02/20 06:00 Intake Total 400 ml Output Total 1350 ml Balance -950 ml VIVIANA STEVENSON MD Mar 02, 2020 12:12
[2020-03-03] MEDS: ACETAMINOPHEN 500 MG TAB PO SCH ×5 (05:13→20:08)
[2020-03-03 06:00] VITALS: BP 174/88
[2020-03-03 06:21] LABS: HEMATOCRIT 31.3 % (42.0-52.0); MEAN CORPUSCULAR HEMOGLOBIN 30.7 pg (27.0-33.0); MEAN CORPUSCULAR HGB CONC 32.9 g/dl (32.0-36.5); MEAN CORPUSCULAR VOLUME 93.2 fl (80.0-96.0); PLATELET COUNT, AUTOMATED 307 10^3/uL (150-450); RED BLOOD COUNT 3.36 10^6/uL (4.30-6.10); WHITE BLOOD COUNT 9.3 10^3/uL (4.0-10.0)
[2020-03-03 06:26] LABS: HEMOGLOBIN 10.3 g/dl (13.5-17.5)
[2020-03-03 06:41] LABS: CALCIUM LEVEL 8.2 MG/DL (8.8-10.2); CREATININE FOR GFR 1.29 MG/DL (0.70-1.30); GLOMERULAR FILTRATION RATE 57.2 (>42); POTASSIUM SERUM 4.1 MEQ/L (3.5-5.1)
[2020-03-03] MEDS: SUCRALFATE SUSP 1GM/10ML UD PO SCH ×4 (09:03→20:08)
[2020-03-03] MEDS: PANTOPRAZOLE 40MG TAB (PROTONIX) PO SCH ×2 (09:04→20:09)
[2020-03-03] MEDS: SENNA 8.6 MG TAB (SENOKOT) PO SCH ×2 (09:04→20:09)
[2020-03-03] MEDS: CitaloPRAM (CeleXA) 10 MG TABLET PO SCH (09:04)
[2020-03-03] MEDS: CARVedilol 6.25 MG TAB PO SCH (09:06)
[2020-03-03] MEDS: GABAPENTIN 300 MG CAP PO SCH ×2 (09:07→20:09)
[2020-03-03] MEDS: QUEtiapine FUMARATE 12.5 MG HALF-TAB PO SCH (13:38)
--- NOTE | 2020-03-03 14:04 | REP ---
INDICATION: Swelling and pain. COMPARISON: Comparison left femur radiographs February 27, 2020.. TECHNIQUE: Five views of the left knee are obtained. FINDINGS: Five views of the left knee demonstrate mild lateral patellar spurring on the sunrise view. There is osteoarthritic spur spurring at the superior inferior pole of patella on the lateral radiograph. There is some joint space narrowing and early spurring medially and mild osteophytic lipping is seen laterally. There is soft tissue swelling about the lateral and medial extra articular soft tissues. Some vascular calcification is noted. No fracture is seen.. . No opaque foreign body noted. IMPRESSION: Three compartment osteoarthritis of the left knee. Diffuse soft tissue swelling of the distal thigh and periarticular soft tissues. Vascular calcification. No acute bony abnormality.. <Electronically signed by Abhishek Quarles > 03/03/20 1400
--- NOTE | 2020-03-03 14:06 | REP ---
INDICATION: left thigh swelling and pain. COMPARISON: Comparison study June 05, 2011.. TECHNIQUE: Duplex extremity venous ultrasound left lower extremity. FINDINGS: The deep veins are anechoic and fully compressible from the groin to the popliteal fossa in the left lower extremity. Color flow imaging is homogeneous. Spectral Doppler interrogation demonstrates intact respiratory variation in flow and normal manual augmentation of flow. There is no evidence of deep vein thrombosis. There is a Smyth's cyst in the left popliteal fossa measuring 2.7 x 0.6 x 4.2 cm. IMPRESSION: Negative left lower extremity duplex venous ultrasound. No evidence of deep vein thrombosis. Left Smyth's cyst. <Electronically signed by Abhishek Quarles > 03/03/20 0814
[2020-03-03 15:49] VITALS: BP 114/63
[2020-03-03] MEDS: AMIODARONE 200 MG TAB (PACERONE) PO SCH (17:24)
[2020-03-03] MEDS: CARVedilol 3.125 MG TAB PO SCH (20:09)
[2020-03-03 22:00] VITALS: BP 150/78
--- NOTE | 2020-03-03 22:15 | IPNPDOC ---
Subjective Date Seen The patient was seen on 03/03/20. Subjective Chief Complaint/HPI Mr. Santoyo is a 79 year old male with dementia and atrial fibrillation on Xarelto here with left leg pain, poor ambulation, and left hip hematoma. Overnight, he was given 2u pRBC which he responded appropriately. This morning, he denied any chest pain or dyspnea. He still has persistent left knee pain. Ordered XR and US. XR demonstrates osteoarthritis and US demonstrated Smyth's cyst. Objective Physical Examination General Exam: Positive: Cooperative Eye Exam: Positive: EOMI; Negative: Sclera icteric ENT Exam: Positive: Atraumatic Neck Exam: Positive: Supple Chest Exam: Positive: Clear to auscultation; Negative: Rales, Rhonchi, Wheezing Heart Exam: Positive: Rate Normal, Regular Rhythm Abdomen Exam: Positive: Normal bowel sounds; Negative: Soft, Tenderness Skin Exam: Negative: Other skin issue (Bruising of right hip) Assessment /Plan Assessment Mr. Santoyo is a 79 year old male with dementia and atrial fibrillation on Xarelto here with left leg pain, poor ambulation, and left hip hematoma. Patient has anemia most likely secondary to left hip hematoma. He received 2u of pRBC and responded appropriately. Otherwise, he has left knee pain and swelling. Imaging demonstrates left knee OA and Smyth's cyst. Patient is medically stable to go to rehab. Possible discharge tomorrow to rehab. Plan/VTE VTE Prophylaxis Ordered?: Yes Plan 1. Degenerative disease with LLE radicular pain -Left knee osteoarthritis and left Smyth's cyst -Supportive care and pain control -May benefit from orthopedic surgery consult outpatient if fail conservative measures -Refer to Dr. Lopez at discharge for EMG (EMG was suggested on conversation with Dr. Rico and Dr. Haque) 2. History of atrial fibrillation -In sinus rhythm -Continue amiodarone -Xarelto held due to declining H&H and large hematoma -Continue Coreg 3. Tachy-anmol syndrome -S/P PPM 4. HTN -Continue Coreg 5. GERD -Continue PPI 6. DVT ppx -TEDs Disposition: Possible discharge tomorrow to rehab VS, I&O, 24H, Fishbone Vital Signs/I&O Vital Signs Date Time Temp Pulse Resp B/P (MAP) Pulse Ox O2 Delivery O2 Flow Rate FiO2 03/03/20 20:09 75 150/78 03/03/20 15:49 97.8 16 99 Room Air I&O- Last 24 Hours up to 6 AM 03/03/20 06:00 Intake Total 1610 ml Output Total 1200 ml Balance 410 ml Laboratory Data 24H LABS Laboratory Tests 2 03/03/20 05:42: Nucleated Red Blood Cells % (auto) 0.8H, Anion Gap 8, Glomerular Filtration Rate 57.2, Calcium Level 8.2L CBC/BMP Laboratory Tests 03/03/20 05:42 Microbiology Microbiology 03/02/20 Stool Occult Blood ([facility]) - Final, Complete JENNIFER FERNANEDZ DO Mar 03, 2020 22:12
[2020-03-03] MEDS: QUEtiapine FUMARATE 12.5 MG HALF-TAB PO PRN (22:20)
[2020-03-04 04:00] VITALS: BP 133/74
[2020-03-04] MEDS: ACETAMINOPHEN 500 MG TAB PO SCH ×2 (06:14→12:00)
[2020-03-04] MEDS: SUCRALFATE SUSP 1GM/10ML UD PO SCH ×2 (07:44→12:52)
[2020-03-04] MEDS: CitaloPRAM (CeleXA) 10 MG TABLET PO SCH (07:45)
[2020-03-04] MEDS: PANTOPRAZOLE 40MG TAB (PROTONIX) PO SCH (07:45)
[2020-03-04] MEDS: SENNA 8.6 MG TAB (SENOKOT) PO SCH (07:45)
[2020-03-04] MEDS: GABAPENTIN 300 MG CAP PO SCH (07:45)
[2020-03-04 07:48] VITALS: BP 121/56
[2020-03-04] MEDS: CARVedilol 3.125 MG TAB PO SCH (07:48)
[2020-03-04 09:08] LABS: HEMATOCRIT 29.9 % (42.0-52.0); HEMOGLOBIN 9.6 g/dl (13.5-17.5); MEAN CORPUSCULAR HEMOGLOBIN 30.7 pg (27.0-33.0); MEAN CORPUSCULAR HGB CONC 32.1 g/dl (32.0-36.5); MEAN CORPUSCULAR VOLUME 95.5 fl (80.0-96.0); PLATELET COUNT, AUTOMATED 328 10^3/uL (150-450); RED BLOOD COUNT 3.13 10^6/uL (4.30-6.10); WHITE BLOOD COUNT 10.8 10^3/uL (4.0-10.0)
[2020-03-04 09:27] LABS: CALCIUM LEVEL 8.3 MG/DL (8.8-10.2); CREATININE FOR GFR 1.41 MG/DL (0.70-1.30); GLOMERULAR FILTRATION RATE 51.6 (>42); POTASSIUM SERUM 3.8 MEQ/L (3.5-5.1)
[2020-03-04] MEDS ORDERED: ACET-683 PO (11:08)
[2020-03-04] MEDS ORDERED: SENN18TA PO (11:08)
[2020-03-04] MEDS ORDERED: PEG1POW PO (11:08)
[2020-03-04] MEDS ORDERED: QUET1TAB7 PO (11:08)
[2020-03-04] MEDS: QUEtiapine FUMARATE 12.5 MG HALF-TAB PO SCH (12:52)
--- NOTE | 2020-03-04 23:29 | DS.PDOC ---
Discharge Summary General Date of Admission Feb 27, 2020 at 11:00 Date of Discharge Mar 04, 2020 Attending Physician: JENNIFER FERNANDEZ DO Discharge Summary PROCEDURES PERFORMED DURING STAY: None. ADMITTING DIAGNOSES: 1. Degenerative disease with LLE radicular pain 2. Paroxysmal atrial fibrillation 3. Tachy-anmol syndrome 4. Dementia 5. Depression 6. Hypertension 7. GERD DISCHARGE DIAGNOSES: 1. Degenerative disease with LLE radicular pain 2. Paroxysmal atrial fibrillation 3. Tachy-anmol syndrome 4. Dementia 5. Depression 6. Hypertension 7. GERD 8. Left knee osteoarthritis with Smyth's cyst 9. SARAH 10. Blood loss anemia from Xarelto COMPLICATIONS/CHIEF COMPLAINT: Fall Intractable Back Pain Unsteady Gait. HISTORY OF PRESENT ILLNESS: Mr. Santoyo is a 79 year old male with dementia, HTN, atrial fibrillation on Xarelto, and tachy-anmol syndrome s/p PPM who presented to the ED for intractable left lumbar back pain with associated left gluteal pain. His lower back pain acutely worsened about two days ago. He has also been having associated frequent falling. Denies any recent bowel or bladder function changes, fever, chills, or abdominal pain. PCP recently stated patient on gabapentin and solumedrol taper. On day of admission, he was on day 3. thought he was doing better until he fell again that morning and brought him to the ED. Imaging did not demonstrate any fractures. Imaging did demonstrate severely advanced degenerative changes to the lumbar spin. Patient was admitted for pain evaluation and management and PT/OT evaluation. HOSPITAL COURSE: During his hospitalization, he worked with physical therapy. He completed his steroid taper and was put on acetaminophen as needed to help augment the pain regimen. Hemoglobin dropped to 7.6 and he has a large left hematoma from where he fell. Patient's anemia most likely due to patient's SARAH and Xarelto. Patient's Xarelto was held and he was transfused with 4u pRBC. Patient responded to transfusions. I discussed with patient's about holding the Xarelto and possibly discussing with either the medical office rep or PCP about switch to another anticoagulation vs staying on the same vs no anticoagulation. Otherwise, patient had swelling in the left knee. US of left knee was negative for DVT. Demonstrated Smyth's cyst. XR of left knee demonstrated osteoarthritis. This morning, patient felt well. Denied fever, chills, chest pain, or dyspnea. He felt ready to go to rehab and was subsequently discharged to rehab. DISCHARGE MEDICATIONS: Please see below. ALLERGIES: Please see below. PHYSICAL EXAMINATION ON DISCHARGE: VITAL SIGNS: Please see below. GENERAL: Comfortable, in no apparent distress HEENT: Head normocephalic, atraumatic NECK: Supple CARDIOVASCULAR EXAMINATION: Regular rate and rhythm RESPIRATORY EXAMINATION: Lungs clear to auscultation bilaterally ABDOMINAL EXAMINATION: Soft, non-tender, normal bowel sounds EXTREMITIES: Left knee has swelling (Smyth's cyst) SKIN: Warm and dry NEUROLOGICAL EXAMINATION: CN 3-12 grossly intact PSYCHIATRIC EXAMINATION: Normal mood and affect LABORATORY DATA: Please see below. IMAGING: CT lumbar spine without contrast 1. Severely advanced degenerative changes lumbar spine with overall similar appearance compared to 02/15/2020. 2. Multilevel foraminal and canal encroachment. 3. Diffuse degenerative vacuum disc phenomenon with diffuse interspace narrowing. 4. Large left renal cyst only partially included. 5. Prominent calcification less likely retained excreted contrast media within collecting structure of the left kidney. Correlate to any prior cross-sectional imaging of the abdomen if available. CT head without contrast No acute hemorrhage or calvarial fracture. Pelvis XR No acute fracture or dislocation. Hip XR No acute fracture or dislocation. Femur XR, left No acute fracture or dislocation. US left lower extremity Negative left lower extremity duplex venous ultrasound. No evidence of deep vein thrombosis. Knee XR, left Three compartment osteoarthritis of the left knee. Diffuse soft tissue swelling of the distal thigh and periarticular soft tissues. Vascular calcification. No a cute bony abnormality PROGNOSIS: Good ACTIVITY: As tolerated. DIET: As tolerated. DISCHARGE PLAN: [facility] DISPOSITION: [facility]. DISCHARGE INSTRUCTIONS: 1. Follow up with PCP within 5 days 2. Follow up with cardiology in 1 week to discuss about anticoagulation 3. Refer to Dr. Lopez at discharge for EMG DISCHARGE CONDITION: Stable. Total time spent on discharge planning, discharge summary, and medication reconciliation: 40 minutes Vital Signs/I&Os Vital Signs Date Time Temp Pulse Resp B/P (MAP) Pulse Ox O2 Delivery O2 Flow Rate FiO2 03/04/20 07:48 90 121/56 03/04/20 04:00 98.0 20 96 03/03/20 15:49 Room Air I&O- Last 24 Hours up to 6 AM 03/04/20 06:00 Intake Total 2310 ml Output Total 1350 ml Balance 960 ml Laboratory Data Labs 24H Laboratory Tests 2 03/04/20 08:03: Nucleated Red Blood Cells % (auto) 0.6H, Anion Gap 9, Glomerular Filtration Rate 51.6, Calcium Level 8.3L 03/04/20 11:24: Coronavirus (COVID-19)(PCR) NEGATIVE CBC/BMP Laboratory Tests 03/04/20 08:03 Microbiology Microbiology 03/02/20 Stool Occult Blood ([facility]ALINAS) - Final, Complete Discharge Medications Scheduled Acetaminophen (Acetaminophen) 500 Mg Tablet, 1,000 MG PO Q6H Amiodarone HCl (Amiodarone HCl) 200 Mg Tablet, 200 MG PO Q2D, (Reported) QPM Citalopram Hydrobromide (Citalopram HBr) 20 Mg Tab, 30 MG PO DAILY, (Reported) Esomeprazole Magnesium (Esomeprazole Magnesium) 40 Mg Cap, 40 MG PO DAILY, (Reported) Gabapentin (Gabapentin) 300 Mg Capsule, 300 MG PO BID, (Reported) Quetiapine Fumarate (Quetiapine Fumarate) 25 Mg Tablet, 12.5 MG PO DAILY, (Reported) TAKES AT NOON Senna (Senna Lax) 8.6 Mg Tablet, 2 TAB PO BID Scheduled PRN Polyethylene Glycol 3350 (Polyethylene Glycol 3350) 17 Gm Powd.pack, 1 PKT PO DAILYPRN PRN for CONSTIPATION Quetiapine Fumarate (Quetiapine Fumarate) 25 Mg Tablet, 12.5 MG PO DAILYPRN PRN for agitation Allergies Coded Allergies: Penicillins (Verified Allergy, Unknown, 02/15/20) naproxen (Verified Allergy, Unknown, HIVES, 02/15/20) JENNIFER FERNANDEZ DO Mar 04, 2020 23:29
== END 2020-03-04 13:28 | DRG 552 ==
LOC: M ED 05:23 → M ED INP 11:00 → M MSPAV 12:16
PROVIDERS: ADMIT Internal Medicine; ATTEND Internal Medicine
PROC: 30233N1 Transfusion of Nonautologous Red Blood Cells into Peripheral Vein, Percutaneous Approach (ICD-10-PCS; principal; 2020-02-29)
DX: M51.16 Intervertebral disc disorders with radiculopathy, lumbar region (principal); I50.32 Chronic diastolic (congestive) heart failure; D68.32 Hemorrhagic disorder due to extrinsic circulating anticoagulants; N17.9 Acute kidney failure, unspecified; R29.6 Repeated falls; F03.90 Unspecified dementia, unspecified severity, without behavioral disturbance, psychotic disturbance, mood disturbance, and anxiety; I11.0 Hypertensive heart disease with heart failure; M71.22 Synovial cyst of popliteal space [Baker], left knee; I48.0 Paroxysmal atrial fibrillation; I49.5 Sick sinus syndrome; M17.12 Unilateral primary osteoarthritis, left knee; K21.9 Gastro-esophageal reflux disease without esophagitis; K22.70 Barrett's esophagus without dysplasia; F32.9 Major depressive disorder, single episode, unspecified; Z96.643 Presence of artificial hip joint, bilateral; Z98.49 Cataract extraction status, unspecified eye; Z20.822 Contact with and (suspected) exposure to COVID-19; Z79.01 Long term (current) use of anticoagulants; Z79.891 Long term (current) use of opiate analgesic; Z79.899 Other long term (current) drug therapy; Z88.0 Allergy status to penicillin; Z88.6 Allergy status to analgesic agent; D50.0 Iron deficiency anemia secondary to blood loss (chronic); S70.02XA Contusion of left hip, initial encounter; W19.XXXA Unspecified fall, initial encounter; Y92.019 Unspecified place in single-family (private) house as the place of occurrence of the external cause

== ENCOUNTER → 2020-03-10 | Outpatient (REF) ==
[~2020-03-10] MED LIST changes: +ACET-683 PO; +AMIO200T3 PO; +GABA-282 PO; +METH4PACK PO; +PEG1POW PO; +QUET1TAB7 PO; +SENN18TA PO; +TRAM50TA2 PO
== END ==
LOC: SKLAB2 13:01
PROVIDERS: ATTEND Internal Medicine
DX: Z20.822 Contact with and (suspected) exposure to COVID-19 (principal)

== ENCOUNTER → 2020-03-11 | Outpatient (REF) ==
[~2020-03-11] MED LIST changes: -QUET1TAB7 PO; +QUET25TA3 PO
[2020-03-11 11:55] LABS: HEMOGLOBIN 10.3 g/dl (13.5-17.5); MEAN CORPUSCULAR HEMOGLOBIN 32.5 pg (27.0-33.0); MEAN CORPUSCULAR HGB CONC 31.2 g/dl (32.0-36.5); MEAN CORPUSCULAR VOLUME 104.1 fl (80.0-96.0); PLATELET COUNT, AUTOMATED 244 10^3/uL (150-450); RED BLOOD COUNT 3.17 10^6/uL (4.30-6.10); WHITE BLOOD COUNT 9.7 10^3/uL (4.0-10.0)
== END ==
LOC: SKLAB2 13:00
PROVIDERS: ATTEND Internal Medicine
DX: D64.9 Anemia, unspecified (principal); I48.91 Unspecified atrial fibrillation

== ENCOUNTER → 2020-03-17 | Outpatient (REF) ==
[~2020-03-17] MED LIST changes: +ACET-907 PO; +ACET650T61 PO; +DULC10SU2 PR; +ENEMENE PR; +MILKSUS3 PO; +MIRA1POW3 PO; +MOM30SS PO; +SENN1TAB41 PO; +VITMTA PO
== END ==
LOC: SKLAB5 06:36
PROVIDERS: ATTEND Internal Medicine
DX: Z20.822 Contact with and (suspected) exposure to COVID-19 (principal)

== ENCOUNTER → 2020-03-18 | Outpatient (REF) | payer MEDICARE, OTHER ==
[~2020-03-18] MED LIST changes: +CARV12.5; -PEG1POW PO; +POLY17PO18 PO; +QUET25TA3; +SULF1TAB23 PO; +XARE15TA PO
[2020-03-18 09:46] LABS: HEMATOCRIT 35.6 % (42.0-52.0); MEAN CORPUSCULAR HEMOGLOBIN 32.4 pg (27.0-33.0); MEAN CORPUSCULAR HGB CONC 30.9 g/dl (32.0-36.5); MEAN CORPUSCULAR VOLUME 104.7 fl (80.0-96.0); PLATELET COUNT, AUTOMATED 293 10^3/uL (150-450); WHITE BLOOD COUNT 10.1 10^3/uL (4.0-10.0)
== END ==
LOC: SKLAB5 08:00
PROVIDERS: ATTEND Internal Medicine
DX: D64.9 Anemia, unspecified (principal)

== ENCOUNTER 2020-03-19 14:46 | Inpatient (IN) | payer MEDICARE, OTHER ==
[~2020-03-19] VITALS: Ht 182.9 cm; Wt 93.7 kg
[~2020-03-19 14:46] MED LIST changes: -ACET-907 PO; -ACET650T61 PO; -DULC10SU2 PR; -ENEMENE PR; -MILKSUS3 PO; -MIRA1POW3 PO; -MOM30SS PO; -SENN1TAB41 PO; -VITMTA PO
--- OUTSIDE RECORDS SUMMARY | 2020-03-19 15:18 | CCD ---
Author Author [facility] Organization [facility] Address Unknown Phone Unavailable Care Team Providers Care Product Designer Name Role Phone Jason Soto Unavailable PROBLEMS Type Condition ICD9-CM Code UMR08-IC Code Onset Dates Condition S tatus SNOMED Code Notes Problem Other constipation K59.09 Active 38388923 Cola ce has been prescribed in the past for his complaint of hard stools with constipation. I believe he is currently using MiraLAX 2 times a week. Uses fleets enemas when he is severely constipated . He may use mag citrate for severe constipation and continue use fleets enemas as needed. Problem Personal history of colonic polyps Z86.010 Activ e 337754230 He had an adenomatous colonic polyp in 2008, 02/2013, May 2016. Problem Macrocytosis D75.89 Active 360214507 Macrocyto sis on CBC and B12 and Folate levels normal in the past and most recently in April 2018. Most recent MCV was stable at 103 in 05/2019, lower at 99 in November 2019; his hemoglobin has dropped a bit to 11.3 as of November 2019 likely because of his progressive creatinine rise. 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 Last EGD was in May 2016 and he had inflammation without dysplasia. Nguyen's esophagus was identified in 2010 I believe. Problem Personal history of malignant melanoma of skin Z85 .820 Active [id number] Prior melanoma of left eye sclera, resec dustin 1992, and another in 03/2010 near right eye (in situ). No evidence of recurrence. Sees a [place] hot dog vender. Problem Hypercholesterolemia E78.00 Active 15799571 Hi s lipids were controlled to primary prevention target without medications, as of November 2019. 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 He was taken off his lisinopril because of lightheadedness in Spring 2017. His manager salt has assisted in medication adjustments. Last echocardiogram [...] controlled. Problem Impaired fasting glucose R73.01 Active 9172409 07 His fasting glucose was 106 in April 2018 but 99 in November2018, 104 in 05/2019, 94 in November 2019; HgbA1c was a bit higher at 6.2% with a negative microalbumin as of 05/2019. Problem Suspected sleep apnea R29.818 Active 23998588 H is describes fairly typical sleep apnea symptoms but does not feel that he would tolerate the testing for sleep apnea nor would he tolerated the treatment. Problem Cognitive dysfunction F09 Active 239086887 TSH, B12 and folate levels were normal most recently in 04/2018, but his TSH was suppressed as of November 2019, less so as of December 2019. There is a component of depression or problems with attention. I started him on citalopram with benefit in April 2013. He went to the memory unit in [place] and Aricept was started but he tolerated [...] back pain with left-sided sciatica M54.42 Active 697835626 He has the acute onset of ba [...] Problem Paroxysmal atrial fibrillation I48.0 Active 2 03183636 He had transient atrial fibrillation after endoscopy 2000 and which recurred 03/12. LA diameter 4.4 cm, mild MR/AR and he had a normal echocardiogram otherwise. Stress test, events monitor normal. His manager salt wishes him to be on anticoagulation. He is currently on Xarelto, carvedilol and amiodarone. I switched his atenolol to carvedilol in August 2012. 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 He has regular pacemaker interrogations for mode switching. I have assumed that his thyroid function has been followed by the manager salt who prescribes his amiodarone. He did have [...] Chronic kidney disease, stage 3 N18.3 Active 120546289 He has had declining renal function since April 2017 and this is somewhat worse as of November and December 2019, with a creatinine of 1.81/GFR 39 with a PTH level of 60 in November 2019 and a creatinine of 1.79 with a GFR 39 in December 2019. Problem Abnormal chest xray R93.89 Active 547911594 He was recently seen in urgent care in October 2019 and had a chest x-ray which revealed some interstitial prominence with more density in the left lower lobe. He was treated with antibiotic therapy, doxycycline. He is currently not having any issues but we may need to follow this up in the future. Problem Abnormal TSH R79.89 Active 667268296 His TSH w as suppressed in 0.1 range in November 2019, less suppressed at 0.274 and December 2019. He has no hyperthyroid symptoms. I suspect amiodarone is playing a role, versus silent thyroiditis. I will repeat his labs in March 2020. Problem Low back pain M54.5 Active 410759397 He has h ad another flare of [...] Anaphylaxis Non Drug Allergy Active naproxen Aleve([facility] Code:[address]-38) Anaphylaxis Drug Allergy Active Penicillin (For Allergies Use Only) Anaphylaxis Drug Aller gy Active ENCOUNTERS from 1940 to 2020-03-05 Encounter Location Date Provider Diagnosis [address] [address] Feb, Jason Azare Acute left-sided low back pain with left -sided sciatica M54.42 and Hypertension with renal disease I12.9 IMMUNIZATIONS Vaccine Route Administration Date Status Zoster [...] FOR REFERRAL No Information VITAL SIGNS Weight 205 lbs Feb, Height 70 in Feb, BMI 29.41 kg/m2 Feb, Heart Rate 70 /min Feb, Respiratory Rate 18 /min Feb, Temperature 98.2 degrees Fahrenheit Feb, Oximetry 98% Feb, Blood pressure systolic 110 mm Hg Feb, Blood pressure diastolic 62 mm Hg Feb, MEDICATIONS Medication SIG (Take, Route, Frequency, Duration) Notes Start Da te End Date Status Voltaren 1 % 1-2 grams to affected area o n lower back Transdermal Q6 hours as needed for 10 days Dec, Active Saline Nasal [place] 0.65 % as directed Nasally as directed [...] RESULTS No Results REASON FOR VISIT Back pain, no better , [facility]-Stop #[id number] MEDICAL (GENERAL) HISTORY Type Description Date Medical [...] surgery 05/2009 Surgical History Varicose vein treatments [id number] Surgical History Melanoma resected near right eye [...] in with left-sided sciatica (ICD-10 - M54.42) He has the acute onset of back pain in t he face of chronic back pain. There was [...] these interventions, then he will require hospitalization for pain management and more aggressive physical therapy. I would consider a course of steroids if he has not improved in a couple of days. Feb, Hypertension with renal disease (ICD-10 - I12.9) On carvedilol, dose reduced to 3.125 mg twice daily because of lightheadedness in September 2018, by his manager salt. He was taken off his lisinopril because of lightheadedness in Spring 2017. His manager salt has assisted in medication adjustments. Last echocardiogram 2014: no LVH, no systolic dysfunction (left ventricular ejection fraction 70%), mild diastolic dysfunction. He had significant blood pressure elevations in the emergency department in February 2020 and his carvedilol dose has been increased to 3.125 mg twice daily and his blood pressure at present is adequately controlled. His blood pressure is adequately controlled. PLAN OF TREATMENT Medication Medication Name Sig [...] for 30 day(s) Feb, Next Appt Details keep scheduled visit Reason: Provider Name:Jason Soto, 2020-03-16 10 :30:00 AM, [address] [place] [address], [id number], Provider Name:Jason Soto 2020-05-12 11 :00:00 AM, [address] [place], [id number], Insurance Providers Payer Name Payer Address Payer Phone Insured Name Patient Relati onship to Insured Coverage Start Date Coverage End Date MEDICARE Part A and B [address] [facility] [phone] HERMILO LO self [facility] [address] [id number] [facility] [id number] [phone] HERMILO LO self
--- OUTSIDE RECORDS SUMMARY | 2020-03-19 15:19 | CCD ---
Author Author [facility] Organization [facility] Address Unknown Phone Unavailable Care Team Providers Care Geophysical Engineer Name Role Phone DEIRDRE GALLAGHER MD Unavailable [...] GALLAGHER MD Unavailable DEIRDRE Barnard MD Unavailable DEIRDRE Barnard MD Unavailable DEIRDRE Barnard MD Unavailable DEIRDRE Barnard MD Unavailable Unavailable DEIRDRE GALLAGHER MD Unavailable Unavailable DEIRDRE GALLAGHER MD Unavailable Unavailable DEIRDRE GALLAGHER MD Unavailable Unavailable DEIRDRE GALLAGHER MD Unavailable DEIRDRE Barnard MD Unavailable DEIRDRE Barnard MD Unavailable Unavailable DEIRDRE GALLAGHER MD Unavailable Unavailable DEIRDRE GALLAGHER MD Unavailable Unavailable DEIRDRE GALLAGHER MD Unavailable Unavailable DEIRDRE GALLAGHER MD Unavailable Unavailable DEIRDRE GALLAGHER MD Unavailable Unavailable DEIRDRE GALLAGHER MD Unavailable DEIRDRE Barnard MD Unavailable DEIRDRE Barnard MD Unavailable Unavailable [...] Unavailable Unavailable Jason Soto MD Unavailable Unavailable JILLIANLivia FLOWER MD Unavailable Unavailable JILLIANLivia FLOWER MD Unavailable Unavailable JILLIANLivia FLOWER MD Unavailable Unavailable JILLIANLivia FLOWER MD Unavailable Unavailable JILLIANLivia FLOWER MD Unavailable Unavailable JILLIANLivia MD Unavailable Unavailable JILLIANLivia MD Unavailable Unavailable JILLIANLivia MD Unavailable Unavailable JILLIANLivia MD Unavailable Unavailable JILLIANLivia MD Unavailable Unavailable JILLIANLivia MD Unavailable Unavailable JILLIANLivia MD Unavailable Unavailable JILLIANLivia MD Unavailable Unavailable JILLIANLivia MD Unavailable Unavailable JILLIANLivia MD Unavailable Unavailable JILLIANLivia MD Unavailable Unavailable JILLIANLivia MD Unavailable Unavailable JILLIANLivia MD Unavailable Unavailable JILLIANLivia MD Unavailable Unavailable JILLIAN B DOMINIK STEPHENSON Unavailable Unavailable JILLIANLivia MD Unavailable Unavailable JILLIAN, Livia LEHMAN MD Unavailable Unavailable JILLIAN, Livia LEHMAN MD Unavailable Unavailable JILLIAN, Livia LEHMAN MD Unavailable Unavailable JILLIAN, Livia LEHMAN MD Unavailable Unavailable JILLIAN, Livia LEHMAN MD Unavailable Unavailable JILLIAN, Livia LEHMAN MD Unavailable Unavailable JILLIAN, Livia LEHMAN MD Unavailable Unavailable JILLIAN, Livia LEHMAN MD Unavailable Unavailable JILLIAN, Livia LEHMAN MD Unavailable Unavailable JILLIAN, Livia LEHMAN MD Unavailable Unavailable JILLIAN, Livia LEHMAN MD Unavailable Unavailable JILLIAN, Livia LEHMNA MD Unavailable Unavailable JILLIAN, Livia LEHMAN MD Unavailable Unavailable JILLIAN, Livia LEHMAN MD Unavailable Unavailable JILLIAN, Livia LEHMAN MD Unavailable Unavailable JILLIAN, Livia LEHMAN MD Unavailable Unavailable JILLIAN, Livia LEHMAN MD Unavailable Unavailable JILLIAN, Livia LEHMAN MD Unavailable Unavailable JILLIAN, Livia LEHMAN MD Unavailable Unavailable JILLIAN, Livia LEHMAN MD Unavailable Unavailable JILLIAN, Livia LEHMAN MD Unavailable Unavailable JILLIAN, Livia LEHMAN MD Unavailable Unavailable JILLIAN, Livia LEHMAN MD Unavailable Unavailable JILLIAN, Livia LEHMAN MD Unavailable Unavailable JILLIAN, Livia LEHMAN MD Unavailable Unavailable JILLIAN, Livia LEHMAN MD Unavailable Unavailable JILLIAN, Livia LEHMAN MD Unavailable Unavailable JILLIAN, Livia LEHMAN MD Unavailable Unavailable JILLIAN, Livia LEHMAN MD Unavailable Unavailable JILLIAN, Livia LEHMAN MD Unavailable Unavailable JILLIAN, Livia LEHMAN MD Unavailable Unavailable JILLIAN, Livia LEHMAN MD Unavailable Unavailable JILLIAN, Livia LEHMAN MD Unavailable Unavailable JILLIAN, Livia LEHMAN MD Unavailable Unavailable JILLIAN, Livia LEHMAN MD Unavailable Unavailable JILLIAN, Livia LEHMAN MD Unavailable Unavailable JILLIANLivia MD Unavailable Unavailable JILLIANLivia MD Unavailable Unavailable JILLIANLivia MD Unavailable Unavailable JILLIANLivia MD Unavailable Unavailable JILLIAN, Livia LEHMAN MD Unavailable Unavailable JILLIAN, Livia LEHMAN MD Unavailable Unavailable JILLIAN, Livia LEHMAN MD Unavailable Unavailable JILLIAN, Livia LEHMAN MD Unavailable Unavailable JILLIANLivia MD Unavailable Unavailable JILLIAN, Livia LEHMAN MD Unavailable Unavailable JILLIAN, Livia LEHMAN MD Unavailable Unavailable JILLIAN, Livia LEHMAN MD Unavailable Unavailable JILLIAN, Livia LEHMAN MD Unavailable Unavailable JILLIAN, Livia LEHMAN MD Unavailable Unavailable JILLIANLivia MD Unavailable Unavailable JILLIANLivia MD Unavailable Unavailable JILLIANLivia MD Unavailable Unavailable JILLIANLivia MD Unavailable Unavailable JILLIANLivia MD Unavailable Unavailable JILLIANLivia MD Unavailable Unavailable JILLIANLivia MD Unavailable Unavailable JILLIANLivia MD Unavailable Unavailable JILLIAN, B DOMINIK STEPHENSON Unavailable Unavailable JILLIAN, B DOMINIK STEPHENSON Unavailable Unavailable JILLIAN, B DOMINIK STEPHENSON Unavailable Unavailable JILLIANLivia MD Unavailable Unavailable JILLIANLivia MD Unavailable Unavailable Duncan DUMONT MD Unavailable [...] Unavailable RING, K IVORY PA Unavailable Unavailable ABDIRIZAKLISS MD Unavailable Unavailable ABDIRIZAK, LISS STEPHENSON Unavailable Unavailable [...] Unavailable Unavailable ABDIRIZAK, LISS STEPHENSON Unavailable Unavailable ABIDRIZAK, LISS STEPHENSON Unavailable Unavailable ABDIRIZAK, LISS STEPHENSON [...] Unavailable ABDIRIZAK, LISS STEPHENSON Unavailable Unavailable ABDIRIZAK, ILSS STEPHENSON Unavailable Unavailable ABDIRIZAK, LISS STEPHENSON Unavailable [...] Unavailable OROPEZA, Jr AKHTAR MD Unavailable Unavailable OORPEZA, Jr AKHTAR MD Unavailable Unavailable OROPEZA, Jr [...] T HERMILO STEPHENSON Unavailable Unavailable OROPEZA, T HEMRILO STEPHENSON Unavailable Unavailable OROPEZA, Jr AKHTAR MD [...] Unavailable OROPEZA, Jr AKHTAR MD Unavailable Unavailable Re-disclosure Warning The records [...] is protected by Article 27-F of the [facility] Public Health law. If you continue you may have access to information: Regarding HIV / AIDS; Provided by facilities licensed or operated by the [facility] Office of Mental Health; or Provided by the [facility] Office for People With Developmental Disabilities. If such information is present, then the following [facility] mandated warning applies: This information has [...] law may result in a fine or alf sentence or both. A general authorization for the release of medical or other information is NOT sufficient authorization for further disc losure. Allergies and Adverse Reactions Type Description Substance Reaction Status Data Source(s ) Drug allergy Aleve Naproxen Anaphylaxis Active eCW1 ([facility]) NSAIDS NSAIDS NSAIDS Anaphylaxis Active eCW1 ([facility]) Family History Family Member Name Family Member Gender Family Member Status Date o f Status Description Data Source(s) Unknown Unknown Problem MEDENT ([facility]) Unknown Male Problem MEDENT ([facility]) Unknown Male Problem MEDENT ([facility]) Encounters Encounter Providers Location Date Indications Data Source(s ) [place] [address] [facility] [address] 02/25/2020 12:00:00 AM EST eCW1 ([facility]) [place] [address] [facility] [place] [address] 02/23/2020 12:00:00 AM EST eCW1 ([facility]) Outpatient [address] [facility] [place] [address] 02/23/2020 12:00:00 AM EST eCW1 ([facility]) Unknown [address] [facility] [place] [address] 02/20/2020 12:00:00 AM EST eCW1 ([facility] [place] [address] [facility] [address] 02/19/2020 12:00:00 AM EST [facility]1 [facility] [place] [address] [facility] [address] 02/18/2020 12:00:00 AM EST [facility] Unknown [address] [facility] [place] [address] 02/16/2020 12:00:00 AM EST eCW1 [facility]) Outpatient SJP-SJP 02/14/2020 11:00:12 PM EST [facility] Outpatient HAZEL-DOMP.RACHAEL 02/12/2020 12:00:00 AM EST [facility] Outpatient [address] [facility] [place] [address] 12/30/2019 12:00:00 AM EST eCW1 ([facility]) Unknown [address] [facility] [address] 12/26/2019 12:00:00 AM EST eCW1 ([facility]) Office Visit, Est Pt., Level 3 PC [address] [place] [address] 12/24/2019 12:00:00 AM EST eCW1 ([facility]) Unknown [address] [facility] [address] 12/24/2019 12:00:00 AM EST eCW1 ([facility]) Unknown [address] [facility] [place] [address] 12/08/2019 12:00:00 AM EST eCW1 ([facility]) Outpatient LIZZ.CANDACE 11/28/2019 04:04:59 PM EDT [facility] Outpatient Attender: LISS QUEEN.RACHAEL 12:00:00 AM EDT - 11/26/2019 02:29:21 PM EDT [facility] Outpatient [address] [facility] [address] 2019 12:00:00 AM EDT eCW1 ([facility]) Outpatient Attender: IVORY Teresa 10/18/2019 04:30:00 PM EDT MEDENT ([facility]) Outpatient Attender: ODMINIK LONG MDReferrer: Jason Soto MD 09/19/2019 10:43:20 AM EDT [facility] Outpatient Attender: RONALD DUMONT MDReferrer: Jason vitale MD 09/09/2019 10:44:59 PM EDT [facility] Recurring Patient Attender: HERMILO OROPEZA MDReferrer: KAUSHIK FUENTES MD 09/08/2019 01:14:19 PM EDT [facility] Recurring Patient Attender: HERMILO OROPEZA MDReferrer: KAUSHIK FUENTES MD 09/08/2019 01:14:12 PM EDT [facility] Outpatient SJP.CT-SJP.SYR 08/21/2019 02:13:55 PM EDT [facility] Unknown [address] [place] [address], [place] [address] 08/18/2019 12:00:00 AM EDT eCW1 ([facility]) Outpatient [address] [facility] [place] [address] 07/02/2019 12:00:00 AM EDT eCW1 ([facility]) [facility] [address] [place] [address], [place] [address] 06/25/2019 12:00:00 AM EDT eCW1 ([facility]) [facility] [address] [facility] [address] 06/10/2019 12:00:00 AM EDT eCW1 ([facility]) Outpatient SJP.CT-SJP.SYR 05/15/2019 09:07:29 AM EDT [facility] [address] [facility] [address] 05/14/2019 12:00:00 AM EDT eCW1 ([facility]) Outpatient Attender: LISS KANGSJCiprianoRACHAEL 04/02/2019 12:00:00 AM EST [facility] Outpatient PEARLSJCiprianoRACHAEL 02/06/2019 10:53 :46 AM EST - 02/06/2019 11:06:30 AM EST [facility] Immunizations Vaccine Date Status Description Data Source(s) influenza, recombinant, quadrIvalent,injectable, prese rvative free 2019 04:29:00 PM EDT completed eCW1 ([facility]) influenza, recombinant, quadrIvalent,injectable, prese rvative free 2019 04:29:00 PM EDT completed eCW1 ([facility]) influenza, recombinant, quadrIvalent,injectable, prese rvative free 2019 04:29:00 PM EDT completed eCW1 ([facility]) influenza, recombinant, quadrIvalent,injectable, prese rvative free 2019 04:29:00 PM EDT completed eCW1 ([facility]) influenza, recombinant, quadrIvalent,injectable, prese rvative free 2019 04:29:00 PM EDT completed eCW1 ([facility]) influenza, recombinant, quadrIvalent,injectable, prese rvative free 2019 04:29:00 PM EDT completed eCW1 ([facility]) influenza, recombinant, quadrIvalent,injectable, prese rvative free 2019 04:29:00 PM EDT completed eCW1 ([facility]) influenza, recombinant, quadrIvalent,injectable, prese rvative free 2019 04:29:00 PM EDT completed eCW1 ([facility]) influenza, recombinant, quadrIvalent,injectable, prese rvative free 2019 04:29:00 PM EDT completed eCW1 ([facility]) influenza, recombinant, quadrIvalent,injectable, prese rvative free 2019 04:29:00 PM EDT completed eCW1 ([facility]) influenza, recombinant, quadrIvalent,injectable, prese rvative free 2019 04:29:00 PM EDT completed eCW1 ([facility]) influenza, recombinant, quadrIvalent,injectable, prese rvative free 2019 04:29:00 PM EDT completed eCW1 ([facility]) influenza, recombinant, quadrIvalent,injectable, prese rvative free 2019 04:29:00 PM EDT completed eCW1 ([facility]) influenza, recombinant, quadrIvalent,injectable, prese rvative free 2019 04:29:00 PM EDT completed eCW1 ([facility]) Medications Medication Brand Name Start Date Product Form Dose Route Admi nistrative Instructions Pharmacy Instructions Status Indications Reaction Description Data Source(s) Medrol (Joe) 4 MG Medrol (Joe) 4 MG 02/25/2020 12:00:00 AM EST active Medrol (Joe) 4 MG eCW1 ([facility]) 4 mg 02/25/2020 12:00:00 AM EST tablets,dose pack 21 TAKE BY MOUTH DAILY DIRECTED ON DOSEPACK TAKE BY MOUTH DAILY DIRECTED ON DOSEPACK SOLD: 02/25/2020 [facility] Medrol (Joe) 4 MG Medrol (Joe) 4 MG 02/25/2020 12:00:00 AM EST active Medrol (Joe) 4 MG eCW1 ([facility]) tramadol hydrochloride 50 MG Oral Tablet Tramadol HCl 50 MG Tramadol HCl 50 MG 02/23/2020 12:00:00 AM EST 1.0 {tablet} active Tramadol HCl 50 MG eCW1 ([facility]) tramadol hydrochloride 50 MG Oral Tablet Tramadol HCl 50 MG Tramadol HCl 50 MG 02/23/2020 12:00:00 AM EST 1.0 {tablet} active Tramadol HCl 50 MG eCW1 ([facility]) tramadol hydrochloride 50 MG Oral Tablet Tramadol HCl 50 MG Tramadol HCl 50 MG 02/23/2020 12:00:00 AM EST 1.0 {tablet} active Tramadol HCl 50 MG eCW1 ([facility]) tramadol hydrochloride 50 MG Oral Tablet Tramadol HCl 50 MG Tramadol HCl 50 MG 02/23/2020 12:00:00 AM EST 1.0 {tablet} active Tramadol HCl 50 MG eCW1 ([facility]) tramadol hydrochloride 50 MG Oral Tablet Tramadol HCl 50 MG Tramadol HCl 50 MG 02/23/2020 12:00:00 AM EST 1.0 {tablet} active Tramadol HCl 50 MG eCW1 ([facility]) 50 mg 02/23/2020 12:00:00 AM EST tablet 50 TAKE ONE TABLET BY MOUTH EVERY 6 HOURS NEEDED FOR PAIN * MAXIMUM DAILY DOSE = 4 TAKE ONE TABLET BY MOUTH EVERY 6 HOURS NEEDED FOR PAIN * MAXIMUM DAILY DOSE = 4 SOLD: 02/23/2020 [facility] 100 mcg/0.5 mL 02/19/2020 12:00:00 AM EST suspension 0 INJECT BY [facility] (FIRST DOSE) INJECT BY [facility] (FIRST DOSE) SOLD: 02/20/2020 [facility] gabapentin 100 MG Oral Capsule Gabapentin 100 MG Gabapentin 100 MG 02/18/2020 12:00:00 AM EST 1.0 {capsule} active G abapentin 100 MG eCW1 ([facility]) Gabapentin 300 MG UNK 02/18/2020 12:00:00 AM EST 1.0 {capsule} active Gabapentin 300 MG eCW1 ([facility]) Gabapentin 300 MG UNK 02/18/2020 12:00:00 AM EST 1.0 {capsule} active Gabapentin 300 MG eCW1 ([facility]) 100 mg 02/18/2020 12:00:00 AM EST capsule 90 TAKE ONE CAPSULE BY MOUTH THREE TIMES A DAY TAKE ONE CAPSULE BY MOUTH THREE TIMES A DAY SOLD: 02/18/2020 [facility] Gabapentin 300 MG UNK 02/18/2020 12:00:00 AM EST 1.0 {capsule} active Gabapentin 300 MG eCW1 ([facility]) Gabapentin 300 MG UNK 02/18/2020 12:00:00 AM EST 1.0 {capsule} active Gabapentin 300 MG eCW1 ([facility]) Gabapentin 300 MG UNK 02/18/2020 12:00:00 AM EST 1.0 {capsule} active Gabapentin 300 MG eCW1 ([facility]) 5-325 mg 02/16/2020 12:00:00 AM EST [...] MOUT H TWICE A DAY SOLD: 02/16/2020 [facility] 1 % 12/29/2019 12:00:00 AM EST [...] AM EST active Voltaren 1 % eCW1 ([facility]) Diclofenac Sodium 0.01 MG/MG Topical Gel [Voltaren] Voltaren 1 % Voltaren 1 % 12/24/2019 12:00:00 AM EST active Voltaren 1 % eCW1 ([facility]) Diclofenac Sodium 0.01 MG/MG Topical Gel [Voltaren] Voltaren 1 % Voltaren 1 % 12/24/2019 12:00:00 AM EST active Voltaren 1 % eCW1 ([facility]) Diclofenac Sodium 0.01 MG/MG Topical Gel [Voltaren] Voltaren 1 % Voltaren 1 % 12/24/2019 12:00:00 AM EST active Voltaren 1 % eCW1 ([facility]) Diclofenac Sodium 0.01 MG/MG Topical Gel [Voltaren] Voltaren 1 % Voltaren 1 % 12/24/2019 12:00:00 AM EST active Voltaren 1 % eCW1 ([facility]) Diclofenac Sodium 0.01 MG/MG Topical Gel [Voltaren] Voltaren 1 % Voltaren 1 % 12/24/2019 12:00:00 AM EST active Voltaren 1 % eCW1 ([facility]) Diclofenac Sodium 0.01 MG/MG Topical Gel [Voltaren] Voltaren 1 % Voltaren 1 % 12/24/2019 12:00:00 AM EST active Voltaren 1 % eCW1 ([facility]) Diclofenac Sodium 0.01 MG/MG Topical Gel [Voltaren] Voltaren 1 % Voltaren 1 % 12/24/2019 12:00:00 AM EST active Voltaren 1 % eCW1 ([facility]) Diclofenac Sodium 0.01 MG/MG Topical Gel [Voltaren] Voltaren 1 % Voltaren 1 % 12/24/2019 12:00:00 AM EST active Voltaren 1 % eCW1 ([facility]) Diclofenac Sodium 0.01 MG/MG Topical Gel [Voltaren] Voltaren 1 % Voltaren 1 % 12/24/2019 12:00:00 AM EST active Voltaren 1 % eCW1 ([facility]) Diclofenac Sodium 0.01 MG/MG Topical Gel [Voltaren] Voltaren 1 % Voltaren 1 % 12/24/2019 12:00:00 AM EST active Voltaren 1 % eCW1 ([facility]) Diclofenac Sodium 0.01 MG/MG Topical Gel [Voltaren] Voltaren 1 % Voltaren 1 % 12/24/2019 12:00:00 AM EST active Voltaren 1 % eCW1 ([facility]) 20 mg 12/10/2019 12:00:00 AM EST tablet extended release 14 TAKE ONE TABLET BY MOUTH EVERY DAY , MAXIMUM DAILY DOSE = 1 TABLET TAKE ONE TABLET BY MOUTH EVERY DAY , MAXIMUM DAILY DOSE = 1 TABLET SOLD: 12/10/2019 [facility] 8 HR Methylphenidate Hydrochloride 20 MG Extended Release Oral Tablet Methylphenidate HCl ER 20 MG Methylphenidate HCl ER 20 MG 12/08/2019 12:00:00 AM EST 1.0 {tablet} active Methylpheni date HCl ER 20 MG eCW1 ([facility]) 8 HR Methylphenidate Hydrochloride 20 MG Extended Release Oral Tablet Methylphenidate HCl ER 20 MG Methylphenidate HCl ER 20 MG 12/08/2019 12:00:00 AM EST 1.0 {tablet} active Methylpheni date HCl ER 20 MG eCW1 ([facility]) 8 HR Methylphenidate Hydrochloride 20 MG Extended Release Oral Tablet Methylphenidate HCl ER 20 MG Methylphenidate HCl ER 20 MG 12/08/2019 12:00:00 AM EST 1.0 {tablet} active Methylpheni date HCl ER 20 MG eCW1 ([facility]) 8 HR Methylphenidate Hydrochloride 20 MG Extended Release Oral Tablet Methylphenidate HCl ER 20 MG Methylphenidate HCl ER 20 MG 12/08/2019 12:00:00 AM EST 1.0 {tablet} active Methylpheni date HCl ER 20 MG eCW1 ([facility]) 5 mg 11/13/2019 12:00:00 AM EDT tablet 60 TAKE ONE TABLET BY MOUTH ON AN EMPTY STOMACH TWO TIMES A DAY, WITH BREAKFAST AND SUPPER TAKE ONE TABLET BY MOUTH ON AN EMPTY STOMACH TWO TIMES A DAY, WITH BREAKFAST AND SUPPER SOLD: 11/13/2019 [facility] Methylphenidate Hydrochloride 5 MG Oral Tablet [Ritali n] Ritalin 5 MG Ritalin 5 MG 2019 12:00:00 AM EDT 1.0 {tablet_on_an_empty_stomach} active Ritalin 5 MG eCW1 ([facility]) 100 mg 10/19/2019 12:00:00 AM EDT capsule 20 TAKE ONE CAPSULE BY MOUTH TWICE A DAY FOR 10 DAYS TAKE ONE CAPSULE BY MOUTH TWICE A DAY FOR 10 DAYS SOLD : 10/19/2019 [facility] Doxycycline Monohydrate 100 MG Oral Capsule Doxycycline [place] hydrate 10/18/2019 12:00:00 AM EDT ORAL active M EDENT ([facility]) 20 mg 09/04/2019 12:00:00 AM EDT tablet 10 TAKE ONE TABLET BY MOUTH TWICE A DAY TAKE ONE TABLET BY MOUTH TWICE A DAY SOLD: 09/04/2019 [facility] Insurance Providers Payer name Policy type / Coverage type Policy ID Covered republican ID Covered republican's relationship to garcia Policy Garcia Plan Information [facility] [id number] SP [id number] MEDICARE [id number] SP [id number] F45 UMR O [id number] S [id number] MEDICARE C [id number] S [id number] F45 UMR [facility] [id number] SP [id number] UMR [id number] Cheri [id number] MEDICARE [id number] Cheri [id number] F45 UMR O [id number] S [id number] DME Jurisdiction A NHIC C [id number] SELF [id number] UMR F [id number] SELF [id number] Medicare C [id number] SELF [id number] [id number] ANSI-Medicare Part B [id number] ANSI-Commercial [id number] ANSI-Commercial [id number] Umr Commercial [id number] Self [id number] ANSI-Commercial [id number] ANSI-Medicare Part B [id number] ANSI-Commercial [id number] ANSI-Medicare Part B [id number] ANSI-Commercial [id number] ANSI-Commercial [id number] ANSI-Commercial [id number] ANSI-Commercial [id number] ANSI-Medicare Part B [id number] ANSI-Medicare Part B [id number] ANSI-Commercial [id number] ANSI-Commercial [id number] Umr/Uhc/[employer] Medigap Part B [id number] Self [id number] Medicare Natl Gov't Servi Medicare Primary [id number] Self [id number] UMR F [id number] SELF [id number] Medicare C [id number] SELF [id number] F45 ANSI-Commercial [id number] ANSI-Medicare Part B [id number] ANSI-Commercial [id number] MEDICARE [id number] SP [id number] A Umr (pr) Medigap Part B [id number] Self [id number] Medicare Dme Supplies Medigap Part B [id number] Self [id number] [place] [id number] Self [id number] [place] (pr) Medigap Part B [id number] Self [id number] Umr (pr) Medigap Part B [id number] Self [id number] Medicare Dme Supplies Medigap Part B [id number] Self [id number] [place] [id number] Self [id number] Umr (pr) Medigap Part B [id number] Self [id number] Medicare Dme Supplies Medigap Part B [id number] Self [id number] [place] Primary [id number] Self [id number] Umr (pr) Medigap Part B [id number] Self [id number] Medicare Dme Supplies Medigap Part B [id number] Self [id number] [place] Primary [id number] Self [id number] [place] / UMR F [id number] SELF [id number] DME Jurisdiction A MOIC C [id number] SELF [id number] Medicare C [id number] SELF [id number] A Medicare Dme Supplies Medigap Part B [id number] Self [id number] [place] Primary [id number] Self [id number] [facility] PPO O [id number] S [id number] MEDICARE C [id number] S [id number] A [facility] [id number] SP [id number] [facility] [id number] SP [id number] [facility] [id number] SP [id number] MEDICARE [id number] SP [id number] A [facility] [id number] SP [id number] [employer] Medigap Part B [id number] Self [id number] Medicare/National Gov SVC Medicare Primary [id number] Self [id number] [place] F [id number] SELF [id number] [place] Medigap Part B [id number] Self [id number] [place] Primary [id number] Self [id number] [facility] [id number] Cheri [id number] MEDICARE [id number] Cheri [id number] A [employer] Medigap Part B Self Medicare/National Gov SVC Medicare Primary Self [id number] A [id number] Problems, Conditions, and Diagnoses Code Display Name Description Problem Type Effective Dates Data Source(s) M54.42 [id number] Acute left-sided low back pain w ith left-sided sciatica Problem 02/23/2020 12:00:00 AM EST eCW1 ([facility]) M54.5 [id number] Low back pain Problem 12/30/2019 12:00:00 AM EST eCW1 ([facility]) R29.818 [id number] Suspected sleep apnea Problem 12/30/2019 12: 00:00 AM EST eCW1 ([facility]) R79.89 [id number] Abnormal TSH Problem 2019 12:00:00 AM EDT eCW1 ([facility]) R93.89 [id number] Abnormal chest xray Problem 2019 12:00 :00 AM EDT eCW1 ([facility]) M46.1 [id number] Sacroiliitis Problem 07/02/2019 12:00:00 AM EDT eCW1 ([facility]) I48.0 Paroxysmal atrial fibrillation Paroxysmal atrial fibri llation Diagnosis 11/26/2019 01:49:45 PM EDT [facility] Surgeries/Procedures Procedure Description Date Indications Data Source(s) Immunization: Flublok Quadrivalent (18 years & older) 0.5mL IM (Influenza) 2019 12:00:00 AM EDT eCW1 ([facility]) OPHTH MEDICAL XM&EVAL COMPRHNSV ESTAB PT 1/> VST 07/29 12:00:00 AM EDT MEDENT ([facility]) DETERMINATION REFRACTIVE STATE 07/30/2019 12:00:00 AM EDT MEDENT ([facility]) Annual wellness visit, includes a person alized prevention plan of service (pps), subsequent visit 05/14/2019 12:00:00 AM EDT eCW 1 ([facility]) TeleMedicine Est. Pt. Level 4 05/14/2019 12:00:00 AM E DT eCW1 ([facility]) Results ID Date Data Source [id number] 03/11/2020 12:00:00 AM EST [facility] Name Value Range Interpretation Code Description Data Sahara rce(s) Supporting Document(s) SARS-CoV2 Rapid Antigen Negative [facility] This lab was ordered by [facility] and reported by [facility]. ID Date Data Source [id number] 03/10/2020 08:45:00 AM EST [facility] Name Value Range Interpretation Code Description Data Sahara rce(s) Supporting Document(s) SARS coronavirus 2 RNA Not Detected [facility] This lab was ordered by [facility] and reported by [facility]. ID Date Data Source [id number] 03/04/2020 11:24:00 AM EST [facility] Name Value Range Interpretation Code Description Data Sahara rce(s) Supporting Document(s) SARS coronavirus 2 RNA [Presence] in Res piratory specimen by MATEO with probe detection NEGATIVE [facility] This lab was ordered by [facility] a nd reported by [facility]. ID Date Data Source [id number] 02/27/2020 07:52:00 AM EST [facility] Name Value Range Interpretation Code Description Data Sahara rce(s) Supporting Document(s) SARS coronavirus 2 RNA [Presence] in Res piratory specimen by MATEO with probe detection NEGATIVE [facility] This lab was ordered by [facility] a nd reported by [facility]. ID Date Data Source [id number] 02/14/2020 10:59:18 PM EST [facility] Name Value Range Interpretation Code Description Data Sahara rce(s) Supporting Document(s) &PDF [facility] NOHUSu4rPfNIBmDn60/ZYRxxIBKge6WrZPgfYMe9KPfgHFNhQ2SygZgrWMjSUW9BMC5BO5vFWHijMVXj oRX [file] GARCÍA/zQbMjK03y/sYZEpdsH6+YvnckM1xanNnCZuy9vd [file] ICAgICAgICAgICAgICAgICAgICAgICAgICAgICAgIC AgICAgICAgICAgICAgICAgICAgICAgICAgICAgICAgICAgICAgICAgICAgICAgICAgICAgICAgICAgIC ANCiAgICAgICAgICAgICAgICAgICAgICAgICAgICAgICAgICAgICAgICAgICAgICAgICAgICAgICAgIC AgICAgICAgICAgICAgICAgICAgICAgICAgICAgICAg ICAgICAgICAgICANCiAgICAgICAgICAgICAgICAgICAgICAgICAgICAgICAgICAgICAgICAgICAgICAg ICAgICAgICAgICAgICAgICAgICAgICAgICAgICAgICAgICAgICAgICAgICAgICAgICAgICANCiAgICAg ICAgICAgICAgICAgICAgICAgICAgICAgICAgICAgIC AgICAgICAgICAgICAgICAgICAgICAgICAgICAgICAgICAgICAgICAgICAgICAgICAgICAgICAgICAgIC AgICANCiAgICAgICAgICAgICAgICAgICAgICAgICAgICAgICAgICAgICAgICAgICAgICAgICAgICAgIC AgICAgICAgICAgICAgICAgICAgICAgICAgICAgICAg ICAgICAgICAgICAgICANCiAgICAgICAgICAgICAgICAgICAgICAgICAgICAgICAgICAgICAgICAgICAg ICAgICAgICAgICAgICAgICAgICAgICAgICAgICAgICAgICAgICAgICAgICAgICAgICAgICAgICANCiAg ICAgICAgICAgICAgICAgICAgICAgICAgICAgICAgIC AgICAgICAgICAgICAgICAgICAgICAgICAgICAgICAgICAgICAgICAgICAgICAgICAgICAgICAgICAgIC AgICAgICANCiAgICAgICAgICAgICAgICAgICAgICAgICAgICAgICAgICAgICAgICAgICAgICAgICAgIC AgICAgICAgICAgICAgICAgICAgICAgICAgICAgICAg ICAgICAgICAgICAgICAgICANCiAgICAgICAgICAgICAgICAgICAgICAgICAgICAgICAgICAgICAgICAg ICAgICAgICAgICAgICAgICAgICAgICAgICAgICAgICAgICAgICAgICAgICAgICAgICAgICAgICAgICAN CiAgICAgICAgICAgICAgICAgICAgICAgICAgICAgIC AgICAgICAgICAgICAgICAgICAgICAgICAgICAgICAgICAgICAgICAgICAgICAgICAgICAgICAgICAgIC AgICAgICAgICANCjw/mPGwM3tqcXJsquF1B2vwKm8HNm2NJZ6zr2HgQDPdVYemnuGrQpbAYiYmREPzAc nFHmx8HZgdXI7FqULwL4GqR8RpUGkaTC3QPWHbKZPf kDBsVLHlKMNcIcH8UKUrLOebZA4YvLLkXRobNVDbTGIiVM7HXDAsH700yzXeCN3PJr0DOlAlUG4mzf8D EwOdWUNqKkhTZmp0YYfkGR2NtCPuA8PujXTti9vAAvNjR5BUJHQkIJDmZu6YQYSkEeFdZKGmWMpbUV0k TDWnSHSNoWubbaU1ZL5DWL3pqkAkKK1MNfZoKk2wJy 2HEdRxH6CfU5SnKKHtEBOYXConAH0LITMjHZS6QRPrAgZtHRLRCpZfH26bDE3RZ1The10wArY0LAEfFq ZkVOxvKJ84lVmbiuJirSNgrGciRD3PZs8+DQplbmRvYmoNCnhyZWYNCjAgMjUNCjAwMDAwMDAwMDAgNj G9QsSjBo2RXVZoEWNyMCWyYxYtZLKvEYWyEGejAGGg HZBzIKSeHFBsETMpXP9CXrIiGXImVbQ5FJCdFMJcHMOzmz8ZJGLoBAIuLLL9ADIwOCKoCIGiIRfiPKGf VXFqCMKmSQFrXCEhBL1YXxQdETRqMDXaFSTeYZIrZLPtjc3TZSBwYAOlLSYyTqYlTSEhXNSaUZxkPNSo CEV0ENF0QPUlCUVpUQ4PIdMlALOpQDZ9ZJyvHJNgQU Jerf4OAKNlIEMqZVH5FlAvJMTyYZAqFDmpFKBrJUF0AJB3OKNfODAwNW0ZWdScCXXeGITjBbUlGJVnBI Sfnl9SPRWlEKQuQBg6QpMxVIAhUYOkYZcsAZCyPYUbZrE0QGIkSTEyNG7FOaFlCANhVBM8HjCtIPTvOM Rooi8RUZPmIMCgRDK3RWKwFZUuDWQvZXweIEBqSUIt NKH1ONWtZJIkJG8XMwPaZZKlMRS3IBWuGQMhZIZats8XULBnHBVrHmcsBBXbTGFwDEEpZElrHYFoQOSo DJI4DLZqEROhZH1CYrSsOVJvIFi9TCKzBCCnEMDxhk6GSEEeCPJsETxkHHAiJFLiKRNsFVhuOSLrOWVf QxD4TNVwUFWrLR3ZKfDfKSSnHgI3GULgYGBmTLGljn 1HhSWicKsgxl2LCOyLAd4FyCzfIVX3BIorPa2xcENlPJKtPJZXWv6IavZwSQVbZHRFCOriAEMfWKNhA9 T5ZEQgISFhRMR5OtU0BJC8ZFGoIeO1M1C8VekfKmB5RACrKoRbGNSjM2PjVuruHmQ0QvT3DlQaGPPgEm RiN2M+YL2uLMw+Sg8Ap3GsemF4ebJxAEtvMfs2SF8UTIPWT5GQMo== ID Date Data Source MAGNESIUM LEVEL 12/24/2019 12:00:00 AM EST [facility] ([facility]) Name Value Range Interpretation Code Description Data Sahara rce(s) Supporting Document(s) 2.5 1.8-2.4 [facility] ([facility]) ID Date Data Source Basic Metabolic Profile (BMP) 12/24/2019 12:00:00 AM EST eCW 1 ([facility]) Name Value Range Interpretation Code Description Data Sahara rce(s) Supporting Document(s) 75 70-100 eCW1 ([facility]) 29 7-18 eCW1 ([facility]) 142 136-145 eCW1 ([facility]) 39.2 >42 eCW1 ([facility]) 1.79 0.70-1.30 eCW1 ([facility]) 31 21-32 eCW1 ([facility]) 109 98-107 eCW1 ([facility]) 4.7 3.5-5.1 eCW1 ([facility]) 9.1 8.8-10.2 eCW1 ([facility]) ID Date Data Source FREE T4 & TSH PANEL 12/24/2019 12:00:00 AM EST eCW1 ([facility]) Name Value Range Interpretation Code Description Data Sahara rce(s) Supporting Document(s) 1.29 0.76-1.46 eCW1 ([facility]) 0.274 0.358-3.740 eCW1 ([facility]) ID Date Data Source FREE T3 12/24/2019 12:00:00 AM EST eCW1 ([facility]) Name Value Range Interpretation Code Description Data Sahara rce(s) Supporting Document(s) 2.5 2.2-4.0 eCW1 ([facility]) ID Date Data Source [facility] CT Chest without contrast 11/24/2019 12:00:00 AM EDT eC W1 ([facility]) Name Value Range Interpretation Code Description Data Sahara rce(s) Supporting Document(s) [facility] Chest without contrast eCW1 ([facility]) ID Date Data Source [id number] 10/19/2019 10:31:00 AM EDT MEDENT ([facility]) Name Value Range Interpretation Code Description Data Sahara rce(s) Supporting Document(s) Glucose, Fasting 96 mg/dL 70-100 MEDENT ([facility], [facility]) Blood Urea Nitrogen 22 mg/dL 7-18 MEDENT ([facility], [facility]) Creatinine For GFR 1.66 mg/dL 0.70-1.30 MEDENT ([facility], [facility]) Glomerular Filtration Rate 42.9 MED ENT ([facility], [facility]) <content>Units are mL/min/1.73 m2</content>
<content></content>
<content>Chronic Kidney Disease Staging per NKF:</content>
<content></content>
<content>Stage I & II GFR >=60 Normal to Mildly Decreased</content>
<content>Stage III GFR 30- 59 Moderately Decreased</content>
<content>Stage IV GFR 15-29 Severely Decreased</content>
<content>Stage V GFR <15 Very Little GFR Left</content>
<content>ESRD GFR <15 on METAL [employer]URNITURE [employer]PERVIS[employer]</content>
<content></content> Sodium Level 142 meq/L 136-145 MEDENT ([facility], [facility]) Anion Gap 5 meq/L 8-16 MEDENT ([facility], [facility]) Chloride Level 109 meq/L 98-107 MEDENT ([facility]) Potassium Serum 4.7 meq/L 3.5-5.1 MEDENT ([facility], [facility]) Carbon Dioxide Level 28 meq/L 21-32 MEDENT ([facility]) Calcium Level 8.5 mg/dL 8.8-10.2 MEDENT ([facility], [facility]) Ast/Sgot 17 U/L 7-37 MEDENT ([facility], [facility]) Alt/SGPT 20 U/L 12-78 MEDENT ([facility]) Bilirubin,Total 0.5 mg/dL 0.2-1.0 MEDENT ([facility]) Alkaline Phosphatase 83 U/L 45-117 MEDENT ([facility]) Total Protein 5.8 GM/DL 6.4-8.2 MEDENT ([facility], [facility]) Albumin 2.8 GM/DL 3.2-5.2 MEDENT ([facility], [facility]) Albumin/Globulin Ratio 0.9 MEDENT ([facility], [facility]) ID Date Data Source [id number] 10/19/2019 10:31:00 AM EDT MEDENT ([facility], [facility]) Name Value Range Interpretation Code Description Data Sahara rce(s) Supporting Document(s) White Blood Count 10.5 10 4.0-10.0 MEDENT ([facility], [facility]) Red Blood Count 3.49 10 4.30-6.10 MEDENT ([facility], [facility]) Mean Corpuscular Volume 102.6 fl 80.0-96.0 M EDENT ([facility], [facility]) Hemoglobin 11.4 g/dL 13.5-17.5 MEDENT ([facility], [facility]) Hematocrit 35.8 % 42.0-52.0 MEDENT [facility] Mean Corpuscular Hemoglobin 32.7 pg 27.0-33.0 MEDENT ([facility], [facility]) Red Cell Distribution Width 13.3 % 11.5-14.5 MEDENT ([facility], [facility]) Mean Corpuscular HGB Conc 31.8 g/dL 32.0-36.5 MEDENT ([facility], [facility]) Platelet Count, Automated 551 10 150-450 MEDENT ([facility], [facility]) Lymph % 9.8 % 24.0-44.0 MEDENT ([facility], [facility]) Neutrophils % 76.0 % 36.0-66.0 MEDENT ([facility], [facility]) [place] % 12.1 % 0.0-5.0 MEDENT ([facility], [facility]) Immature Granulocyte % 0.9 % 0-3.0 MEDENT ([facility], [facility]) Baso % 0.4 % 0.0-1.0 MEDENT ([facility], [facility]) Eos % 0.8 % 0.0-3.0 MEDENT ([facility], [facility]) Neutrophils # 8.0 10 1.5-8.5 MEDENT ([facility], [facility]) Lymph # 1.0 10 1.5-5.0 MEDENT ([facility], [facility]) [place] # 1.3 10 0.0-0.8 MEDENT ([facility], [facility]) Nucleated Red Blood Cell % 0.0 % 0-0 MED ENT ([facility], [facility]) Baso # 0.0 10 0.0-0.2 MEDENT ([facility], [facility]) Eos # 0.1 10 0.0-0.5 MEDENT ([facility], [facility]) ID Date Data Source [id number] 09/19/2019 10:43:20 AM EDT [facility] PC[facility]: Hermilo Arguelles: 1Provider: Phyllis Long: 09/19/2019 AssessmentThe patient is here with his [...] him in follow-up on an as-needed basis.Procedure Teofilo is here for his Monovisc injection in [...] rce(s) Supporting Document(s) ID Date Data Source [id number] 09/09/2019 10:44:59 PM EDT [facility] PC[facility]: Hermilo Arguelles: 1Provider: Laura [...] Plan LE Economy Hinged Knee Brace (SOS) [id number]; Status:Complete; Done: 08Sep2019 Perform:SOS28; Due: 22Sep2019; Last Updated By:Genie Rico; 09/08/2019 2:09:14 PM;Ordered; For:Primary localized osteoarthritis of right knee, Right knee pain; Ordered By:Latrell Dumont Supply Size 1 (S,M,L) : 04: Large X-Ray I Knee - 3 views (XRays were ordered, obtained and interpreted today in theoffice. Indication: pain/dysfunction.); Status:Complete; Done: 08Sep2019 Perform:SOS28; Due:22Sep2019; Last Updated By:Yazmin Lawton; 09/08/2019 1:29:31 PM;Ordered; For:Right knee pain; Ordered By:Khoa DumontWeight Bearing Status : Weight bearingLaterality: : Right Sodium Hyaluronate Injection (SOS) Referral Treatment Treatment Status: NeedInformation - Financial Authorization Requested for: 08Sep2019 Ordered;For: Primary localized osteoarthritis of right knee, Right knee pain; Ordered By: Ronald Dumont Performed: Order Comments: schedule with Dr. Long Due: 22Sep2019; Last Updated By: Ida Nieto; 09/08/2019 2:41:32 PMReason: : OASOS Ultrasound Guided Injection : NoLaterality: : RightSodium Hyaluronate Injection : Monovisc [place] patient presents with right knee pain that [...] rce(s) Supporting Document(s) ID Date Data Source [id number] 02/06/2019 09:40:21 PM EST [facility] Name Value Range Interpretation Code Description Data Sahara rce(s) Supporting Document(s) &PDF [facility] NONLIa3kLdYVSbXk94/QGLkqBYQwk1GiXBqmJUg6TBflEJTsT0IgqSshUYoQOH5NOF4WJ0cPPTunGDXt oRX [file] fRsf+García/nWDKTpduX8IrO0sWpwq/YybPK/BJ4YJhh+7BuA5HqbeVSiy98ybEIAQ5fRsOQac33dnRGEB9 [file] ICAgICAgICAgICAgICAgICAgICAgICAgICAgICAgICAgICAgICAgICAgICAgICAgICAgICAgICAgICAg ICAgICAgICAgICAgICAgICAgICAgICAgICAgICAgIA 0KICAgICAgICAgICAgICAgICAgICAgICAgICAgICAgICAgICAgICAgICAgICAgICAgICAgICAgICAgIC KoNWHhLERaYEWpKVLxRFJvWNPzREPjZXFyVLKzRVOkHGRzWRXxYBPmVM7BFVEfOZTlOHVhETGyIDCeRI AgICAgICAgICAgICAgICAgICAgICAgICAgICAgICAg NFSvEJLvYOWbMEUlICYgGODmCXOvFHAmKEQkZQUcAJFnKYVsMCSfNEXpVYEjYUTwZZOrDR5VHCIgVTTn ICAgICAgICAgICAgICAgICAgICAgICAgICAgICAgICAgICAgICAgICAgICAgICAgICAgICAgICAgICAg ICAgICAgICAgICAgICAgICAgICAgICAgICAgICAgIC ClEE2OIZDoKNCtVZPrOZBkXQFkSCHwYEUlJKXvIYLoHVBjHEQxMTWpWFFmPZCeTJNgESSzLCKsKHOaUD TrBPPqLFMmKWLhGSSoPQTwHBWlDFWsMYItWJByWOOiWPLxYCBmCUIiESKjAR2BVDMyGHMlHYQvIHGdSO AgICAgICAgICAgICAgICAgICAgICAgICAgICAgICAg YZDnLTUmNYWpZQQdJEQhOFOlTRYgPSOuFRTzGAMkPAAyJNVoCEDuSUEbLBIeLQZeCHTqNQZmLM2DTLIq ICAgICAgICAgICAgICAgICAgICAgICAgICAgICAgICAgICAgICAgICAgICAgICAgICAgICAgICAgICAg ICAgICAgICAgICAgICAgICAgICAgICAgICAgICAgIC CeHAJiYK6DEUHoNZItONWeNEMrGFWcAQXcXEHtLBHfRWWnNSNpHGWlOCReBMPaPKIlHDImBYIaQWRlWM NvUQNvBVIkZVLkFVPgWIJpCOYpUHTsBGWfAXFfLCSzCFNiSKSnJWHuRYKzWBTkBQ0SRUYxCFRwRHZvCB AgICAgICAgICAgICAgICAgICAgICAgICAgICAgICAg TSNwISPkVTRwREDiQFFnELLzUQGnFCEfQSViKVHaEXBpKNChNJVaSTNeNBKbKVQzWFVhAZEbSFWeNW5K ICAgICAgICAgICAgICAgICAgICAgICAgICAgICAgICAgICAgICAgICAgICAgICAgICAgICAgICAgICAg ICAgICAgICAgICAgICAgICAgICAgICAgICAgICAgIC KoNHNiNTTyQA9FBS93pTBay7G6EVOgUT7qysz/Zw1YPUtzsoWfpQJiIM0SBbGpXY2agy3XGuSfHB7yzx 9PGUtEYmWqR3J5hTEoWRGtSFGQGpBpW13kNKlvXl92JQmgBWYyMuZcTXm3Ji3OGrZlZ9lxDCOzXpJ1YS RpVdCzFMxyHA2Qv1UewOWdMCm+Bs2DDI9ku6DvGJmt RdYiYO5lxn5ELViKOtUeQ0Q0wREsL4V5ETimAz4KELKhEUYmINPbVJOEBGztDX8API6aohZ0RB8RkRLg GRYlUUEjqYKmFZn6I33qsHFwKAapTW0YEIS+Tyrone+Hv3JVCIsPPYpGYAhReBeUNVARcAgX69cpEBaVWDs FVI7JLRoOx9NQMHrE1LjugXvbMibbaBpDYGxGGKOMF 6DHBvwgqCcyAJafOpxED99xKyqZC2YJg1OSlIaYU8gvq3CwEMhUp1RCZFiMy3XZGPpZCQhEVZmECV9CI PsPuCaLWcyVXWfANAbXUQ4BKOaXZNfYL0TLyBtIGHmGJKbUukdTRFkBMCngo4TOQJpWMIzAQx6SKAkMF TzZBLxZFvkCMYiHSOfFYreDOYuXNEeMQ2NBhQgNJDj CDO9ESVlJYFmEVBwlt6ZHCWmOKZjQrnoIXMbXJXmVHOwSOraXAFoXWDvBgiuXIMkXEQnRN6SOvGpWPKr WLB5QmueCWPvBPFuho8RQZAdOBOrZAS2WLFgWVBhLGEoKLthGBFcLFR9NJR2JZXpGGOeQW7BJjCbEEVg AXYvEAvcQXLiDHEtfx9CIKMsFIByTYT7PmAjMPFnWG GlEPokKHMoKUOpIDt0LJNsPUZsYU8KRkZwENMqQQAoJXRtZGIwTRRtba2BECShWMLiMEAzIFMcDCJhHS NlKDhlARGiJPI5FZK9OPIoZTGwYD0CUnWwGDkbEIKXQhs1MAimV6f6QFWoIe1UN3Wit2EyDBSqDVJRHT oeRC3yfeZdHNSoOu0VL0lQZfxcQJR8CMI1EHLoCQV5 KHKdQwn5YuN7TfKwYzHqVPQoYZ6dHMT0HwJbYkb6TIOpLMNzU8H8MltiVirjCdA6TGZvBsKmCnDvWD6I El3LIyJ2WUA1oWKbCo4FBALqTGFHRaMeRX8CARy= Procedure Social History Code Duration Value Status Description Data Source(s ) Smoking 02/23/2020 12:00:00 AM EST Never Smoker completed Never S moker eCW1 ([facility]) Smoking 02/23/2020 12:00:00 AM EST Never Smoker completed Never S moker eCW1 ([facility]) Smoking 02/23/2020 12:00:00 AM EST Never Smoker completed Never S moker eCW1 ([facility]) Smoking 02/23/2020 12:00:00 AM EST Never Smoker completed Never S moker eCW1 ([facility]) Smoking 02/23/2020 12:00:00 AM EST Never Smoker completed Never S moker eCW1 ([facility]) Smoking 12/30/2019 12:00:00 AM EST Never Smoker completed Never S moker eCW1 ([facility]) Smoking 12/30/2019 12:00:00 AM EST Never Smoker completed Never S moker eCW1 ([facility]) Smoking 12/30/2019 12:00:00 AM EST Never Smoker completed Never S moker eCW1 ([facility]) Smoking 12/30/2019 12:00:00 AM EST Never Smoker completed Never S moker eCW1 ([facility]) Smoking 12/24/2019 12:00:00 AM EST Never Smoker completed Never S moker eCW1 ([facility]) Smoking 12/24/2019 12:00:00 AM EST Never Smoker completed Never S moker eCW1 ([facility]) Smoking 12/24/2019 12:00:00 AM EST Never Smoker completed Never S moker eCW1 ([facility]) Smoking 2019 12:00:00 AM EDT Never Smoker completed Never S moker eCW1 ([facility]) Smoking 2019 12:00:00 AM EDT Never Smoker completed Never S moker eCW1 ([facility]) Smoking 10/18/2019 12:00:00 AM EDT Patient has never smoked co mpleted Patient has never smoked MEDENT ([facility]) Smoking 07/30/2019 12:00:00 AM EDT Patient has never smoked co mpleted Patient has never smoked MEDENT ([facility]) Smoking 07/02/2019 12:00:00 AM EDT Never Smoker completed Never S moker eCW1 ([facility]) Smoking 07/02/2019 12:00:00 AM EDT Never Smoker completed Never S moker eCW1 ([facility]) Vital Signs ID Date Data Source UNK Name Value Range Interpretation Code Description Data Source(s) Diastolic blood pressure 62 mm[Hg] 62 mm[Hg] eCW1 ([facility]) Systolic blood pressure 110 mm[Hg] 110 mm[Hg] e CW1 ([facility]) Body temperature 98.2 [degF] 98.2 [degF] eCW1 ( [facility]) Respiratory rate 18 /min 18 /min eCW1 ([facility]) Heart rate 70 /min 70 /min eCW1 ([facility] Body mass index (BMI) [Ratio] 29.41 kg/m2 29.41 kg/m2 W1 ([facility]) Body height 70 [in_i] 70 [in_i] eCW1 ([facility]) Body weight 205 [lb_av] 205 [lb_av] eCW1 ([facility]) Diastolic blood pressure 82 mm[Hg] 82 mm[Hg] eCW1 ([facility]) Systolic blood pressure 128 mm[Hg] 128 mm[Hg] e CW1 ([facility]) Body temperature 97.3 [degF] 97.3 [degF] eCW1 ( [facility]) Respiratory rate 18 /min 18 /min eCW1 ([facility]) Heart rate 87 /min 87 /min eCW1 ([facility]) Body mass index (BMI) [Ratio] 29.70 kg/m2 29.70 kg/m2 eCW1 ([facility]) Body height 70 [in_i] 70 [in_i] eCW1 ([facility]) Body weight 207.0 [lb_av] 207.0 [lb_av] eCW1 ([facility]) Diastolic blood pressure 70 mm[Hg] 70 mm[Hg] eCW1 ([facility]) Systolic blood pressure 138 mm[Hg] 138 mm[Hg] e CW1 ([facility]) Body temperature 96.1 [degF] 96.1 [degF] eCW1 ( [facility]) Respiratory rate 18 /min 18 /min eCW1 ([facility]) Heart rate 75 /min 75 /min eCW1 ([facility]) Body mass index (BMI) [Ratio] 30.13 kg/m2 30.13 kg/m2 eCW1 ([facility]) Body height 70 [in_i] 70 [in_i] eCW1 ([facility]) Body weight 210 [lb_av] 210 [lb_av] eCW1 ([facility]) Diastolic blood pressure 80 mm[Hg] 80 mm[Hg] eCW1 ([facility]) Systolic blood pressure 158 mm[Hg] 158 mm[Hg] e CW1 ([facility]) Body temperature 97 [degF] 97 [degF] eCW1 ([facility]) Respiratory rate 18 /min 18 /min eCW1 ([facility]) Heart rate 95 /min 95 /min eCW1 ([facility]) Body mass index (BMI) [Ratio] 30.50 kg/m2 30.50 kg/m2 eCW1 ([facility]) Body height 70 [in_i] 70 [in_i] eCW1 ([facility]) Body weight 212.6 [lb_av] 212.6 [lb_av] eCW1 ([facility]) Diastolic blood pressure 80 mm[Hg] 80 mm[Hg] eCW1 ([facility]) Systolic blood pressure 158 mm[Hg] 158 mm[Hg] e CW1 ([facility]) Body temperature 97 [degF] 97 [degF] eCW1 ([facility]) Respiratory rate 18 /min 18 /min eCW1 ([facility]) Heart rate 95 /min 95 /min eCW1 ([facility]) Body mass index (BMI) [Ratio] 30.50 kg/m2 30.50 kg/m2 eCW1 ([facility]) Body height 70 [in_i] 70 [in_i] eCW1 ([facility]) Body weight 212.6 [lb_av] 212.6 [lb_av] eCW1 ([facility]) Body mass index (BMI) [Ratio] 29.0 kg/m2 29.0 k g/m2 MEDENT ([facility], [facility]) Body height 72 [in_i] 72 [in_i] MEDENT ([facility], [facility]) 6'0" Body weight 214.00 [lb_av] 214.00 [lb_av] MEDEN T ([facility], [facility]) Body temperature 98.7 [degF] 98.7 [degF] MEDENT ([facility], [facility]) Oxygen saturation in Arterial blood by Pulse oximetry 95 % 95 % [facility] ([facility], [facility]) Respiratory rate 16 /min 16 /min MEDENT ( [facility], [facility]) Heart rate 103 /min 103 /min MEDENT ([facility], [facility]) 80 regular Diastolic blood pressure 93 mm[Hg] 93 mm[Hg] MEDENT ([facility], [facility]) Systolic blood pressure 157 mm[Hg] 157 mm[Hg] M EDENT ([facility], [facility]) Intraocular pressure Left eye 13 mm[Hg] 13 mm[ Hg] MEDENT ([facility]) Al-, Applanation 01:29 PM Intraocular pressure Right eye 11 mm[Hg] 11 mm [Hg] MEDENT ([facility]) Diastolic blood pressure 84 mm[Hg] 84 mm[Hg] eCW1 ([facility]) Systolic blood pressure 144 mm[Hg] 144 mm[Hg] e CW1 ([facility]) Body temperature 98.1 [degF] 98.1 [degF] eCW1 ( [facility]) Respiratory rate 18 /min 18 /min eCW1 ([facility]) Heart rate 67 /min 67 /min eCW1 ([facility]) Body mass index (BMI) [Ratio] 29.96 kg/m2 29.96 kg/m2 eCW1 ([facility]) Body height 70 [in_i] 70 [in_i] eCW1 ([facility]) Body weight 208.8 [lb_av] 208.8 [lb_av] eCW1 ([facility]) Body mass index (BMI) [Ratio] 29.12 kg/m2 29.12 kg/m2 eCW1 ([facility]) Body height 70 [in_us] 70 [in_us] eCW1 ([facility]) Body weight Measured 203 [lb_av] 203 [lb_av] eC W1 ([facility]) Patient Treatment Plan of Care Planned Activity Planned Date Details Description Data Source (s) Medrol (Joe) 4 MG 02/25/2020 12:00:00 AM EST eCW1 ([facility]) Medrol (Joe) 4 MG 02/25/2020 12:00:00 AM EST eCW1 ([facility]) tramadol hydrochloride 50 MG Oral Tablet 02/23/2020 12:00:00 AM EST eCW1 ([facility]) tramadol hydrochloride 50 MG Oral Tablet 02/23/2020 12:00:00 AM EST eCW1 ([facility]) tramadol hydrochloride 50 MG Oral Tablet 02/23/2020 12:00:00 AM EST eCW1 ([facility]) tramadol hydrochloride 50 MG Oral Tablet 02/23/2020 12:00:00 AM EST eCW1 ([facility]) tramadol hydrochloride 50 MG Oral Tablet 02/23/2020 12:00:00 AM EST eCW1 ([facility]) Gabapentin 300 MG 02/18/2020 12:00:00 AM EST eCW1 ([facility]) Gabapentin 300 MG 02/18/2020 12:00:00 AM EST eCW1 ([facility]) Gabapentin 300 MG 02/18/2020 12:00:00 AM EST eCW1 ([facility]) Gabapentin 300 MG 02/18/2020 12:00:00 AM EST eCW1 ([facility]) Gabapentin 300 MG 02/18/2020 12:00:00 AM EST eCW1 ([facility]) gabapentin 100 MG Oral Capsule 02/18/2020 12:00:00 AM EST eCW1 ([facility]) Diclofenac Sodium 0.01 MG/MG Topical Gel [Voltaren] 12/24/19 12:00:00 AM EST eCW1 ([facility]) Diclofenac Sodium 0.01 MG/MG Topical Gel [Voltaren] 12/24/19 12:00:00 AM EST eCW1 ([facility]) Diclofenac Sodium 0.01 MG/MG Topical Gel [Voltaren] 12/24/19 12:00:00 AM EST eCW1 ([facility]) 8 HR Methylphenidate Hydrochloride 20 MG Extended Rele ase Oral Tablet 12/08/2019 12:00:00 AM EST eCW1 ([facility]) Methylphenidate Hydrochloride 5 MG Oral Tablet [Ritali n] 2019 12:00:00 AM EDT eCW1 ([facility])
[2020-03-19] MEDS ORDERED: ACET650T61 PO (15:51)
[2020-03-19] MEDS ORDERED: ACET-907 PO (15:51)
[2020-03-19] MEDS ORDERED: MIRA1POW3 PO (15:51)
[2020-03-19] MEDS ORDERED: VITMTA PO (15:51)
[2020-03-19] MEDS ORDERED: MILKSUS3 PO (15:51)
[2020-03-19] MEDS ORDERED: DULC10SU2 PR (15:51)
[2020-03-19] MEDS ORDERED: SENN1TAB41 PO (15:51)
[2020-03-19] MEDS ORDERED: ENEMENE PR (15:51)
[2020-03-19] MEDS ORDERED: MOM30SS PO (15:51)
[2020-03-19 16:08] LABS: BASO % 0.1 % (0.0-1.0); EOS % 0.2 % (0.0-3.0); HEMATOCRIT 32.7 % (42.0-52.0); HEMOGLOBIN 10.2 g/dl (13.5-17.5); LYMPH # 0.6 10^3/uL (1.5-5.0); LYMPH % 6.5 % (24.0-44.0); MEAN CORPUSCULAR HGB CONC 31.2 g/dl (32.0-36.5); MEAN CORPUSCULAR VOLUME 102.5 fl (80.0-96.0); MONO % 10.7 % (2.0-8.0); NEUTROPHILS # 7.7 10^3/uL (1.5-8.5); NEUTROPHILS % 81.4 % (36.0-66.0); PLATELET COUNT, AUTOMATED 311 10^3/uL (150-450); RED BLOOD COUNT 3.19 10^6/uL (4.30-6.10); WHITE BLOOD COUNT 9.5 10^3/uL (4.0-10.0)
[2020-03-19 16:19] LABS: INR 1.66; PARTIAL THROMBOPLASTIN TIME 39.2 SECONDS (24.2-38.5)
[2020-03-19 16:41] LABS: ALBUMIN 2.6 GM/DL (3.2-5.2); BILIRUBIN,DIRECT 0.4 MG/DL (0.0-0.2); BILIRUBIN,TOTAL 0.9 MG/DL (0.2-1.0); CALCIUM LEVEL 8.5 MG/DL (8.8-10.2); CK-MB VALUE MASS 6.2 NG/ML (<3.6); CREATININE FOR GFR 1.39 MG/DL (0.70-1.30); GLOMERULAR FILTRATION RATE 52.5 (>42); MB/CK RELATIVE INDEX 5.44 (< OR =4); POTASSIUM SERUM 3.5 MEQ/L (3.5-5.1); THYROID STIMULATING HORMONE 1.14 uIU/ML (0.358-3.740); TOTAL PROTEIN 5.4 GM/DL (6.4-8.2); TROPONIN I 0.06 NG/ML (< 0.10)
--- NOTE | 2020-03-19 17:07 | REP ---
INDICATION: known PE eval for DVT. COMPARISON: Comparison duplex venous sonography 03 March 2020. Comparison prior sonography 04 September 2019.. TECHNIQUE: Bilateral lower extremity venous Doppler sonography is carried out. 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 On the right Smyth's cyst measures 7.0 x 1.6 x 1.9 cm. The left-sided Smyth's cyst measures 3.2 x 0.9 x 1.8 cm. There is nonocclusive deep venous thrombus in the right popliteal vein. The remainder of the deep venous system in the right lower extremity is anechoic and compressible on 2 dimensional scanning and shows normal Doppler characteristics. In the left lower extremity there is also nonocclusive deep vein thrombosis in a short segment of the left popliteal vein. The left femoral vein and common femoral vein segment are clear. IMPRESSION: Positive study for a short segment of nonocclusive deep vein thrombosis involving the popliteal veins bilaterally. 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 <Electronically signed by Abhishek Quarles > 03/19/20 0919
[2020-03-19] MEDS ORDERED: ACETAMINOPHEN TAB 650MG DOSE (2X325MG) PO PRN (17:30)
[2020-03-19] MEDS ORDERED: BISACODYL 10 MG SUPP PR PRN (17:30)
[2020-03-19] MEDS ORDERED: FLEET ENEMA PR PRN (17:30)
[2020-03-19] MEDS ORDERED: MOM 30ML SUSPENSION UDC PO PRN ×2 (17:30)
--- NOTE | 2020-03-19 17:45 | HPEPDOC ---
[facility] Medical History & Physical Date of Admission Mar 19, 2020 Date of Service: Mar 19, 2020 History and Physical CHIEF COMPLAINT: Shortness of breath HISTORY OF PRESENT ILLNESS: 79-year-old male history of degenerative disc disease, atrial fibrillation was receiving subacute rehabilitation when he was experiencing sudden onset shortness of breath brought to the emergency department found to have bilateral lower extremity DVT as well as bilateral PE. Patient was at bedside with his he was recently admitted to the hospital and discharged for rehabilitation. At the hospital patient had been evaluated for back pain and fall with large ecchymoses. At that time his Xarelto stopped for his atrial fibrillation due to dropping hemoglobin and high risk of falls. Patient was doing well at rehabilitation when today he had sudden onset shortness of breath and he was brought to the emergency department. Patient tells me that his shortness of breath was not associated with any chest pain or palpitations. He felt well otherwise and had no recent falls. He was tested for Covid 2 days ago and was negative. In the emergency department CT PE revealed multiple large bilateral pulmonary emboli and lower extremity duplex revealed bilateral nonocclusive DVT. I discussed the findings and plan with the patient and his at bedside. Patient will be admitted to the PCU for further medical workup and management. 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 No family history reported of hypercoagulability. ALLERGIES: Please see below. REVIEW OF SYSTEMS: 10 point review of systems complete all negative otherwise stated in HPI HOME MEDICATIONS: Please see below. PHYSICAL EXAMINATION: Constitutional: Awake and alert, in no apparent distress ENT: Sclera are clear. Mucosa is moist. Respiratory: Lungs diminished breath sounds bilaterally. No respiratory distress. No use of accessory muscles. He is on 2 L of oxygen by nasal cannula saturating at 93% Cardiovascular: Irregular heart rate. Rate is 92 on monitor. Gastrointestinal: Abdomen is soft, non distended, non tender, BS present. Musculoskeletal: His lower extremities bilaterally swollen left side more than right without erythema or signs of infection. Homans is positive bilaterally. Neurologic: No focal neurological deficit. Mental Status: A&O x3, normal affect Skin: There appears to be very minor reminiscence of ecchymosis over the left side of his back and thigh from the fall that was managed at his last admission. Otherwise skin appears intact. LABORATORY DATA: See below. IMAGING: Lower extremity duplex reveals bilateral nonocclusive DVT. Chest CT angio reveals multiple large bilateral pulmonary emboli See chart for detailed reports MICROBIOLOGY: Please see below. ASSESSMENT/PLAN 79-year-old male history of degenerative disc disease, atrial fibrillation was receiving subacute rehabilitation when he was experiencing sudden onset shortness of breath brought to the emergency department found to have bilateral lower extremity DVT as well as bilateral PE. Patient admitted to the hospital for further workup and management. # Bilateral pulmonary emboli: PCU on tele. 03/09 LE DVT. Heparin drip, which may be switched after close monitoring to an oral agent if appropriate at that time. Monitor hgb/signs of bleeding. Troponin negative. Fu Echo to evaluate for right heart strain. Titrate oxygen to maintain o2>92%. repeat COVID as it is a hypercoagulable disease with recent exposure to high risk environments. # Bilateral lower extremity DVT: Management as above. Nonocclusive. May have been provoked by decreased mobility over the past month since his fall as well as the large extensive ecchymosis he incurred on the left side and the last visit. Legs are swollen ambulation is poor assisted ambulation only, PT/OT. # Atrial fibrillation: His rate is controlled, on amiodarone. He was taken off of Xarelto upon discharge last month due to falling hemoglobin and extensive ec chymoses. At this time his ecchymosis is almost completely resolved and his hemoglobin is close to baseline therefore I will start him on anticoagulation and monitor him closely for signs of bleeding and monitor his hemoglobin. # CKD: appears to better than his baseline. Mointor BMP. Avoid nephrotoxins. I will avoid using Lovenox to treat his PE/DVT. # Hypertension: Continue home meds. Monitor and titrate GERD with Nguyen's esophagus: PPI # HFpEF: At this time he appears euvolemic he has no crackles on his lungs and no JVD however is difficult to assess his legs for edema as they're both swollen likely due to the DVT. Continue his home medications. Fu Echo. # Degenerative disc disease with radicular pain: Pain control. Gabapentin. PT/OT. # DVT prophylaxis: Heparin drip Disposition: Patient anticipated to be admitted for greater than 2 midnights. At time of discharge patient may need to go back and continue subacute rehabilitation. I have discussed the plan and findings with his Leonila Allred [phone] [facility] Vital Signs Vital Signs Date Time Temp Pulse Resp B/P (MAP) Pulse Ox O2 Delivery O2 Flow Rate FiO2 03/19/20 16:00 97 20 145/75 (98) 97 Nasal Cannula 2.0 03/19/20 15:04 97.7 Laboratory Data Labs 24H Laboratory Tests 2 03/19/20 15:45: Immature Granulocyte % (Auto) 1.1, Neutrophils (%) (Auto) 81.4H, Lymphocytes (%) (Auto) 6.5L, Monocytes (%) (Auto) 10.7H, Eosinophils (%) (Auto) 0.2, Basophils (%) (Auto) 0.1, Neutrophils # (Auto) 7.7, Lymphocytes # (Auto) 0.6L, Monocytes # (Auto) 1.0H, Eosinophils # (Auto) 0.0, Basophils # (Auto) 0.0, Nucleated Red Blood Cells % (auto) 0.2H, Prothrombin Time 20.0H, Prothromb Time International Ratio 1.66, Activated Partial Thromboplast Time 39.2H, Anion Gap 8, Glomerular Filtration Rate 52.5, Calcium Level 8.5L, Total Bilirubin 0.9, Direct Bilirubin 0.4H, Aspartate Amino Transf (AST/SGOT) 25, Alanine Aminotransferase (ALT/SGPT) 34, Alkaline Phosphatase 113, Total Creatine Kinase 114, Creatine Kinase MB 6.2H, Creatine Kinase MB Relative Index 5.44H, Troponin I 0.06, Total Protein 5.4L, Albumin 2.6L, Albumin/Globulin Ratio 0.9, Thyroid Stimulating Hormone (TSH) 1.140 03/19/20 17:08: CBC/BMP Laboratory Tests 03/19/20 15:45 Home Medications Scheduled Acetaminophen (Tylenol Arthritis) 650 Mg Tablet.er, 650 MG PO BID Amiodarone HCl (Amiodarone HCl) 200 Mg Tablet, 200 MG PO Q2D QPM Citalopram Hydrobromide (Citalopram HBr) 20 Mg Tab, 30 MG PO DAILY Esomeprazole Magnesium (Esomeprazole Magnesium) 40 Mg Cap, 40 MG PO DAILY Gabapentin (Gabapentin) 300 Mg Capsule, 300 MG PO BID Multivitamins (Thera M Plus Tablet) 1 Each Tablet, 1 TAB PO DAILY Polyethylene Glycol 3350 (Miralax) 17 Gm Powd.pack, 17 GM PO DAILY Sennosides/Docusate Sodium (Senna-S Tablet) 1 Each Tablet, 2 TAB PO BID Scheduled PRN Acetaminophen (Tylenol) 325 Mg Tablet, 650 MG PO Q4H PRN for PAIN Bisacodyl (Dulcolax) 10 Mg Supp.rect, 10 MG NV DAILY PRN for CONSTIPATION Milk Of Magnesia (Milk of Magnesia) 2,400 Mg/10 Ml Oral.susp, 10 ML PO DAILY PRN for CONSTIPATION Sodium Phosphate,[place]-Dibasic (Enema) 133 Ml Enema, 1 ROSY NV DAILY PRN for CONSTIPATION Allergies Coded Allergies: naproxen (Verified Allergy, Intermediate, HIVES, 03/19/20) Penicillins (Unverified Allergy, Unknown, 03/19/20) A-FIB/CHADSVASC A-FIB History Current/History of A-Fib/PAF?: Yes Current PO Anticoag Therapy: Yes KAY HENDERSON MD Mar 19, 2020 17:32
[2020-03-19] MEDS: AMIODARONE 200 MG TAB (PACERONE) PO SCH (18:11)
--- OUTSIDE RECORDS SUMMARY | 2020-03-19 18:11 | CCD ---
Author Author [facility] Address Unknown Phone Unavailable Care Team Providers Care Shot Blaster Name Role Phone DEIRDRE GALLAGHER MD Unavailable [...] Unavailable DEIRDRE GALLAGHER MD Unavailable Unavailable DEIRDRE GALLAGHRE MD Unavailable Unavailable DEIRDRE GALLAGHER MD Unavailable [...] Unavailable Unavailable Duncan DUMONT MD Unavailable Unavailable Dunacn DUMONT MD Unavailable Unavailable Duncan DUMONT MD [...] ABDIRIZAK, LISS STEPHENSON Unavailable Unavailable ABDIRIZAK, LISS STEPEHNSON Unavailable Unavailable ABDIRIZAK, LISS STEPHENSON Unavailable Unavailable [...] Jr AKHTAR MD Unavailable Unavailable OROPEZA, Jr AKTHAR MD Unavailable Unavailable OROPEZA, Jr AKHTAR MD [...] OROPEZA, Jr AKHTAR MD Unavailable Unavailable OROPEZA, rJ AKHTAR MD Unavailable Unavailable OROPEZA, Jr AKHTAR [...] is protected by Article 27-F of the [facility] Public Health law. If you continue you may have access to information: Regarding HIV / AIDS; Provided by facilities licensed or operated by the [facility] Office of Mental Health; or Provided by the [facility] Office for People With Developmental Disabilities. If such information is present, then the following [facility] mandated warning applies: This information has been [...] law may result in a fine or halfway sentence or both. A general authorization for the release of medical or other information is NOT sufficient authorization for further disc losure. Allergies and Adverse Reactions Type Description Substance Reaction Status Data Source(s ) Drug allergy Aleve Naproxen Anaphylaxis Active eCW1 ([facility]) NSAIDS NSAIDS NSAIDS Anaphylaxis Active eCW1 ([facility]) Family History Family Member Name Family Member Gender Family Member Status Date o f Status Description Data Source(s) Unknown Unknown Problem MEDENT ([facility]) Unknown Male Problem MEDENT ([facility]) Unknown Male Problem MEDENT ([facility]) Encounters Encounter Providers Location Date Indications Data Source(s ) [place] [address] [facility] [address] 02/25/2020 12:00:00 AM EST eCW1 ([facility]) Unknown [address] [facility] [place] [address] 02/23/2020 12:00:00 AM EST eCW1 ([facility]) Outpatient [address] [facility] [place] [address] 02/23/2020 12:00:00 AM EST eCW1 ([facility]) Unknown [address] [facility] [place] [address] 02/20/2020 12:00:00 AM EST [facility]CW1 [facility] [place] [address] [facility] [address] 02/19/2020 12:00:00 AM EST [facility] [place] [address] [facility] [address] 02/18/2020 12:00:00 AM EST [facility] Unknown [address] [facility] [place] [address] 02/16/2020 12:00:00 AM EST eCW1 [facility]) Outpatient SJP-SJP 02/14/2020 11:00:12 PM EST [facility] Outpatient HAZEL-DOMP.RACHAEL 02/12/2020 12:00:00 AM EST [facility] Outpatient [address] [facility] [place] [address] 12/30/2019 12:00:00 AM EST eCW1 ([facility] Unknown [address] [facility] [address] 12/26/2019 12:00:00 AM EST eCW1 ([facility]) Office Visit, Est Pt., Level 3 PC [address] [place] [address] 12/24/2019 12:00:00 AM EST eCW1 ([facility]) Unknown [address] [facility] [address] 12/24/2019 12:00:00 AM EST eCW1 ([facility]) Unknown [address] [facility] [place] [address] 12/08/2019 12:00:00 AM EST eCW1 ([facility]) Outpatient LIZZ.CANDACE 11/28/2019 04:04:59 PM EDT [facility] Outpatient Attender: LISS QUEEN.RACHAEL 12:00:00 AM EDT - 11/26/2019 02:29:21 PM EDT [facility] Outpatient [address] [facility] [address] 2019 12:00:00 AM EDT eCW1 ([facility]) Outpatient Attender: IVORY Teresa 10/18/2019 04:30:00 PM EDT MEDENT ([facility]) Outpatient Attender: DOMINIK LONG MDReferrer: Jason Soto MD 09/19/2019 10:43:20 AM EDT [facility] Outpatient Attender: RONALD DUMONT MDReferrer: Jason vitale MD 09/09/2019 10:44:59 PM EDT [facility] Recurring Patient Attender: HERMILO OROPEZA MDReferrer: KAUSHIK FUENTES MD 09/08/2019 01:14:19 PM EDT [facility] Rec[facility] Patient Attender: HERMILO OROPEZA MDReferrer: KAUSHIK FUENTES MD 09/08/2019 01:14:12 PM EDT [facility] Outpatient SJP.CT-SJP.SYR 08/21/2019 02:13:55 PM EDT [facility] Unknown [address] [place] [address], [place] [address] 08/18/2019 12:00:00 AM EDT eCW1 ([facility]) Outpatient [address] [facility] [place] [address] 07/02/2019 12:00:00 AM EDT eCW1 ([facility]) [facility] [address] [place] [address], [place] [address] 06/25/2019 12:00:00 AM EDT eCW1 ([facility]) [facility] [address] [facility] [address] 06/10/2019 12:00:00 AM EDT eCW1 ([facility]) Outpatient SJP.CT-SJP.SYR 05/15/2019 09:07:[address] [facility] [address] [facility] [address] 05/14/2019 12:00:00 AM EDT eCW1 ([facility]) Outpatient Attender: LISS KANGSJCiprianoRACHAEL 04/02/2019 12:00:00 AM EST [facility] Outpatient PEARLSJCiprianoRACHAEL 02/06/2019 10:53 :46 AM EST - 02/06/2019 11:06:30 AM EST [facility] Immunizations Vaccine Date Status Description Data Source(s) influenza, recombinant, quadrIvalent,injectable, prese rvative free 2019 04:29:00 PM EDT completed eCW1 ([facility]) influenza, recombinant, quadrIvalent,injectable, prese rvative free 2019 04:29:00 PM EDT completed eCW1 ([facility]) influenza, recombinant, quadrIvalent,injectable, prese rvative free 2019 04:29:00 PM EDT completed eCW1 ([facility]) influenza, recombinant, quadrIvalent,injectable, prese rvative free 2019 04:29:00 PM EDT completed eCW1 ([facility]) influenza, recombinant, quadrIvalent,injectable, prese rvative free 2019 04:29:00 PM EDT completed eCW1 ([facility]) influenza, recombinant, quadrIvalent,injectable, prese rvative free 2019 04:29:00 PM EDT completed eCW1 ([facility]) influenza, recombinant, quadrIvalent,injectable, prese rvative free 2019 04:29:00 PM EDT completed eCW1 ([facility]) influenza, recombinant, quadrIvalent,injectable, prese rvative free 2019 04:29:00 PM EDT completed eCW1 ([facility]) influenza, recombinant, quadrIvalent,injectable, prese rvative free 2019 04:29:00 PM EDT completed eCW1 ([facility]) influenza, recombinant, quadrIvalent,injectable, prese rvative free 2019 04:29:00 PM EDT completed eCW1 ([facility]) influenza, recombinant, quadrIvalent,injectable, prese rvative free 2019 04:29:00 PM EDT completed eCW1 ([facility]) influenza, recombinant, quadrIvalent,injectable, prese rvative free 2019 04:29:00 PM EDT completed eCW1 ([facility]) influenza, recombinant, quadrIvalent,injectable, prese rvative free 2019 04:29:00 PM EDT completed eCW1 ([facility]) influenza, recombinant, quadrIvalent,injectable, prese rvative free 2019 04:29:00 PM EDT completed eCW1 ([facility]) Medications Medication Brand Name Start Date Product Form Dose Route Admi nistrative Instructions Pharmacy Instructions Status Indications Reaction Description Data Source(s) Medrol (Joe) 4 MG Medrol (Joe) 4 MG 02/25/2020 12:00:00 AM EST active Medrol (Joe) 4 MG eCW1 ([facility]) 4 mg 02/25/2020 12:00:00 AM EST tablets,dose pack 21 TAKE BY MOUTH DAILY DIRECTED ON DOSEPACK TAKE BY MOUTH DAILY DIRECTED ON DOSEPACK SOLD: 02/25/2020 [facility] Medrol (Joe) 4 MG Medrol (Joe) 4 MG 02/25/2020 12:00:00 AM EST active Medrol (Joe) 4 MG eCW1 ([facility]) tramadol hydrochloride 50 MG Oral Tablet Tramadol HCl 50 MG Tramadol HCl 50 MG 02/23/2020 12:00:00 AM EST 1.0 {tablet} active Tramadol HCl 50 MG eCW1 ([facility]) tramadol hydrochloride 50 MG Oral Tablet Tramadol HCl 50 MG Tramadol HCl 50 MG 02/23/2020 12:00:00 AM EST 1.0 {tablet} active Tramadol HCl 50 MG eCW1 ([facility]) tramadol hydrochloride 50 MG Oral Tablet Tramadol HCl 50 MG Tramadol HCl 50 MG 02/23/2020 12:00:00 AM EST 1.0 {tablet} active Tramadol HCl 50 MG eCW1 ([facility]) tramadol hydrochloride 50 MG Oral Tablet Tramadol HCl 50 MG Tramadol HCl 50 MG 02/23/2020 12:00:00 AM EST 1.0 {tablet} active Tramadol HCl 50 MG eCW1 ([facility]) tramadol hydrochloride 50 MG Oral Tablet Tramadol HCl 50 MG Tramadol HCl 50 MG 02/23/2020 12:00:00 AM EST 1.0 {tablet} active Tramadol HCl 50 MG eCW1 ([facility]) 50 mg 02/23/2020 12:00:00 AM EST tablet 50 TAKE ONE TABLET BY MOUTH EVERY 6 HOURS NEEDED FOR PAIN * MAXIMUM DAILY DOSE = 4 TAKE ONE TABLET BY MOUTH EVERY 6 HOURS NEEDED FOR PAIN * MAXIMUM DAILY DOSE = 4 SOLD: 02/23/2020 [facility] 100 mcg/0.5 mL 02/19/2020 12:00:00 AM EST suspension 0 INJECT BY [facility] (FIRST DOSE) INJECT BY [facility] (FIRST DOSE) SOLD: 02/20/2020 [facility] gabapentin 100 MG Oral Capsule Gabapentin 100 MG Gabapentin 100 MG 02/18/2020 12:00:00 AM EST 1.0 {capsule} active G abapentin 100 MG eCW1 ([facility]) Gabapentin 300 MG UNK 02/18/2020 12:00:00 AM EST 1.0 {capsule} active Gabapentin 300 MG eCW1 ([facility]) Gabapentin 300 MG UNK 02/18/2020 12:00:00 AM EST 1.0 {capsule} active Gabapentin 300 MG eCW1 ([facility]) 100 mg 02/18/2020 12:00:00 AM EST capsule 90 TAKE ONE CAPSULE BY MOUTH THREE TIMES A DAY TAKE ONE CAPSULE BY MOUTH THREE TIMES A DAY SOLD: 02/18/2020 [facility] Gabapentin 300 MG UNK 02/18/2020 12:00:00 AM EST 1.0 {capsule} active Gabapentin 300 MG eCW1 ([facility]) Gabapentin 300 MG UNK 02/18/2020 12:00:00 AM EST 1.0 {capsule} active Gabapentin 300 MG eCW1 ([facility]) Gabapentin 300 MG UNK 02/18/2020 12:00:00 AM EST 1.0 {capsule} active Gabapentin 300 MG eCW1 ([facility]) 5-325 mg 02/16/2020 12:00:00 AM EST tablet 10 TAKE ONE TABLET BY MOUTH TWICE A DAY NEEDED FOR PAIN MAXIMUM DAILY DOSE = 2 TABLETS TAKE ONE TABLET BY MOUTH TWICE A DAY NEEDED FOR PAIN MAXIMUM DAILY DOSE = 2 TABLETS SOLD: 02/16/2020 [facility] carvedilol 12.5 MG Oral Tablet CARVEDILOL 02/16/2020 12:00:00 AM EST tablet 60 TAKE ONE TABLET BY MOUTH TWICE A DAY TAKE ONE TABLET BY MOUT H TWICE A DAY SOLD: 02/16/2020 [facility] 1 % 12/29/2019 12:00:00 AM EST gel 100 APPLY 1 TO 2 GRAMS TO AFFECTED AREA(S) ON LOWER BACK EVERY 6 HOURS NEEDED FOR 10 DAYS APPLY 1 TO 2 GRAMS TO AFFECTED AREA(S) ON LOWER BACK EVERY 6 HOURS NEEDED FOR 10 DAYS SOLD: 12/31/2019 [facility] Diclofenac Sodium 0.01 MG/MG Topical Gel [Voltaren] Voltaren 1 % Voltaren 1 % 12/24/2019 12:00:00 AM EST active Voltaren 1 % eCW1 ([facility]) Diclofenac Sodium 0.01 MG/MG Topical Gel [Voltaren] Voltaren 1 % Voltaren 1 % 12/24/2019 12:00:00 AM EST active Voltaren 1 % eCW1 ([facility]) Diclofenac Sodium 0.01 MG/MG Topical Gel [Voltaren] Voltaren 1 % Voltaren 1 % 12/24/2019 12:00:00 AM EST active Voltaren 1 % eCW1 ([facility]) Diclofenac Sodium 0.01 MG/MG Topical Gel [Voltaren] Voltaren 1 % Voltaren 1 % 12/24/2019 12:00:00 AM EST active Voltaren 1 % eCW1 ([facility]) Diclofenac Sodium 0.01 MG/MG Topical Gel [Voltaren] Voltaren 1 % Voltaren 1 % 12/24/2019 12:00:00 AM EST active Voltaren 1 % eCW1 ([facility]) Diclofenac Sodium 0.01 MG/MG Topical Gel [Voltaren] Voltaren 1 % Voltaren 1 % 12/24/2019 12:00:00 AM EST active Voltaren 1 % eCW1 ([facility]) Diclofenac Sodium 0.01 MG/MG Topical Gel [Voltaren] Voltaren 1 % Voltaren 1 % 12/24/2019 12:00:00 AM EST active Voltaren 1 % eCW1 ([facility]) Diclofenac Sodium 0.01 MG/MG Topical Gel [Voltaren] Voltaren 1 % Voltaren 1 % 12/24/2019 12:00:00 AM EST active Voltaren 1 % eCW1 ([facility]) Diclofenac Sodium 0.01 MG/MG Topical Gel [Voltaren] Voltaren 1 % Voltaren 1 % 12/24/2019 12:00:00 AM EST active Voltaren 1 % eCW1 ([facility]) Diclofenac Sodium 0.01 MG/MG Topical Gel [Voltaren] Voltaren 1 % Voltaren 1 % 12/24/2019 12:00:00 AM EST active Voltaren 1 % eCW1 ([facility]) Diclofenac Sodium 0.01 MG/MG Topical Gel [Voltaren] Voltaren 1 % Voltaren 1 % 12/24/2019 12:00:00 AM EST active Voltaren 1 % eCW1 ([facility]) Diclofenac Sodium 0.01 MG/MG Topical Gel [Voltaren] Voltaren 1 % Voltaren 1 % 12/24/2019 12:00:00 AM EST active Voltaren 1 % eCW1 ([facility]) 20 mg 12/10/2019 12:00:00 AM EST [...] Methylpheni date HCl ER 20 MG eCW1 ([facility]) 8 HR Methylphenidate Hydrochloride 20 MG Extended Release Oral Tablet Methylphenidate HCl ER 20 MG Methylphenidate HCl ER 20 MG 12/08/2019 12:00:00 AM EST 1.0 {tablet} active Methylpheni date HCl ER 20 MG eCW1 ([facility]) 8 HR Methylphenidate Hydrochloride 20 MG Extended Release Oral Tablet Methylphenidate HCl ER 20 MG Methylphenidate HCl ER 20 MG 12/08/2019 12:00:00 AM EST 1.0 {tablet} active Methylpheni date HCl ER 20 MG eCW1 ([facility]) 8 HR Methylphenidate Hydrochloride 20 MG Extended Release Oral Tablet Methylphenidate HCl ER 20 MG Methylphenidate HCl ER 20 MG 12/08/2019 12:00:00 AM EST 1.0 {tablet} active Methylpheni date HCl ER 20 MG eCW1 ([facility]) 5 mg 11/13/2019 12:00:00 AM EDT tablet 60 TAKE ONE TABLET BY MOUTH ON AN EMPTY STOMACH TWO TIMES A DAY, WITH BREAKFAST AND SUPPER TAKE ONE TABLET BY MOUTH ON AN EMPTY STOMACH TWO TIMES A DAY, WITH BREAKFAST AND SUPPER SOLD: 11/13/2019 [facility] Methylphenidate Hydrochloride 5 MG Oral Tablet [Ritali n] Ritalin 5 MG Ritalin 5 MG 2019 12:00:00 AM EDT 1.0 {tablet_on_an_empty_stomach} active Ritalin 5 MG eCW1 ([facility]) 100 mg 10/19/2019 12:00:00 AM EDT capsule 20 TAKE ONE CAPSULE BY MOUTH TWICE A DAY FOR 10 DAYS TAKE ONE CAPSULE BY MOUTH TWICE A DAY FOR 10 DAYS SOLD : 10/19/2019 [facility] Doxycycline Monohydrate 100 MG Oral Capsule Doxycycline [place] hydrate 10/18/2019 12:00:00 AM EDT ORAL active M EDENT ([facility]) 20 mg 09/04/2019 12:00:00 AM EDT tablet 10 TAKE ONE TABLET BY MOUTH TWICE A DAY TAKE ONE TABLET BY MOUTH TWICE A DAY SOLD: 09/04/2019 [facility] Insurance Providers Payer name Policy type / Coverage type Policy ID Covered green party ID Covered green party's relationship to garcia Policy Garcia Plan Information [facility] [id number] SP [id number] MEDICARE [id number] SP [id number] UMR O [id number] S [id number] MEDICARE C [id number] S [id number] [id number] UMR [facility] [id number] SP [id number] UMR [id number] Cheri [id number] MEDICARE [id number] Cheri [id number] F45 UMR O [id number] S [id number] DME Jurisdiction A NHIC C [id number] SELF [id number] UMR F [id number] SELF [id number] Medicare C [id number] SELF [id number] F45 ANSI-Medicare Part B [id number] ANSI-Commercial [id number] ANSI-Commercial [id number] Umr Commercial [id number] Self [id number] ANSI-Commercial [id number] ANSI-Medicare Part B [id number] ANSI-Commercial [id number] ANSI-Medicare Part B [id number] ANSI-Commercial [id number] ANSI-Commercial [id number] ANSI-Commercial [id number] ANSI-Commercial [id number] ANSI-Medicare Part B [id number] ANSI-Medicare Part B [id number] ANSI-Commercial [id number] ANSI-Commercial [id number] Umr/Uhc/[employer] Medigap Part B [id number] Self [id number] Medicare Natl Gov't Servi Medicare Primary [id number] Self [id number] UMR F [id number] SELF [id number] Medicare C [id number] SELF [id number] F45 ANSI-Commercial [id number] ANSI-Medicare Part B [id number] ANSI-Commercial [id number] MEDICARE [id number] SP [id number] A Umr (pr) Medigap Part B [id number] Self [id number] Medicare Dme Supplies Medigap Part B [id number] Self [id number] [place] Primary [id number] Self [id number] [employer] (pr) Medigap Part B [id number] Self [id number] Umr (pr) Medigap Part B [id number] Self [id number] Medicare Dme Supplies Medigap Part B [id number] Self [id number] [place] Primary [id number] Self [id number] Umr (pr) Medigap Part B [id number] Self [id number] Medicare Dme Supplies Medigap Part B [id number] Self [id number] [place] Primary [id number] Self [id number] Umr (pr) Medigap Part B [id number] Self [id number] Medicare Dme Supplies Medigap Part B [id number] Self [id number] [place] Primary [id number] Self [id number] [employer] / UMR F [id number] SELF [id number] DME Jurisdiction A IDIC C [id number] SELF [id number] Medicare C [id number] SELF [id number] A Medicare Dme Supplies Medigap Part B [id number] Self [id number] [place] Primary [id number] Self [id number] [employer] PPO O [id number] S [id number] MEDICARE C [id number] S [id number] A POMCO [id number] SP [id number] POMCO [id number] SP [id number] POMCO [id number] SP [id number] MEDICARE [id number] SP [id number] A [employer] [id number] SP [id number] [employer] Medigap Part B [id number] Self [id number] Medicare/National Gov SVC Medicare Primary [id number] Self [id number] [employer] F [id number] SELF [id number] [employer] Medigap Part B [id number] Self [id number] [place] Primary [id number] Self [id number] [facility] [id number] Cheri [id number] MEDICARE [id number] Cheri [id number] A [employer] Medigap Part B Self Medicare/National Gov SVC Medicare Primary Self [id number] A [id number] Problems, Conditions, and Diagnoses Code Display Name Description Problem Type Effective Dates Data Source(s) M54.42 [id number] Acute left-sided low back pain w ith left-sided sciatica Problem 02/23/2020 12:00:00 AM EST eCW1 ([facility]) M54.5 [id number] Low back pain Problem 12/30/2019 12:00:00 AM EST eCW1 ([facility]) R29.818 [id number] Suspected sleep apnea Problem 12/30/2019 12: 00:00 AM EST eCW1 ([facility]) R79.89 [id number] Abnormal TSH Problem 2019 12:00:00 AM EDT eCW1 ([facility]) R93.89 [id number] Abnormal chest xray Problem 2019 12:00 :00 AM EDT eCW1 ([facility]) M46.1 [id number] Sacroiliitis Problem 07/02/2019 12:00:00 AM EDT eCW1 ([facility]) I48.0 Paroxysmal atrial fibrillation Paroxysmal atrial fibri llation Diagnosis 11/26/2019 01:49:45 PM EDT [facility] Surgeries/Procedures Procedure Description Date Indications Data Source(s) Immunization: Flublok Quadrivalent (18 years & older) 0.5mL IM (Influenza) 2019 12:00:00 AM EDT eCW1 ([facility]) OPHTH MEDICAL XM&EVAL COMPRHNSV ESTAB PT 1/> VST 07/29 12:00:00 AM EDT MEDENT ([facility]) DETERMINATION REFRACTIVE STATE 07/30/2019 12:00:00 AM EDT MEDENT ([facility]) Annual wellness visit, includes a person alized prevention plan of service (pps), subsequent visit 05/14/2019 12:00:00 AM EDT eCW 1 ([facility]) TeleMedicine Est. Pt. Level 4 05/14/2019 12:00:00 AM E DT eCW1 ([facility]) Results ID Date Data Source [id number] 03/11/2020 12:00:00 AM EST [facility] Name Value Range Interpretation Code Description Data Sahara rce(s) Supporting Document(s) SARS-CoV2 Rapid Antigen Negative [facility] This lab was ordered by [facility] and reported by [facility]. ID Date Data Source [id number] 03/10/2020 08:45:00 AM EST [facility] Name Value Range Interpretation Code Description Data Sahara rce(s) Supporting Document(s) SARS coronavirus 2 RNA Not Detected [facility] This lab was ordered by [facility] and reported by [facility]. ID Date Data Source [id number] 03/04/2020 11:24:00 AM EST [facility] Name Value Range Interpretation Code Description Data Sahara rce(s) Supporting Document(s) SARS coronavirus 2 RNA [Presence] in Res piratory specimen by [facility]ATE[facility] with probe detection NEGATIVE [facility] This lab was ordered by [facility] a nd reported by [facility]. ID Date Data Source [id number] 02/27/2020 07:52:00 AM EST [facility] Name Value Range Interpretation Code Description Data Sahara rce(s) Supporting Document(s) SARS coronavirus 2 RNA [Presence] in Res piratory specimen by [facility]ATE[facility] with probe detection NEGATIVE [facility] This lab was ordered by [facility] a nd reported by [facility]. ID Date Data Source [id number] 02/14/2020 10:59:18 PM EST [facility] Name Value Range Interpretation Code Description Data Sahara rce(s) Supporting Document(s) &PDF [facility] CWCFNx4hQkSMEaMj34/XFFttUIOhz3ZlNBmrVUz0TTzaJQAiM6RtgSjkJYxYPY2UNA1PB1mEOWosZSMv oRX [file] GARCÍA/aSiAdR56g/sYZEpdsH6+VucwcE5pnuCxRIuq7um [file] ICAgICAgICAgICAgICAgICAgICAgICAgICAgICAgIC AgICAgICAgICAgICAgICAgICAgICAgICAgICAgICAgICAgICAgICAgICAgICAgICAgICAgICAgICAgIC ANCiAgICAgICAgICAgICAgICAgICAgICAgICAgICAgICAgICAgICAgICAgICAgICAgICAgICAgICAgIC AgICAgICAgICAgICAgICAgICAgICAgICAgICAgICAg ICAgICAgICAgICANCiAgICAgICAgICAgICAgICAgICAgICAgICAgICAgICAgICAgICAgICAgICAgICAg ICAgICAgICAgICAgICAgICAgICAgICAgICAgICAgICAgICAgICAgICAgICAgICAgICAgICANCiAgICAg ICAgICAgICAgICAgICAgICAgICAgICAgICAgICAgIC AgICAgICAgICAgICAgICAgICAgICAgICAgICAgICAgICAgICAgICAgICAgICAgICAgICAgICAgICAgIC AgICANCiAgICAgICAgICAgICAgICAgICAgICAgICAgICAgICAgICAgICAgICAgICAgICAgICAgICAgIC AgICAgICAgICAgICAgICAgICAgICAgICAgICAgICAg ICAgICAgICAgICAgICANCiAgICAgICAgICAgICAgICAgICAgICAgICAgICAgICAgICAgICAgICAgICAg ICAgICAgICAgICAgICAgICAgICAgICAgICAgICAgICAgICAgICAgICAgICAgICAgICAgICAgICANCiAg ICAgICAgICAgICAgICAgICAgICAgICAgICAgICAgIC AgICAgICAgICAgICAgICAgICAgICAgICAgICAgICAgICAgICAgICAgICAgICAgICAgICAgICAgICAgIC AgICAgICANCiAgICAgICAgICAgICAgICAgICAgICAgICAgICAgICAgICAgICAgICAgICAgICAgICAgIC AgICAgICAgICAgICAgICAgICAgICAgICAgICAgICAg ICAgICAgICAgICAgICAgICANCiAgICAgICAgICAgICAgICAgICAgICAgICAgICAgICAgICAgICAgICAg ICAgICAgICAgICAgICAgICAgICAgICAgICAgICAgICAgICAgICAgICAgICAgICAgICAgICAgICAgICAN CiAgICAgICAgICAgICAgICAgICAgICAgICAgICAgIC AgICAgICAgICAgICAgICAgICAgICAgICAgICAgICAgICAgICAgICAgICAgICAgICAgICAgICAgICAgIC AgICAgICAgICANCjw/yLDfL3qoqDFteaU1P6nnUb1FGw8OCN7wm5OlEHNcYVphvqUnGrtNByJwRWIkEz oFWzo2QLdpCH1AmLKfO6VlG5XnMVmvFR8NBZZgSOZi gIWmEKYdBIEnUhH8FOOxBAoqWS5KiBYlHCflYTPjHZZzHG7VSUXkF159wiXgCW8NKf7MNaFxYH4zhh3S BsRtTRUwHflBJmq9HNxdRT1RmAGyP2BydLHkw7rVDvZsI1GHWJDyUSVoOi2MIODaAqKuFFJuCCclWS3u FVRwYDOYdLenorG4UN6MLN2wjvNrLL1UKlUlVg0yNd 2JEeQfI6RwU9MyMNAsVSEVGUtuYL2HDDXwZBD4UQMqXrDcEJRJKxCyY67vAD1OB3Rfu17ySjH8OCBsLm XsSZhyAO03bCykzqDbvIZzcJntXG1STu9+DQplbmRvYmoNCnhyZWYNCjAgMjUNCjAwMDAwMDAwMDAgNj A5XmUxNt5AXBGzFGDuRSHhQoPdAMMcBQNbOIxdYPNt HLRtYNYdBJEdMQSsQW8JPaRrEFZrSoB9THTgWCOlOXRxyc6QAXBeAUSzUUK6WCFsWZFkINFuHBcuRJMg KEAzEBBxIHSlEPLpFM4QYiRrCHBkJZUgXJYiGIVbVGRhnb2ESWAvVVThEABvGyWbCVZzQZBsEIllKSTh VCB9HHO7NWXtRZEpLG3MMzOeCIVgGKR6ATcgEBRpEQ Pamd9ITHBvYXZcPEW2RwHxBUYzUOEiXDcuXZThYWZ1BTA2GRFyHRMaOY3LCuQxCAOeCEWnYaLgJCDiEQ Hmqm4IBZXaLHAbVPm6PjIxQSJpQEYcXBaaIMNdCBRcLfZ9TSTwJMJmUD1JPxVoIYLgJPA7ZeMqNIRgYH Ajvq7BAIFpXMMyHDT8QAOvKOIzPFHnDLgcJOZlYLZr CIX3KEFqNLNjKB1LPnOcJZVtEYS4ADJkWOLvTDRcnv2RJRReFDTqWrsoHIErUPRaAWKtDFqdQGRgYORo CMQ6QUGeQBRxWE7GArJbQSRmFFi0ZNLsMSXiGWMdxj6EHHLnKNOpYYnsKSLtSCLbXKQiOJvlMWZhHFSa IzI4UQQwQCRxLN0PMjLhKDYaAvS0LICjBZHwQZPmwm 4JxOBthPfdhh5PZVpPUi8IgNocVVG9WYdtHs2vaDYxCQJwEZSCAw9BabVfTRIgISAZSVraNWTiSONxY4 L6ACOsCQIcTNI8FwW1QUZ6TMEyScC3S7P6ZwzrIfS0QQVoJpEmJQPcN7SuUdzvQnW3ZkW6JkIjOFDyIu RiN2M+IW4nKKl+Ke8Gn9YbztZ4shQxCHhbYqj0RP1YNMXWV9BFYa== ID Date Data Source MAGNESIUM LEVEL 12/24/2019 12:00:00 AM EST [facility] ([facility]) Name Value Range Interpretation Code Description Data Sahara rce(s) Supporting Document(s) 2.5 1.8-2.4 [facility] ([facility]) ID Date Data Source Basic Metabolic Profile (BMP) 12/24/2019 12:00:00 AM EST eCW 1 ([facility]) Name Value Range Interpretation Code Description Data Sahara rce(s) Supporting Document(s) 75 70-100 eCW1 ([facility]) 29 7-18 eCW1 ([facility]) 142 136-145 eCW1 ([facility]) 39.2 >42 eCW1 ([facility]) 1.79 0.70-1.30 eCW1 ([facility]) 31 21-32 eCW1 ([facility]) 109 98-107 eCW1 ([facility]) 4.7 3.5-5.1 eCW1 ([facility]) 9.1 8.8-10.2 eCW1 ([facility]) ID Date Data Source FREE T4 & TSH PANEL 12/24/2019 12:00:00 AM EST eCW1 ([facility]) Name Value Range Interpretation Code Description Data Sahara rce(s) Supporting Document(s) 1.29 0.76-1.46 eCW1 ([facility]) 0.274 0.358-3.740 eCW1 ([facility]) ID Date Data Source FREE T3 12/24/2019 12:00:00 AM EST eCW1 ([facility]) Name Value Range Interpretation Code Description Data Sahara rce(s) Supporting Document(s) 2.5 2.2-4.0 eCW1 ([facility]) ID Date Data Source [facility] CT Chest without contrast 11/24/2019 12:00:00 AM EDT eC W1 ([facility]) Name Value Range Interpretation Code Description Data Sahara rce(s) Supporting Document(s) [facility] Chest without contrast eCW1 ([facility]) ID Date Data Source [id number] 10/19/2019 10:31:00 AM EDT MEDENT ([facility], [facility]) Name Value Range Interpretation Code Description Data Sahara rce(s) Supporting Document(s) Glucose, Fasting 96 mg/dL 70-100 MED[facility] ([facility], [facility]) Blood Urea Nitrogen 22 mg/dL 7-18 MED[facility] ([facility]) Creatinine For GFR 1.66 mg/dL 0.70-1.30 MED[facility] ([facility], [facility]) Glomerular Filtration Rate 42.9 MED ENT ([facility], [facility]) <content>Units are mL/min/1.73 m2</content>
<content></content>
<content>Chronic Kidney Disease Staging per NKF:</content>
<content></content>
<content>Stage I & II GFR >=60 Normal to Mildly Decreased</content>
<content>Stage III GFR 30- 59 Moderately Decreased</content>
<content>Stage IV GFR 15-29 Severely Decreased</content>
<content>Stage V GFR <15 Very Little GFR Left</content>
<content>ESRD GFR <[address]</content>
<content></content> Sodium Level 142 meq/L 136-145 MEDENT ([facility], [facility]) Anion Gap 5 meq/L 8-16 MED[facility] ([facility], [facility]) Chloride Level 109 meq/L 98-107 MEDENT ([facility]) Potassium Serum 4.7 meq/L 3.5-5.1 MEDENT ([facility], [facility]) Carbon Dioxide Level 28 meq/L 21-32 MEDENT ([facility]) Calcium Level 8.5 mg/dL 8.8-10.2 MEDENT ([facility], [facility]) Ast/Sgot 17 U/L 7-37 MEDENT ([facility], [facility]) Alt/SGPT 20 U/L 12-78 MEDENT ([facility]) Bilirubin,Total 0.5 mg/dL 0.2-1.0 MEDENT ([facility], [facility]) Alkaline Phosphatase 83 U/L 45-117 MEDENT ([facility]) Total Protein 5.8 GM/DL 6.4-8.2 MEDENT ([facility], [facility]) Albumin 2.8 GM/DL 3.2-5.2 MEDENT ([facility], [facility]) Albumin/Globulin Ratio 0.9 MEDENT ([facility], [facility]) ID Date Data Source [id number] 10/19/2019 10:31:00 AM EDT MEDENT ([facility], [facility]) Name Value Range Interpretation Code Description Data Sahara rce(s) Supporting Document(s) White Blood Count 10.5 10 4.0-10.0 MEDENT ([facility], [facility]) Red Blood Count 3.49 10 4.30-6.10 MEDENT ([facility], [facility]) Mean Corpuscular Volume 102.6 fl 80.0-96.0 M EDENT ([facility], [facility]) Hemoglobin 11.4 g/dL 13.5-17.5 MEDENT ([facility], [facility]) Hematocrit 35.8 % 42.0-52.0 [facility] Mean Corpuscular Hemoglobin 32.7 pg 27.0-33.0 MED[facility] ([facility], [facility]) Red Cell Distribution Width 13.3 % 11.5-14.5 MED[facility] ([facility], [facility]) Mean Corpuscular HGB Conc 31.8 g/dL 32.0-36.5 MED[facility] ([facility], [facility]) Platelet Count, Automated 551 10 150-450 MEDENT ([facility], [facility]) Lymph % 9.8 % 24.0-44.0 MEDENT ([facility], [facility]) Neutrophils % 76.0 % 36.0-66.0 MEDENT ([facility], [facility]) T[place] % 12.1 % 0.0-5.0 MED[facility] ([facility], [facility]) Immature Granulocyte % 0.9 % 0-3.0 MEDENT ([facility], [facility]) Baso % 0.4 % 0.0-1.0 MED[facility] ([facility], [facility]) Eos % 0.8 % 0.0-3.0 MED[facility] ([facility], [facility]) Neutrophils # 8.0 10 1.5-8.5 MED[facility] ([facility], [facility]) Lymph # 1.0 10 1.5-5.0 MED[facility] ([facility], [facility]) [place] # 1.3 10 0.0-0.8 MED[facility] ([facility], [facility]) Nucleated Red Blood Cell % 0.0 % 0-0 MED ENT ([facility], [facility]) Baso # 0.0 10 0.0-0.2 MEDENT ([facility], [facility]) Eos # 0.1 10 0.0-0.5 MED[facility] ([facility], [facility]) ID Date Data Source [id number] 09/19/2019 10:43:20 AM EDT [facility] Hermilo Arguelles: 1Provider: Phyllis [...] rce(s) Supporting Document(s) ID Date Data Source [id number] 09/09/2019 10:44:59 PM EDT [facility] Hermilo Arguelles: 1Provider: Laura [...] Plan LE [employer] Hinged Knee Brace (SOS) [id number]; Status:Complete; Done: 08Sep2019 Perform:[id number]; Due: 22Sep2019; Last [...] rce(s) Supporting Document(s) ID Date Data Source [id number] 02/06/2019 09:40:21 PM EST [facility] Name Value Range Interpretation Code Description Data Sahara rce(s) Supporting Document(s) &PDF [facility] PGVICu3tIoFYAgYh98/XSRugORNgs5FuEQuuJAv5BVqdIPDpP0EvoPhvLRtYMO4KWY2DC8xVCAdxNAWh oRX [file] fRsf+García/fVZMQuboF1CoR8kXdvi/YybPK/AJ4VHnq+5NuZ1YgcuIKbs62vhFJQS0hOhHUhi87ycYSIE0 [file] ICAgICAgICAgICAgICAgICAgICAgICAgICAgICAgICAgICAgICAgICAgICAgICAgICAgICAgICAgICAg ICAgICAgICAgICAgICAgICAgICAgICAgICAgICAgIA 0KICAgICAgICAgICAgICAgICAgICAgICAgICAgICAgICAgICAgICAgICAgICAgICAgICAgICAgICAgIC FsGSCzAWSwBTDwSXAfYRKqOZFgQLFbIXVoBEFhFNOfWDEoOFUvTAZhOE9GBWUeKSChYZOvDLKkTTNqPH AgICAgICAgICAgICAgICAgICAgICAgICAgICAgICAg HDLpGJZmRKOyAFWbEVZjPOUlSSYvHFIkEFYrIPBkJAPgAPZuCVIbXQEaNWNuNAHrXIQhJG5BANPbRFBv ICAgICAgICAgICAgICAgICAgICAgICAgICAgICAgICAgICAgICAgICAgICAgICAgICAgICAgICAgICAg ICAgICAgICAgICAgICAgICAgICAgICAgICAgICAgIC TkHL3FMXUoAGIsVAAiHXBaZHKtPXGnNXGoTFYnETQuUKXjPWDoSHZiYAZvUYBgSZEpCTMlLJGfYBSnYD DuDZZnJRNxCFKdCORpROWkVAObRSPoTOPoSREyHTWnMDIrXTRqANHrKHEsUH4ACKQqSDUkOAYkAKAnNO AgICAgICAgICAgICAgICAgICAgICAgICAgICAgICAg ZGUeGKWwJABdUBDjNRLyYLLfMGLaRFKkXRXyQSEoSQPqNBPuDINvBLVyGEMzNVFdHRCaYEDgUR9SGASv ICAgICAgICAgICAgICAgICAgICAgICAgICAgICAgICAgICAgICAgICAgICAgICAgICAgICAgICAgICAg ICAgICAgICAgICAgICAgICAgICAgICAgICAgICAgIC TaMGFdMZ6OWFCyQDHmWOQuRGKnGHHfYEDlNXAeZLQsRGPbKIZtALFvAIDvVRLvBLIcPFLbPFNoQOApIY XgSYCqFHPxPNKhSYRnSXIpVWUaKLFnBQQcGWPiKZNpZEOkCHWoLTGxFGFyBEHgTH5NPUFkNHXkQYKxAX AgICAgICAgICAgICAgICAgICAgICAgICAgICAgICAg OACvIEQaVMRmDQAzBHBwANMqHZQlAVDfHDBgMVDoZXZiADYhOHEgGKKnLZZbTFQpUPLxIOGfIQUwNC4C ICAgICAgICAgICAgICAgICAgICAgICAgICAgICAgICAgICAgICAgICAgICAgICAgICAgICAgICAgICAg ICAgICAgICAgICAgICAgICAgICAgICAgICAgICAgIC OlQRCgMSQoSJ0RVN41hHWgk4K6JZDkTC3ijmr/Zr1EPDfgjoFwhWIvJK4BOnUwUU8myg8QCgTrON7mbv 8XLKyQIcXmF1W8kECfOLEfOPIEWeKiM41kFFbnKc18LFcxALQmHdIiJKu0Ok6MUzTfU2sgQJAjTcD1IO NbMeSrINwrYN4Nj9NqaQSaHDj+Ty5IDV4bi6XfBLzo TfTlFJ3eqo2IUCnPQhIgQ9P9gRXuU9C9HIccWh9BSBAbNAWmXSRuWSXNKVsiYJ9SKW2romX0WO9CdAKf HARkDRFgwHNgWKu4C35hhUEjLMfwVJ3YCVX+Tyrone+Ct3LRPPlHDKkQGMfBzIyFOYYGjAoW14loLVeLDNy NJT8JOPgEc8GREHqN7QlnrZceEoodpXuDBWrXHYZTC 3UKUtjctWinXHhtYbzIY73jQyzWG5LAs7QXrGpIB6ito0OyITiLy2LHZDrEp3JIXZkPYIyJDIiASM0AS HxZjUqIJvmMVCcWZOlAEG7DAFbJTJvKP3APrUwLZLaMUVtYylqYAReJTTlzg7VRLBvKQJyFGz2NPRzKG GkDSIvQQqtZYDqLJVmLAhvZYQdXNCmKU3KMaQdWIBs AEU8UJKqIXEiNFKcld9ZTDWaJVThGwieWPXeIDMfZHEtLKpyCLZrZFNnOkvvBJUePSWzSX7FWjMyZSFf OGE8GldhAVLxETOjth1NVVPgGUFgVIR2EPMhQWPuHYUpZTotERLsEJH9NDA8OEUuAUPpIL2HKzCrFBTg YPIrQEgnDEZsNADpqi6QPXXnIRToVMQ2IqLmXXTiAE HgDNzoFLShXWEgEQe4AJHpOVTdVV4RJgNyQFLkCIMkNSUjSZRdIFNilk2ZJNVdPMOuTRVwAYMpGPEhWD OxREuxNLQmBQT7SKO6YOJbJEXbQL5BEjVdKCubWNFGEyu7VGpvE8c6OBLqOy5HQ3Rba7ElTCLqVEOMHL ruEG4twwNdSNAgRb5MV5eEIlnbMCQ4HGA9EKNjSIE5 YHWwMng0KeY9MvExTmOrFJFtFP7bMMB6MhRkJom7LSScOPIbX4B8GxvfUmyiJtH8RFDmAbRgPdLyEV8I Zq3QQdH4LHH4bBZuFz3KNRAeQPQELjPzAY4THQo= Procedure Social History Code Duration Value Status Description Data Source(s ) Smoking 02/23/2020 12:00:00 AM EST Never Smoker completed Never S moker eCW1 ([facility]) Smoking 02/23/2020 12:00:00 AM EST Never Smoker completed Never S moker eCW1 ([facility]) Smoking 02/23/2020 12:00:00 AM EST Never Smoker completed Never S moker eCW1 ([facility]) Smoking 02/23/2020 12:00:00 AM EST Never Smoker completed Never S moker eCW1 ([facility]) Smoking 02/23/2020 12:00:00 AM EST Never Smoker completed Never S moker eCW1 ([facility]) Smoking 12/30/2019 12:00:00 AM EST Never Smoker completed Never S moker eCW1 ([facility]) Smoking 12/30/2019 12:00:00 AM EST Never Smoker completed Never S moker eCW1 ([facility]) Smoking 12/30/2019 12:00:00 AM EST Never Smoker completed Never S moker eCW1 ([facility]) Smoking 12/30/2019 12:00:00 AM EST Never Smoker completed Never S moker eCW1 ([facility]) Smoking 12/24/2019 12:00:00 AM EST Never Smoker completed Never S moker eCW1 ([facility]) Smoking 12/24/2019 12:00:00 AM EST Never Smoker completed Never S moker eCW1 ([facility]) Smoking 12/24/2019 12:00:00 AM EST Never Smoker completed Never S moker eCW1 ([facility]) Smoking 2019 12:00:00 AM EDT Never Smoker completed Never S moker eCW1 ([facility]) Smoking 2019 12:00:00 AM EDT Never Smoker completed Never S moker eCW1 ([facility]) Smoking 10/18/2019 12:00:00 AM EDT Patient has never smoked co mpleted Patient has never smoked MED[facility] ([facility], [facility]) Smoking 07/30/2019 12:00:00 AM EDT Patient has never smoked co mpleted Patient has never smoked MEDENT ([facility]) Smoking 07/02/2019 12:00:00 AM EDT Never Smoker completed Never S moker eCW1 ([facility]) Smoking 07/02/2019 12:00:00 AM EDT Never Smoker completed Never S moker eCW1 ([facility]) Vital Signs ID Date Data Source UNK Name Value Range Interpretation Code Description Data Source(s) Diastolic blood pressure 62 mm[Hg] 62 mm[Hg] eCW1 ([facility]) Systolic blood pressure 110 mm[Hg] 110 mm[Hg] e CW1 ([facility]) Body temperature 98.2 [degF] 98.2 [degF] eCW1 ( [facility]) Respiratory rate 18 /min 18 /min eCW1 ([facility]) Heart rate 70 /min 70 /min eCW1 ([facility]) Body mass index (BMI) [Ratio] 29.41 kg/m2 29.41 kg/m2 W1 ([facility]) Body height 70 [in_i] 70 [in_i] eCW1 ([facility]) Body weight 205 [lb_av] 205 [lb_av] eCW1 ([facility]) Diastolic blood pressure 82 mm[Hg] 82 mm[Hg] eCW1 ([facility]) Systolic blood pressure 128 mm[Hg] 128 mm[Hg] e CW1 ([facility]) Body temperature 97.3 [degF] 97.3 [degF] eCW1 ( [facility]) Respiratory rate 18 /min 18 /min eCW1 ([facility]) Heart rate 87 /min 87 /min eCW1 ([facility]) Body mass index (BMI) [Ratio] 29.70 kg/m2 29.70 kg/m2 eCW1 ([facility]) Body height 70 [in_i] 70 [in_i] eCW1 ([facility]) Body weight 207.0 [lb_av] 207.0 [lb_av] eCW1 ([facility]) Diastolic blood pressure 70 mm[Hg] 70 mm[Hg] eCW1 ([facility]) Systolic blood pressure 138 mm[Hg] 138 mm[Hg] e CW1 ([facility]) Body temperature 96.1 [degF] 96.1 [degF] eCW1 ( [facility]) Respiratory rate 18 /min 18 /min eCW1 ([facility]) Heart rate 75 /min 75 /min eCW1 ([facility]) Body mass index (BMI) [Ratio] 30.13 kg/m2 30.13 kg/m2 eCW1 ([facility]) Body height 70 [in_i] 70 [in_i] eCW1 ([facility]) Body weight 210 [lb_av] 210 [lb_av] eCW1 ([facility]) Diastolic blood pressure 80 mm[Hg] 80 mm[Hg] eCW1 ([facility]) Systolic blood pressure 158 mm[Hg] 158 mm[Hg] e CW1 ([facility]) Body temperature 97 [degF] 97 [degF] eCW1 ([facility]) Respiratory rate 18 /min 18 /min eCW1 ([facility]) Heart rate 95 /min 95 /min eCW1 ([facility]) Body mass index (BMI) [Ratio] 30.50 kg/m2 30.50 kg/m2 eCW1 ([facility]) Body height 70 [in_i] 70 [in_i] eCW1 ([facility]) Body weight 212.6 [lb_av] 212.6 [lb_av] eCW1 ([facility]) Diastolic blood pressure 80 mm[Hg] 80 mm[Hg] eCW1 ([facility]) Systolic blood pressure 158 mm[Hg] 158 mm[Hg] e CW1 ([facility]) Body temperature 97 [degF] 97 [degF] eCW1 ([facility]) Respiratory rate 18 /min 18 /min eCW1 ([facility]) Heart rate 95 /min 95 /min eCW1 ([facility]) Body mass index (BMI) [Ratio] 30.50 kg/m2 30.50 kg/m2 eCW1 ([facility]) Body height 70 [in_i] 70 [in_i] eCW1 ([facility]) Body weight 212.6 [lb_av] 212.6 [lb_av] eCW1 ([facility]) Body mass index (BMI) [Ratio] 29.0 kg/m2 29.0 k g/m2 MEDENT ([facility], [facility]) Body height 72 [in_i] 72 [in_i] MEDENT ([facility], [facility]) 6'0" Body weight 214.00 [lb_av] 214.00 [lb_av] MEDEN T ([facility], [facility]) Body temperature 98.7 [degF] 98.7 [degF] MEDENT ([facility], [facility]) Oxygen saturation in Arterial blood by Pulse oximetry 95 % 95 % [facility] ([facility], [facility]) Respiratory rate 16 /min 16 /min MEDENT ( [facility], [facility]) Heart rate 103 /min 103 /min MEDENT ([facility], [facility]) 80 regular Diastolic blood pressure 93 mm[Hg] 93 mm[Hg] MEDENT ([facility], [facility]) Systolic blood pressure 157 mm[Hg] 157 mm[Hg] M EDENT ([facility], [facility]) Intraocular pressure Left eye 13 mm[Hg] 13 mm[ Hg] MEDENT ([facility]) Al-, Applanation 01:29 PM Intraocular pressure Right eye 11 mm[Hg] 11 mm [Hg] MEDENT ([facility]) Diastolic blood pressure 84 mm[Hg] 84 mm[Hg] eCW1 ([facility]) Systolic blood pressure 144 mm[Hg] 144 mm[Hg] e CW1 ([facility]) Body temperature 98.1 [degF] 98.1 [degF] eCW1 ( [facility]) Respiratory rate 18 /min 18 /min eCW1 ([facility]) Heart rate 67 /min 67 /min eCW1 ([facility]) Body mass index (BMI) [Ratio] 29.96 kg/m2 29.96 kg/m2 eCW1 ([facility]) Body height 70 [in_i] 70 [in_i] eCW1 ([facility]) Body weight 208.8 [lb_av] 208.8 [lb_av] eCW1 ([facility]) Body mass index (BMI) [Ratio] 29.12 kg/m2 29.12 kg/m2 eCW1 ([facility]) Body height 70 [in_us] 70 [in_us] eCW1 ([facility]) Body weight Measured 203 [lb_av] 203 [lb_av] eC W1 ([facility]) Patient Treatment Plan of Care Planned Activity Planned Date Details Description Data Source (s) Medrol (Joe) 4 MG 02/25/2020 12:00:00 AM EST eCW1 ([facility]) Medrol (Joe) 4 MG 02/25/2020 12:00:00 AM EST eCW1 ([facility]) tramadol hydrochloride 50 MG Oral Tablet 02/23/2020 12:00:00 AM EST eCW1 ([facility]) tramadol hydrochloride 50 MG Oral Tablet 02/23/2020 12:00:00 AM EST eCW1 ([facility]) tramadol hydrochloride 50 MG Oral Tablet 02/23/2020 12:00:00 AM EST eCW1 ([facility]) tramadol hydrochloride 50 MG Oral Tablet 02/23/2020 12:00:00 AM EST eCW1 ([facility]) tramadol hydrochloride 50 MG Oral Tablet 02/23/2020 12:00:00 AM EST eCW1 ([facility]) Gabapentin 300 MG 02/18/2020 12:00:00 AM EST eCW1 ([facility]) Gabapentin 300 MG 02/18/2020 12:00:00 AM EST eCW1 ([facility]) Gabapentin 300 MG 02/18/2020 12:00:00 AM EST eCW1 ([facility]) Gabapentin 300 MG 02/18/2020 12:00:00 AM EST eCW1 ([facility]) Gabapentin 300 MG 02/18/2020 12:00:00 AM EST eCW1 ([facility]) gabapentin 100 MG Oral Capsule 02/18/2020 12:00:00 AM EST eCW1 ([facility]) Diclofenac Sodium 0.01 MG/MG Topical Gel [Voltaren] 12/24/19 12:00:00 AM EST eCW1 ([facility]) Diclofenac Sodium 0.01 MG/MG Topical Gel [Voltaren] 12/24/19 12:00:00 AM EST eCW1 ([facility]) Diclofenac Sodium 0.01 MG/MG Topical Gel [Voltaren] 12/24/19 12:00:00 AM EST eCW1 ([facility]) 8 HR Methylphenidate Hydrochloride 20 MG Extended Rele ase Oral Tablet 12/08/2019 12:00:00 AM EST eCW1 ([facility]) Methylphenidate Hydrochloride 5 MG Oral Tablet [Ritali n] 2019 12:00:00 AM EDT eCW1 ([facility])
[2020-03-19] MEDS: HEPARIN DRIP 25,000 UNITS in IV 1 EA IV SCH (18:15)
[2020-03-19 18:24] LABS: RSV AMPLIFICATION NEGATIVE (NEGATIVE)
[2020-03-19 19:50] VITALS: BP 165/84
[2020-03-19] MEDS: SENOKOT S TAB PO SCH (21:00)
--- NOTE | 2020-03-19 21:29 | ECGEPIP ---
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
[2020-03-19] MEDS: GABAPENTIN 300 MG CAP PO SCH (21:43)
[2020-03-20] VITALS (8 sets, daily range): BP systolic 158–176; BP diastolic 84–98
[2020-03-20] MEDS: HEPARIN SOD (PORCINE) 5000UNITS/ML 1ML VIAL/SYRINGE IV PRN (01:01)
[2020-03-20] MEDS ORDERED: hydrALAZINE 20MG/ML 1ML VIAL (J0360 PER 20MG) IV ONE (03:30)
[2020-03-20 07:10] LABS: HEMATOCRIT 33.6 % (42.0-52.0); HEMOGLOBIN 10.6 g/dl (13.5-17.5); MEAN CORPUSCULAR HGB CONC 31.5 g/dl (32.0-36.5); MEAN CORPUSCULAR VOLUME 101.5 fl (80.0-96.0); PLATELET COUNT, AUTOMATED 360 10^3/uL (150-450); RED BLOOD COUNT 3.31 10^6/uL (4.30-6.10); WHITE BLOOD COUNT 9.1 10^3/uL (4.0-10.0)
[2020-03-20 07:28] LABS: CREATININE FOR GFR 1.28 MG/DL (0.70-1.30); GLOMERULAR FILTRATION RATE 57.7 (>42); MAGNESIUM LEVEL 2.1 MG/DL (1.8-2.4); POTASSIUM SERUM 3.2 MEQ/L (3.5-5.1)
[2020-03-20] MEDS: PANTOPRAZOLE 20 MG TAB PO SCH (07:38)
[2020-03-20] MEDS: MULTIVITAMINS/MINERALS THERAP 1 TAB PO SCH (07:38)
[2020-03-20] MEDS: SENOKOT S TAB PO SCH ×2 (07:39→21:00)
[2020-03-20] MEDS: GABAPENTIN 300 MG CAP PO SCH ×2 (07:39→21:00)
[2020-03-20] MEDS: MIRALAX *UNIT DOSE* 17GM PACKET PO SCH (07:39)
[2020-03-20] MEDS: CitaloPRAM (CeleXA) 10 MG TABLET PO SCH (07:39)
[2020-03-20] MEDS ORDERED: **hydrALAZINE** 10 MG TAB PO ONE (08:00)
[2020-03-20] MEDS ORDERED: POTASSIUM CHLORIDE 10 MEQ SR TABLET PO ONE (09:00)
[2020-03-20] MEDS: amLODIPine 5 MG TAB PO SCH (09:26)
[2020-03-20] MEDS: hydroCHLOROthiazide 12.5 MG CAPSULE PO SCH (09:26)
[2020-03-20] MEDS ORDERED: QUEtiapine FUMARATE 25 MG TAB PO ONE (11:45)
[2020-03-20] MEDS: HEPARIN DRIP 25,000 UNITS in IV 1 EA IV SCH (12:37)
--- NOTE | 2020-03-20 13:58 | IPNPDOC ---
Text Note Date of Service The patient was seen on 03/20/20. NOTE Subjective: Patient was seen and examined this morning at bedside. He had no complaints but did appear a little more confused than he did yesterday. He was talking about tripping over children and he tried to get out of bed. He spoke with his on the phone. I decided to get him a sitter as he did try to get out of bed in the morning about him falling. After speaking to his she tells me she often gets this with and has been treated with several the past which I did not see on his med rec. I resumed the dose that his tells me he was on before which worked well for him. Patient feels well and doesn't have any shortness of breath or chest pain. States his legs feel the same as yesterday. There is no acute overnight events. Objective: Constitutional: Awake and alert, in no apparent distress ENT: Sclera are clear. Mucosa is moist. Respiratory: Lungs diminished breath sounds bilaterally. No respiratory distress. No use of accessory muscles. He is on 2 L of oxygen by nasal cannula saturating at 95% Cardiovascular: Irregular heart rate. Rate is 92 on monitor. Gastrointestinal: Abdomen is soft, non distended, non tender, BS present. Musculoskeletal: His lower extremities bilaterally swollen left side more than right without erythema or signs of infection. Homans is positive bilaterally. Neurologic: No focal neurological deficit. Mental Status: A&O x3, normal affect Skin: Exam unchanged with minimal ecchymoses on the left side left from his pr evious fall. Assessment/plan: 79-year-old male history of degenerative disc disease, atrial fibrillation was receiving subacute rehabilitation when he was experiencing sudden onset shortness of breath brought to the emergency department found to have bilateral lower extremity DVT as well as bilateral PE. Patient admitted to the hospital for further workup and management. Will need to work with physical therapy and likely require rehabilitation again. # Bilateral pulmonary emboli: PCU on tele. 03/09 BL LE DVT. Heparin drip, which may be switched after close monitoring to an oral agent if appropriate at that time. Monitor hgb/signs of bleeding. Troponin negative. Fu Echo to evaluate for right heart strain. Titrate oxygen to maintain o2>92%. repeat COVID negative. # Bilateral lower extremity DVT: Management as above. Nonocclusive. May have been provoked by decreased mobility over the past month since his fall as well as the large extensive ecchymosis he incurred on the left side and the last visit. Legs are swollen ambulation is poor assisted ambulation only, PT/OT. # Atrial fibrillation: His rate is controlled, on amiodarone. He was taken off of Xarelto upon discharge last month due to falling hemoglobin and extensive ecchymoses. At this time his ecchymosis is almost completely resolved and his hemoglobin is close to baseline therefore I will start him on anticoagulation and monitor him closely for signs of bleeding and monitor his hemoglobin. # Dementia: Needs frequent reorientation. High risk of delirium. Resume Seroquel. Fall precautions. Sitter. # CKD: appears to better than his baseline. Mointor BMP. Avoid nephrotoxins. I will avoid using Lovenox for now to treat his PE/DVT. # Hypertension: Continue home meds. Monitor and titrate GERD with Nguyen's esophagus: PPI # HFpEF: At this time he appears euvolemic he has no crackles on his lungs and no JVD however is difficult to assess his legs for edema as they're both swollen likely due to the DVT. Continue his home medications. Fu Echo. # Degenerative disc disease with radicular pain: Pain control. Gabapentin. PT/OT. # DVT prophylaxis: Heparin drip Disposition: Patient anticipated to be admitted for greater than 2 midnights. At time of discharge patient may need to go back and continue subacute rehabilit ation. I have updated the plan and findings with his Leonila Allred [phone] Tommie Arias Hospitalist [facility] I+O [facility] Laboratory Tests 03/19/20 15:45 03/20/20 06:54 Vital Signs Date Time Temp Pulse Resp B/P (MAP) Pulse Ox O2 Delivery O2 Flow Rate FiO2 03/20/20 12:00 2.0 03/20/20 11:40 97.6 84 20 158/88 (111) 94 Nasal Cannula I&O- Last 24 Hours up to 6 AM 03/20/20 06:00 Intake Total 0 ml Output Total 300 ml Balance -300 ml KAY ARIAS MD Mar 20, 2020 13:58
[2020-03-20] MEDS ORDERED: LORazepam 2 MG/ML VIAL As Ordered ONE (16:16)
[2020-03-20] MEDS ORDERED: LORazepam 2 MG/ML VIAL IV ONE ×3 (17:00→19:45)
[2020-03-20 17:21] LABS: APPEARANCE, URINE HAZY (CLEAR); BACTERIA, URINE AUTO NEGATIVE (NEGATIVE); BILIRUBIN, URINE AUTO NEGATIVE (NEGATIVE); BLOOD, URINE BLOOD NEGATIVE (NEGATIVE); COLOR, URINE AMBER (YELLOW); GLUCOSE, URINE (UA) AUTO NEGATIVE (NEGATIVE); KETONE, URINE AUTO NEGATIVE (NEGATIVE); LEUKOCYTE ESTERASE, URINE AUTO NEGATIVE (NEGATIVE); MUCUS, URINE SMALL (NEGATIVE); NITRITE, URINE AUTO NEGATIVE (NEGATIVE); PROTEIN, URINE AUTO NEGATIVE (NEGATIVE); RBC, URINE AUTO 0 /HPF (0-3); SPECIFIC GRAVITY URINE AUTO 1.027 (1.002-1.035); SQUAMOUS EPITHELIAL CELL UR AU 0 /HPF (0-6); UROBILINOGEN, URINE AUTO 0.2 mg/dL (0.0-2.0); WBC, URINE AUTO 1 /HPF (0-3)
[2020-03-20 18:00] LABS: BASO % 0.1 % (0.0-1.0); EOS # 0.1 10^3/uL (0.0-0.5); LYMPH # 0.7 10^3/uL (1.5-5.0); LYMPH % 7.7 % (24.0-44.0); MEAN CORPUSCULAR HEMOGLOBIN 31.5 pg (27.0-33.0); MEAN CORPUSCULAR HGB CONC 30.3 g/dl (32.0-36.5); MEAN CORPUSCULAR VOLUME 104.1 fl (80.0-96.0); MONO % 10.9 % (2.0-8.0); NEUTROPHILS # 7.3 10^3/uL (1.5-8.5); PLATELET COUNT, AUTOMATED 388 10^3/uL (150-450); RED BLOOD COUNT 3.17 10^6/uL (4.30-6.10); WHITE BLOOD COUNT 9.3 10^3/uL (4.0-10.0)
[2020-03-20] MEDS ORDERED: OLANZapine INTRAMUSCULAR 10MG VIAL IM ONE (18:00)
[2020-03-20 18:31] LABS: ALBUMIN 2.7 GM/DL (3.2-5.2); CALCIUM LEVEL 8.2 MG/DL (8.8-10.2); CREATININE FOR GFR 1.32 MG/DL (0.70-1.30); GLOMERULAR FILTRATION RATE 55.7 (>42); MAGNESIUM LEVEL 2.1 MG/DL (1.8-2.4); POTASSIUM SERUM 3.8 MEQ/L (3.5-5.1); TOTAL PROTEIN 5.4 GM/DL (6.4-8.2)
--- NOTE | 2020-03-20 20:44 | REPVR ---
PROCEDURE INFORMATION: Exam: CT Head Without Contrast Exam date and time: 03/20/2020 8:13 PM Age: 79 years old Clinical indication: Altered mental status/memory loss; Other: On heparin; Additional info: AMS on heparin drip TECHNIQUE: Imaging protocol: Computed tomography of the head without contrast. Radiation optimization: All CT scans at this facility use at least one of these dose optimization techniques: automated exposure control; mA and/or kV adjustment per patient size (includes targeted exams where dose is matched to clinical indication); or iterative reconstruction. COMPARISON: CT Head without contrast 02/27/2020 7:01 AM FINDINGS: Brain: There is no CT evidence for an acute large vessel territorial infarct. No acute intracranial hemorrhage is seen. No mass effect, midline shift, or herniation is noted. There are non-specific foci of low attenuation in the periventricular and subcortical white matter, which are likely the sequela of chronic small vessel ischemic injury and are similar in appearance compared to the prior CT head on 02/27/2020. Incidental note is made of calcifications in the globus pallidus bilaterally, which are unchanged compared to the prior CT head on 02/27/2020. Cerebral ventricles: The ventricles are moderately dilated in proportion to the sulci, which is compatible with moderate generalized cerebral volume loss that is similar in appearance compared to the prior CT head on 02/27/2020. Bones/joints: The skull is intact. No suspicious osteolytic or osteoblastic lesion. Paranasal sinuses: The imaged portions of the sinuses are well-aerated. No air-fluid levels are noted in the sinuses. Mastoid air cells: Clear. Orbital cavity: Incidental note is made of bilateral lens implants. Incidental note is made of bilateral calcific senile scleral plaques. The globes and orbits are intact. Soft tissues: Unremarkable. No soft tissue fluid collection. IMPRESSION: No acute intracranial abnormality. Electronically signed by: César Bermudez On 03/20/2020 20:43:41 PM
[2020-03-20] MEDS: QUEtiapine FUMARATE 25 MG TAB PO SCH (21:00)
[2020-03-21] VITALS: BP 166/93
[2020-03-21 01:49] LABS: MB/CK RELATIVE INDEX 5.43 (< OR =4); TROPONIN I 0.05 NG/ML (< 0.10)
[2020-03-21 04:00] VITALS: BP 126/89
[2020-03-21 05:26] LABS: HEMATOCRIT 30.1 % (42.0-52.0); HEMOGLOBIN 9.1 g/dl (13.5-17.5); MEAN CORPUSCULAR HEMOGLOBIN 31.5 pg (27.0-33.0); MEAN CORPUSCULAR HGB CONC 30.2 g/dl (32.0-36.5); MEAN CORPUSCULAR VOLUME 104.2 fl (80.0-96.0); PLATELET COUNT, AUTOMATED 351 10^3/uL (150-450); RED BLOOD COUNT 2.89 10^6/uL (4.30-6.10); WHITE BLOOD COUNT 8.5 10^3/uL (4.0-10.0)
[2020-03-21 05:41] LABS: BLOOD UREA NITROGEN 18 MG/DL (7-18); CALCIUM LEVEL 7.8 MG/DL (8.8-10.2); CARBON DIOXIDE LEVEL 28 MEQ/L (21-32); CHLORIDE LEVEL 112 MEQ/L (98-107); CREATININE FOR GFR 1.23 MG/DL (0.70-1.30); GLOMERULAR FILTRATION RATE > 60.0 (>42); GLUCOSE, FASTING 99 MG/DL (70-100); MAGNESIUM LEVEL 2.2 MG/DL (1.8-2.4); POTASSIUM SERUM 3.5 MEQ/L (3.5-5.1); SODIUM LEVEL 146 MEQ/L (136-145)
[2020-03-21] MEDS: HEPARIN SOD (PORCINE) 5000UNITS/ML 1ML VIAL/SYRINGE IV PRN ×2 (06:42→20:04)
[2020-03-21] MEDS: HEPARIN DRIP 25,000 UNITS in IV 1 EA IV SCH ×2 (07:11→23:31)
[2020-03-21 08:00] VITALS: BP 164/84
--- NOTE | 2020-03-21 08:36 | IPNPDOC ---
Text Note Date of Service The patient was seen on 03/21/20. NOTE Subjective: Patient was seen and examined this morning at bedside. He had an eventful evening last night he progressively went into delirium throughout the day was seen people in the room or not there was talking to himself. Seroquel initially seemed to help a little but patient continued to worsen and so he was given IM Zyprexa as well as IV Ativan which helped. A sitter is also by bedside. This morning he is a lot more calm sleepy I was able to wake him up and he answered my questions appropriately he knew where he was seen you his 's name he told me was doing well and then fell back asleep. Overnight he did become agitated at one point and required IV Ativan and a CT head was ordered. Denies any shortness of breath to me this morning. Objective: Constitutional: Sleepy, in no apparent distress ENT: Sclera are clear. Mucosa is moist. Respiratory: Lungs diminished breath sounds bilaterally. No respiratory distress. No use of accessory muscles. He is on 2 L of oxygen by nasal cannula saturating at 95% Cardiovascular: Irregular heart rate. Rate is 84 on monitor. Gastrointestinal: Abdomen is soft, non distended, non tender, BS present. Musculoskeletal: His lower extremities bilaterally swollen left side more than right without erythema or signs of infection. Unchanged from prior Neurologic: No focal neurological deficit. Mental Status: A&O x3, normal affect Skin: Exam unchanged with minimal ecchymoses on the left side left from his previous fall slightly improved from prior Assessment/plan: 79-year-old male history of degenerative disc disease, atrial fibrillation was receiving subacute rehabilitation when he was experiencing sudden onset shortness of breath brought to the emergency department found to have bilateral lower extremity DVT as well as bilateral PE. Patient admitted to the hospital for further workup and management. Will need to work with physical therapy and likely require rehabilitation again. # Bilateral pulmonary emboli: PCU on tele. 03/09 BL LE DVT. Heparin drip, which may be switched after close monitoring to an oral agent if appropriate at that time, currently waiting on echo report. Monitor hgb/signs of bleeding, hgb did drop slightly today 10->9.1. Troponin negative. Fu Echo to evaluate for right heart strain, report not read yet. Titrate oxygen to maintain o2>92%. repeat COVID negative. # Bilateral lower extremity DVT: Management as above. Nonocclusive. May have been provoked by decreased mobility over the past month since his fall as well as the large extensive ecchymosis he incurred on the left side and the last visit. Legs are swollen ambulation is poor assisted ambulation only, PT/OT. # Atrial fibrillation: His rate is controlled, on amiodarone. He was taken off of Xarelto upon discharge last month due to falling hemoglobin and extensive ecchymoses. At this time his ecchymosis is almost completely resolved and his hemoglobin is close to baseline therefore I will start him on anticoagulation and monitor him closely for bleeding # Dementia: Needs frequent reorientation. Some delirium. Sitter. Resume Seroquel. Fall precautions. # CKD: appears to better than his baseline. Mointor BMP. Avoid nephrotoxins. I will avoid using Lovenox for now to treat his PE/DVT. # Hypertension: Continue home meds. Monitor and titrate GERD with Nguyen's esophagus: PPI # HFpEF: At this time he appears euvolemic he has no crackles on his lungs and no JVD however is difficult to assess his legs for edema as they're both swollen likely due to the DVT. Continue his home medications. Fu Echo. # Degenerative disc disease with radicular pain: Pain control. Gabapentin. PT/OT. # DVT prophylaxis: Heparin drip Disposition: Patient anticipated to be admitted for greater than 2 midnights. At time of discharge patient may need to go back and continue subacute rehabilitation. I have updated the plan and findings with his Leonila Allred [phone] Tommie Arias Hospitalist [facility] I+[facility] I+O Laboratory Tests 03/20/20 17:38 03/21/20 04:51 Vital Signs Date Time Temp Pulse Resp B/P (MAP) Pulse Ox O2 Delivery O2 Flow Rate FiO2 03/21/20 08:00 97.9 79 18 164/84 (110) 92 Nasal Cannula 2.0 I&O- Last 24 Hours up to 6 AM0 03/21/20 06:00 Intake Total 150 ml Output Total 400 ml Balance -250 ml KAY ARIAS MD Mar 21, 2020 08:36
[2020-03-21] MEDS: MIRALAX *UNIT DOSE* 17GM PACKET PO SCH (09:00)
[2020-03-21] MEDS: QUEtiapine FUMARATE 50MG TAB PO SCH (10:38)
[2020-03-21] MEDS: amLODIPine 5 MG TAB PO SCH (10:38)
[2020-03-21] MEDS: hydroCHLOROthiazide 12.5 MG CAPSULE PO SCH (10:38)
[2020-03-21] MEDS: SENOKOT S TAB PO SCH ×2 (10:39→21:22)
[2020-03-21] MEDS: MULTIVITAMINS/MINERALS THERAP 1 TAB PO SCH (10:39)
[2020-03-21] MEDS: GABAPENTIN 300 MG CAP PO SCH ×2 (10:39→21:22)
[2020-03-21] MEDS: PANTOPRAZOLE 20 MG TAB PO SCH (10:39)
[2020-03-21] MEDS ORDERED: SLF 3 ML SYR IV PRN (11:15)
[2020-03-21 12:00] VITALS: BP 144/81
[2020-03-21] MEDS: CitaloPRAM (CeleXA) 10 MG TABLET PO SCH (12:14)
--- NOTE | 2020-03-21 12:56 | ECGEPIP ---
[facility] Test Date: 2020-03-21 Pat Name: HERMILO LO Department: Room: [place] [address] Gender: Male Support Team Assoc: [id number] : 1940 Requested By: PREETI PEREZ Order Number: [id number] Reading MD: Shelton See Measurements Intervals [place] Rate: 93 P: IA: 0 QRS: 1 QRSD: 103 T: 8 QT: 405 QTc: 504 Interpretive Statements ATRIAL FIBRILLATION NONSPECIFIC ST & T-WAVE ABNORMALITY Prolonged QTc interval Similar to tracing done 03-19-20 Electronically Signed on 03-21-2020 12:56:40 EST by Shelton See
[2020-03-21] MEDS: SLF 3 ML SYR IV SCH ×2 (14:00→21:22)
[2020-03-21 15:49] VITALS: BP 147/83
[2020-03-21] MEDS: AMIODARONE 200 MG TAB (PACERONE) PO SCH (18:24)
[2020-03-21 20:00] VITALS: BP 156/74
[2020-03-21] MEDS: QUEtiapine FUMARATE 25 MG TAB PO SCH (21:22)
[2020-03-22] VITALS: BP 163/80
[2020-03-22 02:45] LABS: HEMATOCRIT 34.6 % (42.0-52.0); HEMOGLOBIN 10.5 g/dl (13.5-17.5); MEAN CORPUSCULAR HEMOGLOBIN 31.3 pg (27.0-33.0); MEAN CORPUSCULAR HGB CONC 30.3 g/dl (32.0-36.5); PLATELET COUNT, AUTOMATED 431 10^3/uL (150-450); RED BLOOD COUNT 3.36 10^6/uL (4.30-6.10); WHITE BLOOD COUNT 9.2 10^3/uL (4.0-10.0)
[2020-03-22 03:01] LABS: CALCIUM LEVEL 7.7 MG/DL (8.8-10.2); CREATININE FOR GFR 1.5 MG/DL (0.70-1.30); GLOMERULAR FILTRATION RATE 48.1 (>42); MAGNESIUM LEVEL 2.1 MG/DL (1.8-2.4); POTASSIUM SERUM 3.2 MEQ/L (3.5-5.1)
[2020-03-22 04:00] VITALS: BP 145/68
[2020-03-22] MEDS: SLF 3 ML SYR IV SCH ×3 (05:36→22:00)
[2020-03-22 07:20] VITALS: BP 166/90
[2020-03-22] MEDS: hydroCHLOROthiazide 12.5 MG CAPSULE PO SCH (08:29)
[2020-03-22] MEDS: MIRALAX *UNIT DOSE* 17GM PACKET PO SCH (08:29)
[2020-03-22] MEDS: SENOKOT S TAB PO SCH ×2 (08:29→20:18)
[2020-03-22] MEDS: MULTIVITAMINS/MINERALS THERAP 1 TAB PO SCH (08:29)
[2020-03-22] MEDS: amLODIPine 5 MG TAB PO SCH (08:29)
[2020-03-22] MEDS: CitaloPRAM (CeleXA) 10 MG TABLET PO SCH (08:30)
[2020-03-22] MEDS: QUEtiapine FUMARATE 50MG TAB PO SCH (08:30)
[2020-03-22] MEDS: GABAPENTIN 300 MG CAP PO SCH ×2 (08:30→20:19)
[2020-03-22] MEDS: PANTOPRAZOLE 20 MG TAB PO SCH (08:30)
[2020-03-22] MEDS ORDERED: NS 1,000 ML IV SCH (08:45)
[2020-03-22] MEDS ORDERED: POTASSIUM CHLORIDE 10 MEQ SR TABLET PO ONE (08:45)
[2020-03-22] MEDS: NS 0.45% 1,000 ML IV SCH ×2 (09:34→21:15)
--- NOTE | 2020-03-22 10:46 | IPNPDOC ---
Text Note Date of Service The patient was seen on 03/22/20. NOTE Subjective: Patient was seen and examined this morning at bedside. He is doing a little better today. He is a lot more calm and relaxed is able to open his eyes and answer my questions appropriately he didn't seem agitated although there are still some confusion. There is no acute overnight events. He tells me he is feeling well and would like to repeat today. Denies any shortness of breath or chest pain. Objective: Constitutional: more awake today, answering questions, in no apparent distress ENT: Sclera are clear. Mucosa is moist. Respiratory: Lungs diminished breath sounds bilaterally. No respiratory distress. No use of accessory muscles. He is on 2 L of oxygen by nasal cannula saturating well Cardiovascular: Irregular heart rate. Rate is 75 on monitor. Gastrointestinal: Abdomen is soft, non distended, non tender, BS present. Musculoskeletal: His lower extremities bilaterally swollen left side more than right without erythema or signs of infection. Unchanged from prior Neurologic: No focal neurological deficit. Mental Status: A&O x3, normal affect Skin: Exam unchanged with minimal ecchymoses on the left side left from his previous fall slightly improved from prior Assessment/plan: 79-year-old male history of degenerative disc disease, atrial fibrillation was receiving subacute rehabilitation when he was experiencing sudden onset shortness of breath brought to the emergency department found to have bilateral lower extremity DVT as well as bilateral PE. Patient admitted to the hospital for further workup and management. Will need to work with physical therapy and likely require rehabilitation again. # Bilateral pulmonary emboli: PCU on tele. likely 2/2 BL LE DVT. Heparin drip, which may be switched after close monitoring to an oral agent if appropriate at that time, currently waiting on echo report. Monitor hgb/signs of bleeding, hgb did drop slightly today 10->9.1, better today. Troponin negative. Fu Echo to evaluate for right heart strain. Titrate oxygen to maintain o2>92%. repeat COVID negative. # Bilateral lower extremity DVT: Management as above. Nonocclusive. May have been provoked by decreased mobility over the past month since his fall as well as the large extensive ecchymosis he incurred on the left side and the last visit. Legs are swollen ambulation is poor assisted ambulation only, PT/OT - ok to resume subacute rehab once medically cleared. # Atrial fibrillation: His rate is controlled, on amiodarone. He was taken off of Xarelto upon discharge last month due to falling hemoglobin and extensive ecchymoses. At this time his ecchymosis is almost completely resolved and his hemoglobin is close to baseline therefore I will start him on anticoagulation and monitor him closely for bleeding # Hypernatremia: 1/2NS. Repeat BMP. # SARAH on CKD: likely from poor fluid intake. Started him on IVFs. Avoid nephrotoxins. I will avoid using Lovenox for now to treat his PE/DVT. # Hypokalemia: 3.2 this morning. replace. monitor. # Dementia: Needs frequent reorientation. Some delirium. Sitter. Resume Seroquel, appears to be helping. Fall precautions. # Hypertension: Continue home meds. Monitor and titrate GERD with Nguyen's esophagus: PPI # HFpEF: At this time he appears euvolemic he has no crackles on his lungs and no JVD however is difficult to assess his legs for edema as they're both swollen likely due to the DVT. Continue his home medications. Fu Echo. # Degenerative disc disease with radicular pain: Pain control. Gabapentin. PT/OT. # DVT prophylaxis: Heparin drip Disposition: Patient anticipated to be admitted for greater than 2 midnights. At time of discharge patient may need to go back and continue subacute rehabilitation. I have updated the plan and findings with his Leonila Allred [phone] Tommie Arias Hospitalist [facility], I+O [facility] I+[facility] Laboratory Tests 03/22/20 02:15 Vital Signs Date Time Temp Pulse Resp B/P (MAP) Pulse Ox O2 Delivery O2 Flow Rate FiO2 03/22/20 08:29 66 166/90 03/22/20 07:20 98.3 20 94 Room Air 03/21/20 12:00 I&O- Last 24 Hours up to 6 AM 03/22/20 06:00 Intake Total 1080 ml Output Total 1550 ml Balance -470 ml KAY ARIAS MD Mar 22, 2020 10:46
[2020-03-22 12:00] VITALS: BP 117/73
[2020-03-22] MEDS: HEPARIN DRIP 25,000 UNITS in IV 1 EA IV SCH (15:41)
[2020-03-22 16:00] VITALS: BP 138/70
[2020-03-22 20:00] VITALS: BP 129/59
[2020-03-22] MEDS: QUEtiapine FUMARATE 25 MG TAB PO SCH (20:18)
[2020-03-23] VITALS: BP 177/89
[2020-03-23] MEDS: SLF 3 ML SYR IV SCH ×3 (03:59→20:22)
[2020-03-23 04:00] VITALS: BP 155/79
[2020-03-23 04:44] LABS: HEMATOCRIT 32.3 % (42.0-52.0); MEAN CORPUSCULAR HEMOGLOBIN 31.4 pg (27.0-33.0); MEAN CORPUSCULAR VOLUME 101.6 fl (80.0-96.0); PLATELET COUNT, AUTOMATED 479 10^3/uL (150-450); RED BLOOD COUNT 3.18 10^6/uL (4.30-6.10)
[2020-03-23 04:59] LABS: CALCIUM LEVEL 7.5 MG/DL (8.8-10.2); CREATININE FOR GFR 1.32 MG/DL (0.70-1.30); GLOMERULAR FILTRATION RATE 55.7 (>42); MAGNESIUM LEVEL 2.1 MG/DL (1.8-2.4); POTASSIUM SERUM 3.7 MEQ/L (3.5-5.1)
[2020-03-23] MEDS: HEPARIN DRIP 25,000 UNITS in IV 1 EA IV SCH (06:47)
[2020-03-23 07:52] VITALS: BP 142/80
[2020-03-23] MEDS: QUEtiapine FUMARATE 50MG TAB PO SCH (08:29)
[2020-03-23] MEDS: SENOKOT S TAB PO SCH ×2 (08:29→19:49)
[2020-03-23] MEDS: PANTOPRAZOLE 20 MG TAB PO SCH (08:30)
[2020-03-23] MEDS: hydroCHLOROthiazide 12.5 MG CAPSULE PO SCH (08:30)
[2020-03-23] MEDS: GABAPENTIN 300 MG CAP PO SCH ×2 (08:30→19:49)
[2020-03-23] MEDS: amLODIPine 5 MG TAB PO SCH (08:30)
[2020-03-23] MEDS: CitaloPRAM (CeleXA) 10 MG TABLET PO SCH (08:30)
[2020-03-23] MEDS: MIRALAX *UNIT DOSE* 17GM PACKET PO SCH (08:31)
[2020-03-23] MEDS: MULTIVITAMINS/MINERALS THERAP 1 TAB PO SCH (08:31)
--- NOTE | 2020-03-23 09:27 | IPN ---
PROGRESS NOTE DATE: 03/23/2020 SUBJECTIVE: Victor Hugo is a [facility] resident admitted with a pulmonary embolism. He has bilateral pulmonary emboli, bilateral lower extremity DVTs being treated for dementia, acute kidney injury, so far without chronic kidney disease, hypernatremia and hypertension. He has Nguyen's esophagus and on PPI therapy. He feels well and denies shortness of breath, palpitations, chest pain or pain in his legs. PHYSICAL EXAMINATION: VITAL SIGNS: Afebrile, blood pressure 142/80, 92% O2 saturation on room air. GENERAL APPEARANCE: He is alert, knows where he is, does not know that he lived in [facility] before coming here. NECK: No JVD. LUNGS: Decreased breath sounds. HEART: Regular rate and rhythm. ABDOMEN: Soft, nontender. Trace peripheral edema. No swelling of his calves. LABORATORY DATA: White count 11, hemoglobin 10, platelets 479,000. Sodium 144, potassium 3.7, BUN 18, creatinine 1.3, glucose 99. IMPRESSION: 1. DVT with pulmonary embolism. Will stop his IV Heparin and start on Xarelto. 2. Hypernatremia, sodium is improved with IV fluids, will reduce the rate. 3. Anemia, this is chronic and his baseline hemoglobin is around 10. When he was admitted in February his ferritin was low, percentage saturation was low suggesting some mild iron deficiency. He apparently has had a history of Nguyen's esophagus. He will need outpatient attention to this. It looks like his last upper endoscopy at [facility] was about four years ago.
[2020-03-23] MEDS: RIVAROXABAN 15 MG TAB (XARELTO) PO SCH ×2 (09:50→18:19)
[2020-03-23 11:58] VITALS: BP 136/78
[2020-03-23 15:58] VITALS: BP 131/64
[2020-03-23] MEDS: AMIODARONE 200 MG TAB (PACERONE) PO SCH (18:19)
[2020-03-23] MEDS: QUEtiapine FUMARATE 25 MG TAB PO SCH (19:49)
[2020-03-23 20:00] VITALS: BP 140/68
[2020-03-24] VITALS: BP 142/81
[2020-03-24 06:31] LABS: HEMATOCRIT 31.9 % (42.0-52.0); HEMOGLOBIN 10.1 g/dl (13.5-17.5); MEAN CORPUSCULAR HEMOGLOBIN 31.9 pg (27.0-33.0); MEAN CORPUSCULAR HGB CONC 31.7 g/dl (32.0-36.5); MEAN CORPUSCULAR VOLUME 100.6 fl (80.0-96.0); PLATELET COUNT, AUTOMATED 517 10^3/uL (150-450); RED BLOOD COUNT 3.17 10^6/uL (4.30-6.10); WHITE BLOOD COUNT 11.4 10^3/uL (4.0-10.0)
[2020-03-24 07:06] LABS: CALCIUM LEVEL 8.3 MG/DL (8.8-10.2); CREATININE FOR GFR 1.39 MG/DL (0.70-1.30); GLOMERULAR FILTRATION RATE 52.5 (>42); MAGNESIUM LEVEL 2.1 MG/DL (1.8-2.4); POTASSIUM SERUM 3.7 MEQ/L (3.5-5.1)
[2020-03-24] MEDS: SENOKOT S TAB PO SCH (08:34)
[2020-03-24] MEDS: hydroCHLOROthiazide 12.5 MG CAPSULE PO SCH (08:35)
[2020-03-24] MEDS: QUEtiapine FUMARATE 50MG TAB PO SCH (08:35)
[2020-03-24] MEDS: RIVAROXABAN 15 MG TAB (XARELTO) PO SCH (08:35)
[2020-03-24] MEDS: MIRALAX *UNIT DOSE* 17GM PACKET PO SCH (08:35)
[2020-03-24] MEDS: MULTIVITAMINS/MINERALS THERAP 1 TAB PO SCH (08:35)
[2020-03-24] MEDS: CitaloPRAM (CeleXA) 10 MG TABLET PO SCH (08:35)
[2020-03-24] MEDS: GABAPENTIN 300 MG CAP PO SCH (08:35)
[2020-03-24] MEDS: PANTOPRAZOLE 20 MG TAB PO SCH (08:35)
[2020-03-24 08:39] VITALS: BP 110/67
[2020-03-24] MEDS: amLODIPine 5 MG TAB PO SCH (08:39)
[2020-03-24] MEDS ORDERED: XARE15TA PO (09:08)
--- NOTE | 2020-03-24 11:08 | ECHO ---
DATE OF PROCEDURE: 03/20/2020 Age: 79 Gender: Male REFERRING PROVIDER: Saeid Arias MD. PATIENT LOCATION: Room 3224. REASON FOR STUDY: Shortness of breath. 2D MEASUREMENTS: IVS 1.2 cm LV 3.2 cm LVPW 1.2 cm LA 3.9 cm Aorta 3.8 cm IVC 2.3 cm DOPPLER MEASUREMENT Peak velocity across the aortic valve 1.3 m/s Peak velocity across the LVOT 0.5 m/s Mitral E 0.81 Maximum tricuspid valve velocity 2.2 m/s 2D COMMENTS: 1. Normal left ventricular size, wall thickness, and normal global left ventricular systolic function. The estimated left ventricular systolic ejection fraction is 55 to 60%. 2. Normal left atrium. The right atrium and the right ventricle appeared to be mildly enlarged in limited views. The right ventricular free wall seems to be meghan. 3. Mildly dilated aortic root at 3.8 cm. 4. The atrial septum appeared to be normal without evidence of defect or shunt. 5. Trace to small pericardial effusion noted. No evidence of cardiac tamponade. 6. Mildly calcified aortic valve with normal leaflet excursion. Mildly calcified mitral annulus with normal appearing mitral valve leaflet motion. Normal tricuspid valve. The pulmonic valve and proximal pulmonary artery branches were not well visualized. 7. The inferior vena cava was mildly enlarged, central venous pressure mildly elevated. Doppler detects trace mitral regurgitation and trace tricuspid regurgitation. The calculated pulmonary artery systolic pressure was normal. IMPRESSION: 1. Low normal global left ventricular systolic function. Assessment of the left ventricular diastolic function was limited, patient was in atrial fibrillation during the test. 2. Aortic valve sclerosis without stenosis or aortic regurgitation. 3. Mitral annulus calcification with trace mitral regurgitation. 4. Trace tricuspid regurgitation with a normal calculated pulmonary artery systolic pressure. The right heart chambers appeared to be mildly enlarged on limited views but maybe artifactual. 5. Trace to small pericardial effusion, no evidence of cardiac tamponade. 6. Not mentioned above, pacemaker wire artifacts noted in the right heart chambers. [facility]
== END 2020-03-24 10:50 | DRG 299 ==
LOC: EDBD 14:46 → M ED 14:46 → M ED INP 17:17 → M PCU 19:50 → M MS5PR 03-24 00:26
PROVIDERS: ADMIT Family Medicine; ATTEND Family Medicine
DX: I82.433 Acute embolism and thrombosis of popliteal vein, bilateral (principal); I26.99 Other pulmonary embolism without acute cor pulmonale; I48.20 Chronic atrial fibrillation, unspecified; E87.1 Hypo-osmolality and hyponatremia; N17.9 Acute kidney failure, unspecified; Z95.0 Presence of cardiac pacemaker; Z96.643 Presence of artificial hip joint, bilateral; I12.9 Hypertensive chronic kidney disease with stage 1 through stage 4 chronic kidney disease, or unspecified chronic kidney disease; F03.90 Unspecified dementia, unspecified severity, without behavioral disturbance, psychotic disturbance, mood disturbance, and anxiety; K22.70 Barrett's esophagus without dysplasia; Z79.899 Other long term (current) drug therapy; Z88.0 Allergy status to penicillin; Z88.8 Allergy status to other drugs, medicaments and biological substances; E87.6 Hypokalemia; M71.21 Synovial cyst of popliteal space [Baker], right knee; M71.22 Synovial cyst of popliteal space [Baker], left knee; N18.9 Chronic kidney disease, unspecified; D50.9 Iron deficiency anemia, unspecified

== ENCOUNTER → 2020-03-19 | Outpatient (CLI) | payer MEDICARE, OTHER ==
[~2020-03-19] MED LIST changes: -CARV12.5; +ISOVUE-370 76% 100ML VIAL As Ordered ONE; +PEG1POW PO; -POLY17PO18 PO; -QUET25TA3; -SULF1TAB23 PO; -XARE15TA PO
--- NOTE | 2020-03-19 14:02 | REP ---
INDICATION: SOB- IN CT AREA. COMPARISON: Comparison noncontrast CT study is from November 24, 2019.. TECHNIQUE: Contrast dose: 75 ML of Isovue [address] technique: Helical scanning is acquired and overlapping 1.5 mm and contiguous 3 mm axial images are reformatted. In addition, maximum intensity projection and multiplanar re-formation images are generated in sagittal and coronal imaging projections. FINDINGS: There is good opacification of the pulmonary arterial tree and there are multiple bilateral segmental and main pulmonary artery segment pulmonary emboli in the upper and lower lobes. There is four-chamber cardiomegaly. A pacemaker is seen in place. Vascular calcification is noted. There are small bilateral pleural effusions left a little more so than right. There are discoid atelectatic changes in the lower lobes of the lungs bilaterally. Scattered ground-glass opacities are noted in the right and left upper lobe similar to November 24, [address] images. No bony destructive lesion is seen. Lung window settings demonstrate In the upper abdomen, there is a large left upper pole renal cyst measuring 8 cm in greatest diameter. Intrarenal calculus is seen in the upper pole collecting system of the left kidney. These renal findings are unchanged. IMPRESSION: Positive study for multiple bilateral large pulmonary emboli. Critical Findings: Extensive bilateral pulmonary emboli. The critical information above was relayed directly by me by telephone to JEOVANY RM on 03/19/2020 at 1:57 pm with readback verification. <Electronically signed by Abhishek Quarles > 03/19/20 [id number]
== END ==
LOC: M RAD 13:03
PROVIDERS: ATTEND Nurse Practitioner Family
DX: I26.99 Other pulmonary embolism without acute cor pulmonale (principal); N28.1 Cyst of kidney, acquired; I51.7 Cardiomegaly; J90 Pleural effusion, not elsewhere classified; R06.02 Shortness of breath; I95.9 Hypotension, unspecified; I48.20 Chronic atrial fibrillation, unspecified; Z95.0 Presence of cardiac pacemaker

== ENCOUNTER → 2020-03-19 | Outpatient (REF) ==
[~2020-03-19] MED LIST changes: -ISOVUE-370 76% 100ML VIAL As Ordered ONE
[2020-03-19 12:48] LABS: HEMATOCRIT 32.9 % (42.0-52.0); HEMOGLOBIN 10.5 g/dl (13.5-17.5); MEAN CORPUSCULAR HEMOGLOBIN 32.6 pg (27.0-33.0); MEAN CORPUSCULAR HGB CONC 31.9 g/dl (32.0-36.5); MEAN CORPUSCULAR VOLUME 102.2 fl (80.0-96.0); PLATELET COUNT, AUTOMATED 305 10^3/uL (150-450); RED BLOOD COUNT 3.22 10^6/uL (4.30-6.10); WHITE BLOOD COUNT 9.5 10^3/uL (4.0-10.0)
[2020-03-19 13:16] LABS: CALCIUM LEVEL 8.3 MG/DL (8.8-10.2); CREATININE FOR GFR 1.43 MG/DL (0.70-1.30); GLOMERULAR FILTRATION RATE 50.8 (>42); POTASSIUM SERUM 3.5 MEQ/L (3.5-5.1)
--- NOTE | 2020-03-20 10:58 | ECGEPIP ---
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
== END ==
LOC: SKLAB5 12:14
PROVIDERS: ATTEND Internal Medicine
DX: R42 Dizziness and giddiness (principal)

== ENCOUNTER → 2020-03-25 | Outpatient (REF) ==
[~2020-03-25] MED LIST changes: +ACET-907 PO; +ACET650T61 PO; +DULC10SU2 PR; +ENEMENE PR; +MILKSUS3 PO; +MIRA1POW3 PO; +MOM30SS PO; +SENN1TAB41 PO; +VITMTA PO; +XARE15TA PO
== END ==
LOC: SKLAB5 08:34
PROVIDERS: ATTEND Internal Medicine
DX: D64.9 Anemia, unspecified (principal)

== ENCOUNTER → 2020-03-29 | Outpatient (REF) ==
[2020-03-29 10:52] LABS: HEMATOCRIT 37.3 % (42.0-52.0); HEMOGLOBIN 11.3 g/dl (13.5-17.5); MEAN CORPUSCULAR HEMOGLOBIN 31.6 pg (27.0-33.0); MEAN CORPUSCULAR HGB CONC 30.3 g/dl (32.0-36.5); MEAN CORPUSCULAR VOLUME 104.2 fl (80.0-96.0); PLATELET COUNT, AUTOMATED 790 10^3/uL (150-450); RED BLOOD COUNT 3.58 10^6/uL (4.30-6.10)
[2020-03-29 11:29] LABS: ALBUMIN 2.4 GM/DL (3.2-5.2); BILIRUBIN,TOTAL 0.6 MG/DL (0.2-1.0); CALCIUM LEVEL 9.3 MG/DL (8.8-10.2); CREATININE FOR GFR 1.64 MG/DL (0.70-1.30); GLOMERULAR FILTRATION RATE 43.4 (>42); POTASSIUM SERUM 5.2 MEQ/L (3.5-5.1); TOTAL PROTEIN 5.8 GM/DL (6.4-8.2)
== END ==
LOC: SKLAB2 08:22
PROVIDERS: ATTEND Internal Medicine
DX: Z79.01 Long term (current) use of anticoagulants (principal)

== ENCOUNTER → 2020-03-30 | Outpatient (REF) ==
[2020-03-30 11:13] LABS: CALCIUM LEVEL 9.1 MG/DL (8.8-10.2); CREATININE FOR GFR 1.48 MG/DL (0.70-1.30); GLOMERULAR FILTRATION RATE 48.8 (>42); POTASSIUM SERUM 4.8 MEQ/L (3.5-5.1)
== END ==
LOC: SKLAB2 09:37
PROVIDERS: ATTEND Internal Medicine
DX: E87.5 Hyperkalemia (principal)

== ENCOUNTER → 2020-03-31 | Outpatient (REF) | LOC: SKLAB2 09:40 | PROVIDERS: ATTEND Internal Medicine | DX: Z20.822 Contact with and (suspected) exposure to COVID-19 (principal) ==

== ENCOUNTER → 2020-04-01 | Outpatient (REF) ==
[~2020-04-01] MED LIST changes: -PEG1POW PO; +POLY17PO18 PO
[2020-04-01 08:21] LABS: HEMATOCRIT 35.8 % (42.0-52.0); HEMOGLOBIN 10.8 g/dl (13.5-17.5); MEAN CORPUSCULAR HEMOGLOBIN 30.7 pg (27.0-33.0); MEAN CORPUSCULAR HGB CONC 30.2 g/dl (32.0-36.5); MEAN CORPUSCULAR VOLUME 101.7 fl (80.0-96.0); PLATELET COUNT, AUTOMATED 757 10^3/uL (150-450); RED BLOOD COUNT 3.52 10^6/uL (4.30-6.10); WHITE BLOOD COUNT 7.1 10^3/uL (4.0-10.0)
== END ==
LOC: SKLAB5 11:23
PROVIDERS: ATTEND Internal Medicine
DX: D64.9 Anemia, unspecified (principal)

== ENCOUNTER → 2020-04-08 | Outpatient (REF) | payer MEDICARE, OTHER ==
[~2020-04-08] MED LIST changes: +CARV12.5; +QUET25TA3; +SULF1TAB23 PO
== END ==
LOC: SKLAB5 06:28
PROVIDERS: ATTEND Internal Medicine
DX: Z20.822 Contact with and (suspected) exposure to COVID-19 (principal)

== ENCOUNTER 2020-05-04 18:29 | Emergency (ER) | payer MEDICARE, OTHER ==
[~2020-05-04] VITALS: Ht 182.9 cm; Wt 90.7 kg
[~2020-05-04 18:29] MED LIST changes: -CARV12.5; -QUET25TA3; -SULF1TAB23 PO
[2020-05-04] MEDS ORDERED: CARV12.5 (19:00)
[2020-05-04] MEDS ORDERED: QUET25TA3 (19:00)
--- NOTE | 2020-05-04 19:14 | REP ---
INDICATION: ?cough. COMPARISON: CT ANGIO 03/19/2020, AP CHEST 02/27/2020 TECHNIQUE: AP PORTABLE UPRIGHT CHEST. FINDINGS: A DUAL LEAD PACER AGAIN SEEN OVER THE LEFT UPPER CHEST WITH LEADS TERMINATING IN THE RIGHT ATRIUM AND RIGHT VENTRICLE. SOME MILD RIGHT ATRIAL ENLARGEMENT WITH ELEVATION OF THE LEFT MAINSTEM BRONCHUS. NO GROSS CARDIOMEGALY FOR THIS PROJECTION. THERE IS ELEVATION OF THE RIGHT DIAPHRAGM AND COLONIC INTERPOSITION BETWEEN THE DOME OF THE LIVER AND THE DIAPHRAGM AN ANATOMIC NORMAL VARIATION. NO PLEURAL EFFUSION OR DEFINITE INFILTRATE. THE AORTA IS CALCIFIED AND TORTUOUS AT THE ARCH BUT WITHOUT ANEURYSM. AIRWAY INTACT. MEDIASTINAL AND HILAR CONTOURS ARE NORMAL. DEGENERATIVE CHANGES ARE SEEN IN THE AC AND GLENOHUMERAL JOINTS. IMPRESSION: 1. LEFT ATRIAL ENLARGEMENT WITHOUT GROSS CARDIOMEGALY. A DUAL LEAD PACER SEEN. NO VASCULAR REDISTRIBUTION, EDEMA, EFFUSION OR DEFINITE INFILTRATE. 2. ELEVATED RIGHT DIAPHRAGM WITH COLONIC INTERPOSITION ANATOMIC VARIATION. THEREFORE THE POSTERIOR LOWER LUNG ZONE ON THE RIGHT POORLY EVALUATED. <Electronically signed by Kilo Bergeron > 05/04/201910
--- NOTE | 2020-05-04 19:24 | REPVR ---
PROCEDURE INFORMATION: Exam: CT Head Without Contrast Exam date and time: 05/04/2020 6:59 PM Age: 79 years old Clinical indication: Injury or trauma; Fall; Blunt trauma (contusions or hematomas) TECHNIQUE: Imaging protocol: Computed tomography of the head without contrast. Radiation optimization: All CT scans at this facility use at least one of these dose optimization techniques: automated exposure control; mA and/or kV adjustment per patient size (includes targeted exams where dose is matched to clinical indication); or iterative reconstruction. COMPARISON: CT Head without contrast 03/20/2020 8:09 PM FINDINGS: Brain: There is moderate age related parenchymal volume loss. White matter changes are demonstrated in the subcortical, centrum semiovale and periventricular white matter consistent with chronic age related small vessel ischemic changes. Cerebral ventricles: The degree of ventricular dilatation is normal for age and/or degree of atrophy present. Bones/joints: Unremarkable. No acute fracture. Paranasal sinuses: Visualized sinuses are unremarkable. No fluid levels. Mastoid air cells: Visualized mastoid air cells are well aerated. Soft tissues: Unremarkable. IMPRESSION: 1. There is moderate age related parenchymal volume loss. White matter changes are demonstrated in the subcortical, centrum semiovale and periventricular white matter consistent with chronic age related small vessel ischemic changes. 2. The degree of ventricular dilatation is normal for age and/or degree of atrophy present. 3. No acute intracranial findings. Electronically signed by: Eben Vu On 05/04/2020 19:24:37 PM
[2020-05-04 19:34] LABS: BASO % 0.2 % (0.0-1.0); EOS % 0.2 % (0.0-3.0); HEMATOCRIT 41.5 % (42.0-52.0); HEMOGLOBIN 13.3 g/dl (13.5-17.5); LYMPH # 0.2 10^3/uL (1.5-5.0); LYMPH % 1.9 % (24.0-44.0); MEAN CORPUSCULAR HEMOGLOBIN 32.4 pg (27.0-33.0); MONO # 0.6 10^3/uL (0.0-0.8); MONO % 4.7 % (2.0-8.0); NEUTROPHILS # 11.5 10^3/uL (1.5-8.5); NEUTROPHILS % 92.5 % (36.0-66.0); PLATELET COUNT, AUTOMATED 305 10^3/uL (150-450); RED BLOOD COUNT 4.11 10^6/uL (4.30-6.10); WHITE BLOOD COUNT 12.5 10^3/uL (4.0-10.0)
[2020-05-04 19:51] LABS: ALBUMIN 3.3 GM/DL (3.2-5.2); ALT/SGPT 21 U/L (12-78); BILIRUBIN,TOTAL 0.5 MG/DL (0.2-1.0); BLOOD UREA NITROGEN 25 MG/DL (7-18); CALCIUM LEVEL 8.9 MG/DL (8.8-10.2); CARBON DIOXIDE LEVEL 27 MEQ/L (21-32); CHLORIDE LEVEL 108 MEQ/L (98-107); CK-MB VALUE MASS 4.3 NG/ML (<3.6); CPK CREATINE PHOSPHOKINASE 70 U/L (39-308); CREATININE FOR GFR 1.58 MG/DL (0.70-1.30); GLOMERULAR FILTRATION RATE 45.3 (>42); GLUCOSE, FASTING 122 MG/DL (70-100); MB/CK RELATIVE INDEX 6.14 (< OR =4); POTASSIUM SERUM 4.4 MEQ/L (3.5-5.1); SODIUM LEVEL 141 MEQ/L (136-145); TOTAL PROTEIN 6.1 GM/DL (6.4-8.2); TROPONIN I < 0.02 NG/ML (< 0.10)
--- NOTE | 2020-05-04 20:21 | REPVR ---
PROCEDURE INFORMATION: Exam: CT Chest Without Contrast; Diagnostic Exam date and time: 05/04/2020 8:00 PM Age: 79 years old Clinical indication: Other: Leukocytosis TECHNIQUE: Imaging protocol: Diagnostic computed tomography of the chest without contrast. 3D rendering (Not supervised by radiologist): MIP and/or 3D reconstructed images were created by the technologist. Radiation optimization: All CT scans at this facility use at least one of these dose optimization techniques: automated exposure control; mA and/or kV adjustment per patient size (includes targeted exams where dose is matched to clinical indication); or iterative reconstruction. COMPARISON: CT Chest without contrast 11/24/2019 10:57 AM FINDINGS: Tubes, catheters and devices: Dual chamber cardiac pacer demonstrated. Lungs: Small small peripheral predominant ground-glass pulmonary parenchymal opacities in the right upper and lower lobes which are nonspecific. Clinical correlation to exclude multifocal pneumonitis suggested. Bibasilar atelectasis. Pleural based noncalcified pulmonary parenchymal nodules measure up to 6.5 mm. Pleural spaces: Bilateral pleural thickening at the lung bases. Possible small left pleural effusion. Heart: There is moderate atherosclerotic calcification of the coronary arteries. Pulmonary arteries: There is mild enlargement of the central pulmonary arteries, findings which can be associated with pulmonary arterial hypertension which should be correlated clinically. Aorta: There is fusiform dilatation of the ascending thoracic aorta which measures 4.1 cm. maximally. There is no saccular component. Lymph nodes: Unremarkable. No enlarged lymph nodes. Kidneys and ureters: Large upper pole cyst left kidney measures 7.5 cm. Large parenchymal calcification left kidney. Bones/joints: The spine demonstrates moderate degenerative changes. Calcified intervertebral ligament thoracic spine. Soft tissues: Unremarkable. IMPRESSION: 1. Small small peripheral predominant ground-glass pulmonary parenchymal opacities in the right upper and lower lobes which are nonspecific. Clinical correlation to exclude multifocal pneumonitis suggested. 2. Bilateral pleural thickening at the lung bases. Possible small left pleural effusion. 3. Pleural based noncalcified pulmonary parenchymal nodules measure up to 6.5 mm. For patients at low risk (minimal or absent history of smoking and of other known risk factors), recommend CT Chest at 3-6 months, then consider CT Chest at 18-24 months. For patients at high risk (history of smoking or of other known risk factors), recommend CT Chest at 3-6 months, then CT Chest at 18-24 months. (Reference: [place]) References: Analy Valentin et al. Guidelines for Management of Incidental Pulmonary Nodules Detected on CT Images: From the Fleischner Society 2017. Radiology. 2017;284(1):228-243. 4. There is fusiform dilatation of the ascending thoracic aorta which measures 4.1 cm. maximally. There is no saccular component. 5. There is mild enlargement of the central pulmonary arteries, findings which can be associated with pulmonary arterial hypertension which should be correlated clinically. 6. [facility] disease thoracic spine. COMMENTS: Consistent with the [employer] [place] [employer]'s Incidental Findings Committee white paper (J Am Jarvis Radiol 2018): Any incidental renal lesion less than 1 cm or classified as too small to characterize, or any incidental cystic renal lesion characterized as simple-appearing, is likely benign. No follow-up imaging is recommended for these lesions per consensus recommendations based on imaging criteria. Electronically signed by: Eben Vu On 05/04/2020 20:21:08 PM
[2020-05-04] MEDS ORDERED: BACTRIM 160MG/800MG DS TAB PO ONE (23:30)
[2020-05-04] MEDS ORDERED: SULF1TAB23 PO (23:44)
[2020-05-05] VITALS: BP 134/80
--- NOTE | 2020-05-05 05:39 | ECGEPIP ---
[facility] - ED Test Date: 2020-05-04 Pat Name: HERMILO LO Department: Room: - Gender: Male Cephalometric Tracer: Alton SANDERS : 1940 Requested By: Tawana Munoz Order Number: [id number] Reading MD: Slim Anderson Measurements Intervals [place] Rate: 84 P: CO: QRS: 1 QRSD: 98 T: 101 QT: 422 QTc: 498 Interpretive Statements Atrial fibrillation with occasional ventricular-paced complexes ST & T wave abnormality, consider anterior ischemia Prolonged QT Electronically Signed on 05-05-2020 5:38:56 EDT by Slim Anderson
--- NOTE | 2020-05-05 14:30 | ED PDOC ---
Post-Departure Follow-Up ct chest faxed to dr steven for fu Barbra Henry MD May 05, 2020 14:30
== END 2020-05-05 00:17 | disposition home or self-care (01) ==
LOC: EDBD 18:29 → M ED 18:29
DX: Z04.3 Encounter for examination and observation following other accident (principal); W19.XXXA Unspecified fall, initial encounter; Y92.009 Unspecified place in unspecified non-institutional (private) residence as the place of occurrence of the external cause; Y93.9 Activity, unspecified; Y99.9 Unspecified external cause status; N39.0 Urinary tract infection, site not specified; R91.8 Other nonspecific abnormal finding of lung field; I11.0 Hypertensive heart disease with heart failure; Z79.899 Other long term (current) drug therapy; Z95.0 Presence of cardiac pacemaker; Z88.0 Allergy status to penicillin; Z88.6 Allergy status to analgesic agent

== ENCOUNTER → 2020-05-08 | Outpatient (CLI) | payer SELFPAY ==
[~2020-05-08] MED LIST changes: +CARV12.5; +QUET25TA3; +SULF1TAB23 PO
== END ==
LOC: M LABSMTC 11:10
PROVIDERS: ATTEND Pediatrics
DX: Z11.52 Encounter for screening for COVID-19 (principal)

== ENCOUNTER → 2020-05-20 | Outpatient (REF) | payer MEDICARE, OTHER ==
[2020-05-20 10:47] LABS: HEMATOCRIT 42.9 % (42.0-52.0); HEMOGLOBIN 13.6 g/dl (13.5-17.5); MEAN CORPUSCULAR HEMOGLOBIN 32.3 pg (27.0-33.0); MEAN CORPUSCULAR HGB CONC 31.7 g/dl (32.0-36.5); MEAN CORPUSCULAR VOLUME 101.9 fl (80.0-96.0); PLATELET COUNT, AUTOMATED 393 10^3/uL (150-450); RED BLOOD COUNT 4.21 10^6/uL (4.30-6.10); WHITE BLOOD COUNT 9.2 10^3/uL (4.0-10.0)
[2020-05-20 14:56] LABS: ALBUMIN 3.3 GM/DL (3.2-5.2); BILIRUBIN,TOTAL 0.3 MG/DL (0.2-1.0); CALCIUM LEVEL 9.1 MG/DL (8.8-10.2); CREATININE FOR GFR 1.48 MG/DL (0.70-1.30); GLOMERULAR FILTRATION RATE 48.8 (>42); MAGNESIUM LEVEL 2.1 MG/DL (1.8-2.4); POTASSIUM SERUM 4.7 MEQ/L (3.5-5.1); THYROID STIMULATING HORMONE 1.74 uIU/ML (0.358-3.740); TOTAL PROTEIN 6.1 GM/DL (6.4-8.2)
[2020-05-20 15:55] LABS: TOTAL 25(OH) VITAMIN D 26.8 NG/ML (30.0-100.0)
== END ==
LOC: SKLAB8 08:00
PROVIDERS: ATTEND Internal Medicine
DX: I10 Essential (primary) hypertension (principal); Z79.899 Other long term (current) drug therapy; Z79.01 Long term (current) use of anticoagulants

== ENCOUNTER → 2020-06-03 | Outpatient (REF) | payer MEDICARE, OTHER ==
[2020-06-03 08:32] LABS: HEMATOCRIT 43.3 % (42.0-52.0); HEMOGLOBIN 13.9 g/dl (13.5-17.5); MEAN CORPUSCULAR HEMOGLOBIN 32.3 pg (27.0-33.0); MEAN CORPUSCULAR HGB CONC 32.1 g/dl (32.0-36.5); MEAN CORPUSCULAR VOLUME 100.5 fl (80.0-96.0); PLATELET COUNT, AUTOMATED 334 10^3/uL (150-450); RED BLOOD COUNT 4.31 10^6/uL (4.30-6.10); WHITE BLOOD COUNT 7.3 10^3/uL (4.0-10.0)
[2020-06-03 09:01] LABS: CALCIUM LEVEL 9.2 MG/DL (8.8-10.2); CREATININE FOR GFR 1.37 MG/DL (0.70-1.30); GLOMERULAR FILTRATION RATE 53.4 (>42); POTASSIUM SERUM 4.7 MEQ/L (3.5-5.1)
== END ==
LOC: SKLAB8 07:00
PROVIDERS: ATTEND Internal Medicine
DX: R60.9 Edema, unspecified (principal)

== ENCOUNTER → 2020-06-10 | Outpatient (REF) | payer MEDICARE, OTHER ==
[2020-06-10 09:54] LABS: CREATININE FOR GFR 1.44 MG/DL (0.70-1.30); GLOMERULAR FILTRATION RATE 50.4 (>42); POTASSIUM SERUM 4.1 MEQ/L (3.5-5.1)
== END ==
LOC: SKLAB8 07:00
PROVIDERS: ATTEND Internal Medicine
DX: R60.9 Edema, unspecified (principal)

== ENCOUNTER → 2020-06-28 | Outpatient (REF) | payer MEDICARE, OTHER ==
[2020-06-28 09:54] LABS: CREATININE FOR GFR 1.53 MG/DL (0.70-1.30); POTASSIUM SERUM 4.7 MEQ/L (3.5-5.1)
== END ==
LOC: SKLAB8 07:00
PROVIDERS: ATTEND Internal Medicine
DX: R60.9 Edema, unspecified (principal)

== ENCOUNTER → 2020-08-24 | Outpatient (REF) | payer MEDICARE, OTHER ==
[2020-08-24 09:02] LABS: HEMATOCRIT 44.5 % (42.0-52.0); HEMOGLOBIN 14.3 g/dl (13.5-17.5); MEAN CORPUSCULAR HEMOGLOBIN 32.1 pg (27.0-33.0); MEAN CORPUSCULAR HGB CONC 32.1 g/dl (32.0-36.5); PLATELET COUNT, AUTOMATED 316 10^3/uL (150-450); RED BLOOD COUNT 4.45 10^6/uL (4.30-6.10); WHITE BLOOD COUNT 6.2 10^3/uL (4.0-10.0)
[2020-08-24 10:02] LABS: CALCIUM LEVEL 9.3 MG/DL (8.8-10.2); CREATININE FOR GFR 1.5 MG/DL (0.70-1.30); GLOMERULAR FILTRATION RATE 48.1 (>42); MAGNESIUM LEVEL 2.5 MG/DL (1.8-2.4); POTASSIUM SERUM 4.3 MEQ/L (3.5-5.1)
== END ==
LOC: SKLAB4 12:28
PROVIDERS: ATTEND Internal Medicine
DX: F03.90 Unspecified dementia, unspecified severity, without behavioral disturbance, psychotic disturbance, mood disturbance, and anxiety (principal); I10 Essential (primary) hypertension

== ENCOUNTER → 2020-11-20 | Outpatient (REF) | payer MEDICARE, OTHER ==
[~2020-11-20] MED LIST changes: +QUET1TAB17; +QUET1TAB17 PO; -QUET25TA3; -QUET25TA3 PO
== END ==
LOC: SKLAB4 07:51
PROVIDERS: ATTEND Internal Medicine
DX: Z20.822 Contact with and (suspected) exposure to COVID-19 (principal)

== ENCOUNTER → 2020-11-23 | Outpatient (REF) | payer MEDICARE, OTHER ==
[2020-11-23 10:26] LABS: MEAN CORPUSCULAR HEMOGLOBIN 33.9 pg (27.0-33.0); MEAN CORPUSCULAR HGB CONC 33.3 g/dl (32.0-36.5); MEAN CORPUSCULAR VOLUME 101.8 fl (80.0-96.0); PLATELET COUNT, AUTOMATED 310 10^3/uL (150-450); RED BLOOD COUNT 4.42 10^6/uL (4.30-6.10); WHITE BLOOD COUNT 7.5 10^3/uL (4.0-10.0)
[2020-11-23 10:54] LABS: CALCIUM LEVEL 9.3 MG/DL (8.8-10.2); CREATININE FOR GFR 1.5 MG/DL (0.70-1.30); GLOMERULAR FILTRATION RATE 47.9 (>35); POTASSIUM SERUM 4.4 MEQ/L (3.5-5.1)
== END ==
LOC: SKLAB4 08:54
PROVIDERS: ATTEND Internal Medicine
DX: N18.9 Chronic kidney disease, unspecified (principal); Z20.822 Contact with and (suspected) exposure to COVID-19
CPT/HCPCS: 36415; 80048; 85027; U0002

== ENCOUNTER → 2020-11-25 | Outpatient (REF) | payer MEDICARE, OTHER | LOC: SKLAB4 08:45 | PROVIDERS: ATTEND Internal Medicine | DX: Z20.822 Contact with and (suspected) exposure to COVID-19 (principal) ==

== ENCOUNTER → 2020-11-29 | Outpatient (REF) | payer MEDICARE, OTHER | LOC: SKLAB2 12:26 | PROVIDERS: ATTEND Internal Medicine | DX: U07.1 COVID-19 (principal); Z53.8 Procedure and treatment not carried out for other reasons ==

== ENCOUNTER → 2020-11-30 | Outpatient (REF) | payer MEDICARE, OTHER | LOC: SKLAB2 08:23 | PROVIDERS: ATTEND Internal Medicine | DX: U07.1 COVID-19 (principal); Z53.9 Procedure and treatment not carried out, unspecified reason ==

== ENCOUNTER → 2020-12-01 | Outpatient (REF) | payer MEDICARE, OTHER ==
[2020-12-01 10:59] LABS: HEMATOCRIT 44.1 % (42.0-52.0); HEMOGLOBIN 14.6 g/dl (13.5-17.5); MEAN CORPUSCULAR HEMOGLOBIN 33.8 pg (27.0-33.0); MEAN CORPUSCULAR HGB CONC 33.1 g/dl (32.0-36.5); MEAN CORPUSCULAR VOLUME 102.1 fl (80.0-96.0); PLATELET COUNT, AUTOMATED 328 10^3/uL (150-450); RED BLOOD COUNT 4.32 10^6/uL (4.30-6.10); WHITE BLOOD COUNT 5.8 10^3/uL (4.0-10.0)
[2020-12-01 11:22] LABS: CALCIUM LEVEL 8.9 MG/DL (8.8-10.2); CREATININE FOR GFR 1.51 MG/DL (0.70-1.30); GLOMERULAR FILTRATION RATE 47.6 (>35); POTASSIUM SERUM 4.2 MEQ/L (3.5-5.1)
== END ==
LOC: SKLAB2 11:07
PROVIDERS: ATTEND Internal Medicine
DX: U07.1 COVID-19 (principal); Z79.899 Other long term (current) drug therapy

== ENCOUNTER → 2020-12-03 | Outpatient (REF) | payer MEDICARE, OTHER | LOC: SKLAB2 11:08 | PROVIDERS: ATTEND Internal Medicine | DX: U07.1 COVID-19 (principal) ==

== ENCOUNTER → 2020-12-03 | Outpatient (REF) | payer MEDICARE, OTHER ==
[2020-12-03 08:44] LABS: HEMATOCRIT 43.5 % (42.0-52.0); HEMOGLOBIN 14.6 g/dl (13.5-17.5); MEAN CORPUSCULAR HEMOGLOBIN 33.6 pg (27.0-33.0); MEAN CORPUSCULAR HGB CONC 33.6 g/dl (32.0-36.5); MEAN CORPUSCULAR VOLUME 100.2 fl (80.0-96.0); PLATELET COUNT, AUTOMATED 324 10^3/uL (150-450); RED BLOOD COUNT 4.34 10^6/uL (4.30-6.10); WHITE BLOOD COUNT 7.2 10^3/uL (4.0-10.0)
[2020-12-03 09:09] LABS: CREATININE FOR GFR 1.43 MG/DL (0.70-1.30); GLOMERULAR FILTRATION RATE 50.7 (>35); POTASSIUM SERUM 4.2 MEQ/L (3.5-5.1)
== END ==
LOC: SKLAB2 11:08
PROVIDERS: ATTEND Internal Medicine
DX: U07.1 COVID-19 (principal); Z79.899 Other long term (current) drug therapy

== ENCOUNTER → 2020-12-06 | Outpatient (REF) | payer MEDICARE, OTHER ==
[2020-12-06 09:26] LABS: HEMATOCRIT 44.7 % (42.0-52.0); HEMOGLOBIN 14.9 g/dl (13.5-17.5); MEAN CORPUSCULAR HEMOGLOBIN 33.3 pg (27.0-33.0); MEAN CORPUSCULAR HGB CONC 33.3 g/dl (32.0-36.5); MEAN CORPUSCULAR VOLUME 99.8 fl (80.0-96.0); PLATELET COUNT, AUTOMATED 350 10^3/uL (150-450); RED BLOOD COUNT 4.48 10^6/uL (4.30-6.10); WHITE BLOOD COUNT 7.6 10^3/uL (4.0-10.0)
[2020-12-06 10:22] LABS: CALCIUM LEVEL 9.2 MG/DL (8.8-10.2); CREATININE FOR GFR 1.35 MG/DL (0.70-1.30); GLOMERULAR FILTRATION RATE 54.1 (>35); POTASSIUM SERUM 3.9 MEQ/L (3.5-5.1)
== END ==
LOC: SKLAB4 06:00
PROVIDERS: ATTEND Internal Medicine
DX: U07.1 COVID-19 (principal); Z79.899 Other long term (current) drug therapy

== ENCOUNTER → 2021-03-24 | Outpatient (REF) | payer MEDICARE, OTHER ==
[~2021-03-24] MED LIST changes: -AMIO200T3 PO; +AMIO200T49 PO; -LISI10TA15 PO; +LISI10TA24 PO
[2021-03-24 11:18] LABS: HEMATOCRIT 42.9 % (42.0-52.0); MEAN CORPUSCULAR HEMOGLOBIN 32.6 pg (27.0-33.0); MEAN CORPUSCULAR HGB CONC 32.6 g/dl (32.0-36.5); MEAN CORPUSCULAR VOLUME 99.8 fl (80.0-96.0); PLATELET COUNT, AUTOMATED 335 10^3/uL (150-450)
[2021-03-24 11:47] LABS: CALCIUM LEVEL 9.1 MG/DL (8.8-10.2); CREATININE FOR GFR 1.76 MG/DL (0.70-1.30); GLOMERULAR FILTRATION RATE 39.9 (>35); POTASSIUM SERUM 4.2 MEQ/L (3.5-5.1)
== END ==
LOC: SKLAB2 07:00
PROVIDERS: ATTEND Internal Medicine
DX: F03.90 Unspecified dementia, unspecified severity, without behavioral disturbance, psychotic disturbance, mood disturbance, and anxiety (principal); I10 Essential (primary) hypertension

== ENCOUNTER → 2021-05-09 | Outpatient (REF) | payer MEDICARE, OTHER ==
[2021-05-09 12:01] LABS: HEMATOCRIT 49.8 % (42.0-52.0); HEMOGLOBIN 16.5 g/dl (13.5-17.5); MEAN CORPUSCULAR HEMOGLOBIN 32.5 pg (27.0-33.0); MEAN CORPUSCULAR HGB CONC 33.1 g/dl (32.0-36.5); MEAN CORPUSCULAR VOLUME 98.2 fl (80.0-96.0); PLATELET COUNT, AUTOMATED 388 10^3/uL (150-450); RED BLOOD COUNT 5.07 10^6/uL (4.30-6.10); WHITE BLOOD COUNT 8.7 10^3/uL (4.0-10.0)
[2021-05-09 12:24] LABS: CALCIUM LEVEL 9.8 MG/DL (8.8-10.2); CREATININE FOR GFR 1.99 MG/DL (0.70-1.30); GLOMERULAR FILTRATION RATE 34.6 (>35); POTASSIUM SERUM 4.6 MEQ/L (3.5-5.1)
== END ==
LOC: SKLAB4 11:07
PROVIDERS: ATTEND Internal Medicine
DX: R11.2 Nausea with vomiting, unspecified (principal); R19.7 Diarrhea, unspecified

== ENCOUNTER → 2021-05-10 | Outpatient (REF) | payer MEDICARE, OTHER ==
[2021-05-10 11:23] LABS: CALCIUM LEVEL 8.9 MG/DL (8.8-10.2); CREATININE FOR GFR 2.07 MG/DL (0.70-1.30); GLOMERULAR FILTRATION RATE 33.1 (>35)
== END ==
LOC: SKLAB4 07:00
PROVIDERS: ATTEND Internal Medicine
DX: R11.2 Nausea with vomiting, unspecified (principal)

== ENCOUNTER → 2021-05-11 | Outpatient (REF) | payer MEDICARE, OTHER ==
[2021-05-11 12:35] LABS: CALCIUM LEVEL 8.5 MG/DL (8.8-10.2); CREATININE FOR GFR 1.85 MG/DL (0.70-1.30); GLOMERULAR FILTRATION RATE 37.6 (>35); POTASSIUM SERUM 3.6 MEQ/L (3.5-5.1)
== END ==
LOC: SKLAB4 08:31
PROVIDERS: ATTEND Internal Medicine
DX: E86.0 Dehydration (principal)

== ENCOUNTER → 2021-05-24 | Outpatient (REF) | payer MEDICARE, OTHER ==
[2021-05-24 11:35] LABS: ALBUMIN 3.3 GM/DL (3.2-5.2); BILIRUBIN,TOTAL 0.5 MG/DL (0.2-1.0); CALCIUM LEVEL 9.5 MG/DL (8.8-10.2); CREATININE FOR GFR 1.39 MG/DL (0.70-1.30); GLOMERULAR FILTRATION RATE 52.3 (>35); POTASSIUM SERUM 4.7 MEQ/L (3.5-5.1); TOTAL PROTEIN 6.1 GM/DL (6.4-8.2)
[2021-05-24 11:44] LABS: TOTAL 25(OH) VITAMIN D 15.6 NG/ML (30.0-100.0)
== END ==
LOC: SKLAB4 11:22
PROVIDERS: ATTEND Internal Medicine
DX: N18.9 Chronic kidney disease, unspecified (principal); Z79.899 Other long term (current) drug therapy

== ENCOUNTER → 2021-06-13 | Outpatient (CLI) | payer MEDICARE, OTHER | LOC: M RAD 14:27 | PROVIDERS: ATTEND Nurse Practitioner Family | DX: R90.82 White matter disease, unspecified (principal); I10 Essential (primary) hypertension; R41.82 Altered mental status, unspecified ==

== ENCOUNTER → 2021-06-13 | Outpatient (REF) | payer MEDICARE, OTHER ==
[2021-06-13 13:08] LABS: HEMATOCRIT 47.1 % (42.0-52.0); HEMOGLOBIN 15.6 g/dl (13.5-17.5); MEAN CORPUSCULAR HEMOGLOBIN 32.4 pg (27.0-33.0); MEAN CORPUSCULAR HGB CONC 33.1 g/dl (32.0-36.5); MEAN CORPUSCULAR VOLUME 97.9 fl (80.0-96.0); PLATELET COUNT, AUTOMATED 360 10^3/uL (150-450); RED BLOOD COUNT 4.81 10^6/uL (4.30-6.10); WHITE BLOOD COUNT 8.3 10^3/uL (4.0-10.0)
[2021-06-13 13:30] LABS: CALCIUM LEVEL 9.7 MG/DL (8.8-10.2); CREATININE FOR GFR 1.52 MG/DL (0.70-1.30); GLOMERULAR FILTRATION RATE 47.2 (>35); POTASSIUM SERUM 4.7 MEQ/L (3.5-5.1)
== END ==
LOC: SKLAB4 11:55
PROVIDERS: ATTEND Internal Medicine
DX: R53.83 Other fatigue (principal)

== ENCOUNTER → 2021-06-16 | Outpatient (CLI) | payer MEDICARE, OTHER | LOC: M RAD 16:51 | PROVIDERS: ATTEND Internal Medicine | DX: M16.11 Unilateral primary osteoarthritis, right hip (principal); M25.551 Pain in right hip; Z96.641 Presence of right artificial hip joint ==

== ENCOUNTER → 2021-06-17 | Outpatient (CLI) | payer MEDICARE, OTHER | LOC: M RAD 08:27 | PROVIDERS: ATTEND Nurse Practitioner Family | DX: Z79.01 Long term (current) use of anticoagulants (principal); W19.XXXA Unspecified fall, initial encounter; Y92.9 Unspecified place or not applicable; Y93.9 Activity, unspecified; Y99.9 Unspecified external cause status; G31.9 Degenerative disease of nervous system, unspecified ==

== ENCOUNTER → 2021-06-17 | Outpatient (CLI) | payer MEDICARE, OTHER | LOC: M RAD 10:51 | PROVIDERS: ATTEND Nurse Practitioner Family | DX: M25.451 Effusion, right hip (principal); Z96.643 Presence of artificial hip joint, bilateral; M51.36 Other intervertebral disc degeneration, lumbar region; M71.21 Synovial cyst of popliteal space [Baker], right knee; M17.11 Unilateral primary osteoarthritis, right knee ==

== ENCOUNTER → 2021-06-21 | Outpatient (REF) | payer MEDICARE, OTHER ==
[2021-06-21 13:47] LABS: HEMATOCRIT 41.8 % (42.0-52.0); HEMOGLOBIN 13.9 g/dl (13.5-17.5); MEAN CORPUSCULAR HEMOGLOBIN 32.9 pg (27.0-33.0); MEAN CORPUSCULAR HGB CONC 33.3 g/dl (32.0-36.5); MEAN CORPUSCULAR VOLUME 99.1 fl (80.0-96.0); PLATELET COUNT, AUTOMATED 319 10^3/uL (150-450); RED BLOOD COUNT 4.22 10^6/uL (4.30-6.10); WHITE BLOOD COUNT 7.9 10^3/uL (4.0-10.0)
[2021-06-22 16:02] LABS: BILIRUBIN,TOTAL 0.5 MG/DL (0.2-1.0); CALCIUM LEVEL 9.5 MG/DL (8.8-10.2); CREATININE FOR GFR 1.6 MG/DL (0.70-1.30); GLOMERULAR FILTRATION RATE 44.5 (>35); POTASSIUM SERUM 4.2 MEQ/L (3.5-5.1); TOTAL PROTEIN 6.5 GM/DL (6.4-8.2)
== END ==
LOC: SKLAB4 11:09
PROVIDERS: ATTEND Nurse Practitioner Family
DX: R41.0 Disorientation, unspecified (principal)

== ENCOUNTER → 2021-06-23 | Outpatient (REF) | payer MEDICARE, OTHER | LOC: SKLAB4 14:14 | PROVIDERS: ATTEND Internal Medicine | DX: E55.9 Vitamin D deficiency, unspecified (principal); Z79.899 Other long term (current) drug therapy ==

== ENCOUNTER → 2021-06-23 | Outpatient (CLI) | payer MEDICARE, OTHER | LOC: M RAD 08:30 | PROVIDERS: ATTEND Nurse Practitioner Family | DX: R41.0 Disorientation, unspecified (principal); E55.9 Vitamin D deficiency, unspecified; Z88.8 Allergy status to other drugs, medicaments and biological substances; Z79.899 Other long term (current) drug therapy ==

== ENCOUNTER → 2021-07-05 | Outpatient (CLI) | payer MEDICARE, OTHER | LOC: M SOG 10:24 | PROVIDERS: ATTEND Physician Assistant | DX: M25.551 Pain in right hip (principal); M79.604 Pain in right leg; Z96.643 Presence of artificial hip joint, bilateral; M17.11 Unilateral primary osteoarthritis, right knee; M19.071 Primary osteoarthritis, right ankle and foot; M25.771 Osteophyte, right ankle ==

== ENCOUNTER → 2021-08-01 | Outpatient (REF) | payer MEDICARE, OTHER | LOC: SKLAB5 10:43 | PROVIDERS: ATTEND Internal Medicine | DX: E83.41 Hypermagnesemia (principal) ==

== ENCOUNTER → 2021-08-15 | Outpatient (REF) | payer MEDICARE, OTHER ==
[2021-08-15 08:39] LABS: PHOSPHORUS LEVEL 3.2 MG/DL (2.5-4.9)
[2021-08-15 12:54] LABS: TOTAL 25(OH) VITAMIN D 28.1 NG/ML (30.0-100.0)
== END ==
LOC: SKLAB4 08:00
PROVIDERS: ATTEND Nurse Practitioner Adult Health
DX: E05.90 Thyrotoxicosis, unspecified without thyrotoxic crisis or storm (principal); Z79.899 Other long term (current) drug therapy

== ENCOUNTER → 2021-08-25 | Outpatient (REF) | payer MEDICARE, OTHER ==
[2021-08-25 10:08] LABS: MAGNESIUM LEVEL 2.3 MG/DL (1.8-2.4)
[2021-08-25 10:43] LABS: TOTAL 25(OH) VITAMIN D 20.2 NG/ML (30.0-100.0)
== END ==
LOC: SKLAB4 06:00
PROVIDERS: ATTEND Internal Medicine
DX: N18.9 Chronic kidney disease, unspecified (principal); I12.9 Hypertensive chronic kidney disease with stage 1 through stage 4 chronic kidney disease, or unspecified chronic kidney disease; Z79.899 Other long term (current) drug therapy

== ENCOUNTER → 2021-08-31 | Outpatient (REF) | payer MEDICARE, OTHER | LOC: SKLAB4 14:36 | PROVIDERS: ATTEND Internal Medicine | DX: M79.606 Pain in leg, unspecified (principal); M47.9 Spondylosis, unspecified; Z96.643 Presence of artificial hip joint, bilateral ==

== ENCOUNTER → 2021-09-16 | Outpatient (REF) | payer MEDICARE ==
[2021-09-16 10:02] LABS: HEMATOCRIT 48.3 % (42.0-52.0); HEMOGLOBIN 15.8 g/dl (13.5-17.5); MEAN CORPUSCULAR HEMOGLOBIN 31.7 pg (27.0-33.0); MEAN CORPUSCULAR HGB CONC 32.7 g/dl (32.0-36.5); RED BLOOD COUNT 4.98 10^6/uL (4.30-6.10); WHITE BLOOD COUNT 9.5 10^3/uL (4.0-10.0)
[2021-09-16 10:03] LABS: PLATELET COUNT, AUTOMATED 386 10^3/uL (150-450)
[2021-09-16 10:47] LABS: ALBUMIN 3.4 GM/DL (3.2-5.2); BILIRUBIN,TOTAL 0.6 MG/DL (0.2-1.0); CALCIUM LEVEL 9.7 MG/DL (8.8-10.2); CREATININE FOR GFR 1.79 MG/DL (0.70-1.30); GLOMERULAR FILTRATION RATE 39.1 (>35); POTASSIUM SERUM 4.4 MEQ/L (3.5-5.1); TOTAL PROTEIN 6.4 GM/DL (6.4-8.2)
== END ==
LOC: SKLAB2 07:00
PROVIDERS: ATTEND Nurse Practitioner Adult Health
DX: U07.1 COVID-19 (principal); Z79.899 Other long term (current) drug therapy

== ENCOUNTER → 2021-09-19 | Outpatient (REF) | payer MEDICARE ==
[~2021-09-19] MED LIST changes: +ACET650T15 PO; +BUSP1TAB PO; +ERGO500029 PO; +GUAI100S51 PO; +HYDR-3363 PO; +LISI10TA22 PO; +PANT40TA29 PO; +SENN-111 PO; +VENL50TA2 PO
[2021-09-19 10:34] LABS: HEMATOCRIT 49.4 % (42.0-52.0); MEAN CORPUSCULAR HEMOGLOBIN 32.1 pg (27.0-33.0); MEAN CORPUSCULAR HGB CONC 32.4 g/dl (32.0-36.5); MEAN CORPUSCULAR VOLUME 99.2 fl (80.0-96.0); PLATELET COUNT, AUTOMATED 420 10^3/uL (150-450); RED BLOOD COUNT 4.98 10^6/uL (4.30-6.10); WHITE BLOOD COUNT 8.6 10^3/uL (4.0-10.0)
[2021-09-19 11:03] LABS: ALBUMIN 3.6 GM/DL (3.2-5.2); BILIRUBIN,TOTAL 0.4 MG/DL (0.2-1.0); CALCIUM LEVEL 9.5 MG/DL (8.8-10.2); CREATININE FOR GFR 1.82 MG/DL (0.70-1.30); GLOMERULAR FILTRATION RATE 38.4 (>35); POTASSIUM SERUM 4.9 MEQ/L (3.5-5.1); TOTAL PROTEIN 7.1 GM/DL (6.4-8.2)
== END ==
LOC: SKLAB2 07:00
PROVIDERS: ATTEND Nurse Practitioner Adult Health
DX: U07.1 COVID-19 (principal); Z79.899 Other long term (current) drug therapy

== ENCOUNTER → 2021-09-22 | Outpatient (REF) | payer MEDICARE ==
[2021-09-22 10:15] LABS: MAGNESIUM LEVEL 2.4 MG/DL (1.8-2.4)
[2021-09-22 11:11] LABS: TOTAL 25(OH) VITAMIN D 34.6 NG/ML (30.0-100.0)
== END ==
LOC: SKLAB2 07:00
PROVIDERS: ATTEND Internal Medicine
DX: N18.9 Chronic kidney disease, unspecified (principal); E55.9 Vitamin D deficiency, unspecified; Z79.899 Other long term (current) drug therapy

== ENCOUNTER 2021-09-25 10:40 | Observation (INO) | payer MEDICARE ==
[~2021-09-25] VITALS: Ht 177.8 cm; Wt 84.1 kg
[~2021-09-25 10:40] MED LIST changes: -ACET650T15 PO; -BUSP1TAB PO; -ERGO500029 PO; -GUAI100S51 PO; -HYDR-3363 PO; -LISI10TA22 PO; -PANT40TA29 PO; -SENN-111 PO; -VENL50TA2 PO
[2021-09-25 12:44] LABS: HEMATOCRIT 46.6 % (42.0-52.0); HEMOGLOBIN 15.2 g/dl (13.5-17.5); MEAN CORPUSCULAR HEMOGLOBIN 31.9 pg (27.0-33.0); MEAN CORPUSCULAR HGB CONC 32.6 g/dl (32.0-36.5); MEAN CORPUSCULAR VOLUME 97.9 fl (80.0-96.0); PLATELET COUNT, AUTOMATED 338 10^3/uL (150-450); RED BLOOD COUNT 4.76 10^6/uL (4.30-6.10); WHITE BLOOD COUNT 10.2 10^3/uL (4.0-10.0)
[2021-09-25 13:03] LABS: CALCIUM LEVEL 9.4 MG/DL (8.8-10.2); CREATININE FOR GFR 1.79 MG/DL (0.70-1.30); GLOMERULAR FILTRATION RATE 39.1 (>35); POTASSIUM SERUM 5.1 MEQ/L (3.5-5.1)
[2021-09-25 13:08] LABS: MB/CK RELATIVE INDEX 4.29 (< OR =4)
[2021-09-25] MEDS ORDERED: LIDOCAINE 2% 100MG/5ML SDV (FOR ANES.) As Ordered ONE (13:54)
[2021-09-25] MEDS ORDERED: MIDAZOLAM INJ 2MG/2ML VIAL (J2250 PER 1MG) As Ordered ONE (13:54)
[2021-09-25] MEDS ORDERED: fentaNYL 100 MCG/2 ML INJECTION As Ordered ONE (13:54)
[2021-09-25] MEDS ORDERED: propofoL 200 MG/20 ML VIAL As Ordered ONE (13:54)
[2021-09-25] MEDS ORDERED: SENN-111 PO (14:00)
[2021-09-25] MEDS ORDERED: ERGO500029 PO (14:00)
[2021-09-25] MEDS ORDERED: HYDR-3363 PO (14:00)
[2021-09-25] MEDS ORDERED: BUSP1TAB PO (14:00)
[2021-09-25] MEDS ORDERED: XARE20TA PO (14:00)
[2021-09-25] MEDS ORDERED: CARV6.25 PO (14:00)
[2021-09-25] MEDS ORDERED: ACET650T15 PO (14:00)
[2021-09-25] MEDS ORDERED: LISI10TA22 PO (14:00)
[2021-09-25] MEDS ORDERED: PANT40TA29 PO (14:00)
[2021-09-25] MEDS ORDERED: VENL50TA2 PO (14:00)
[2021-09-25] MEDS ORDERED: GUAI100S51 PO (14:00)
[2021-09-25] MEDS ORDERED: HOME MED LIST COMPLETE! XX SCH (14:05)
[2021-09-25] MEDS ORDERED: MOM 30ML SUSPENSION UDC PO PRN (14:45)
[2021-09-25] MEDS ORDERED: ACETAMINOPHEN 500 MG TAB PO PRN (14:45)
[2021-09-25] MEDS ORDERED: FLEET ENEMA PR PRN (14:45)
[2021-09-25] MEDS ORDERED: BISACODYL 10 MG SUPP PR PRN (14:45)
[2021-09-25 17:30] VITALS: BP 208/112
[2021-09-25 20:15] VITALS: BP 200/104
[2021-09-25] MEDS: VENLAFAXINE 25 MG TAB PO SCH (20:42)
[2021-09-25] MEDS: RIVAROXABAN 20MG TAB (XARELTO) PO SCH ×2 (20:43→22:28)
[2021-09-25] MEDS: CARVedilol 6.25 MG TAB PO SCH (20:43)
[2021-09-25] MEDS: GABAPENTIN 300 MG CAP PO SCH (20:43)
[2021-09-25] MEDS: SENNA 8.6 MG TAB (SENOKOT) PO SCH (20:43)
[2021-09-25] MEDS ORDERED: **hydrALAZINE** 50 MG TAB PO ONE (20:45)
[2021-09-25] MEDS ORDERED: busPIRone 5 MG TAB PO SCH (21:00)
[2021-09-25] MEDS ORDERED: LR 1,000 ML IV SCH (21:35)
[2021-09-25] MEDS ORDERED: MORPHINE 2 MG/ML 1ML VIAL IV PRN (21:35)
[2021-09-25] MEDS ORDERED: ONDANSETRON 4MG 2ML VIAL IV PRN (21:35)
[2021-09-25] MEDS ORDERED: fentaNYL 100 MCG/2 ML INJECTION IV PRN (21:35)
[2021-09-25 22:15] VITALS: BP 165/102
[2021-09-25 22:45] VITALS: BP 163/99
[2021-09-25 23:45] VITALS: BP 157/96
[2021-09-26] MEDS ORDERED: OLANZapine INTRAMUSCULAR 10MG VIAL IM ONE (00:15)
[2021-09-26 05:50] VITALS: BP 163/96
[2021-09-26 06:19] LABS: HEMATOCRIT 46.3 % (42.0-52.0); HEMOGLOBIN 14.8 g/dl (13.5-17.5); MEAN CORPUSCULAR HEMOGLOBIN 31.4 pg (27.0-33.0); MEAN CORPUSCULAR VOLUME 98.1 fl (80.0-96.0); PLATELET COUNT, AUTOMATED 341 10^3/uL (150-450); RED BLOOD COUNT 4.72 10^6/uL (4.30-6.10); WHITE BLOOD COUNT 8.6 10^3/uL (4.0-10.0)
[2021-09-26 07:03] LABS: CALCIUM LEVEL 9.4 MG/DL (8.8-10.2); CREATININE FOR GFR 1.48 MG/DL (0.70-1.30); GLOMERULAR FILTRATION RATE 48.7 (>35); POTASSIUM SERUM 4.3 MEQ/L (3.5-5.1)
[2021-09-26] MEDS: VENLAFAXINE 25 MG TAB PO SCH (08:30)
[2021-09-26] MEDS: GABAPENTIN 300 MG CAP PO SCH (08:31)
[2021-09-26] MEDS: SENNA 8.6 MG TAB (SENOKOT) PO SCH (08:31)
[2021-09-26 08:32] VITALS: BP 163/96
[2021-09-26] MEDS: CARVedilol 6.25 MG TAB PO SCH (08:32)
[2021-09-26] MEDS ORDERED: AMIODARONE 200 MG TAB (PACERONE) PO SCH (09:00)
[2021-09-26] MEDS ORDERED: VITAMIN D 50,000 UNITS CAPSULE (ERGOCALCIFEROL 1.25MG) PO SCH (09:00)
[2021-09-26] MEDS ORDERED: PANTOPRAZOLE 40MG TAB (PROTONIX) PO SCH (09:00)
== END 2021-09-26 11:55 ==
LOC: M ED 10:40 → EDBD 10:40 → M ED INP 14:45 → ENRESERV 16:23 → M MS5PR 16:40
PROVIDERS: ADMIT Family Medicine; ATTEND Family Medicine
DX: T84.020A Dislocation of internal right hip prosthesis, initial encounter (principal); Y79.2 Prosthetic and other implants, materials and accessory orthopedic devices associated with adverse incidents; R29.6 Repeated falls; F03.90 Unspecified dementia, unspecified severity, without behavioral disturbance, psychotic disturbance, mood disturbance, and anxiety; I13.10 Hypertensive heart and chronic kidney disease without heart failure, with stage 1 through stage 4 chronic kidney disease, or unspecified chronic kidney disease; N18.30 Chronic kidney disease, stage 3 unspecified; I50.9 Heart failure, unspecified; I48.91 Unspecified atrial fibrillation; Z95.0 Presence of cardiac pacemaker; K21.9 Gastro-esophageal reflux disease without esophagitis; G47.33 Obstructive sleep apnea (adult) (pediatric); Z91.19 Patient's noncompliance with other medical treatment and regimen; Z91.81 History of falling; Z96.643 Presence of artificial hip joint, bilateral; Z98.49 Cataract extraction status, unspecified eye; Z90.79 Acquired absence of other genital organ(s); Z79.899 Other long term (current) drug therapy; Z79.01 Long term (current) use of anticoagulants; Z88.0 Allergy status to penicillin; Z88.8 Allergy status to other drugs, medicaments and biological substances; Z66 Do not resuscitate
CPT/HCPCS: 27266; 36415; 70450; 71045; 73501; 73502; 80048; 82550; 82553; 84484; 85027; 87428; 93005; 96372; 99284; G0378; J2250; J3010

== ENCOUNTER 2021-10-13 20:07 | Observation (INO) | payer MEDICARE ==
[~2021-10-13] VITALS: Ht 177.8 cm; Wt 96.5 kg
[~2021-10-13 20:07] MED LIST changes: +ACET650T15 PO; +BUSP1TAB PO; +ERGO500029 PO; +GUAI100S51 PO; +HYDR-3363 PO; +LISI10TA22 PO; +PANT40TA29 PO; +SENN-111 PO; +VENL50TA2 PO
[2021-10-13 21:13] LABS: BASO # 0.1 10^3/uL (0.0-0.2); BASO % 0.6 % (0.0-1.0); EOS # 0.2 10^3/uL (0.0-0.5); EOS % 2.5 % (0.0-3.0); HEMOGLOBIN 13.7 g/dl (13.5-17.5); LYMPH # 1.7 10^3/uL (1.5-5.0); LYMPH % 20.1 % (24.0-44.0); MEAN CORPUSCULAR HEMOGLOBIN 32.3 pg (27.0-33.0); MEAN CORPUSCULAR HGB CONC 32.6 g/dl (32.0-36.5); MEAN CORPUSCULAR VOLUME 99.1 fl (80.0-96.0); MONO # 0.9 10^3/uL (0.0-0.8); MONO % 10.5 % (2.0-8.0); NEUTROPHILS # 5.4 10^3/uL (1.5-8.5); NEUTROPHILS % 65.5 % (36.0-66.0); PLATELET COUNT, AUTOMATED 382 10^3/uL (150-450); RED BLOOD COUNT 4.24 10^6/uL (4.30-6.10); WHITE BLOOD COUNT 8.3 10^3/uL (4.0-10.0)
[2021-10-13 21:51] LABS: INR 2.7
[2021-10-13 21:52] LABS: PARTIAL THROMBOPLASTIN TIME 51.2 SECONDS (25.9-37.0)
[2021-10-13 22:07] LABS: CK-MB VALUE MASS 5.4 NG/ML (<3.6); MB/CK RELATIVE INDEX 5.05 (< OR =4)
[2021-10-13 22:11] LABS: CREATININE FOR GFR 1.89 MG/DL (0.70-1.30); FREE T4 1.06 NG/DL (0.76-1.46); GLOMERULAR FILTRATION RATE 36.7 (>35); POTASSIUM SERUM 4.3 MEQ/L (3.5-5.1); THYROID STIMULATING HORMONE 2.45 uIU/ML (0.358-3.740)
[2021-10-14 00:41] LABS: CK-MB VALUE MASS 5.6 NG/ML (<3.6); MB/CK RELATIVE INDEX 5.49 (< OR =4)
[2021-10-14] MEDS ORDERED: NS 0.45% 1,000 ML IV SCH (01:00)
[2021-10-14 01:19] LABS: RSV AMPLIFICATION NEGATIVE (NEGATIVE)
[2021-10-14] MEDS ORDERED: SFHHYD1CR EXT (01:53)
[2021-10-14] MEDS ORDERED: MILKSUS3 PO (01:53)
[2021-10-14] MEDS ORDERED: BUSP15TA47 PO (01:53)
[2021-10-14] MEDS ORDERED: CARV6.25 PO (01:53)
[2021-10-14] MEDS ORDERED: CARV3.12 PO (01:53)
[2021-10-14] MEDS ORDERED: TRAM50TA2 PO (01:53)
[2021-10-14] MEDS ORDERED: HOME MED LIST COMPLETE! XX SCH (01:55)
[2021-10-14 06:07] VITALS: BP 160/90
[2021-10-14] MEDS ORDERED: PILL CUTTER 1 EACH XX PRN (06:50)
[2021-10-14 08:45] VITALS: BP 150/86
[2021-10-14] MEDS ORDERED: PANTOPRAZOLE 40MG TAB (PROTONIX) PO SCH (09:00)
[2021-10-14] MEDS ORDERED: GABAPENTIN 300 MG CAP PO SCH (09:00)
[2021-10-14] MEDS ORDERED: VENLAFAXINE 25 MG TAB PO SCH (09:00)
[2021-10-14] MEDS ORDERED: AMIODARONE 200 MG TAB (PACERONE) PO SCH (09:00)
[2021-10-14] MEDS ORDERED: CARVedilol 3.125 MG TAB PO SCH (09:00)
[2021-10-14] MEDS ORDERED: ACETAMINOPHEN 650MG ER TAB (TYLENOL ARTHRITIS) PO SCH (09:00)
[2021-10-14] MEDS ORDERED: RIVAROXABAN 15MG TAB (XARELTO) PO SCH (18:00)
[2021-10-14] MEDS ORDERED: CARVedilol 6.25 MG TAB PO SCH (21:00)
[2021-10-14] MEDS ORDERED: busPIRone 5 MG TAB PO SCH (21:00)
== END 2021-10-14 11:25 | disposition home or self-care (01) ==
LOC: EDSEX 20:07 → M ED 20:07 → EDBD 20:07 → M ED INP 20:08 → M MSPAV 10-14 02:53
PROVIDERS: ADMIT Internal Medicine; ATTEND Internal Medicine Nephrology
DX: S09.90XA Unspecified injury of head, initial encounter (principal); W19.XXXA Unspecified fall, initial encounter; Y92.122 Bedroom in nursing home as the place of occurrence of the external cause; F03.90 Unspecified dementia, unspecified severity, without behavioral disturbance, psychotic disturbance, mood disturbance, and anxiety; I48.0 Paroxysmal atrial fibrillation; I49.5 Sick sinus syndrome; Z95.0 Presence of cardiac pacemaker; I13.0 Hypertensive heart and chronic kidney disease with heart failure and stage 1 through stage 4 chronic kidney disease, or unspecified chronic kidney disease; I50.30 Unspecified diastolic (congestive) heart failure; K21.9 Gastro-esophageal reflux disease without esophagitis; N18.30 Chronic kidney disease, stage 3 unspecified; K22.70 Barrett's esophagus without dysplasia; G47.33 Obstructive sleep apnea (adult) (pediatric); F41.9 Anxiety disorder, unspecified; F32.A Depression, unspecified; R26.81 Unsteadiness on feet; Z96.643 Presence of artificial hip joint, bilateral; Z87.39 Personal history of other diseases of the musculoskeletal system and connective tissue; Z86.16 Personal history of COVID-19; Z91.81 History of falling; Z79.899 Other long term (current) drug therapy; Z79.01 Long term (current) use of anticoagulants; Z79.891 Long term (current) use of opiate analgesic; Z88.8 Allergy status to other drugs, medicaments and biological substances; Z88.0 Allergy status to penicillin; Z66 Do not resuscitate
CPT/HCPCS: 70450; 71045; 72125; 73502; 80048; 82550; 82553; 84439; 84443; 84484; 85025; 85610; 85730; 87631; 93005; 93041; 94760; 96360; 96361; 99285; G0378

== ENCOUNTER → 2021-10-20 | Outpatient (REF) | payer MEDICARE ==
[~2021-10-20] MED LIST changes: +BUSP15TA47 PO; +CARV3.12 PO; +SFHHYD1CR EXT
[2021-10-20 11:39] LABS: ALBUMIN 3.4 GM/DL (3.2-5.2); BILIRUBIN,TOTAL 0.7 MG/DL (0.2-1.0); CALCIUM LEVEL 9.6 MG/DL (8.8-10.2); CREATININE FOR GFR 1.68 MG/DL (0.70-1.30); GLOMERULAR FILTRATION RATE 42.1 (>35); TOTAL PROTEIN 6.5 GM/DL (6.4-8.2)
== END ==
LOC: SKLAB4 07:00
PROVIDERS: ATTEND Internal Medicine
DX: N18.9 Chronic kidney disease, unspecified (principal)

== ENCOUNTER → 2021-11-24 | Outpatient (REF) | payer MEDICARE ==
[2021-11-24 12:57] LABS: HEMATOCRIT 43.9 % (42.0-52.0); HEMOGLOBIN 14.3 g/dl (13.5-17.5); MEAN CORPUSCULAR HEMOGLOBIN 32.3 pg (27.0-33.0); MEAN CORPUSCULAR HGB CONC 32.6 g/dl (32.0-36.5); MEAN CORPUSCULAR VOLUME 99.1 fl (80.0-96.0); PLATELET COUNT, AUTOMATED 444 10^3/uL (150-450); RED BLOOD COUNT 4.43 10^6/uL (4.30-6.10); WHITE BLOOD COUNT 7.5 10^3/uL (4.0-10.0)
[2021-11-24 13:46] LABS: CREATININE FOR GFR 1.65 MG/DL (0.70-1.30)
[2021-11-24 13:47] LABS: CALCIUM LEVEL 9.2 MG/DL (8.8-10.2); GLOMERULAR FILTRATION RATE 42.8 (>35); POTASSIUM SERUM 4.8 MEQ/L (3.5-5.1); THYROID STIMULATING HORMONE 1.5 uIU/ML (0.358-3.740)
== END ==
LOC: SKLAB4 12:17
PROVIDERS: ATTEND Nurse Practitioner Adult Health
DX: Z79.01 Long term (current) use of anticoagulants (principal); I10 Essential (primary) hypertension

== ENCOUNTER → 2021-12-21 | Outpatient (REF) | payer MEDICARE ==
[2021-12-21 09:50] LABS: TOTAL 25(OH) VITAMIN D 28.6 NG/ML (20.0-100.0)
== END ==
LOC: SKLAB4 08:35
PROVIDERS: ATTEND Nurse Practitioner Adult Health
DX: N18.9 Chronic kidney disease, unspecified (principal); I12.9 Hypertensive chronic kidney disease with stage 1 through stage 4 chronic kidney disease, or unspecified chronic kidney disease; Z79.899 Other long term (current) drug therapy

== ENCOUNTER → 2022-02-23 | Outpatient (REF) | payer MEDICARE ==
[2022-02-22 07:34] LABS: HEMATOCRIT 46.6 % (42.0-52.0); HEMOGLOBIN 15.1 g/dl (13.5-17.5); MEAN CORPUSCULAR HEMOGLOBIN 31.5 pg (27.0-33.0); MEAN CORPUSCULAR HGB CONC 32.4 g/dl (32.0-36.5); MEAN CORPUSCULAR VOLUME 97.3 fl (80.0-96.0); PLATELET COUNT, AUTOMATED 373 10^3/uL (150-450); RED BLOOD COUNT 4.79 10^6/uL (4.30-6.10)
[2022-02-22 08:03] LABS: CALCIUM LEVEL 8.8 MG/DL (8.3-10.6); CREATININE FOR GFR 1.57 MG/DL (0.70-1.30); GLOMERULAR FILTRATION RATE 45.4 (>35); POTASSIUM SERUM 4.7 MMOL/L (3.5-5.1)
== END ==
LOC: SKLAB4 09:34
PROVIDERS: ATTEND Nurse Practitioner Adult Health
DX: I10 Essential (primary) hypertension (principal); Z79.01 Long term (current) use of anticoagulants

== ENCOUNTER → 2022-03-22 | Outpatient (REF) | payer MEDICARE ==
[2022-03-22 07:40] LABS: MAGNESIUM LEVEL 2.2 MG/DL (1.8-2.4)
== END ==
LOC: SKLAB4 11:58
PROVIDERS: ATTEND Nurse Practitioner Adult Health
DX: E21.3 Hyperparathyroidism, unspecified (principal)

== ENCOUNTER 2022-04-28 23:56 | Inpatient (IN) | payer MEDICARE ==
[~2022-04-28] VITALS: Ht 177.8 cm; Wt 96.5 kg
[~2022-04-28 23:56] MED LIST changes: -DOXY100T PO; -FLEEENE12 PR; -LEVO1TAB39 PO; -LISI5TAB11 PO; -OMEP40CA4 PO; -SYST1SOL OU; -VITAD400CA PO
[2022-04-29 00:40] LABS: BASO % 0.2 % (0.0-1.0); HEMATOCRIT 42.9 % (42.0-52.0); HEMOGLOBIN 14.2 g/dl (13.5-17.5); LYMPH # 0.4 10^3/uL (1.5-5.0); LYMPH % 1.4 % (24.0-44.0); MEAN CORPUSCULAR HEMOGLOBIN 31.9 pg (27.0-33.0); MEAN CORPUSCULAR HGB CONC 33.1 g/dl (32.0-36.5); MEAN CORPUSCULAR VOLUME 96.4 fl (80.0-96.0); MONO # 1.2 10^3/uL (0.0-0.8); MONO % 4.6 % (2.0-8.0); NEUTROPHILS # 24.6 10^3/uL (1.5-8.5); NEUTROPHILS % 92.6 % (36.0-66.0); PLATELET COUNT, AUTOMATED 293 10^3/uL (150-450); RED BLOOD COUNT 4.45 10^6/uL (4.30-6.10); WHITE BLOOD COUNT 26.6 10^3/uL (4.0-10.0)
[2022-04-29 00:58] LABS: INR 3.1; PARTIAL THROMBOPLASTIN TIME 33.9 SECONDS (24.8-34.2); PROTHROMBIN TIME 32.4 SECONDS (12.5-14.5)
[2022-04-29 01:05] LABS: CALCIUM LEVEL 9.3 MG/DL (8.3-10.6); CREATININE FOR GFR 2.03 MG/DL (0.70-1.30); GLOMERULAR FILTRATION RATE 33.7 (>35); POTASSIUM SERUM 4.4 MMOL/L (3.5-5.1)
[2022-04-29 01:11] LABS: RSV AMPLIFICATION NEGATIVE (NEGATIVE)
[2022-04-29] MEDS ORDERED: NS 1,000 ML IV ONE ×2 (04:20→20:40)
[2022-04-29] MEDS ORDERED: cefTRIAXone SOD 2 GM in D5W MINI-BAG PLUS 50 ML IV ONE (06:00)
[2022-04-29] MEDS ORDERED: OMEP40CA4 PO (07:08)
[2022-04-29] MEDS ORDERED: LISI5TAB11 PO (07:08)
[2022-04-29] MEDS ORDERED: XARE20TA PO (07:08)
[2022-04-29] MEDS ORDERED: NS 1,900 ML in IV 1 EA IV ONE (07:35)
[2022-04-29] MEDS ORDERED: GABA-1171 PO (07:40)
[2022-04-29] MEDS ORDERED: SYST1SOL OU (07:40)
[2022-04-29] MEDS ORDERED: VITAD400CA PO (07:40)
[2022-04-29] MEDS ORDERED: ACET-907 PO (07:40)
[2022-04-29] MEDS ORDERED: DOXY100T PO (07:40)
[2022-04-29] MEDS ORDERED: FLEEENE12 PR (07:46)
[2022-04-29] MEDS ORDERED: LEVO1TAB39 PO (07:46)
[2022-04-29] MEDS ORDERED: HOME MED LIST COMPLETE! XX SCH (08:55)
[2022-04-29] MEDS ORDERED: ACETAMINOPHEN TAB 650MG DOSE (2X325MG) PO PRN (10:05)
[2022-04-29] MEDS ORDERED: BISACODYL 10MG SUPP PR PRN (10:05)
[2022-04-29] MEDS ORDERED: MOM 30ML SUSPENSION UDC PO PRN (10:05)
[2022-04-29] MEDS ORDERED: MEROPENEM INJ 1 GM in IV 1 EA IV SCH (10:05)
[2022-04-29] MEDS ORDERED: FLEET ENEMA PR PRN (10:05)
[2022-04-29 10:15] LABS: APPEARANCE, URINE CLEAR (CLEAR); BACTERIA, URINE AUTO 1+ (NEGATIVE); BILIRUBIN, URINE AUTO NEGATIVE (NEGATIVE); BLOOD, URINE BLOOD 2+ (NEGATIVE); COLOR, URINE YELLOW (YELLOW); GLUCOSE, URINE (UA) AUTO NEGATIVE (NEGATIVE); KETONE, URINE AUTO NEGATIVE (NEGATIVE); LEUKOCYTE ESTERASE, URINE AUTO 3+ (NEGATIVE); MUCUS, URINE SMALL (NEGATIVE); NITRITE, URINE AUTO NEGATIVE (NEGATIVE); PROTEIN, URINE AUTO 1+ mg/dL (NEGATIVE); RBC, URINE AUTO 10 /HPF (0-3); SQUAMOUS EPITHELIAL CELL UR AU 0 /HPF (0-6); UROBILINOGEN, URINE AUTO 0.2 mg/dL (0.0-2.0); WBC, URINE AUTO 61 /HPF (0-3)
[2022-04-29] MEDS ORDERED: PILL CUTTER 1 EACH XX PRN (10:45)
[2022-04-29] MEDS: OMEPRAZOLE 20MG CAP PO SCH (11:02)
[2022-04-29] MEDS: SENNA 8.6 MG TAB (SENOKOT) PO SCH ×2 (11:03→20:59)
[2022-04-29] MEDS: GABAPENTIN 100 MG CAP PO SCH ×2 (11:03→20:59)
[2022-04-29] MEDS: ACETAMINOPHEN TAB 650MG DOSE (2X325MG) PO SCH ×2 (11:03→21:01)
[2022-04-29] MEDS: CARVedilol 3.125 MG TAB PO SCH (11:04)
[2022-04-29] MEDS ORDERED: CEFEPIME HCL 1 GM in D5W MINI-BAG PLUS 50 ML IV SCH (11:25)
[2022-04-29 14:00] VITALS: BP 171/85
[2022-04-29] MEDS: NS 1,000 ML IV SCH ×2 (14:15→23:29)
[2022-04-29] MEDS: CEFEPIME HCL 1 GM in D5W MINI-BAG PLUS 50 ML IV SCH ×2 (14:21→23:26)
[2022-04-29 14:37] VITALS: BP 158/80
[2022-04-29] MEDS: VENLAFAXINE 25 MG TAB PO SCH ×2 (14:55→21:00)
[2022-04-29 14:57] LABS: HEMATOCRIT 44.3 % (42.0-52.0); MEAN CORPUSCULAR HEMOGLOBIN 31.3 pg (27.0-33.0); MEAN CORPUSCULAR HGB CONC 31.6 g/dl (32.0-36.5); MEAN CORPUSCULAR VOLUME 99.1 fl (80.0-96.0); PLATELET COUNT, AUTOMATED 256 10^3/uL (150-450); RED BLOOD COUNT 4.47 10^6/uL (4.30-6.10); WHITE BLOOD COUNT 21.1 10^3/uL (4.0-10.0)
[2022-04-29] MEDS: RIVAROXABAN 20MG TAB (XARELTO) PO SCH (17:14)
[2022-04-29 20:38] VITALS: BP 152/70
[2022-04-29] MEDS: CARVedilol 6.25 MG TAB PO SCH (21:00)
[2022-04-29] MEDS: busPIRone 5 MG TAB PO SCH (21:00)
[2022-04-29] MEDS: POLYVINYL ALCOHOL OPHTH SOLN 15ML (LIQUITEARS) OU SCH (21:01)
[2022-04-29] MEDS: lisinopriL 5 MG TAB PO SCH (21:01)
[2022-04-29 23:42] VITALS: BP 119/77
[2022-04-30 06:00] VITALS: BP 155/83
[2022-04-30 06:51] LABS: HEMOGLOBIN 12.3 g/dl (13.5-17.5); MEAN CORPUSCULAR HEMOGLOBIN 31.9 pg (27.0-33.0); MEAN CORPUSCULAR HGB CONC 32.4 g/dl (32.0-36.5); MEAN CORPUSCULAR VOLUME 98.4 fl (80.0-96.0); PLATELET COUNT, AUTOMATED 218 10^3/uL (150-450); RED BLOOD COUNT 3.86 10^6/uL (4.30-6.10); WHITE BLOOD COUNT 12.7 10^3/uL (4.0-10.0)
[2022-04-30 07:24] LABS: CALCIUM LEVEL 8.2 MG/DL (8.3-10.6); CREATININE FOR GFR 1.49 MG/DL (0.70-1.30); GLOMERULAR FILTRATION RATE 48.2 (>35); POTASSIUM SERUM 4.2 MMOL/L (3.5-5.1)
[2022-04-30] MEDS: SENNA 8.6 MG TAB (SENOKOT) PO SCH ×2 (09:34→20:43)
[2022-04-30] MEDS: GABAPENTIN 100 MG CAP PO SCH ×2 (09:34→20:43)
[2022-04-30] MEDS: POLYVINYL ALCOHOL OPHTH SOLN 15ML (LIQUITEARS) OU SCH ×2 (09:34→20:43)
[2022-04-30] MEDS: OMEPRAZOLE 20MG CAP PO SCH (09:34)
[2022-04-30] MEDS: ACETAMINOPHEN TAB 650MG DOSE (2X325MG) PO SCH ×2 (09:35→20:42)
[2022-04-30] MEDS: VENLAFAXINE 25 MG TAB PO SCH ×2 (09:35→20:42)
[2022-04-30] MEDS: CARVedilol 3.125 MG TAB PO SCH (09:38)
[2022-04-30] MEDS: CEFEPIME HCL 1 GM in D5W MINI-BAG PLUS 50 ML IV SCH ×2 (12:09→23:00)
[2022-04-30] MEDS: NS 1,000 ML IV SCH ×2 (12:09→23:00)
[2022-04-30 14:00] VITALS: BP 138/72
[2022-04-30] MEDS: RIVAROXABAN 20MG TAB (XARELTO) PO SCH (16:50)
[2022-04-30] MEDS: CARVedilol 6.25 MG TAB PO SCH (20:43)
[2022-04-30] MEDS: busPIRone 5 MG TAB PO SCH (20:43)
[2022-04-30] MEDS: lisinopriL 5 MG TAB PO SCH (20:44)
[2022-04-30 22:00] VITALS: BP 168/89
[2022-05-01] MEDS: CARVedilol 3.125 MG TAB PO SCH (05:35)
[2022-05-01 05:40] VITALS: BP 160/80
[2022-05-01 07:47] LABS: HEMATOCRIT 39.8 % (42.0-52.0); HEMOGLOBIN 13.1 g/dl (13.5-17.5); MEAN CORPUSCULAR HGB CONC 32.9 g/dl (32.0-36.5); MEAN CORPUSCULAR VOLUME 97.3 fl (80.0-96.0); PLATELET COUNT, AUTOMATED 230 10^3/uL (150-450); RED BLOOD COUNT 4.09 10^6/uL (4.30-6.10); WHITE BLOOD COUNT 11.1 10^3/uL (4.0-10.0)
[2022-05-01 08:08] LABS: CALCIUM LEVEL 8.5 MG/DL (8.3-10.6); CREATININE FOR GFR 1.27 MG/DL (0.70-1.30); GLOMERULAR FILTRATION RATE 57.9 (>35); POTASSIUM SERUM 3.9 MMOL/L (3.5-5.1)
[2022-05-01] MEDS: GABAPENTIN 100 MG CAP PO SCH ×2 (08:33→21:14)
[2022-05-01] MEDS: VENLAFAXINE 25 MG TAB PO SCH ×2 (08:34→21:13)
[2022-05-01] MEDS: OMEPRAZOLE 20MG CAP PO SCH (08:34)
[2022-05-01] MEDS: SENNA 8.6 MG TAB (SENOKOT) PO SCH ×2 (08:34→21:13)
[2022-05-01] MEDS: POLYVINYL ALCOHOL OPHTH SOLN 15ML (LIQUITEARS) OU SCH ×2 (08:35→21:12)
[2022-05-01] MEDS: ACETAMINOPHEN TAB 650MG DOSE (2X325MG) PO SCH ×2 (08:35→21:13)
[2022-05-01] MEDS ORDERED: AMIODARONE 200 MG TAB (PACERONE) PO SCH (09:00)
[2022-05-01] MEDS: CEFEPIME HCL 1 GM in D5W MINI-BAG PLUS 50 ML IV SCH (11:53)
[2022-05-01 14:00] VITALS: BP 136/80
[2022-05-01] MEDS: RIVAROXABAN 20MG TAB (XARELTO) PO SCH (16:11)
[2022-05-01] MEDS ORDERED: LevoFLOXacin 750 MG TABLET PO SCH (18:00)
[2022-05-01] MEDS: busPIRone 5 MG TAB PO SCH (21:13)
[2022-05-01] MEDS: CARVedilol 6.25 MG TAB PO SCH (21:16)
[2022-05-01] MEDS: lisinopriL 5 MG TAB PO SCH (21:17)
[2022-05-01 22:00] VITALS: BP 142/72
[2022-05-01 22:59] VITALS: BP 150/74
[2022-05-02 06:00] VITALS: BP 174/94
[2022-05-02 06:26] LABS: HEMATOCRIT 40.1 % (42.0-52.0); HEMOGLOBIN 13.3 g/dl (13.5-17.5); MEAN CORPUSCULAR HEMOGLOBIN 31.7 pg (27.0-33.0); MEAN CORPUSCULAR HGB CONC 33.2 g/dl (32.0-36.5); MEAN CORPUSCULAR VOLUME 95.5 fl (80.0-96.0); PLATELET COUNT, AUTOMATED 235 10^3/uL (150-450); WHITE BLOOD COUNT 10.3 10^3/uL (4.0-10.0)
[2022-05-02 06:35] VITALS: BP 186/106
[2022-05-02] MEDS ORDERED: hydrALAZINE 20MG/ML 1ML VIAL IV STA (06:47)
[2022-05-02 06:53] LABS: BLOOD UREA NITROGEN 19 MG/DL (9-23); CALCIUM LEVEL 8.2 MG/DL (8.3-10.6); CARBON DIOXIDE LEVEL 24 MMOL/L (20-31); CHLORIDE LEVEL 109 MMOL/L (98-107); CREATININE FOR GFR 1.18 MG/DL (0.70-1.30); GLOMERULAR FILTRATION RATE > 60.0 (>35); GLUCOSE, FASTING 106 MG/DL (74-106); POTASSIUM SERUM 3.6 MMOL/L (3.5-5.1); SODIUM LEVEL 143 MMOL/L (136-145)
[2022-05-02] MEDS ORDERED: **hydrALAZINE HCL** 25 MG TAB PO ONE (06:55)
[2022-05-02 07:44] VITALS: BP 180/100
[2022-05-02 08:34] VITALS: BP 180/106
[2022-05-02] MEDS: VENLAFAXINE 25 MG TAB PO SCH (08:34)
[2022-05-02] MEDS: ACETAMINOPHEN TAB 650MG DOSE (2X325MG) PO SCH (08:34)
[2022-05-02] MEDS: SENNA 8.6 MG TAB (SENOKOT) PO SCH (08:34)
[2022-05-02] MEDS: OMEPRAZOLE 20MG CAP PO SCH (08:34)
[2022-05-02] MEDS: POLYVINYL ALCOHOL OPHTH SOLN 15ML (LIQUITEARS) OU SCH (08:35)
[2022-05-02] MEDS: GABAPENTIN 100 MG CAP PO SCH (08:35)
[2022-05-02] MEDS ORDERED: CARVedilol 6.25 MG TAB PO SCH (09:00)
[2022-05-02 09:33] VITALS: BP 166/88
[2022-05-02] MEDS ORDERED: LISI10TA22 PO (11:04)
[2022-05-02] MEDS ORDERED: LEVO1TAB40 PO (11:04)
[2022-05-02] MEDS ORDERED: CARV6.25 PO (11:04)
== END 2022-05-02 12:34 | DRG 872 ==
LOC: M ED 23:56 → M ED INP 04-29 10:33 → ENRESERV 04-29 11:55 → M MSPAV 04-29 13:51
PROVIDERS: ADMIT Internal Medicine; ATTEND Family Medicine
DX: A41.9 Sepsis, unspecified organism (principal); I13.0 Hypertensive heart and chronic kidney disease with heart failure and stage 1 through stage 4 chronic kidney disease, or unspecified chronic kidney disease; N17.9 Acute kidney failure, unspecified; I50.32 Chronic diastolic (congestive) heart failure; N10 Acute pyelonephritis; E87.20 Acidosis, unspecified; F03.90 Unspecified dementia, unspecified severity, without behavioral disturbance, psychotic disturbance, mood disturbance, and anxiety; K21.9 Gastro-esophageal reflux disease without esophagitis; K22.70 Barrett's esophagus without dysplasia; Z79.899 Other long term (current) drug therapy; Z88.0 Allergy status to penicillin; Z88.8 Allergy status to other drugs, medicaments and biological substances; I48.91 Unspecified atrial fibrillation; G47.33 Obstructive sleep apnea (adult) (pediatric); Z91.119 Patient's noncompliance with dietary regimen due to unspecified reason; Z95.0 Presence of cardiac pacemaker; N18.9 Chronic kidney disease, unspecified; Z79.01 Long term (current) use of anticoagulants; N20.0 Calculus of kidney

== ENCOUNTER → 2022-04-28 | Outpatient (REF) | payer MEDICARE ==
[~2022-04-28] MED LIST changes: +DOXY100T PO; +FLEEENE12 PR; +LEVO1TAB39 PO; +LISI5TAB11 PO; +OMEP40CA4 PO; +SYST1SOL OU; +VITAD400CA PO
[2022-04-28 14:06] LABS: ALBUMIN 3.4 G/DL (3.2-5.2); BILIRUBIN,TOTAL 0.6 MG/DL (0.3-1.2); CALCIUM LEVEL 9.2 MG/DL (8.3-10.6); CREATININE FOR GFR 1.54 MG/DL (0.70-1.30); GLOMERULAR FILTRATION RATE 46.4 (>35); TOTAL PROTEIN 6.2 G/DL (5.7-8.2)
[2022-04-28 14:08] LABS: HEMATOCRIT 47.5 % (42.0-52.0); HEMOGLOBIN 15.5 g/dl (13.5-17.5); MEAN CORPUSCULAR HEMOGLOBIN 31.8 pg (27.0-33.0); MEAN CORPUSCULAR HGB CONC 32.6 g/dl (32.0-36.5); MEAN CORPUSCULAR VOLUME 97.3 fl (80.0-96.0); PLATELET COUNT, AUTOMATED 346 10^3/uL (150-450); RED BLOOD COUNT 4.88 10^6/uL (4.30-6.10); WHITE BLOOD COUNT 7.2 10^3/uL (4.0-10.0)
== END ==
LOC: SKLAB4 11:55
PROVIDERS: ATTEND Nurse Practitioner Adult Health
DX: R41.82 Altered mental status, unspecified (principal)

== ENCOUNTER → 2022-05-24 | Outpatient (REF) | payer MEDICARE ==
[~2022-05-24] MED LIST changes: +DOXY100T PO; +FLEEENE12 PR; +LEVO1TAB39 PO; +LEVO1TAB40 PO; +LISI5TAB11 PO; +OMEP40CA4 PO; -SENN-111 PO; +SENN-188 PO; +SYST1SOL OU; +VITAD400CA PO
[2022-05-24 08:30] LABS: HEMATOCRIT 45.4 % (42.0-52.0); HEMOGLOBIN 14.9 g/dl (13.5-17.5); MEAN CORPUSCULAR HGB CONC 32.8 g/dl (32.0-36.5); MEAN CORPUSCULAR VOLUME 97.4 fl (80.0-96.0); PLATELET COUNT, AUTOMATED 475 10^3/uL (150-450); RED BLOOD COUNT 4.66 10^6/uL (4.30-6.10); WHITE BLOOD COUNT 7.3 10^3/uL (4.0-10.0)
[2022-05-24 08:54] LABS: ALBUMIN 3.1 G/DL (3.2-5.2); BILIRUBIN,TOTAL 0.4 MG/DL (0.3-1.2); CALCIUM LEVEL 8.9 MG/DL (8.3-10.6); CREATININE FOR GFR 1.42 MG/DL (0.70-1.30); GLOMERULAR FILTRATION RATE 50.9 (>35); POTASSIUM SERUM 4.4 MMOL/L (3.5-5.1); TOTAL PROTEIN 6.2 G/DL (5.7-8.2)
== END ==
LOC: SKLAB4 09:04
PROVIDERS: ATTEND Nurse Practitioner Adult Health
DX: Z79.01 Long term (current) use of anticoagulants (principal); N18.9 Chronic kidney disease, unspecified

== ENCOUNTER → 2022-05-26 | Outpatient (REF) | payer MEDICARE ==
[~2022-05-26] MED LIST changes: +CEFT1INJ5 IM
[2022-05-26 12:52] LABS: HEMATOCRIT 45.4 % (42.0-52.0); HEMOGLOBIN 14.7 g/dl (13.5-17.5); MEAN CORPUSCULAR HEMOGLOBIN 31.7 pg (27.0-33.0); MEAN CORPUSCULAR HGB CONC 32.4 g/dl (32.0-36.5); MEAN CORPUSCULAR VOLUME 98.1 fl (80.0-96.0); PLATELET COUNT, AUTOMATED 426 10^3/uL (150-450); RED BLOOD COUNT 4.63 10^6/uL (4.30-6.10); WHITE BLOOD COUNT 10.1 10^3/uL (4.0-10.0)
[2022-05-26 13:19] LABS: CALCIUM LEVEL 9.1 MG/DL (8.3-10.6); CREATININE FOR GFR 1.97 MG/DL (0.70-1.30); GLOMERULAR FILTRATION RATE 34.9 (>35); POTASSIUM SERUM 4.5 MMOL/L (3.5-5.1)
== END ==
LOC: SKLAB4 11:54
PROVIDERS: ATTEND Nurse Practitioner Adult Health
DX: R41.82 Altered mental status, unspecified (principal)

== ENCOUNTER → 2022-05-26 | Outpatient (REF) | payer MEDICARE ==
[2022-05-26 11:03] LABS: APPEARANCE, URINE CLEAR (CLEAR); BACTERIA, URINE AUTO NEGATIVE (NEGATIVE); BILIRUBIN, URINE AUTO NEGATIVE (NEGATIVE); BLOOD, URINE BLOOD NEGATIVE (NEGATIVE); COLOR, URINE YELLOW (YELLOW); GLUCOSE, URINE (UA) AUTO NEGATIVE (NEGATIVE); KETONE, URINE AUTO NEGATIVE (NEGATIVE); LEUKOCYTE ESTERASE, URINE AUTO 1+ (NEGATIVE); MUCUS, URINE SMALL (NEGATIVE); NITRITE, URINE AUTO NEGATIVE (NEGATIVE); PROTEIN, URINE AUTO NEGATIVE (NEGATIVE); RBC, URINE AUTO 4 /HPF (0-3); SPECIFIC GRAVITY URINE AUTO 1.016 (1.002-1.035); SQUAMOUS EPITHELIAL CELL UR AU 0 /HPF (0-6); UROBILINOGEN, URINE AUTO 0.2 mg/dL (0.0-2.0); WBC, URINE AUTO 15 /HPF (0-3)
== END ==
LOC: SKLAB4 10:22
PROVIDERS: ATTEND Nurse Practitioner Adult Health
DX: R41.82 Altered mental status, unspecified (principal)

== ENCOUNTER → 2022-05-27 | Outpatient (REF) | payer MEDICARE ==
[2022-05-27 06:58] LABS: HEMATOCRIT 43.6 % (42.0-52.0); HEMOGLOBIN 14.5 g/dl (13.5-17.5); MEAN CORPUSCULAR HEMOGLOBIN 32.4 pg (27.0-33.0); MEAN CORPUSCULAR HGB CONC 33.3 g/dl (32.0-36.5); MEAN CORPUSCULAR VOLUME 97.5 fl (80.0-96.0); PLATELET COUNT, AUTOMATED 367 10^3/uL (150-450); RED BLOOD COUNT 4.47 10^6/uL (4.30-6.10); WHITE BLOOD COUNT 9.6 10^3/uL (4.0-10.0)
[2022-05-27 07:28] LABS: CALCIUM LEVEL 8.7 MG/DL (8.3-10.6); CREATININE FOR GFR 1.67 MG/DL (0.70-1.30); GLOMERULAR FILTRATION RATE 42.2 (>35); POTASSIUM SERUM 4.2 MMOL/L (3.5-5.1)
== END ==
LOC: SKLAB4 07:00
PROVIDERS: ATTEND Nurse Practitioner Adult Health
DX: N17.9 Acute kidney failure, unspecified (principal)

== ENCOUNTER 2022-05-28 11:00 | Observation (INO) | payer MEDICARE ==
[~2022-05-28 11:00] MED LIST changes: -CEFT1INJ5 IM
[2022-05-28 12:04] LABS: HEMATOCRIT 43.5 % (42.0-52.0); HEMOGLOBIN 14.2 g/dl (13.5-17.5); MEAN CORPUSCULAR HEMOGLOBIN 31.7 pg (27.0-33.0); MEAN CORPUSCULAR HGB CONC 32.6 g/dl (32.0-36.5); MEAN CORPUSCULAR VOLUME 97.1 fl (80.0-96.0); PLATELET COUNT, AUTOMATED 374 10^3/uL (150-450); RED BLOOD COUNT 4.48 10^6/uL (4.30-6.10)
[2022-05-28] MEDS ORDERED: HALOPERIDOL 5MG/ML 1ML VIAL IV ONE (12:15)
[2022-05-28 12:19] LABS: RSV AMPLIFICATION NEGATIVE (NEGATIVE)
[2022-05-28 12:27] LABS: ATYPICAL LYMPH 2 % (0-5); CK-MB VALUE MASS 14.9 NG/ML (<3.6); EOSINOPHILS 1 % (0-3); LYMPHOCYTES 13 % (16-44); MONOCYTES 6 % (0-5); NEUTROPHILS 76 % (28-66)
[2022-05-28 12:29] LABS: ALBUMIN 3.2 G/DL (3.2-5.2); BILIRUBIN,DIRECT 0.2 MG/DL (<0.4); BILIRUBIN,TOTAL 0.7 MG/DL (0.3-1.2); CALCIUM LEVEL 8.7 MG/DL (8.3-10.6); CREATININE FOR GFR 1.5 MG/DL (0.70-1.30); GLOMERULAR FILTRATION RATE 47.8 (>35); PLATELET CLUMPS SMALL AMT; PLATELET ESTIMATE NORMAL (NORMAL); POLYCHROMASIA 1+; POTASSIUM SERUM 4.5 MMOL/L (3.5-5.1); TOTAL PROTEIN 5.8 G/DL (5.7-8.2)
[2022-05-28 12:31] LABS: THYROID STIMULATING HORMONE 1.777 uIU/ML (0.55-4.78)
[2022-05-28 12:34] LABS: MB/CK RELATIVE INDEX 1.36 (< OR =4)
[2022-05-28] MEDS ORDERED: NS 1,000 ML IV ONE (13:05)
[2022-05-28] MEDS ORDERED: MOM 30ML SUSPENSION UDC PO PRN (13:40)
[2022-05-28] MEDS ORDERED: ACETAMINOPHEN TAB 650MG DOSE (2X325MG) PO PRN (13:40)
[2022-05-28] MEDS ORDERED: MAALOX 30 ML SUSP *UDC PO PRN (13:40)
[2022-05-28] MEDS ORDERED: CARV6.25 PO (14:31)
[2022-05-28] MEDS ORDERED: CEFT1INJ5 IM (14:31)
[2022-05-28] MEDS ORDERED: HOME MED LIST COMPLETE! XX SCH (14:35)
[2022-05-28] MEDS ORDERED: BISACODYL 10MG SUPP PR PRN (14:35)
[2022-05-28 14:51] LABS: MAGNESIUM LEVEL 1.9 MG/DL (1.8-2.4)
[2022-05-28] MEDS ORDERED: BISACODYL 10MG SUPP PR ONE (15:20)
[2022-05-28] MEDS ORDERED: FLEET ENEMA PR ONE (15:20)
[2022-05-28 15:46] VITALS: BP 186/80
[2022-05-28] MEDS: NS 1,000 ML IV SCH (15:57)
[2022-05-28] MEDS ORDERED: LACTULOSE 20GM/30ML SYRUP UDC PO SCH (16:45)
[2022-05-28] MEDS: LORazepam 2 MG/ML 1ML VIAL IV PRN (17:56)
[2022-05-28] MEDS ORDERED: LORazepam 2 MG/ML 1ML VIAL IV ONE (20:00)
[2022-05-28 20:59] VITALS: BP 171/91
[2022-05-28] MEDS ORDERED: RIVAROXABAN 20MG TAB (XARELTO) PO SCH (21:00)
[2022-05-28] MEDS ORDERED: DOCUSATE SODIUM 100MG CAPSULE PO SCH (21:00)
[2022-05-28] MEDS: GABAPENTIN 100 MG CAP PO SCH (21:21)
[2022-05-28] MEDS: CARVedilol 6.25 MG TAB PO SCH (21:21)
[2022-05-28] MEDS: POLYVINYL ALCOHOL OPHTH SOLN 15ML (LIQUITEARS) OU SCH (21:21)
[2022-05-28 23:27] VITALS: BP 155/95
[2022-05-29] VITALS (18 sets, daily range): BP systolic 142–168; BP diastolic 64–90; O2SAT 87–97
[2022-05-29] MEDS: RAMELTEON 8 MG TAB (ROZEREM) PO PRN (01:18)
[2022-05-29] MEDS: NS 1,000 ML IV SCH ×2 (01:19→15:56)
[2022-05-29] MEDS: LORazepam 2 MG/ML 1ML VIAL IV PRN ×2 (02:53→10:12)
[2022-05-29 06:21] LABS: BASO # 0.1 10^3/uL (0.0-0.2); BASO % 0.5 % (0.0-1.0); EOS # 0.2 10^3/uL (0.0-0.5); HEMATOCRIT 40.7 % (42.0-52.0); HEMOGLOBIN 13.3 g/dl (13.5-17.5); LYMPH # 1.3 10^3/uL (1.5-5.0); LYMPH % 10.8 % (24.0-44.0); MEAN CORPUSCULAR HEMOGLOBIN 31.8 pg (27.0-33.0); MEAN CORPUSCULAR HGB CONC 32.7 g/dl (32.0-36.5); MEAN CORPUSCULAR VOLUME 97.4 fl (80.0-96.0); MONO # 1.5 10^3/uL (0.0-0.8); MONO % 12.8 % (2.0-8.0); NEUTROPHILS # 8.6 10^3/uL (1.5-8.5); NEUTROPHILS % 73.1 % (36.0-66.0); PLATELET COUNT, AUTOMATED 334 10^3/uL (150-450); RED BLOOD COUNT 4.18 10^6/uL (4.30-6.10); WHITE BLOOD COUNT 11.7 10^3/uL (4.0-10.0)
[2022-05-29 06:47] LABS: CALCIUM LEVEL 8.7 MG/DL (8.3-10.6); CREATININE FOR GFR 1.39 MG/DL (0.70-1.30); GLOMERULAR FILTRATION RATE 52.2 (>35); MAGNESIUM LEVEL 1.8 MG/DL (1.8-2.4); POTASSIUM SERUM 4.4 MMOL/L (3.5-5.1)
[2022-05-29] MEDS ORDERED: AMIODARONE 200 MG TAB (PACERONE) PO SCH (09:00)
[2022-05-29] MEDS ORDERED: QUEtiapine FUMARATE 12.5 MG HALF-TAB PO SCH (09:00)
[2022-05-29 09:40] LABS: C REACTIVE PROTEIN QUANTITATIV 7.3 MG/DL (<1.0)
[2022-05-29] MEDS: GABAPENTIN 100 MG CAP PO SCH ×2 (09:58→21:49)
[2022-05-29] MEDS: OMEPRAZOLE 20MG CAP PO SCH (09:58)
[2022-05-29] MEDS: VITAMIN D (CHOLECALCIFEROL) 400 INTERNATIONAL UNITS TAB PO SCH (09:58)
[2022-05-29] MEDS: CARVedilol 6.25 MG TAB PO SCH ×2 (09:59→21:57)
[2022-05-29] MEDS: POLYVINYL ALCOHOL OPHTH SOLN 15ML (LIQUITEARS) OU SCH ×2 (09:59→21:57)
[2022-05-29] MEDS: lisinopriL 5 MG TAB PO SCH (09:59)
[2022-05-29] MEDS: LACTULOSE 20GM/30ML SYRUP UDC PO SCH ×2 (13:49→18:00)
[2022-05-29] MEDS ORDERED: QUEtiapine FUMARATE 12.5 MG HALF-TAB PO PRN (14:10)
[2022-05-29] MEDS: OLANZapine INTRAMUSCULAR 10MG VIAL IM PRN (18:50)
[2022-05-29] MEDS ORDERED: PARoxetine 10MG 5ML SUSP ORAL SYRINGE *DRAW UP EXACT DOSE PO SCH (21:00)
[2022-05-30] VITALS: O2SAT 97
[2022-05-30] MEDS: RAMELTEON 8 MG TAB (ROZEREM) PO PRN
[2022-05-30 00:45] VITALS: BP 162/90
[2022-05-30] MEDS: OLANZapine INTRAMUSCULAR 10MG VIAL IM PRN (02:12)
[2022-05-30] MEDS: NS 1,000 ML IV SCH ×2 (04:04→04:05)
[2022-05-30 04:05] VITALS: BP 166/86
[2022-05-30] MEDS: LACTULOSE 20GM/30ML SYRUP UDC PO SCH ×2 (06:00)
[2022-05-30 06:29] LABS: BASO # 0.1 10^3/uL (0.0-0.2); BASO % 0.5 % (0.0-1.0); EOS # 0.2 10^3/uL (0.0-0.5); EOS % 1.9 % (0.0-3.0); HEMATOCRIT 41.3 % (42.0-52.0); HEMOGLOBIN 13.2 g/dl (13.5-17.5); LYMPH # 1.3 10^3/uL (1.5-5.0); LYMPH % 11.4 % (24.0-44.0); MEAN CORPUSCULAR HEMOGLOBIN 31.7 pg (27.0-33.0); MONO # 1.5 10^3/uL (0.0-0.8); MONO % 13.3 % (2.0-8.0); NEUTROPHILS # 8.1 10^3/uL (1.5-8.5); NEUTROPHILS % 72.4 % (36.0-66.0); PLATELET COUNT, AUTOMATED 319 10^3/uL (150-450); RED BLOOD COUNT 4.17 10^6/uL (4.30-6.10); WHITE BLOOD COUNT 11.2 10^3/uL (4.0-10.0)
[2022-05-30 06:46] LABS: BLOOD UREA NITROGEN 18 MG/DL (9-23); CALCIUM LEVEL 8.8 MG/DL (8.3-10.6); CARBON DIOXIDE LEVEL 22 MMOL/L (20-31); CHLORIDE LEVEL 113 MMOL/L (98-107); CREATININE FOR GFR 1.16 MG/DL (0.70-1.30); GLOMERULAR FILTRATION RATE > 60.0 (>35); GLUCOSE, FASTING 95 MG/DL (74-106); MAGNESIUM LEVEL 1.9 MG/DL (1.8-2.4); POTASSIUM SERUM 4.3 MMOL/L (3.5-5.1); SODIUM LEVEL 145 MMOL/L (136-145)
[2022-05-30 07:22] VITALS: BP 164/62
[2022-05-30] MEDS: POLYVINYL ALCOHOL OPHTH SOLN 15ML (LIQUITEARS) OU SCH (09:00)
[2022-05-30] MEDS: OMEPRAZOLE 20MG CAP PO SCH (09:00)
[2022-05-30] MEDS: VITAMIN D (CHOLECALCIFEROL) 400 INTERNATIONAL UNITS TAB PO SCH (09:00)
[2022-05-30] MEDS ORDERED: OLANZapine INTRAMUSCULAR 10MG VIAL IM ONE (09:10)
[2022-05-30 09:16] VITALS: BP 164/62
[2022-05-30] MEDS: CARVedilol 6.25 MG TAB PO SCH (09:16)
[2022-05-30] MEDS: GABAPENTIN 100 MG CAP PO SCH (09:16)
[2022-05-30] MEDS: lisinopriL 5 MG TAB PO SCH (09:16)
[2022-05-30] MEDS ORDERED: ISOVUE-370 76% 100ML VIAL As Ordered ONE (10:43)
[2022-05-30] MEDS ORDERED: MORPHINE 10MG/0.5ML ORAL CONCENTRATE SOLUTION U/D SL PRN (11:40)
[2022-05-30] MEDS ORDERED: ONDANSETRON 4MG 2ML VIAL IV PRN (11:40)
[2022-05-30] MEDS ORDERED: ACETAMINOPHEN TAB 650MG DOSE (2X325MG) PO PRN (11:40)
[2022-05-30] MEDS ORDERED: FLEET ENEMA PR PRN (11:40)
[2022-05-30] MEDS ORDERED: HYOSCYAMINE SULFATE 0.125 MG SUBL TABLET PO PRN (11:40)
[2022-05-30] MEDS ORDERED: MORPHINE 2 MG/ML 1ML VIAL IV PRN (11:40)
[2022-05-30] MEDS ORDERED: ATROPINE SULFATE 1% OPHTH SOLN 2ML BTL SL PRN (11:40)
[2022-05-30] MEDS ORDERED: ACETAMINOPHEN 650MG SUPP PR PRN (11:40)
[2022-05-30] MEDS ORDERED: SCOPOLAMINE 1MG TRANSDERMAL PATCH TOP PRN (11:40)
[2022-05-30] MEDS: LORazepam 2 MG/ML 1ML VIAL IV PRN ×2 (11:59→13:59)
== END 2022-05-30 14:22 ==
LOC: EDBD 11:00 → M ED 11:00 → M ED INP 11:01 → ENRESERV 14:56 → M PCU 15:41
PROVIDERS: ADMIT Internal Medicine; ATTEND Internal Medicine
DX: F03.90 Unspecified dementia, unspecified severity, without behavioral disturbance, psychotic disturbance, mood disturbance, and anxiety (principal); I48.91 Unspecified atrial fibrillation; I50.32 Chronic diastolic (congestive) heart failure; I13.10 Hypertensive heart and chronic kidney disease without heart failure, with stage 1 through stage 4 chronic kidney disease, or unspecified chronic kidney disease; I49.5 Sick sinus syndrome; G47.33 Obstructive sleep apnea (adult) (pediatric); Z91.199 Patient's noncompliance with other medical treatment and regimen due to unspecified reason; E78.5 Hyperlipidemia, unspecified; N18.30 Chronic kidney disease, stage 3 unspecified; K21.9 Gastro-esophageal reflux disease without esophagitis; K22.70 Barrett's esophagus without dysplasia; R45.1 Restlessness and agitation; M62.82 Rhabdomyolysis; R94.31 Abnormal electrocardiogram [ECG] [EKG]; K59.00 Constipation, unspecified; Z91.81 History of falling; Z95.0 Presence of cardiac pacemaker; Z79.899 Other long term (current) drug therapy; Z88.0 Allergy status to penicillin; Z88.8 Allergy status to other drugs, medicaments and biological substances; Z66 Do not resuscitate
CPT/HCPCS: 36415; 70450; 71045; 72125; 72170; 74176; 80048; 80076; 81001; 82140; 82550; 82553; 83605; 83735; 84145; 84443; 84484; 85025; 86140; 87040; 87631; 87635; 93005; 93041; 94760; 96361; 96372; 96374; 96375; 96376; 99285; G0378; J1630; J2060